=== PATIENT | male | born 1950 | race Caucasian/White ===

== ENCOUNTER 2018-10-17 06:39 | Day surgery (SDC) | payer MEDICARE, SELFPAY ==
[2018-09-19 08:11] VITALS: BMI 32.2
--- NOTE | 2018-10-16 17:04 | HP.PCM_ITS ---
History and Physical Date of Admission: 10/17/18 HISTORY OF PRESENT ILLNESS 68 year old man presents for evaluation for TBSE. He has a concern about an erythematous lesion on the superior aspect left posterior ear that has increased in size over the last several months and has developed irregular borders. It occasionally bleeds when he scratches it. He denies fever. He denies major trauma but does scratch it from time to time because it itches. He denies any recent infection. He also has concerns about scattered actinic damage on his bilateral forearms. He presents today for further evaluation and treatment. PAST MEDICAL HISTORY Colon polyps Disorder of prostate Heart murmur Mixed hyperlipidemia PAST SURGICAL HISTORY blepharoplasty colonoscopy tonsillectomy ALLERGIES codeine MEDICATIONS amlodipine aspirin atorvastatin ezetimibe lisinopril imiquimod FAMILY HISTORY Mother - Diabetes Brother - Diabetes, Heart disease, CAD (coronary artery disease), Kidney disease Father - Heart disease, CAD (coronary artery disease) Grandfather - Heart disease Uncle - Heart disease Grandmother - Heart disease Other - Hypertension SOCIAL HISTORY Smoking Status: Never smoker alcohol intake: current details: COUPLE OF BEERS A DAY substance use type: does not use REVIEW OF SYSTEMS General - Denies fever, fatigue, and weight loss. Eyes - Denies cataracts and glaucoma. ENT - Denies nasal congestion and sore throat. Endocrine - Denies excessive thirst and urination. Skin - Denies skin cancer. Has enlarging lesion left posterior ear. Has scattered actinic damage bilateral forearms. Musculoskeletal - Denies joint pain, joint stiffness, weakness of muscles and joints, back pain, and arthritis. Neuro - Denies headaches. Cardiovascular - Denies chest pain, fatigue, and shortness of breath with exertion. Psych - Denies anxiety and depression. Respiratory - Denies chronic cough and shortness of breath. Gastrointestinal - Denies nausea, vomiting, diarrhea, and constipation. Hematologic - Denies abnormal bruising and bleeding. Genitourinary - Denies hematuria and urinary frequency. PHYSICAL EXAMINATION General - Alert and Oriented. HEENT - PERRL. EOMI. Throat is clear. On the superior aspect left posterior ear is an erythematous lesion that is raised in configuration. Has irregular borders. No ulceration. Lesion is nontender. It measures 7 mm. It is not adherent to the underlying cartilage. No other suspicious lesions noted. Neck - Supple and nontender. No cervical adenopathy. No suspicious lesions noted. Lungs - Clear to auscultation. Heart - Regular rate and rhythm. Abdomen - Soft and nondistended. Extremities - FROM. No axillary adenopathy. Radial pulses are palpable. Has scattered actinic damage bilateral forearms with some crusting and some erythematous skin coloration changes. No ulcerations. No nodularity. Neuro - CN II-XII grossly intact. Psych - Normal mood and affect. ASSESSMENT 1. 7 mm erythematous lesion superior aspect left posterior ear. 2. Scattered actinic damage bilateral forearms. PLAN The lesion left posterior ear could be a basal cell carcinoma or because of the history of scratching, it may represent a pyogenic granuloma that can bleed easily because of its friability. Recommend excision of this lesion left posterior ear and send it to Pathology for analysis to rule out carcinoma. If carcinoma is present then further excision will be done with probable skin grafting. If it is a possible pyogenic granuloma, a shave excision would not solve the issue of persistent bleeding if the base is left behind. So the excision will be a full thickness excision. If no carcinoma is seen on the frozen section, then reconstruction may be with a local skin flap because the defect will be smaller. Surgery will be done on an outpatient basis under local anesthesia and IV sedation. Patient was informed of the risks and complications of the procedure including alternatives to surgery. These were discussed with the patient personally. Patient voices understanding and wishes to proceed. Some of the risks and complications were included in a form from the [place] [employer]. With regard to the scattered actinic damage on his bilateral forearms, recommended to him Aldara therapy which is placed daily at night for 5 days per week for 6 weeks. After the treatment is done, will re-evaluate in 2 months. Depending on the response, a second cycle of Aldara may be necessary. If the Aldara is not successful, then excision of the lesion(s) would be necessary and send them to Pathology for analysis to rule out carcinoma. If carcinoma is present then further excision would be done, and reconstruction would be with skin grafting or skin flap. Will send script to his Pharmacy.
[2018-10-17] VITALS (7 sets, daily range): BP systolic 97–144; BP diastolic 55–70; PULSE 51–58; RESP 16; TEMP 36.1–37.1; O2SAT 95–97; BMI 32.3
--- NOTE | 2018-10-17 | LES_PTH ---
PATIENT: SHAMIKA CUEVAS LOC: [facility] [place] U#:[id number] AGE/SX: 68/M ROOM: RE10/17/[address]: Dr. Alvin Stanford MD : 1950 BED: DIS: 10/17/2018 SPEC #: [id number] RECD: 10/17/18 08:24 STATUS: YANG TERESA #: [id number] MADINA: 10/17/18 00:[address]: Alvin Stanford DEPT: SURGICAL PATHOLOGY RECD BY: Barbara Maddox ENTERED: 10/17/18 10:15 SP TYPE: Lesion OTHR DR: Dr. Vic Pete MD Tissues: Skin of external ear, NOS Procedures: Frozen Section (charge) Surgery Specimen Level IV HEADER OPERATION: Excision lesion, frozen section, possible skin graft/flap, left ear PRE-OP DIAGNOSIS: 7 mm erythematous lesion superior aspect left posterior ear TISSUE SUBMITTED: 7 mm erythematous lesion superior aspect left posterior ear sent for FS at 0818 FROZEN SECTION DIAGNOSIS 7 mm erythematous lesion superior aspect left posterior ear, biopsy: Negative for malignancy. ROMY:nya 10/17/18 MICROSCOPIC DIAGNOSIS 7 mm erythematous lesion, superior aspect left posterior ear, shave biopsy: Benign vascular proliferation, consistent with pyogenic granuloma. Negative for malignancy. ROMY:nya 10/20/18 MICROSCOPIC DESCRIPTION Slides are reviewed. GROSS DESCRIPTION Received fresh for frozen section consultation/diagnosis labeled with the patient's name is a specimen designated 7 mm erythematous lesion superior aspect left posterior ear. The specimen consists of a shave biopsy of rodriguez-white skin measuring 0.8 x 0.5 x 0.1 cm. The specimen is oriented by a suture at 12 o'clock. The specimen is inked as follows: half of the specimen towards 12 o'clock - black and other half towards 6 o'clock - blue. The specimen is bisected and submitted entirely for frozen section diagnosis in one cassette. / ROMY:nya 10/17/18 TC:5 CPT: 51255, 01047
[2018-10-17] MEDS: Mupirocin Ointment 22gm Tube 1 APPLIC (09:00)
--- NOTE | 2018-10-17 09:12 | PCM.OPRPT ---
Report of Operation Date of Procedure: 10/17/18 Pre-Operative Diagnosis: 7 mm erythematous lesion superior aspect left posterior ear. Post-Operative Diagnosis: 7 mm pyogenic granuloma superior aspect left posterior ear. Surgery/Procedure Performed:: Excision 7 mm pyogenic granuloma superior aspect left posterior ear with bilobed transposition skin flap reconstruction (4 cm2). Description of Surgical Findings:: 68 year old man presents for evaluation for TBSE. He has a concern about an erythematous lesion on the superior aspect left posterior ear that has increased in size over the last several months and has developed irregular borders. It occasionally bleeds when he scratches it. He denies fever. He denies major trauma but does scratch it from time to time because it itches. He denies any recent infection. He also has concerns about scattered actinic damage on his bilateral forearms. Patient was informed of the risks and complications of the procedure including alternatives to surgery. These were discussed with the patient personally. Patient voices understanding and wishes to proceed. Some of the risks and complications were included in a form from the [employer] [employer]. Frozen section left posterior ear - pyogenic granuloma and no carcinoma seen. 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 Specimen's removed: Erythematous lesion superior aspect left posterior ear to Pathology as a frozen section. Drains: None. Estimated Blood Loss (mL): 5 ml. Description of Procedure: Patient was taken to OR in supine position and was given IV sedation. The left ear was prepped and draped in the usual fashion. SCD's were placed for DVT prophylaxis. Perioperative antibiotics were given intravenously. The left ear was infiltrated with xylocaine and epinephrine as a regional periauricular block. After waiting 5 minutes for the anesthetic to take effect, I excised the lesion superior aspect left posterior ear into the subcutaneous tissue. The lesion was excised with a one mm margin in all directions making it a 9 mm excision. I placed a suture at 12 oclock position for pathology orientation. The lesion was sent to Pathology as a frozen section for analysis to rule out carcinoma. Frozen section showed a pyogenic granuloma or hemangioma and no carcinoma seen. Therefore no additional margin will be taken. So wound closure can proceed with a local bilobed transposition skin flap. The bilobed flap was designed on the left posterior ear at a 90 degree angle. Incisions were made and the flap was elevated at the level of the underlying perichondrium. Hemostasis was obtained with electrocautery. The bilobed flap was easily transposed into the defect with minimal tension and minimal distortion. Good ear contour was noted. Once the flap was transposed into the defect, the incisions were closed with 5-0 Monocryl simple interrupted and vertical mattress interrupted sutures. Antibiotic ointment was applied to the suture line followed by a small gauze dressing. The size of the defect and the size of the flap needed to close the defect was 4 cm2. Patient tolerated the procedure well and was sent to PACU in satisfactory condition. Patient will be sent home on antibiotics and pain medication. He will keep his head elevated during the initial postop period. Patient will followup in a week for a wound check and for discussion of the pathology report. Grafts/Implants Used: None. - Complications None. - Admit VTE Documentation VTE Present on Admission: No VTE Mechan Device Prophylaxis: SCD's VTE Pharm Prophylaxis ordered?: No Code Visit Surgery Charges CPT - 02190 ICD-10 - L98.0, D49.2 79684 L98.0, D49.2
--- NOTE | 2018-10-17 09:21 | PCM.DC ---
You will use the following diet at home:: No restrictions Discharge Activity: May not drive while taking narcotic pain medications., May Shower - in two days., - - keep head elevated. no heavy lifting. May shower in (days): 2 May resume sexual activity in: No Restrictions Weight Bearing Status: Weight bearing as tolerated Lifting Restrictions: 20 lbs. Keep extremity elevated above heart level: - - elevate head. Call your doctor if your incision/area has: Continuous Slow Oozing, Sudden Increased Bleeding, Increased Pain/ Swelling, Increased Redness, Foul Smelling Discharge, Swelling at the incision site Call your doctor if you observe: Fever of 101 or Higher, Coldness, Increased Pain, Shortness of breath, Chest pain, Calf discomfort, Uncontrolled pain Suture Line Care: - - apply antibiotic ointment to suture line daily. Remove Dressing in (days):: 1 - antibiotic ointment daily. Cleanse incision/area with: - - may get incision wet in the shower in two days. Allergies/Adverse Reactions: Allergies codeine Allergy (Verified 10/13/18 13:46) INTOLERANCE GETS REALLY HIGH Medications to take at Discharge amlodipine 10 mg tablet 10 mg PO DAILY 08/18/18 atorvastatin 20 mg tablet 20 mg PO DAILY 08/18/18 ezetimibe 10 mg tablet 10 mg PO DAILY 08/18/18 lisinopril 20 mg tablet 20 mg PO DAILY 08/18/18 Clindamycin HCl [Cleocin] 300 mg PO TID #12 cap 10/17/18 Lactobacillus Acidophilus/Fos [Acidophilus Probiotic Tablet] 1 ea PO BID #10 tab 10/17/18 Oxycodone HCl/Acetaminophen [Percocet 5/325] 1 tab PO 4X/DAY PRN PRN 4 Days #15 tab 10/17/18 The following prescriptions were given: Oxycodone HCl/Acetaminophen [Percocet 5/325] 1 tab PO 4X/DAY PRN PRN 4 Days #15 tab PRN Reason: Pain Lactobacillus Acidophilus/Fos [Acidophilus Probiotic Tablet] 1 ea PO BID #10 tab Clindamycin HCl [Cleocin] 300 mg PO TID #12 cap Primary Care Physician: Vic Pete MD [Primary Care Provider] - Test Results: Test results from this visit will be discussed in further detail at your follow-up appointment, if applicable. Please Follow Up With: Avlin Stanford MD When: one week. call [phone] for appt. Proposed Discharge Date: 10/17/18
--- NOTE | 2018-10-17 09:24 | DCINST_ITS ---
You will use the following diet at home:: No restrictions Discharge Activity: May not drive while taking narcotic pain medications., May Shower - in two days., - - keep head elevated. no heavy lifting. May shower in (days): 2 May resume sexual activity in: No Restrictions Weight Bearing Status: Weight bearing as tolerated Lifting Restrictions: 20 lbs. Keep extremity elevated above heart level: - - elevate head. Call your doctor if your incision/area has: Continuous Slow Oozing, Sudden Increased Bleeding, Increased Pain/ Swelling, Increased Redness, Foul Smelling Discharge, Swelling at the incision site Call your doctor if you observe: Fever of 101 or Higher, Coldness, Increased Pain, Shortness of breath, Chest pain, Calf discomfort, Uncontrolled pain Suture Line Care: - - apply antibiotic ointment to suture line daily. Remove Dressing in (days):: 1 - antibiotic ointment daily. Cleanse incision/area with: - - may get incision wet in the shower in two days. Allergies/Adverse Reactions: Allergies codeine Allergy (Verified 10/13/18 13:46) INTOLERANCE GETS REALLY HIGH Medications to take at Discharge amlodipine 10 mg tablet 10 mg PO DAILY 08/18/18 atorvastatin 20 mg tablet 20 mg PO DAILY 08/18/18 ezetimibe 10 mg tablet 10 mg PO DAILY 08/18/18 lisinopril 20 mg tablet 20 mg PO DAILY 08/18/18 Clindamycin HCl [Cleocin] 300 mg PO TID #12 cap 10/17/18 Lactobacillus Acidophilus/Fos [Acidophilus Probiotic Tablet] 1 ea PO BID #10 tab 10/17/18 Oxycodone HCl/Acetaminophen [Percocet 5/325] 1 tab PO 4X/DAY PRN PRN 4 Days #15 tab 10/17/18 The following prescriptions were given: Oxycodone HCl/Acetaminophen [Percocet 5/325] 1 tab PO 4X/DAY PRN PRN 4 Days #15 tab PRN Reason: Pain Lactobacillus Acidophilus/Fos [Acidophilus Probiotic Tablet] 1 ea PO BID #10 tab Clindamycin HCl [Cleocin] 300 mg PO TID #12 cap Primary Care Physician: Vic Pete MD [Primary Care Provider] - Test Results: Test results from this visit will be discussed in further detail at your follow- up appointment, if applicable. Please Follow Up With: Alvin Stanford MD When: one week. call [phone] for appt. Proposed Discharge Date: 10/17/18
--- NOTE | 2018-10-17 09:33 | PCM.WORK.EX ---
Work/School Excuse Work/School Excuse for:: Patient Please excuse this person from:: Work From: 10/17/18 through: 10/19/18 Restrictions: Other - May return to work on Saturday10/20/18
== END 2018-10-17 10:20 | disposition home or self-care (01) ==
LOC: SDC 06:42 → AC 06:43
PROVIDERS: Family Provider Family Medicine; PCP Family Medicine; Referring Provider Surgery; Visit Provider Surgery
PROC: (CPT 14060; principal; 2018-10-17 07:45)
DX: L98.0 Pyogenic granuloma (principal); I10 Essential (primary) hypertension; E78.2 Mixed hyperlipidemia; Z79.82 Long term (current) use of aspirin; Z79.899 Other long term (current) drug therapy; Z88.5 Allergy status to narcotic agent; Z86.010 Personal history of colon polyps
CPT/HCPCS: 00300; 14060; 88305; 88331; J7120; A4216; J2405

== ENCOUNTER → 2024-12-31 | Outpatient (CLI) | payer MEDICARE, SELFPAY ==
--- NOTE | 2024-12-31 | LES_PTH ---
PATIENT: SHAMIKA CUEVAS LOC: [facility] U#:[id number] AGE/SX: 74/M ROOM: RE12/31/[address]: Dr. Elias Coker MD : 1950 BED: DIS: 12/31/2024 SPEC #: [id number] RECD: 01/01/25 06:08 STATUS: YANG WESTBROOKKathya #: [id number] MADINA: 12/31/24 00:[address]: Elias Coker DEPT: SURGICAL PATHOLOGY RECD BY: Tao Cowart ENTERED: 01/01/25 09:49 SP TYPE: Lesion OTHR DR: Dr. Vic Pete MD Tissues: A - Skin of face, NOS B - Skin of face, NOS C - Scalp, NOS Procedures: Surgery Specimen Level IV HEADER OPERATION: Biopsy right cheek, biopsy back of head PRE-OP DIAGNOSIS: Biopsies of right cheek and back of head TISSUE SUBMITTED: A- #1 right cheek lesion, B- #2 right cheek lesion, C- Scalp lesion MICROSCOPIC DIAGNOSIS A. Cheek, right, lesion, biopsy: - Basal cell carcinoma involving the surgical margins. B. Cheek, right, lesion, biopsy: - Basal cell carcinoma involving the surgical margins. C. Scalp, lesion, biopsy: - Superficial portion of a keratotic lesion - see note. Note: The lesion is incompletely excised which limits the assessment. Neoplasia cannot be ruled out. Repeat biopsy for additional diagnostic material is suggested, if clinically indicated. MICROSCOPIC DESCRIPTION Slides are reviewed. GROSS DESCRIPTION Received in 3 formalin containers labeled with the patient's name and date of . Designated as: A. #1 Right cheek lesion is a 0.6 x 0.3 x 0.1 cm rodriguez skin shave devoid of orientation. Resection margin is inked black. Eccentrically on the epidermal surface is a 0.3 x 0.2 x 0.1 cm rodriguez, slightly raised apparent lesion abutting the peripheral edge. The specimen is trisected and entirely submitted in 1 cassette. B. #2 Right cheek lesion is a 0.6 x 0.5 x 0.2 cm rodriguez irregular and somewhat friable portion of skin devoid of orientation. The presumed resection margin is inked green. The specimen is biseccted and entirely submitted in 1 cassette. C. Scalp lesion is a 0.4 x 0.2 x 0.1 cm rodriguez and granular portion of skin devoid of orientation. A resection margin is unable to be determined grossly. The specimen is entirely submitted in [address] 01/01/2025 CPT:45286d2
--- OUTSIDE RECORDS SUMMARY | 2025-01-01 06:20 | XMS RPT_ITS | CCD ---
Demographics Address [address] [address] Preferred Language en Marital Status Single Restoration Affiliation Unknown Race White Ethnic Group Not or Lati no Author Organization [facility] Care Team Providers Care Intelligence Research Specialist Name Role Phone Vic Parra MD Primary Care Provider [phone] Vic Parra MD Primary Care Provider [facility] [employer] MEMBER.Leah GONZALEZ Unavailable Jyotsna Siu PA-C Unavailable Mars [employer]EOROLOG[employer] FACULT[employer] MEMBER.Leah GONZALEZ Unavailable Jyotsna Siu PA-C Unavailable VIC PARRA Primary Care Unavailable JYOTSNA SIU Referring Unavailable VIC PARRA Referring Unavailable VIC PARRA Primary Care Unavailable VIC PARRA Attending Unavailable VIC PARRA Primary Care Unavailable VIC PARRA Referring Unavailable VIC PARRA Primary Care Unavailable VIC PARRA Primary Care Unavailable JYOTSNA SIU Attending Unavailable VIC PARRA Primary Care Unavailable SELF Referring Unavailable Dr. Vic Parra MD Primary Care Provider Dr. Vic Parra MD Referring Provider Dr. Elias Coker MD Attending Provider [phone] Vic Parra Referring Unavailable Vic Parra Primary Care Unavailable Elias Coker Attending Unavailable Allergies Allergy Classification Reported Allergen(s) Allergy Type Date of Onset Reaction(s) Facility (20 sources) Codeine; Translations: [CODEINE] Drug Allergy 12-13-2015 Intolerance [facility] Work Phone: Comment on above: GETS REALLY HIGH (1 source) Codeine Drug Allergy 12-31-2024 [facility] Repository Medications Current Medications Medication Drug Class(es) Dates Sig (Normalized) Sig (Original) amLODIPine 10 mg oral tablet (20 sources) Dihydropyridine Calcium Channel [facility] Start: 10-12-2024 take 1 tablet by mouth once daily amLODIPine (NORVASC) 10 mg tablet Take 1 tablet by mouth once daily. 90 tablet 1 10/12/2024 Active Start: 04-06-2024 End: 10-10-2024 take 1 tablet by mouth once daily amLODIPine (NORVASC) 10 mg tablet Take 1 tablet by mouth once daily. 90 tablet 1 04/06/2024 10/10/2024 Discontinued Start: 10-05-2022 End: 04-04-2024 take 1 tablet by mouth once daily amLODIPine (NORVASC) 10 mg tablet Take 1 tablet by mouth once daily. 90 tablet 1 10/16/2023 04/04/2024 Discontinued Start: 10-02-2021 End: 04-01-2022 take 1 tablet by mouth once daily amLODIPine (NORVASC) 10 mg tablet Take 1 tablet by mouth once daily. 90 tablet 1 04/02/2022 Active Start: 03-28-2021 End: 09-30-2021 take 1 tablet by mouth once daily amLODIPine (NORVASC) 10 mg tablet Take 1 tablet by mouth once daily. 90 tablet 1 03/28/2021 09/30/2021 Discontinued Start: 08-18-2018 End: 09-24-2020 take 1 tablet by mouth once daily amLODIPine (NORVASC) 10 mg tablet Take 1 tablet by mouth once daily. 90 tablet 1 02/17/2020 09/24/2020 Discontinued Comment on above: Take 1 tablet by mónica th once daily. amoxicillin 875 mg / clavulanate 125 mg oral tablet (1 source) Penicillin-class Antibacterial Start: 07-12-2022 End: 07-22-2022 take 1 tablet by mouth twice daily amoxicillin-clav ulanic acid (AUGMENTIN) 875-125 mg per tablet Take 1 tablet by mouth twice daily for 10 days. 20 tablet 0 07/12/2022 07/22/2022 Active Comment on above: Take 1 tablet by mónica th twice daily for 10 days. aspirin 81 mg delayed release oral tablet (20 sources) Platelet Aggregation Inhibitor, Nonsteroidal Anti-inflammatory Drug Start: 12-31-2024 Aspirin (Adult Low Dose Aspirin) 81 mg tablet,delayed release (DR/EC) Active 81 mg PO daily December 31, 2024 12:00am Start: 08-01-2018 End: 10-17-2018 take 1 tablet by mouth once daily Aspirin 81 mg tablet,delayed release (DR/EC) Discontinued 81 mg PO DAILY August 18, 2018 12:00am October 17, 2018 9:19am Comment on above: Take 1 tablet by mónica th once daily. atorvastatin 20 mg oral tablet (20 sources) HMG-CoA Reductase Inhibitor Start: End: take 1 tablet by mouth once daily atorvastatin (LIPITOR) 20 mg tablet Take 1 tablet by mouth once daily. 90 tablet 1 11/24/2024 Active Start: 10-31-2022 End: 05-15-2023 take 1 tablet by mouth once daily atorvastatin (LIPITOR) 20 mg tablet Take 1 tablet by mouth once daily. 90 tablet 1 05/15/2023 Active Start: 04-07-2021 End: 04-18-2022 take 1 tablet by mouth once daily atorvastatin (LIPITOR) 20 mg tablet Take 1 tablet by mouth once daily. 90 tablet 1 04/18/2022 Active Start: 08-18-2018 End: 09-24-2020 take 1 tablet by mouth once daily atorvastatin (LIPITOR) 20 mg tablet Take 1 tablet by mouth once daily. 90 tablet 1 02/17/2020 09/24/2020 Discontinued Comment on above: Take 1 tablet by mónica th once daily. benzonatate 100 mg oral capsule (1 source) Non-narcotic Antitussive Start: 06-10-19 End: 06-20-19 take 2 capsules by mouth three times daily as needed benzonatate (TESSALON PERLE) 100 mg capsule Indications: Viral bronchitis Take 2 capsules by mouth three times a day as needed for up to 10 days. 60 capsule 2024 06/20/2024 Active ciprofloxacin 3 mg/ml ophthalmic solution (1 source) Quinolone Antimicrobial Start: 07-12-19 End: 07-19-19 take 5 mL into the eye(s) four times daily ciprofloxacin HCl (CILOXAN) 0.3 % ophthalmic solution Indications: Eye irritation , Pain and swelling of eyelid 4 times per day for 7 days 5 mL 0 07/12/2022 07/19/2022 Active Comment on above: 4 times per day for 7 days Comp Stocking,Knee,Regular ,Med misc (20 sources) Start: 11-20-19 Comp Stocking,Knee,Regula r,Med misc Indications: Venous insufficiency (chronic) (peripheral) Knee High Compression Stockings 20-30 mm, DX: Venous insufficiency 187.2 8 Each 11/20/2023 Active Start: 11-20-2023 Comp Stocking, Knee,Regular,Med misc Indications: Venous insufficiency (chronic) (peripheral) Knee High Compression Stockings 20-30 mm, DX: Venous insufficiency 187.2 8 Each 0 11/20/2023 Active Start: 08-12-2019 End: 11-20-2023 Comp Stocking,Knee,Regular,M ed misc Indications: Venous insufficiency (chronic) (peripheral) Knee High Compression Stockings 20-30 mm, DX: Venous insufficiency 187.2 8 Each 08/12/2019 11/20/2023 Discontinued Start: 08-12-2019 End: 11-20-2023 Comp Stocking,Knee,Regular,M ed misc Indications: Venous insufficiency (chronic) (peripheral) Knee High Compression Stockings 20-30 mm, DX: Venous insufficiency 187.2 8 Each 0 08/12/2019 11/20/2023 Discontinued Start: 08-12-2019 Comp Stocking, Knee,Regular,Med misc Indications: Venous insufficiency (chronic) (peripheral) Knee High Compression Stockings 20-30 mm, DX: Venous insufficiency 187.2 8 Each 0 08/12/2019 Active Comment on above: Knee High Compressio n Stockings 20-30 mm, DX: Venous insufficiency 187.2 COMPOUNDED PRESCRIPTION (20 sources) Start: 01-27-2018 COMPOUNDED PRESCRIPTION Indications: Venous insufficiency (chronic) (peripheral) Knee High Compression Stockings 20-30 mm, DX: Venous insufficiency 8 Each 01/27/2018 Active Start: 01-27-2018 COMPOUNDED PRE SCRIPTION Indications: Venous insufficiency (chronic) (peripheral) Knee High Compression Stockings 20-30 mm, DX: Venous insufficiency 8 Each 0 01/27/2018 Active Comment on above: Knee High Compressio n Stockings 20-30 mm, DX: Venous insufficiency ezetimibe 10 mg oral tablet (20 sources) Dietary Cholesterol Absorption Inhibitor Start: 3 End: 5 take 1 tablet by mouth once daily ezetimibe (ZETIA) 10 mg tablet Indications: Mixed hyperlipidemia Take 1 tablet by mouth once daily. 90 tablet 1 11/11/2024 Active Start: 04-07-2021 End: 10-21-2022 take 1 tablet by mouth once daily ezetimibe (ZETIA) 10 mg tablet Indications: Mixed hyperlipidemia Take 1 tablet by mouth once daily. 90 tablet 1 10/22/2022 Active Start: 08-18-2018 End: 09-24-2020 take 1 tablet by mouth once daily ezetimibe (ZETIA) 10 mg tablet Indications: Mixed hyperlipidemia Take 1 tablet by mouth once daily. 90 tablet 1 02/17/2020 09/24/2020 Discontinued Comment on above: Take 1 tablet by mónica th once daily. lisinopril 20 mg oral tablet (20 sources) Angiotensin Converting Enzyme Inhibitor Start: 05-27-2023 End: 11-24-2024 take 1 tablet by mouth once daily lisinopril (ZESTRIL) 20 mg tablet Take 1 tablet by mouth once daily. 90 tablet 1 11/24/2024 Active Start: 10-31-2022 End: 05-15-2023 take 1 tablet by mouth once daily lisinopril (ZESTRIL) 20 mg tablet Take 1 tablet by mouth once daily. 90 tablet 1 05/15/2023 Active Start: 04-07-2021 End: 04-18-2022 take 1 tablet by mouth once daily lisinopril (ZESTRIL, PRINIVIL) 20 mg tablet Take 1 tablet by mouth once daily. 90 tablet 1 04/18/2022 Active Start: 08-18-2018 End: 09-24-2020 take 1 tablet by mouth once daily lisinopril (ZESTRIL, PRINIVIL) 20 mg tablet Take 1 tablet by mouth once daily. 90 tablet 1 02/17/2020 09/24/2020 Discontinued Comment on above: Take 1 tablet by mónica th once daily. mupirocin 0.02 mg/mg topical ointment (7 sources) RNA Synthetase Inhibitor Antibacterial Start: mupirocin (BACTROBAN) 2 % ointment Apply to affected area three times a day. 15 g 05/21/2024 Active polyethylene glycol 3350 927132 mg / potassium chloride 2970 mg / sodium bicarbonate 6740 mg / sodium chloride 5860 mg / sodium sulfate 88514 mg powder for oral solution (1 source) Osmotic Laxative Start: 2 End: 2 peg 3350-Electrolytes (GOLYTELY) 236-22.74-6.74 -5.86 gram suspension Take 4,000 mL by mouth one time only for 1 dose. 1 Each 0 11/08/2021 11/08/2021 Active Comment on above: Take 4,000 mL by mónica th one time only for 1 dose. predniSONE 20 mg oral tablet (2 sources) Start: 5 End: 5 take 2 tablets by mouth once daily predniSONE (DELTASONE) 20 mg tablet Indications: Viral bronchitis Take 2 tablets by mouth once daily for 4 days. 8 tablet 2024 06/14/2024 Active Start: 04-27-2020 End: 10-06-2020 take 3 tablets by mouth once daily predniSONE (DELTASONE) 20 mg tablet Indications: Right shoulder pain, unspecified chronicity 3 tabs a day by mouth for the next 5 days 15 tablet 04/27/2020 10/06/2020 Discontinued (Course of therapy completed) Completed/Discontinued Medications Medication Drug Class(es) Dates Sig (Normalized) Sig (Original) acetaminophen 325 mg / oxyCODONE hydrochloride 5 mg oral tablet (1 source) Opioid Agonist Start: 10-17-2018 End: 10-21-2018 Oxycodone-Acetamino phen 1 TABLET tablet Discontinued 1 {tbl} PO 4 TIMES DAILY NEEDED as needed for Pain 15 4 0 October 17, 2018 9:19am October 20, 2018 12:00am October 21, 2018 12:07am Other acute postprocedural pain 15 tabs (fifteen) clindamycin 300 mg oral capsule (1 source) Lincosamide Antibacterial Start: 10-17-2018 End: 12-31-2024 take 1 capsule by mouth three times daily Clindamycin Hcl 300 MG capsule Discontinued 300 mg PO THREE TIMES A DAY 12 October 17, 2018 12:00am December 31, 2024 8:22am ketorolac tromethamine 4 mg/ml ophthalmic solution (13 sources) Nonsteroidal Anti-inflammatory Drug, Cyclooxygenase Inhibitor End: 11-24-2024 keTORolac Tromethamine (ACLUAR LS) 0.4 % drop Use 1 Drop in the left eye four times daily. 11/24/2024 Discontinued (Course of therapy completed) Comment on above: Use 1 Drop in the le ft eye four times daily. Lactobac Acidoph-Fructooligo s 1 EACH tablet (1 source) Start: 10-17-2018 End: 12-31-2024 Lactobac Acidoph-Fructooligo s 1 EACH tablet Discontinued 1 NMA PO TWICE A DAY 10 October 17, 2018 12:00am December 31, 2024 8:22am prednisoLONE acetate, PF, 1 % drps (13 sources) End: 11-24-2024 prednisoLONE acetate, PF, 1 % drps Use in eyes. 11/24/2024 Discontinued (Course of therapy completed) prednisoLONE saranya bateman, PF, 1 % drps Use in eyes. Active prednisoLONE saranya bateman, PF, 1 % drps Use in eyes. 0 Active Comment on above: Use in eyes. Problems Active Problems Problem Classification Problem Date Documented Date Episodic/Chronic Acute bronchitis (1 source) Viral bronchitis; Translations: [Acute bronchitis due to other specified organisms] 2024 Episodic Administrative/social admission (20 sources) Advance directive discussed with patient; Translations: [Other specified counseling] Onset: 10-11-2021 Episodic Disorders of lipid metabolism (20 sources) Mixed hyperlipidemia; Translations: [Mixed hyperlipidemia] Onset: 09-26-2015 10-22-2015 Chronic Diverticulosis and diverticulitis (20 sources) Diverticular disease; Translations: [Diverticulosis of intestine, part unspecified, without perforation or abscess without bleeding] 02-04-2019 Chronic Essential hypertension (20 sources) Essential hypertension; Translations: [Essential (primary) hypertension] Onset: 09-26-2015 10-22-2015 Chronic Hemorrhoids (20 sources) Hemorrhoids; Translations: [Unspecified hemorrhoids] 02-04-2019 Episodic Immunizations and screening for infectious disease (2 sources) Vaccination needed; Translations: [Encounter for immunization] Onset: 11-24-2024 11-20-2023 Episodic Neoplasms of unspecified nature or uncertain behavior (4 sources) Neoplasm of uncertain behavior of skin of neck; Translations: [Neoplasm of uncertain behavior of skin] Onset: 11-24-2024 11-24-2024 Episodic Comment on above: 7 mm erythematous le erika superior aspect left posterior ear Other diseases of veins and lymphatics (1 source) Peripheral venous insufficiency; Translations: [Venous insufficiency (chronic) (peripheral)] 11-20-2023 Episodic Other eye disorders (1 source) Disorder of eye; Translations: [Other specified disorders of eye and adnexa] Episodic Other eye disorders (1 source) Swelling of eyelid; Translations: [Other specified disorders of eyelid] Episodic Other hereditary and degenerative nervous system conditions (20 sources) Essential tremor; Translations: [Essential tremor] Onset: 04-07-2021 04-07-2021 Chronic Other hereditary and degenerative nervous system conditions (1 source) Essential tremor; Translations: [Essential tremor] Onset: 04-07-2021 Chronic Other non-traumatic joint disorders (1 source) Pain in right shoulder; Translations: [Pain in joint, shoulder region] 04-27-2020 Episodic Other nutritional; endocrine; and metabolic disorders (1 source) Hypocalcemia; Translations: [Hypocalcemia] 11-24-2024 Chronic Other nutritional; endocrine; and metabolic disorders (1 source) Hypocalcemia; Translations: [Hypocalcemia] Onset: 11-24-2024 Chronic Other skin disorders (20 sources) Actinic keratosis; Translations: [Actinic keratosis] Onset: 02-04-2019 06-06-2021 Episodic Comment on above: scattered actinic da mage bilateral forearms Other skin disorders (1 source) Pyogenic granuloma of skin; Translations: [Pyogenic granuloma] 10-19-2018 Episodic Comment on above: 7 mm pyogenic granul russell superior aspect left posterior ear Other upper respiratory infections (1 source) Viral upper respiratory tract infection; Translations: [Acute upper respiratory infection, unspecified] 2024 Episodic Screening and history of mental health and substance abuse codes (2 sources) Encounter for screening examination for other mental health and behavioral disorders; Translations: [Encounter for screening for depression] Onset: 11-24-2024 Episodic Past or Other Problems Problem Classification Problem Date Documented Da te Episodic/Chronic Diabetes mellitus without complication (20 sources) Hyperglycemia; Translations: [Impaired fasting glucose] Onset: 11-09-2015 11-09-2015 Episodic Other and unspecified benign neoplasm (20 sources) History of polyp of colon; Translations: [Personal history of colonic polyps] Onset: 10-26-2015 10-26-2015 Episodic Other connective tissue disease (9 sources) Biceps tendinitis; Translations: [Bicipital tendinitis, right shoulder] Onset: 05-11-2020 05-11-2020 Episodic Other infections; including parasitic (15 sources) History of herpes zoster; Translations: [Personal history of other infectious and parasitic diseases] Onset: 10-31-2022 10-31-2022 Episodic Other male genital disorders (20 sources) Disorder of prostate; Translations: [Disorder of prostate, unspecified] Onset: 07-11-2016 07-11-2016 Episodic Other non-traumatic joint disorders (9 sources) Shoulder pain; Translations: [Pain in right shoulder] Onset: 05-11-2020 05-11-2020 Episodic Other screening for suspected conditions (not mental disorders or infectious disease) (20 sources) Patient encounter status; Translations: [Encounter for screening for malignant neoplasm of prostate] Onset: 10-22-2015 10-22-2015 Episodic Residual codes; unclassified (20 sources) Family history of coronary arteriosclerosis; Translations: [Family history of ischemic heart disease and other diseases of the circulatory system] Onset: 09-26-2015 10-22-2015 Episodic Residual codes; unclassified (20 sources) Active living will ; Translations: [Other specified health status] Onset: 10-11-2021 Episodic Results Test Name Value Interpretation Reference Range Facility [facility] 11-24-2024 CNOV Office Visit (FAMPWS ) SHAMIKA DONAHUE ([id number]) 1950 M Date Time Provider Department 11/24/24 8:00 AM [facility] During your visit today, we recorded the following information about you: Pulse Respiration Blood pressure Weight 66/minute 16/minute 126/72 89.8 kg Height 1.683 m Vic Parra MD 11/24/2024 7:21 PM Signed Shamika Donahue is a 74 year old male here for a Medicare wellness visit. Medicare Health Risk Assessment General Health Very good Exercise: Minutes/Day 0 min Exercise: Days/Week 0 days Alcohol: Daily Use 4 or more times a week Alcohol: Drinks/Day 1 or 2 Alcohol: 6 or more drinks Never Feel off balance No Concerns: Teeth/Dentures No Concerns: Sexual function No Troubled by feelings None of the above Frequency: Eating healthy diet Nearly every day ADLs requiring help None of the above Safety precautions in home/vehicle No Smoke, vape, chews tobacco No Difficulty hearing No Difficulty seeing No Current Providers Specialists: I have reviewed specialist-related care of the patient in the medical record. Current care team: Patient Care Team: Vic Parra MD as PCP - General (Family Medicine) Leah Crews APRN.CNP as Cooky Machine Operator (Family Medicine) Jyotsna Siu PA-C as Cooky Machine Operator (Family Medicine) Medical/Family history review Reviewed and updated problem list, medical/surgical/family/soci al history, medications, and allergies. Opioid use review Opioid Medications (last 90 days) No data to display Anxiety/Depression screening PHQ-2 Score: 0 (Lower risk for depression) Recommendation: no further intervention at this time Cognitive screening Score: 5 Cognitive screening reviewed and No further action needed (score 3-5). Functional Observation Was the patient's Timed Up AND Go test unsteady or >= 12 seconds? No Advance Care Planning Surrogate decision maker and/or advance care plan documented Measurements BP 140/76 Pulse 66 Resp 16 Ht 168.3 cm (5' 6.25) Wt 89.8 kg (198 lb) SpO2 94% BMI 31.72 kg/m? Vision Screening: Follows with optometry/ophthalmology Assessment/Plan Medicare annual wellness visit, subsequent (Z00.00) - Counseled on healthy diet and regular exercise - Fall avoidance information provided - Personalized prevention plan provided See below Chief Complaint Patient presents with: Medicare Wellness Exam HPI Shamika Donahue is a 74 year old male who presents here today for Chronic Medical Conditions. and Medicare Annual Visit. Patient with Hx of elevated fasting BS, HTN, Hyperlipidemia, essential tremor, elevated PSA as well as those reviewed and addressed below Shamika reports no recent hospitalizations or surgeries within the past year. He underwent bilateral cataract surgery in February 2023 and a bilateral blepharoplasty in 2023. He denies any new chronic conditions or major diagnoses in family members, but notes that his nephew was recently diagnosed with metastatic lung cancer. He reports no difficulties with activities of daily living, mobility, or balance, and denies any recent falls or fear of falling. He feels safe in his home and has not noticed any changes in memory, focus, or decision-making abilities. He denies feelings of depression, anxiety, or excessive worry, and reports that going to work helps him stay active and provides social interaction. He denies any recent fevers, frequent headaches, sudden changes in hearing or vision, issues with his nose or throat, lumps or swelling in his neck, wheezing, dyspnea, hemoptysis, chest pain, palpitations, or leg swelling. He also denies frequent nausea, emesis, diarrhea, heartburn, hematochezia, hematuria, dysuria, or changes in urinary frequency. He reports no new or unusual aches and pains, skin lesions, rashes, or sores, and denies any easy bruising or bleeding, changes in heat or cold tolerance, or increased thirst. He denies any episodes of syncope or seizures. He reports that his tremors are about the same, with some days being slightly worse than others, but they do not interfere with his daily activities. He has been working at a new job since mid-October and is enjoying it. He reports that the new company is much larger and has a presence in 22 counties in [place]. He notes that he has less responsibility and fewer headaches at the new job compared to his previous one. He reports that he was terminated from his previous job after giving a two-week notice, but is happy with his current position. Past medical history, appointments, medications, allergies reviewed. Previous Medical History PAST MEDICAL HISTORY Diagnosis Date Advance directive discussed with patient 10/11/2021 Discussed 10/2021 AK (actinic keratosis) 02/04/2019 right dorsal and lateral forearm, posterior upper right arm and right unl (more content not included)... Normal [place] Calcium.ionized [Moles/Vol]o n 11-24-2024 Calcium.ionized (Bld) [Mass/Vol] 1.26 mmol/L 1.08 - 1.30 mmol/L [facility] Calcium.ionized adjusted to pH 7.4 (Bld) [Moles/Vol] 1.25 mmol/L 1.08 - 1.30 mmol/L [facility] Interpretation and review of laboratory results Normal [facility] Calcium.ionized (Bld) [Mass/Vol] 1.26 mmol/L Normal 1.08-1.30 [place] Comment on above: Order Comment: Speci men Type: BLOOD SPECIMEN Ordering Facility: [facility] Address: [address] [place] [address] Performed By: #### 1 995-0 #### [facility] CLIA [id number] [address] [place] [address] [place] Calcium.ionized adjusted to pH 7.4 (Bld) [Moles/Vol] 1.25 mmol/L Normal 1.08-1.30 [place] Comment on above: Order Comment: Speci men Type: BLOOD SPECIMEN Ordering Facility: [facility] Address: [address] [place] [address] Performed By: #### 1 995-0 #### [facility] CLIA [id number] [address] [place] [address] [place] Urinalysis complete panel (U )on 11-21-2024 Bacteria LM.HPF (Urine sed) [#/Area] Negative Normal Negative [place] Comment on above: Order Comment: Speci men Type: URINE SPECIMEN Ordering Facility: [facility] Address: [address] [place] [address] Performed By: #### 2 4356-8 #### [facility] CLIA [id number] [address] [place] [address] [place] Bilirubin Ql (U) Negative Normal Negative [facility] Comment on above: Order Comment: Speci men Type: URINE SPECIMEN Ordering Facility: [facility] Address: [address] [place] [address] Performed By: #### 2 4356-8 #### [facility] CLIA [id number] [address] [place] [address] [place] Clarity (Unsp spec) Clear Normal Clear [place] Comment on above: Order Comment: Speci men Type: URINE SPECIMEN Ordering Facility: [facility] Address: [address] [place] [address] Performed By: #### 2 4356-8 #### [facility] CLIA [id number] [address] [place] [address] [place] Color (U) Yellow Normal Yellow [place] Comment on above: Order Comment: Speci men Type: URINE SPECIMEN Ordering Facility: [facility] Address: [address] [place] [address] Performed By: #### 2 4356-8 #### [facility] CLIA [id number] [address] [place] [address] [place] Epithelial cells LM.HPF (Urine sed) [#/Area] None Seen Normal [place] Comment on above: Order Comment: Speci men Type: URINE SPECIMEN Ordering Facility: [facility] Address: [address] [place] [address] Performed By: #### 2 4356-8 #### [facility] CLIA [id number] [address] [place] [address] [place] Glucose Test strip (U) [Mass/Vol] Negative Normal Negative [place] Comment on above: Order Comment: Speci men Type: URINE SPECIMEN Ordering Facility: [facility] Address: [address] [place] [address] Performed By: #### 2 4356-8 #### [facility] CLIA [id number] [address] [place] [address] [place] Hemoglobin Ql (U) Negative Normal Negative [facility] Comment on above: Order Comment: Speci men Type: URINE SPECIMEN Ordering Facility: [facility] Address: [address] [place] [address] Performed By: #### 2 4356-8 #### [facility] CLIA [id number] [address] [place], [place] [address] [place] Hyaline casts (Urine sed) [#/Area] 0 /[LPF] Normal 0 /LPF [place] Comment on above: Order Comment: Speci men Type: URINE SPECIMEN Ordering Facility: [facility] Address: [address] [place] [address] Performed By: #### 2 4356-8 #### [facility] CLIA [id number] [address] [place] [address] [place] Ketones Ql (U) Negative Normal Negative [place] Comment on above: Order Comment: Speci men Type: URINE SPECIMEN Ordering Facility: [facility] Address: [address] [place] [address] Performed By: #### 2 4356-8 #### [facility] CLIA [id number] [address] [place] [address] [place] Leukocyte esterase Test strip Ql (U) Negative Normal Negative [place] Comment on above: Order Comment: Speci men Type: URINE SPECIMEN Ordering Facility: [facility] Address: [address] [place] [address] Performed By: #### 2 4356-8 #### [facility] CLIA [id number] [address] [place] [address] [place] Nitrite Ql (U) Negative Normal Negative [place] Comment on above: Order Comment: Speci men Type: URINE SPECIMEN Ordering Facility: [facility] Address: [address] [place] [address] Performed By: #### 2 4356-8 #### [facility] CLIA [id number] [address] [place] [address] [place] pH (U) 6.0 [pH] Normal <8.5 [place] Comment on above: Order Comment: Speci men Type: URINE SPECIMEN Ordering Facility: [facility] Address: [address] [place] [address] Performed By: #### 2 4356-8 #### [facility] CLIA [id number] [address] [place] [address] [place] Protein (U) [Mass/Vol] Negative Normal Negative [place] Comment on above: Order Comment: Speci men Type: URINE SPECIMEN Ordering Facility: [facility] Address: [address] [place] [address] Performed By: #### 2 4356-8 #### [facility] CLIA [id number] [address] [place] [address] [place] RBC LM.HPF (Urine sed) [#/Area] 0-2 /HPF Normal 0-2 /HPF [place] Comment on above: Order Comment: Speci men Type: URINE SPECIMEN Ordering Facility: [facility] Address: [address] [place] [address] Performed By: #### 2 4356-8 #### [facility] CLIA [id number] [address] [place] [address] [place] Specific gravity (U) [Rel density] 1.013 Normal 1.005-1.030 [place] Comment on above: Order Comment: Speci men Type: URINE SPECIMEN Ordering Facility: [facility] Address: [address] [place] [address] Performed By: #### 2 4356-8 #### [facility] CLIA [id number] [address] [place] [address] [place] Urobilinogen Ql (U) 0.2 EU/dL Normal 0.2-1.0 EU/dL [place] Comment on above: Order Comment: Speci men Type: URINE SPECIMEN Ordering Facility: [facility] Address: [address] [place] [address] Performed By: #### 2 4356-8 #### [facility] CLIA [id number] [address] [place] [address] [place] WBC LM.HPF (Urine sed) [#/Area] 0-5 /HPF Normal 0-5 /HPF [place] Comment on above: Order Comment: Speci men Type: URINE SPECIMEN Ordering Facility: [facility] Address: [address] [place] [address] Performed By: #### 2 4356-8 #### [facility] CLIA [id number] [address] [place] [address] [place] Comprehensive metabolic 2000 panelon 11-17-2024 Albumin [Mass/Vol] 4.0 g/dL Normal 3.9-4.9 [facility] Comment on above: Order Comment: Speci men Type: URINE SPECIMEN Ordering Facility: [facility] Address: [address] [place] [address] Performed By: #### 2 4356-8 #### [facility] CLIA [id number] [address] [place] [address] [place] ALP [Catalytic activity/Vol] 106 U/L Normal 38-113 [place] Comment on above: Order Comment: Speci men Type: URINE SPECIMEN Ordering Facility: [facility] Address: [address] [place] [address] Performed By: #### 2 4356-8 #### [facility] CLIA [id number] [address] [place] [address] [place] ALT [Catalytic activity/Vol] 30 U/L Normal 10-54 [place] Comment on above: Order Comment: Speci men Type: URINE SPECIMEN Ordering Facility: [facility] Address: [address] [place] [address] Performed By: #### 2 4356-8 #### [facility] CLIA [id number] [address] [place], [place] [address] [place] Anion gap [Moles/Vol] 10 mmol/L Normal 8-15 [place] Comment on above: Order Comment: Speci men Type: URINE SPECIMEN Ordering Facility: [facility] Address: [address] [place] [address] Performed By: #### 2 4356-8 #### [facility] CLIA [id number] [address] [place], [place] [address] [place] AST [Catalytic activity/Vol] 25 U/L Normal 14-40 [place] Comment on above: Order Comment: Speci men Type: URINE SPECIMEN Ordering Facility: [facility] Address: [address] [place] [address] Performed By: #### 2 4356-8 #### [facility] CLIA [id number] [address] [place] [address] [place] Bilirubin [Mass/Vol] 0.6 mg/dL Normal 0.2-1.3 [place] Comment on above: Order Comment: Speci men Type: URINE SPECIMEN Ordering Facility: [facility] Address: [address] [place] [address] Performed By: #### 2 4356-8 #### [facility] CLIA [id number] [address] [place] [address] [place] Calcium [Mass/Vol] 8.4 mg/dL Low 8.5-10.2 [facility] Comment on above: Order Comment: Speci men Type: URINE SPECIMEN Ordering Facility: [facility] Address: [address] [place] [address] Performed By: #### 2 4356-8 #### [facility] CLIA [id number] [address] [place], [place] [address] [place] Chloride [Moles/Vol] 107 mmol/L Normal 98-107 [place] Comment on above: Order Comment: Speci men Type: URINE SPECIMEN Ordering Facility: [facility] Address: [address] [place], [place] [address] Performed By: #### 2 4356-8 #### [facility] CLIA [id number] [address] [place], [place] [address] [place] CO2 [Moles/Vol] 23 mmol/L Normal 22-30 [place] Comment on above: Order Comment: Speci men Type: URINE SPECIMEN Ordering Facility: [facility] Address: [address] [place] [address] Performed By: #### 2 4356-8 #### [facility] CLIA [id number] [address] [place] [address] [place] Creatinine [Mass/Vol] 0.90 mg/dL Normal 0.73-1.22 [place] Comment on above: Order Comment: Speci men Type: URINE SPECIMEN Ordering Facility: [facility] Address: [address] [place] [address] Performed By: #### 2 4356-8 #### [facility] CLIA [id number] [address] [place] [address] [place] Creatinine and Glomerular filtration rate.predicted panel (S/P/Bld) 89 mL/min/1.73m??? Normal >=60 [place] Comment on above: Order Comment: Speci men Type: URINE SPECIMEN Ordering Facility: [facility] Address: [address] [place] [address] Result Comment: Mallika mated Glomerular Filtration Rate (eGFR) is calculated using the 2020 CKD-EPI creatinine equation. This equation utilizes serum creatinine, sex, and age as parameters. The creatinine assay has traceable calibration to isotope dilution-mass spectrometry. Refer to KDIGO guidelines for clinical interpretation. In patients with unstable renal function, e.g. those with acute kidney injury, the eGFR may not accurately reflect actual GFR. Performed By: #### 2 4356-8 #### [facility] CLIA [id number] [address] [place] [address] [place] Glucose [Mass/Vol] 130 mg/dL High 74-99 [facility] Comment on above: Order Comment: Speci men Type: URINE SPECIMEN Ordering Facility: [facility] Address: [address] [place] [address] Result Comment: The [place] Diabetes Association (ADA) provides guidance for cutoff values for fasting glucose and random glucose. The ADA defines fasting as no caloric intake for at least 8 hours. Fasting plasma glucose results between 100 to 125 mg/dL indicate increased risk for diabetes (prediabetes). Fasting plasma glucose results greater than or equal to 126 mg/dL meet the criteria for diagnosis of diabetes. In the absence of unequivocal hyperglycemia, results should be confirmed by repeat testing. In a patient with classic symptoms of hyperglycemia or hyperglycemic crisis, random plasma glucose results greater than or equal to 200 mg/dL meet the criteria for diagnosis of diabetes. Reference: Standards of Medical Care in Diabetes 2016, [place] Diabetes Association. Diabetes Care. 2016.39(Suppl 1). Performed By: #### 2 4356-8 #### [facility] CLIA [id number] [address] [place] [address] [place] Potassium [Moles/Vol] 4.6 mmol/L Normal 3.7-5.1 [place] Comment on above: Order Comment: Speci men Type: URINE SPECIMEN Ordering Facility: [facility] Address: [address] [place] [address] Performed By: #### 2 4356-8 #### [facility] CLIA [id number] [address] [place] [address] [place] Protein [Mass/Vol] 6.7 g/dL Normal 6.3-8.0 [facility] Comment on above: Order Comment: Speci men Type: URINE SPECIMEN Ordering Facility: [facility] Address: [address] [place] [address] Performed By: #### 2 4356-8 #### [facility] CLIA [id number] [address] [place] [address] [place] Sodium [Moles/Vol] 140 mmol/L Normal 136-144 [facility] Comment on above: Order Comment: Speci men Type: URINE SPECIMEN Ordering Facility: [facility] Address: [address] [place] [address] Performed By: #### 2 4356-8 #### [facility] CLIA [id number] [address] [place], [place] [address] [place] Urea nitrogen [Mass/Vol] 11 mg/dL Normal 9-24 [place] Comment on above: Order Comment: Speci men Type: URINE SPECIMEN Ordering Facility: [facility] Address: [address] [place] [address] Performed By: #### 2 4356-8 #### [facility] CLIA [id number] [address] [place] [address] [place] Free PSA [Mass/Vol]on 2024 Free PSA/Total PSA [Mass fraction] 21 % Normal [place] Comment on above: Order Comment: Speci men Type: URINE SPECIMEN Ordering Facility: [facility] Address: [address] [place] [address] Result Comment: Tota l and free PSA test methodology used is the Electrochemiluminescence Immunoassay by [employer]. Total or free PSA values by differing methodologies cannot be interchanged. The below table lists the probability of finding prostate cancer upon needle biopsy, for men 50 years or older and total PSA concentrations from 4.0-10.0 ng/mL. Results should be interpreted within the broader clinical context. Free PSA(%) 50-59 years 60-69 years >69 years <11 49.2% 57.5% 64.5% 11-18 26.9% 33.9% 40.8% 19-25 18.3% 23.9% 29.7% >25 9.1% 12.2% 15.8% Performed By: #### 2 4356-8 #### [facility] CLIA [id number] [address] [place] [address] [place] Prostate specific Ag [Mass/Vol] 3.05 ng/mL High <2.60 [place] Comment on above: Order Comment: Speci men Type: URINE SPECIMEN Ordering Facility: [facility] Address: [address] [place] [address] Result Comment: Tota l PSA test methodology used is the Electrochemiluminescence Immunoassay by [employer]. Total PSA values by differing methodologies cannot be interchanged. For an individual patient, the significance of a PSA level should be interpreted in a broad clinical context, including age, race, family history, digital rectal exam, prostate size, results of prior testing (prostate biopsy, free PSA, PCA3), and use of 5-alpha reductase inhibitors. Considering the high incidence of asymptomatic cancer in the general population that may not pose an ultimate risk to a patient, the decision to recommend urological evaluation or prostate biopsy should be individualized after consideration of all these factors. REFERENCE: Adonis Everett M.D., M.P.H., Mihir Linares M.D., Ph.D., Dieter Thomas M.D., Shireen Cote, M.P.H., Aliza White Sc.D. Effect of Verification Bias on Screening for Prostate Cancer by Measurement of Prostatic Specific Antigen. N Engl J Med 2003,349:335-42. Performed By: #### 2 4356-8 #### [facility] CLIA [id number] [address] [place] [address] [place] HbA1c (Bld)on 11-17-2024 Average glucose Estimated from glycated hemoglobin (Bld) [Mass/Vol] 131 mg/dL Normal [place] Comment on above: Order Comment: Speci men Type: URINE SPECIMEN Ordering Facility: [facility] Address: [address] [place] [address] Result Comment: eAG: (Estimated average glucose) is a calculated value from HgbA1c and is medical field representative of the average blood glucose level in the last 2-3 month period. Performed By: #### 2 4356-8 #### [facility] CLIA [id number] [address] [place] [address] [place] HbA1c (Bld) [Mass fraction] 6.2 % High 4.3-5.6 [place] Comment on above: Order Comment: Speci men Type: URINE SPECIMEN Ordering Facility: [facility] Address: [address] [place] [address] Result Comment: [place] Diabetes Association guidelines indicate that patients with HgbA1c in the range 5.7-6.4% are at increased risk for development of diabetes, and intervention by lifestyle modification may be beneficial. HgbA1c greater or equal to 6.5% is considered diagnostic of diabetes. Performed By: #### 2 4356-8 #### [facility] CLIA [id number] [address] [place] [address] [place] LIPID PANEL, NONFASTINGon Cholesterol [Mass/Vol] 127 mg/dL Normal <200 [place] Comment on above: Order Comment: Speci men Type: URINE SPECIMEN Ordering Facility: [facility] Address: [address] [place] [address] Result Comment: <200 mg/dL, Desirable 200-239 mg/dL, Borderline high >239 mg/dL, High Performed By: #### 2 4356-8 #### [facility] CLIA [id number] [address] [place] [address] [place] HDL CHOLESTEROL, NF 48 mg/dL Normal >39 [place] Comment on above: Order Comment: Speci men Type: URINE SPECIMEN Ordering Facility: [facility] Address: [address] [place] [address] Result Comment: 40-5 9 mg/dL, Acceptable >59 mg/dL, High: Negative risk factor for coronary heart disease <40 mg/dL, Low: Positive risk factor for coronary heart disease Performed By: #### 2 4356-8 #### [facility] CLIA [id number] [address] [place] [address] OF [facility] LDL CHOLESTEROL CALCULATED, NF 68 mg/dL Normal <100 [place] Comment on above: Order Comment: Speci men Type: URINE SPECIMEN Ordering Facility: [facility] Address: [address] [place] [address] Result Comment: <100 mg/dL, Optimal 100-129 mg/dL, Near optimal/above optimal 130-159 mg/dL, Borderline high 160-189 mg/dL, High >189 mg/dL, Very high Secondary prevention optimal LDL Cholesterol levels are recommended to be <70 mg/dL LDL cholesterol is calculated using the [place]-NIH equation. Performed By: #### 2 4356-8 #### [facility] CLIA [id number] [address] [place] LDL/HDL RATIO, NF 1.42 mg/dL Normal <2.54 [facility] Comment on above: Order Comment: Speci men Type: URINE SPECIMEN Ordering Facility: [facility] Address: [address] [place] [address] Result Comment: Gunnere damience: 1. National Cholesterol Education Program ATP III Guideline At-A-Glance Quick Desk Reference: National Heart, Lung, and Blood [place]. National Institutes of Health. 2001: NIH Publication No. 01-3305. 2. An International Atherosclerosis Society position paper: global recommendations for the management of dyslipidemia: executive summary, Atherosclerosis. 2014: 232(2):410-413. Performed By: #### 2 4356-8 #### [facility] CLIA [id number] [address] [place] [address] [place] NON HDL CHOL, NF 79 mg/dL Normal <130 [facility] Comment on above: Order Comment: Speci men Type: URINE SPECIMEN Ordering Facility: [facility] Address: [address] [place] [address] Result Comment: <130 mg/dL, Optimal 130-159 mg/dL, Near optimal/above optimal 160-189 mg/dL, Borderline high 190-219 mg/dL, High >219 mg/dL, Very high Secondary prevention optimal non HDL Cholesterol levels are recommended to be <100 mg/dL Performed By: #### 2 4356-8 #### [facility] CLIA [id number] [address] [place] [address] [place] T CHOL/HDL RATIO NF 2.65 mg/dL Normal <5.10 [place] Comment on above: Order Comment: Speci men Type: URINE SPECIMEN Ordering Facility: [facility] Address: [address] [place] [address] Performed By: #### 2 4356-8 #### [facility] CLIA [id number] [address] [place] [address] [place] TRIGLYCERIDES, NF 50 mg/dL Normal <150 [facility] Comment on above: Order Comment: Speci men Type: URINE SPECIMEN Ordering Facility: [facility] Address: [address] [place] [address] Result Comment: <150 mg/dL, Normal 150-199 mg/dL, Borderline high 200-499 mg/dL, High >499 mg/dL, Very high Performed By: #### 2 4356-8 #### [facility] CLIA [id number] [address] [place] [address] [place] VLDL CHOLESTEROL, NF 7 mg/dL Normal <30 [place] Comment on above: Order Comment: Speci men Type: URINE SPECIMEN Ordering Facility: [facility] Address: [address] [place] [address] Performed By: #### 2 4356-8 #### [facility] CLIA [id number] [address] [place] [address] [facility] SHAMIKA DONAHUE ([id number]) 1950 M Date Time Provider Department 06/11/24 ALETHA BOYD [facility] During your visit today, we recorded the following information about you: Aletha Boyd APRN.CONTRACT ENGINEER 06/11/2024 7:22 AM Signed Please call patient let him know he is positive for COVID. Patient was negative for flu and RSV. Supportive therapies are suggested. Ling Delcid MA 06/11/2024 9:30 AM Signed Patient notified of results, verbalized understanding of instructions given. Ling Delcid MA Allergies As of Date: 06/11/2024 Noted Allergy Reaction CODEINE 12/13/2015 5 - Intolerance Date Reviewed: 2024 Reviewed by: Ling Delcid MA - Fully Assessed Reason for Visit: Results [95] Prescriptions as of 06/11/2024 - predniSONE (DELTASONE) 20 mg tablet Take 2 tablets by mouth once daily for 4 days. - benzonatate (TESSALON PERLE) 100 mg capsule Take 2 capsules by mouth three times a day as needed for up to 10 days. - atorvastatin (LIPITOR) 20 mg tablet Take 1 tablet by mouth once daily. - lisinopril (ZESTRIL) 20 mg tablet Take 1 tablet by mouth once daily. - mupirocin (BACTROBAN) 2 % ointment Apply to affected area three times a day. - ezetimibe (ZETIA) 10 mg tablet Take 1 tablet by mouth once daily. - amLODIPine (NORVASC) 10 mg tablet Take 1 tablet by mouth once daily. - Comp Stocking,Knee,Regular,Med misc Knee High Compression Stockings 20-30 mm, DX: Venous insufficiency 187.2 - keTORolac Tromethamine (ACLUAR LS) 0.4 % drop Use 1 Drop in the left eye four times daily. - prednisoLONE acetate, PF, 1 % drps Use in eyes. - aspirin, enteric coated (ASPIRIN, ENTERIC COATED) 81 mg EC tablet Take 1 tablet by mouth once daily. - COMPOUNDED PRESCRIPTION Knee High Compression Stockings 20-30 mm, DX: Venous insufficiency Problem List As Of Date 06/11/2024 Noted Resolved Mixed hyperlipidemia [E78.2] 09/26/2015 Essential hypertension with goal blood pressure*09/26/2015 Family history of coronary artery disease [Z82.*09/26/2015 Colon cancer screening [Z12.11] 10/22/2015 History of colon polyps [Z86.0100] 10/26/2015 Elevated fasting blood sugar [R73.01] 11/09/2015 Disorder of prostate [N42.9] 07/11/2016 Medicare annual wellness visit, subsequent [Z00*01/08/2017 Diverticulosis [K57.90] Hemorrhoids [K64.9] AK (actinic keratosis) [L57.0] 02/04/2019 Essential tremor [G25.0] 04/07/2021 Advance directive discussed with patient [Z71.8*10/11/[address] [Z78.9] 10/11/2021 Elevated PSA [R97.20] 04/18/2022 History of shingles [Z86.19] 10/31/2022 Encounter Status:Closed by LING DELCID on 06/11/24 [facility] CNOVon 2024 CNOV Office Visit ([facility] ) SHAMIKA DONAHUE ([id number]) 1950 M Date Time Provider Department 06/10/24 11:00 AM ELMA PAYNE WS During your visit today, we recorded the following information about you: Temperature Pulse Respiration Blood pressure 98 degrees 68/minute 18/minute 126/72 Weight 88.9 kg Elma Payne APRN.CONTRACT ENGINEER 2024 11:21 AM Signed Subjective Cough Associated symptoms include myalgias. Pertinent negatives include no chills, no ear pain, no headaches and no sore throat. Shamika Donahue is a 74 year old male who presents with 3 days of cough, body aches, and joint pain. He has not had a fever. He has not taken any medication for his symptoms. He missed 2 days of work and needs a note. He had the RSV vaccine on 06/07. Review of Systems Constitutional: Negative for chills, fever and malaise/fatigue. HENT: Positive for congestion. Negative for ear pain and sore throat. Respiratory: Positive for cough. Cardiovascular: Negative. Gastrointestinal: Negative for diarrhea, nausea and vomiting. Musculoskeletal: Positive for joint pain and myalgias. Neurological: Negative for headaches. BP 126/72 Pulse 68 Temp 36.7 ?C (98 ?F) Resp 18 Wt 88.9 kg (195 lb 15.8 oz) SpO2 96% BMI 31.16 kg/m? PAST MEDICAL HISTORY Diagnosis Date Advance directive discussed with patient 10/11/2021 Discussed 10/2021 AK (actinic keratosis) 02/04/2019 right dorsal and lateral forearm, posterior upper right arm and right unlar wrist treated with cryo 02/04/2019 Cataract Diverticulosis Elevated fasting blood sugar 11/09/2015 Elevated PSA 04/18/2022 Essential hypertension with goal blood pressure less than 140/90 09/26/2015 Essential tremor 04/07/2021 Family history of coronary artery disease 09/26/2015 Hemorrhoids History of colon polyps 10/26/2015 History of shingles 10/31/202206/2022 Living will in place 10/11/2021 DPA: Melani (daughter) Medicare annual wellness visit, subsequent 01/08/2017 Medicare Part B: 05/10/2013 last done: 02/04/2019 Mixed hyperlipidemia 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 PAST SURGICAL HISTORY Procedure Laterality Date BLEPHAROPLASTY UPPER EYELID Bilateral Blepharoplasty - upper COLONOSCOPY 12/04/2013 polyp, was to get repeated 04/2016 COLONOSCOPY 11/23/2021 repeat in 10 years COLONOSCOPY FLX DX W/COLLJ SPEC WHEN PFRMD 01/09/2016 REMV CATARACT EXTRACAP,INSERT LENS Bilateral 02/2023 TONSILLECTOMY HX ALLERGIES Codeine MEDICATIONS atorvastatin (LIPITOR) 20 mg tablet Take 1 tablet by mouth once daily. lisinopril (ZESTRIL) 20 mg tablet Take 1 tablet by mouth once daily. mupirocin (BACTROBAN) 2 % ointment Apply to affected area three times a day. ezetimibe (ZETIA) 10 mg tablet Take 1 tablet by mouth once daily. amLODIPine (NORVASC) 10 mg tablet Take 1 tablet by mouth once daily. Comp Stocking,Knee,Regular,Med misc Knee High Compression Stockings 20-30 mm, DX: Venous insufficiency 187.2 aspirin, enteric coated (ASPIRIN, ENTERIC COATED) 81 mg EC tablet Take 1 tablet by mouth once daily. COMPOUNDED PRESCRIPTION Knee High Compression Stockings 20-30 mm, DX: Venous insufficiency predniSONE (DELTASONE) 20 mg tablet Take 2 tablets by mouth once daily for 4 days. benzonatate (TESSALON PERLE) 100 mg capsule Take 2 capsules by mouth three times a day as needed for up to 10 days. keTORolac Tromethamine (ACLUAR LS) 0.4 % drop Use 1 Drop in the left eye four times daily. (Patient not taking: Reported on 05/21/2024) prednisoLONE acetate, PF, 1 % drps Use in eyes. (Patient not taking: Reported on 05/21/2024) FAMILY HISTORY Problem Relation Age of Onset Heart Father Coronary Artery Disease Father Diabetes Mother Diabetes Brother Heart Brother Coronary Artery Disease Brother bypass in 40's Kidney Disease Brother at 64 Heart Paternal Grandfather Lipids Paternal Grandfather Heart Paternal Uncle Heart Paternal Grandmother Social History Tobacco Use Smoking status: Never Smokeless tobacco: Never Vaping Use Vaping status: Never Used Substance Use Topics Alcohol use: Yes Alcohol/week: 2.0 standard drinks of alcohol Types: 2 Cans of Beer (12oz) per week Comment: couple beers daily Drug use: No Objective Physical Exam Vitals and nursing note reviewed. Constitutional: General: He is not in acute distress. Appearance: Normal appearance. He is not ill-appearing. HENT: Right Ear: Tympanic membrane, ear canal and external ear normal. Left Ear: Tympanic membrane, ear canal and external ear normal. Nose: Nose normal. Mouth/Throat: Mouth: Mucous membranes are moist. Pharynx: Oropharynx is clear. Uvula midline. No oropharyngeal exudate or posterior oropharyngeal erythema. Cardiovascular: Rate and Rhythm: Normal rate and re (more content not included)... Normal [place] COVID AND INFLUENZA A/B AND RSV PCR, ROUTINEon 2024 SARS-CoV-2 (COVID-19) RNA CAMILO+probe Ql (Unsp spec) SARS-COV-2 (AGENT OF COVID-19) RNA: Detected INFLUENZA A RNA: Not detected INFLUENZA B RNA: Not detected RESPIRATORY SYNCYTIAL VIRUS (RSV) RNA: Not detected Abnormal [place] Comment on above: Performed By: #### 2 4356-8 #### [facility] CLIA [id number] [address] [place] [address] [place] CNOVon 05-21-2024 CNOV Office Visit (FAMPWS ) SHAMIKA DONAHUE ([id number]) 1950 M Date Time Provider Department 05/21/24 7:20 AM JYOTSNA SIU During your visit today, we recorded the following information about you: Temperature Pulse Respiration Blood pressure 97.2 degrees 60/minute 16/minute 118/70 Weight 91.2 kg Jyotsna Siu PA-C 05/21/2024 8:48 AM Signed Chief Complaint Patient presents with: 6 Month Exam HPI Shamika Donahue is a 73 year old male who presents here today for Chronic Medical Conditions.. Patient with Hx of elevated fasting BS, HTN, Hyperlipidemia as well as those reviewed and addressed below Has a few bumps on back of his head that itches at times. Past medical history, appointments, medications, allergies reviewed. Previous Medical History PAST MEDICAL HISTORY Diagnosis Date Advance directive discussed with patient 10/11/2021 Discussed 10/2021 AK (actinic keratosis) 02/04/2019 right dorsal and lateral forearm, posterior upper right arm and right unlar wrist treated with cryo 02/04/2019 Cataract Diverticulosis Elevated fasting blood sugar 11/09/2015 Elevated PSA 04/18/2022 Essential hypertension with goal blood pressure less than 140/90 09/26/2015 Essential tremor 04/07/2021 Family history of coronary artery disease 09/26/2015 Hemorrhoids History of colon polyps 10/26/2015 History of shingles 10/31/202206/[address] 10/11/2021 DPA: Melani (daughter) Medicare annual wellness visit, subsequent 01/08/2017 Medicare Part B: 05/10/2013 last done: 02/04/2019 Mixed hyperlipidemia 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 Previous Surgical History PAST SURGICAL HISTORY Procedure Laterality Date BLEPHAROPLASTY UPPER EYELID Bilateral Blepharoplasty - upper COLONOSCOPY 12/04/2013 polyp, was to get repeated 04/2016 COLONOSCOPY 11/23/2021 repeat in 10 years COLONOSCOPY FLX DX W/COLLJ SPEC WHEN PFRMD 01/09/2016 REMV CATARACT EXTRACAP,INSERT LENS Bilateral 02/2023 TONSILLECTOMY HX Family History FAMILY HISTORY Problem Relation Age of Onset Heart Father Coronary Artery Disease Father Diabetes Mother Diabetes Brother Heart Brother Coronary Artery Disease Brother bypass in 40's Kidney Disease Brother at 64 Heart Paternal Grandfather Lipids Paternal Grandfather Heart Paternal Uncle Heart Paternal Grandmother Patient Allergies ALLERGIES Allergen Reactions Codeine Intolerance Gets really high Current Medications Current Outpatient Medications on File Prior to Visit Medication Sig ezetimibe (ZETIA) 10 mg tablet Take 1 tablet by mouth once daily. amLODIPine (NORVASC) 10 mg tablet Take 1 tablet by mouth once daily. atorvastatin (LIPITOR) 20 mg tablet Take 1 tablet by mouth once daily. Comp Stocking,Knee,Regular,Med misc Knee High Compression Stockings 20-30 mm, DX: Venous insufficiency 187.2 lisinopril (ZESTRIL) 20 mg tablet Take 1 tablet by mouth once daily. aspirin, enteric coated (ASPIRIN, ENTERIC COATED) 81 mg EC tablet Take 1 tablet by mouth once daily. COMPOUNDED PRESCRIPTION Knee High Compression Stockings 20-30 mm, DX: Venous insufficiency keTORolac Tromethamine (ACLUAR LS) 0.4 % drop Use 1 Drop in the left eye four times daily. (Patient not taking: Reported on 05/21/2024) prednisoLONE acetate, PF, 1 % drps Use in eyes. (Patient not taking: Reported on 05/21/2024) No current facility-administered medications on file prior to visit. Social History Social History Tobacco Use Smoking status: Never Smokeless tobacco: Never Vaping Use Vaping status: Never Used Substance Use Topics Alcohol use: Yes Alcohol/week: 2.0 standard drinks of alcohol Types: 2 Cans of Beer (12oz) per week Comment: couple beers daily Drug use: No Review of Symptoms REVIEW OF SYSTEMS GENERAL: No weight loss, malaise or fevers NECK: Negative for lumps, goiter, pain and significant neck swelling RESPIRATORY: Negative for cough, hemoptysis, wheezing, COPD, dyspnea or shortness of breath CARDIOVASCULAR: Negative for chest pain, leg swelling, CHF or palpitations NEURO: No history of headaches, syncope, paralysis, seizures or tremors EXAM: BP 118/70 (BP Site: Right Arm, BP Position: Sitting, BP Cuff Size: Large Adult) Pulse (!) 52 Temp 36.2 ?C (97.2 ?F) Resp 16 Wt 91.2 kg (201 lb) SpO2 96% BMI 31.96 kg/m? BP 118/70 (BP Site: Right Arm, BP Position: Sitting, BP Cuff Size: Large Adult) Pulse 60 Temp 36.2 ?C (97.2 ?F) Resp 16 Wt 91.2 kg (201 lb) SpO2 96% BMI 31.96 kg/m? General Appearance: Well appearing, alert, in no acute distress, well-hydrated, well nourished.. Skin: small cysts with scabs located posterior scalp. Nontender. Neck: Supple, no adenopathy; thyroid symmetric, normal size, no bruits. Lungs: Lungs clear (more content not included)... Normal [place] Free PSA [Mass/Vol]on 2023 Free PSA/Total PSA [Mass fraction] 17 % Normal [place] Comment on above: Order Comment: Speci men Type: URINE SPECIMEN Ordering Facility: [facility] Address: [address] [place] [address] Result Comment: Tota l and free PSA test methodology used is the Electrochemiluminescence Immunoassay by [employer]. Total or free PSA values by differing methodologies cannot be interchanged. The below table lists the probability of finding prostate cancer upon needle biopsy, for men 50 years or older and total PSA concentrations from 4.0-10.0 ng/mL. Results should be interpreted within the broader clinical context. Free PSA(%) 50-59 years 60-69 years >69 years <11 49.2% 57.5% 64.5% 11-18 26.9% 33.9% 40.8% 19-25 18.3% 23.9% 29.7% >25 9.1% 12.2% 15.8% Performed By: #### 2 4356-8 #### [facility] CLIA [id number] [address] [place], [place] [address] [address] [place] Prostate specific Ag [Mass/Vol] 3.79 ng/mL High <2.60 [place] Comment on above: Order Comment: Speci men Type: URINE SPECIMEN Ordering Facility: [facility] Address: [address] [place] [address] Result Comment: Tota l PSA test methodology used is the Electrochemiluminescence Immunoassay by [employer]. Total PSA values by differing methodologies cannot be interchanged. For an individual patient, the significance of a PSA level should be interpreted in a broad clinical context, including age, race, family history, digital rectal exam, prostate size, results of prior testing (prostate biopsy, free PSA, PCA3), and use of 5-alpha reductase inhibitors. Considering the high incidence of asymptomatic cancer in the general population that may not pose an ultimate risk to a patient, the decision to recommend urological evaluation or prostate biopsy should be individualized after consideration of all these factors. REFERENCE: Adonis Everett M.D., M.P.H., Mihir Linares M.D., Ph.D., Dieter Thomas M.D., Shireen Cote, M.P.H., Aliza White, Sc.D. Effect of Verification Bias on Screening for Prostate Cancer by Measurement of Prostatic Specific Antigen. N Engl J Med 2003,349:335-42. Performed By: #### 2 4356-8 #### [facility] CLIA [id number] [address] [place] [address] [place] HbA1c (Bld)on 05-11-2024 Average glucose Estimated from glycated hemoglobin (Bld) [Mass/Vol] 120 mg/dL Normal [place] Comment on above: Order Comment: Speci men Type: URINE SPECIMEN Ordering Facility: [facility] Address: [address] [place] [address] Result Comment: eAG: (Estimated average glucose) is a calculated value from HgbA1c and is medical field representative of the average blood glucose level in the last 2-3 month period. Performed By: #### 2 4356-8 #### [facility] CLIA [id number] [address] [place] [address] [place] HbA1c (Bld) [Mass fraction] 5.8 % High 4.3-5.6 [place] Comment on above: Order Comment: Speci men Type: URINE SPECIMEN Ordering Facility: [facility] Address: [address] [place] [address] Result Comment: Amer [place] Diabetes Association guidelines indicate that patients with HgbA1c in the range 5.7-6.4% are at increased risk for development of diabetes, and intervention by lifestyle modification may be beneficial. HgbA1c greater or equal to 6.5% is considered diagnostic of diabetes. Performed By: #### 2 4356-8 #### [facility] CLIA [id number] [address] [place] [address] [place] COLONOSCOPY SCREENINGon 06- [facility] XR Shoulder - right 3 Viewso n 04-27-2020 IMPRESSION: AC joint degenerative arthritis. Corporate Development Intern: TINY Transcribe Date/Time: Apr 27 2020 2:20P Dictated by : IVANA SOUZA MD This examination was interpreted and the report reviewed and electronically signed by: IVANA SOUZA MD on Apr 27 2020 2:23PM [facility] DIVISION OF RADIOLOGY * * *Final Report* * * DATE OF EXAM: Apr 27 2020 2:02PM WOX [id number] - XR SHLDR >/=3V AP/SAMANTHA AP/OTHR RT / PROCEDURE REASON: Right shoulder pain, unspecified chronicity * * * * Physician Interpretation * * * * HISTORY: pt states pain for a long time worse in the last 2 months, pain in the right shoulder joint no inj. Right shoulder pain, unspecified chronicity . TECHNIQUE: XR SHLDR >/=3V AP/SAMANTHA AP/OTHR RT Laterality: RIGHT Number of different views (projections): 3 COMPARISON: None RESULT: There is no evidence of fracture or dislocation. The subacromial space is preserved. The glenohumeral joint space is maintained. There is mild to moderate degenerative arthritis at the acromioclavicular joint. - DIVISION OF RADIOLOGY Provider, [facility] - 04/27/2020 * * *Final Report* * * DATE OF EXAM: Apr 27 2020 2:02PM WOX [id number] - XR SHLDR >/=3V AP/SAMANTHA AP/OTHR RT / PROCEDURE REASON: Right shoulder pain, unspecified chronicity * * * * Physician Interpretation * * * * HISTORY: pt states pain for a long time worse in the last 2 months, pain in the right shoulder joint no inj. Right shoulder pain, unspecified chronicity . TECHNIQUE: XR SHLDR >/=3V AP/SAMANTHA AP/OTHR RT Laterality: RIGHT Number of different views (projections): 3 COMPARISON: None RESULT: There is no evidence of fracture or dislocation. The subacromial space is preserved. The glenohumeral joint space is maintained. There is mild to moderate degenerative arthritis at the acromioclavicular joint. - IMPRESSION IMPRESSION: AC joint degenerative arthritis. Corporate Development Intern: TINY Transcribe Date/Time: Apr 27 2020 2:20P Dictated by : IVANA SOUZA MD This examination was interpreted and the report reviewed and electronically signed by: IVANA SOUZA MD on Apr 27 2020 2:23PM EST [facility] Radiology Study observation (narrative) [facility] XR Shoulder - right 3 ViewsO rdered By: [facility] Provider on 04-27-2020 [facility] Vital Signs Date Time Vital Sign Value Performing Clinician Facility 12-31-2024 08:28-0400 Body height 170.[address] Vic Parra MD Work Phone: [facility] 12-31-2024 08:28-0400 Body mass index (BMI) [Ratio] 31.8 kg/m2 Dr. Vic Parra MD Work Phone: [facility] 12-31-2024 08:28-0400 Body temperature 97.7 [degF] Dr. Vic Parra MD Work Phone: [facility] 12-31-2024 08:28-0400 Body weight 92.[address] Vic Parra MD Work Phone: [facility] 12-31-2024 08:28-0400 Diastolic blood pressure 68 mm[Hg] Dr. Vic Parra MD Work Phone: [facility] 12-31-2024 08:28-0400 Heart rate 73 /min Dr. Vic Parra MD Work Phone: [facility] 12-31-2024 08:28-0400 Respiratory rate 18 /min Dr. Vic Parra MD Work Phone: [facility] 12-31-2024 08:28-0400 SaO2% (BldA) [Mass fraction] 95 % Dr. Vic Parra MD Work Phone: [facility] 12-31-2024 08:28-0400 Systolic blood pressure 121 mm[Hg] Dr. Vic Parra MD Work Phone: [facility] 11-24-2024 10:30-0400 Diastolic blood pressure 72 mm[Hg] Vic Parra MD Work Phone: [facility] Comment on above: Samantha BP 11-24-2024 10:30-0400 Systolic blood pressure 126 mm[Hg] Vic Parra MD Work Phone: [facility] Comment on above: Samantha BP 11-24-2024 07:56-0400 Body height 168.3 cm Vic Parra MD Work Phone: [facility] 11-24-2024 07:56-0400 Body mass index (BMI) [Ratio] 31.72 kg/m2 Vic Parra MD Work Phone: [facility] 11-24-2024 07:56-0400 Body weight 89.81 kg Vic Parra MD Work Phone: [facility] 11-24-2024 07:56-0400 Heart rate 66 /min Vic Parra MD Work Phone: [facility] 11-24-2024 07:56-0400 Respiratory rate 16 /min Vic Parra MD Work Phone: [facility] 11-24-2024 07:56-0400 SaO2% (BldA) [Mass fraction] 94 % Vic Parra MD Work Phone: [facility] 2024 11:06-0500 Body mass index (BMI) [Ratio] 31.16 kg/m2 Elma Payne APRN.CNP Work Phone: [facility] 2024 11:06-0500 Body temperature 98.01 [degF] Elma Praisler-Wood METEOROLOGY FACULTY MEMBER.CONTRACT ENGINEER Work Phone: [facility] 2024 11:06-0500 Body weight 88.9 kg Elma Praisler-Wood METEOROLOGY FACULTY MEMBER.CONTRACT ENGINEER Work Phone: [facility] 2024 11:06-0500 Diastolic blood pressure 72 mm[Hg] Elma Praisler-Wood METEOROLOGY FACULTY MEMBER.CONTRACT ENGINEER Work Phone: [facility] 2024 11:06-0500 Heart rate 68 /min Elma Praisler-Wood METEOROLOGY FACULTY MEMBER.CONTRACT ENGINEER Work Phone: [facility] 2024 11:06-0500 Respiratory rate 18 /min Elma Praisler-Wood METEOROLOGY FACULTY MEMBER.CONTRACT ENGINEER Work Phone: [facility] 2024 11:06-0500 SaO2% (BldA) [Mass fraction] 96 % Elma Praisler-Wood METEOROLOGY FACULTY MEMBER.CONTRACT ENGINEER Work Phone: [facility] 2024 11:06-0500 Systolic blood pressure 126 mm[Hg] Elma Praisler-Wood METEOROLOGY FACULTY MEMBER.CONTRACT ENGINEER Work Phone: [facility] 05-21-2024 07:52-0500 Heart rate 60 /min Jyotsna BROWN-C Work Phone: [facility] 05-21-2024 07:10-0500 Body mass index (BMI) [Ratio] 31.96 kg/m2 Jyotsna BROWN-C Work Phone: [facility] 05-21-2024 07:10-0500 Body temperature 97.2 [degF] Jyotsna BROWN-C Work Phone: [facility] 05-21-2024 07:10-0500 Body weight 91.17 kg Jyotsna BROWN-C Work Phone: [facility] 05-21-2024 07:10-0500 Diastolic blood pressure 70 mm[Hg] Jyotsna BROWN-C Work Phone: [facility] 05-21-2024 07:10-0500 Respiratory rate 16 /min Jyotsna Siu PA-C Work Phone: [facility] 05-21-2024 07:10-0500 SaO2% (BldA) [Mass fraction] 96 % Jyotsna Siu PA-C Work Phone: [facility] 05-21-2024 07:10-0500 Systolic blood pressure 118 mm[Hg] Jyotsna Siu PA-C Work Phone: [facility] 11-20-2023 08:17-0400 Diastolic blood pressure 72 mm[Hg] Vic Parra MD Work Phone: [facility] 11-20-2023 08:17-0400 Systolic blood pressure 136 mm[Hg] Vic Parra MD Work Phone: [facility] 11-20-2023 07:54-0400 Body height 168.9 cm Vic Parra MD Work Phone: [facility] 11-20-2023 07:54-0400 Body mass index (BMI) [Ratio] 31.96 kg/m2 Vic Parra MD Work Phone: [facility] 11-20-2023 07:54-0400 Body weight 91.17 kg Vic Parra MD Work Phone: [facility] 11-20-2023 07:54-0400 Heart rate 70 /min Vic Parra MD Work Phone: [facility] 05-15-2023 08:45-0500 Diastolic blood pressure 78 mm[Hg] Vci Parra MD Work Phone: [facility] 05-15-2023 08:45-0500 Heart rate 57 /min Vic Parra MD Work Phone: [facility] 05-15-2023 08:45-0500 Systolic blood pressure 141 mm[Hg] Vic Parra MD Work Phone: [facility] 05-15-2023 07:58-0500 Body weight 92.53 kg Vic Parra MD Work Phone: [facility] 05-15-2023 07:58-0500 Respiratory rate 16 /min Vic Parra MD Work Phone: [facility] 07-12-2022 07:14-0500 Body temperature 97.81 [degF] Terrance Christopher METEOROLOGY FACULTY MEMBER.CONTRACT ENGINEER Work Phone: [facility] 07-12-2022 07:14-0500 Body weight 94.98 kg Terrance Christopher METEOROLOGY FACULTY MEMBER.CONTRACT ENGINEER Work Phone: [facility] 07-12-2022 07:14-0500 Diastolic blood pressure 72 mm[Hg] Terrance Christopher METEOROLOGY FACULTY MEMBER.CONTRACT ENGINEER Work Phone: [facility] 07-12-2022 07:14-0500 Heart rate 75 /min Terrance Christopher METEOROLOGY FACULTY MEMBER.CONTRACT ENGINEER Work Phone: [facility] 07-12-2022 07:14-0500 Respiratory rate 21 /min Terrance Christopher METEOROLOGY FACULTY MEMBER.CONTRACT ENGINEER Work Phone: [facility] 07-12-2022 07:14-0500 SaO2% (BldA) [Mass fraction] 97 % Terrance Christopher METEOROLOGY FACULTY MEMBER.CONTRACT ENGINEER Work Phone: [facility] 07-12-2022 07:14-0500 Systolic blood pressure 142 mm[Hg] Terrance Christopher METEOROLOGY FACULTY MEMBER.CONTRACT ENGINEER Work Phone: [facility] 04-18-2022 08:27-0500 Body weight 92.08 kg Vic Parra MD Work Phone: [facility] 04-18-2022 08:27-0500 Diastolic blood pressure 82 mm[Hg] Vic Parra MD Work Phone: [facility] 04-18-2022 08:27-0500 Heart rate 60 /min Vic Parra MD Work Phone: [facility] 04-18-2022 08:27-0500 Respiratory rate 16 /min Vic Parra MD Work Phone: [facility] 04-18-2022 08:27-0500 Systolic blood pressure 146 mm[Hg] Vic Parra MD Work Phone: [facility] 11-27-2021 07:04-0400 Body temperature 97.39 [degF] Jyotsna Siu PA-C Work Phone: [facility] 11-27-2021 07:04-0400 Body weight 88.91 kg Jyotsna Siu PA-C Work Phone: [facility] 11-27-2021 07:04-0400 Diastolic blood pressure 76 mm[Hg] Jyotsna Siu PA-C Work Phone: [facility] 11-27-2021 07:04-0400 Heart rate 60 /min Jyotsna Siu PA-C Work Phone: [facility] 11-27-2021 07:04-0400 Respiratory rate 18 /min Jyotsna Siu PA-C Work Phone: [facility] 11-27-2021 07:04-0400 Systolic blood pressure 136 mm[Hg] Jyotsna BROWN-C Work Phone: [facility] 11-23-2021 09:30-0400 Diastolic blood pressure 72 mm[Hg] Hiram Wilburn MD Work Phone: [facility] 11-23-2021 09:30-0400 Heart rate 70 /min Hiram Wilburn MD Work Phone: [facility] 11-23-2021 09:30-0400 Respiratory rate 16 /min Hiram Wilburn MD Work Phone: [facility] 11-23-2021 09:30-0400 SaO2% (BldA) [Mass fraction] 93 % Hiram Wilburn MD Work Phone: [facility] 11-23-2021 09:30-0400 Systolic blood pressure 138 mm[Hg] Hiram Wilburn MD Work Phone: [facility] 11-23-2021 08:10-0400 Body temperature 98.29 [degF] Hiram Wilburn MD Work Phone: [facility] 11-08-2021 07:59-0400 Body height 170.2 cm Bette [place] PA-C Work Phone: [facility] 11-08-2021 07:59-0400 Body temperature 98.49 [degF] Bette Fallon PA-C Work Phone: [facility] 11-08-2021 07:59-0400 Body weight 88.91 kg Bette [place] PA-C Work Phone: [facility] 11-08-2021 07:59-0400 Diastolic blood pressure 54 mm[Hg] Bette Fallon PA-C Work Phone: [facility] 11-08-2021 07:59-0400 Heart rate 65 /min Bette [place] PA-C Work Phone: [facility] 11-08-2021 07:59-0400 SaO2% (BldA) [Mass fraction] 95 % Bette Fallon PA-C Work Phone: [facility] 11-08-2021 07:59-0400 Systolic blood pressure 114 mm[Hg] Bette Fallon PA-C Work Phone: [facility] 11-01-2021 14:56-0400 Diastolic blood pressure 72 mm[Hg] Mi Nurse Work Phone: [facility] 11-01-2021 14:56-0400 Heart rate 76 /min Mi Nurse Work Phone: [facility] 11-01-2021 14:56-0400 Systolic blood pressure 125 mm[Hg] Mi Nurse Work Phone: [facility] 10-11-2021 14:48-0400 Body weight 89.81 kg iVc Parra MD Work Phone: [facility] 10-11-2021 14:48-0400 Diastolic blood pressure 74 mm[Hg] Vic Parra MD Work Phone: [facility] 10-11-2021 14:48-0400 Heart rate 76 /min Vic Parra MD Work Phone: [facility] 10-11-2021 14:48-0400 Respiratory rate 16 /min Vic Parra MD Work Phone: [facility] 10-11-2021 14:48-0400 Systolic blood pressure 140 mm[Hg] Vic Parra MD Work Phone: [facility] Encounters Encounter Date Encounter Type Care Provider Facility Start: 12-31-2024 End: 12-31-[address] Elias Coker MD -[facility] Work Phone: Start: 12-31-2024 End: 12-31-[address] Vic Parra MD Work Phone: -[facility] Start: 11-24-2024 End: 11-25-2024 Follow-up encounter Vic Parra MD Work Phone: [facility] [place] Start: 11-24-2024 End: 11-24-2024 ambulatory VIC PARRA Facility:[facility] Start: 11-24-2024 End: 11-24-2024 Patient encounter procedure Vic Parra MD Work Phone: [facility] [place] Comment on above: Medicare annual well ness visit, subsequent (Primary Dx); Essential hypertension with goal blood pressure less than 140/90; Mixed hyperlipidemia; Elevated fasting blood sugar; Essential tremor; Elevated PSA; Hypocalcemia; Advance directive discussed with patient; Encounter for immunization; Encounter for screening examination for other mental health and behavioral disorders; Screening for depression; Neoplasm of uncertain behavior of skin of neck Start: 11-24-2024 End: 11-24-2024 ambulatory VIC PARRA Facility:[facility] Start: 11-17-2024 End: 11-17-2024 ambulatory VIC PARRA Facility:[facility] Start: 11-10-2024 End: 11-11-2024 Refill Leah Crews APRN.CNP Work Phone: [facility] [place] Comment on above: Refill Request Start: 10-10-2024 End: 10-12-2024 Refill Leah Crews APRN.CONTRACT ENGINEER Work Phone: [facility] [place] Comment on above: Refill Request Start: 2024 End: 2024 ambulatory VIC PARRA Facility:[facility] Start: 2024 End: 2024 Patient encounter procedure Elma Payne APRN.CONTRACT ENGINEER Work Phone: [facility] Comment on above: Viral URI with cough (Primary Dx); Viral bronchitis Start: 05-31-2024 End: 06-01-2024 Refill Vic Parra MD Work Phone: [facility] [place] Comment on above: Refill Request Start: 05-21-2024 End: 05-21-2024 ambulatory VIC PARRA Facility:[facility] Start: 05-21-2024 End: 05-21-2024 Patient encounter procedure Jyotsna Siu PA-C Work Phone: [facility] [place] Comment on above: Essential hypertensi on with goal blood pressure less than 140/90 (Primary Dx); Mixed hyperlipidemia; Elevated PSA; Elevated fasting blood sugar; Encounter for immunization Start: 05-19-2024 End: 05-19-2024 ambulatory Renee Cui MA [facility] Start: 05-19-2024 End: 05-19-2024 Patient encounter procedure Renee Cui MA [facility] Comment on above: Population Health Na vigation Outreach ([employer]/[place] ) Start: 05-11-2024 End: 05-11-2024 ambulatory VIC PARRA Facility:[facility] Start: 04-09-2024 End: 04-09-2024 Refill Leah Crews APRN.CONTRACT ENGINEER Work Phone: [facility] [place] Comment on above: Refill Request Start: 04-04-2024 End: 04-06-2024 Refill Jyotsna Siu PA-C Work Phone: [facility] [place] Comment on above: Refill Request Start: 11-20-2023 End: 11-20-2023 Patient encounter procedure Vic Parra MD Work Phone: [facility] [place] Comment on above: Medicare annual well ness visit, subsequent (Primary Dx); Essential hypertension with goal blood pressure less than 140/90; Mixed hyperlipidemia; Elevated fasting blood sugar; Essential tremor; Elevated PSA; Venous insufficiency (chronic) (peripheral); Advance directive discussed with patient; Need for vaccination Start: 10-15-2023 Refill Vic vitale MD Work Phone: [facility] [place] Comment on above: Refill Request Start: 05-15-2023 End: 05-15-2023 Patient encounter procedure Vic Parra MD Work Phone: [facility] [place] Comment on above: Essential hypertensi on with goal blood pressure less than 140/90 (Primary Dx); Mixed hyperlipidemia; Elevated fasting blood sugar; Essential tremor; Elevated PSA; Encounter for immunization Start: 03-29-2023 Refill Vic vitale MD Work Phone: [facility] [place] Comment on above: Refill Request Start: 10-31-2022 Patient encounter procedure Vic Parra MD Work Phone: [facility] Work Phone: Start: 10-21-2022 Refill Vic vitale MD Work Phone: [facility] [place] Comment on above: Refill Request Start: 07-12-2022 End: 07-12-2022 Patient encounter procedure Terrance White APRN.[facility] Work Phone: [facility] Comment on above: Pain and swelling of eyelid (Primary Dx); Eye irritation Start: 04-18-2022 End: 04-18-2022 Patient encounter procedure Vic Parra MD Work Phone: [facility] [place] Comment on above: Mixed hyperlipidemia (Primary Dx); Essential hypertension with goal blood pressure less than 140/90; Elevated fasting blood sugar; Essential tremor; Encounter for immunization; Elevated PSA Start: 04-01-2022 Refill Jyotsna arroyo PA-C Work Phone: [facility] [place] Comment on above: Refill Request Start: 11-27-2021 End: 11-27-2021 Patient encounter procedure Jyotsna Siu PA-C Work Phone: [facility] [place] Comment on above: Essential hypertensi on with goal blood pressure less than 140/90 (Primary Dx); Mixed hyperlipidemia; History of colon polyps Start: 11-23-2021 End: 11-23-2021 Subsequent hospital visit by physician Hiram Wilburn MD Work Phone: Ambulatory Surgery Comment on above: History of colonic p olyps [Z86.010] Start: 11-08-2021 End: 11-08-2021 Patient encounter procedure Bette Lehman PA-C Work Phone: General Surgery Comment on above: Personal history of colonic polyps (Primary Dx); Colon cancer screening Start: 11-01-2021 End: 11-01-2021 Nursing evaluation of patient and report Mi Nurse Work Phone: [facility] [place] Comment on above: Essential hypertensi on with goal blood pressure less than 140/90 (Primary Dx) Start: 11-01-2021 Telephone encounter Vic Parra MD Work Phone: [facility] [place] Comment on above: Blood Pressure Check Start: 10-11-2021 End: 10-11-2021 Patient encounter procedure Vic Parra MD Work Phone: [facility] [place] Comment on above: Medicare annual well ness visit, subsequent (Primary Dx); Essential hypertension with goal blood pressure less than 140/90; Mixed hyperlipidemia; Elevated fasting blood sugar; Essential tremor; Advance directive discussed with patient; Living will in place; Colon cancer screening; Elevated PSA Start: 10-09-2021 ambulatory Jazlyn (Pss) Dc [facility] Comment on above: Population Health Na vigation Outreach ([employer] care gap) Start: 09-30-2021 Refill Jyotsna arroyo PA-C Work Phone: [facility] [place] Comment on above: Refill Request Start: 10-06-2020 Patient encounter procedure Jyotsna Siu PA-C Work Phone: [facility] Work Phone: Start: 04-27-2020 End: 04-27-2020 Subsequent hospital visit by physician Delores [facility] [place] Work Phone: Radiology Comment on above: Right shoulder pain, unspecified chronicity [M25.511] Procedures Date Procedure Procedure Detail Performing Clinician Start: 11-24-2024 PFIZER-BIONTECH COVI D-19 VACCINE AGE 12+ YR ([facility]) Vic Parra MD Work Phone: Start: 11-24-2024 Adult depression scr eening assessment Vic Parra MD Work Phone: Start: 05-21-2024 PFIZER-BIONTECH COVI D-19 VACCINE AGE 12+ YR ([facility]) Jyotsna Siu PA-C Work Phone: Start: 11-20-2023 PFIZER-BIONTECH COVI D-19 VACCINE () AGE 12+ YR Vic Parra MD Work Phone: Start: 11-20-2023 Adult depression scr eening assessment Xr [place] Work Phone: Start: 11-13-2023 Lipid 1996 panel - S thaddeus or Plasma Vic Parra MD Work Phone: Start: 05-15-2023 INFLUENZA VACCINE, P RSV FREE, AGE 65+ YR, HIGH DOSE, QUADRIVALENT (FLUZONE HIGH-DOSE) Vic Parra MD Work Phone: Start: 05-15-2023 PFIZER-BIONTECH COVI D-19 VACCINE () AGE 12+ YR Vic Parra MD Work Phone: Start: 10-23-2022 Lipid 1996 panel - S thaddeus or Plasma Vic Parra MD Work Phone: Start: 04-18-2022 INFLUENZA SEASONAL QUADRIVALENT HIGH DOSE AGE 65+ Vic Parra MD Work Phone: Start: 04-18-2022 PFIZER-BIONTECH COVI D-19 BIVALENT BOOSTER VACCINE, AGE 12+ YR Vic Parra MD Work Phone: Start: 11-23-2021 Colon ca scrn not hi rsk ind Bette Lehman PA-C Work Phone: Start: 11-23-2021 Colonoscopy Hiram vargas MD Work Phone: Start: 04-27-2020 Radex shoulder compl ete minimum 2 views Vic Parra MD Work Phone: Start: 01-09-2016 Colonoscopy Jyotsna vicente PA-C Work Phone: Plan of Treatment Date Care Activity Detail Author Start: 11-24-2031 Colonoscopy COLONOSCOPY [facility] Start: 11-24-2031 COLORECTAL CANCER SCREENING COLORECTAL CANCER SCREENING [facility] Start: 11-24-2031 Screening for malign ant neoplasm of colon [facility] Start: 11-12-2028 Lipid panel Lipid Screening [facility] Start: 11-18-2027 Diabetes Screening Diabetes Screenin g [facility] Start: 10-24-2027 Lipid 1996 panel - Serum or Plasma Lipid Screening [facility] Start: 10-24-2027 Lipid panel Lipid Screening [facility] Start: 05-11-2027 Diabetes Screening Diabetes Screenin g [facility] Start: 11-23-2026 Colonoscopy COLONOSCOPY [facility] Start: 11-23-2026 COLORECTAL CANCER SCREENING COLORECTAL CANCER SCREENING [facility] Start: 11-12-2026 Diabetes Screening Diabetes Screenin g [facility] Start: 10-03-2026 LIPID SCREEN LIPID SCREEN [facility] Start: 05-03-2026 Diabetes Screening Diabetes Screenin g [facility] Start: 11-24-2025 Annual PCP Team Marketing And Promotions Manager kenrick Disease Visit Annual PCP Team Chronic Disease Visit [facility] Start: 11-24-2025 Anxiety Screening Anxiety Screening [facility] Start: 11-24-2025 Depression Screening Depression Scre ening [facility] Start: 11-24-2025 Shingrix Vaccine (1 of 2) Shingrix Vaccine (1 of 2) [facility] Comment on above: Postponed from 06/10 (Insurance Coverage) Start: 11-24-2025 Urine microalbumin profile DTaP,Tdap,Td Vaccine (2 - Td or Tdap) [facility] Comment on above: Postponed from 08/08 (Insurance Coverage) Start: 10-23-2025 Diabetes Screening Diabetes Screenin g [facility] Start: 09-24-2025 LIPID SCREEN LIPID SCREEN [facility] Start: 01-01-2026 BP Controlled (<130/80) BP Controlle d (<130/80) [facility] Start: 05-26-2025 End: 05-26-2025 Patient encounter procedure 05/26/2025 7:20 AM EST Office Visit Family Nadja Mcgarry [address] [facility] [place] [address] Vic Parra MD [address] [place] [address] 6 month follow up Family Nadja Mcgarry Comment on above: 6 month follow up Start: 05-21-2025 Annual PCP Team Marketing And Promotions Manager kenrick Disease Visit Annual PCP Team Chronic Disease Visit [facility] Start: 05-21-2025 BP Controlled (<130/80) BP Controlle d (<130/80) [facility] Start: 05-07-2025 End: 08-06-2025 Hemoglobin A1c in Blood HEMOGLOBIN A1C Lab Routine Elevated fasting blood sugar Expected: 05/07/2025, Expires: 08/06/2025 [facility] Work Phone: Comment on above: Expected: 05/07/2025 , Expires: 08/06/2025 Start: 05-07-2025 End: 08-06-2025 Prostate Specific Ag Free [Mass/volume] in Serum or Plasma PROSTATE SPECIFIC ANTIGEN, FREE AND TOTAL Lab Routine Elevated PSA Expected: 05/07/2025, Expires: 08/06/2025 [facility] Comment on above: Expected: 05/07/2025 , Expires: 08/06/2025 Start: 04-03-2025 DIABETES SCREEN DIABETES SCREEN [facility] Start: 11-24-2024 End: 11-24-2024 Patient encounter procedure Family Nadja Mcgarry Comment on above: Medicare Wellness Start: 11-19-2024 Annual PCP Team Marketing And Promotions Manager kenrick Disease Visit Annual PCP Team Chronic Disease Visit [facility] Start: 11-19-2024 Anxiety Screening Anxiety Screening [facility] Start: 11-19-2024 BP Controlled (<130/80) BP Controlle d (<130/80) [facility] Start: 11-19-2024 End: 02-18-2025 Comprehensive metabolic 2000 panel - Serum or Plasma COMPREHENSIVE METABOLIC PANEL Lab Routine Essential hypertension with goal blood pressure less than 140/90 Expected: 11/19/2024, Expires: 02/18/2025 [facility] Comment on above: Expected: 11/19/2024 , Expires: 02/18/2025 Start: 11-19-2024 Covid-19 Vaccine ( season) Covid-19 Vaccine () [facility] Start: 11-19-2024 Depression Screening Depression Scre ening [facility] Start: 11-19-2024 End: 02-18-2025 Hemoglobin A1c in Blood HEMOGLOBIN A1C Lab Routine Elevated fasting blood sugar Expected: 11/19/2024, Expires: 02/18/2025 [facility] Comment on above: Expected: 11/19/2024 , Expires: 02/18/2025 Start: 11-19-2024 End: 02-18-2025 LIPID PANEL, NONFASTING LIPID PANEL, NONFASTING Lab Routine Mixed hyperlipidemia Expected: 11/19/2024, Expires: 02/18/2025 [facility] Comment on above: Expected: 11/19/2024 , Expires: 02/18/2025 Start: 11-19-2024 End: 02-18-2025 Prostate Specific Ag Free [Mass/volume] in Serum or Plasma PROSTATE SPECIFIC ANTIGEN, FREE Lab Routine Elevated PSA Expected: 11/19/2024, Expires: 02/18/2025 [facility] Work Phone: Comment on above: Expected: 11/19/2024 , Expires: 02/18/2025 Start: 11-19-2024 Shingrix Vaccine (1 of 2) Shingrix Vaccine (1 of 2) [facility] Comment on above: Postponed from 06/10 (Insurance Coverage) Start: 11-19-2024 End: 02-18-2025 Urinalysis complete panel - Urine URINALYSIS, WITH MICROSCOPIC Lab Routine Essential hypertension with goal blood pressure less than 140/90 Expected: 11/19/2024, Expires: 02/18/2025 [facility] Comment on above: Expected: 11/19/2024 , Expires: 02/18/2025 Start: 11-19-2024 Urine microalbumin profile DTaP,Tdap,Td Vaccine (2 - Td or Tdap) [facility] Comment on above: Postponed from 08/08 (Insurance Coverage) Start: 10-03-2024 DIABETES SCREEN DIABETES SCREEN [facility] Start: 2024 Advance Directive Discussion Advance Directive Discussion [facility] Start: 06-07-2024 Annual PCP Team Marketing And Promotions Manager kenrick Disease Visit Annual PCP Team Chronic Disease Visit [facility] Start: 05-21-2024 End: 05-21-2024 Patient encounter procedure 05/21/2024 7:20 AM EST Office Visit Family Nadja Mcgarry [address] [place], [place] [id number] Jyotsna Siu PA-C [address] [place] [id number] 6 month follow up Family Nadja Mcgarry Comment on above: 6 month follow up Start: 05-15-2024 Annual PCP Team Marketing And Promotions Manager kenrick Disease Visit Annual PCP Team Chronic Disease Visit [facility] Start: 05-15-2024 RSV Vaccine (1 - 1-d ose 60+ series) RSV Vaccine (1 - 1-dose 60+ series) [facility] Comment on above: Postponed from 06/10 (Insurance Coverage) Start: 05-15-2024 RSV Vaccine (1 - 1-d ose 75+ series) RSV Vaccine (1 - 1-dose 75+ series) [facility] Comment on above: Postponed from 06/10 (Insurance Coverage) Start: 05-08-2024 End: 08-07-2024 Hemoglobin A1c in Blood HEMOGLOBIN A1C Lab Routine Elevated fasting blood sugar Expected: 05/08/2024, Expires: 08/07/2024 [facility] Work Phone: Comment on above: Expected: 05/08/2024 , Expires: 08/07/2024 Start: 05-08-2024 End: 08-07-2024 Prostate Specific Ag Free [Mass/volume] in Serum or Plasma PROSTATE SPECIFIC ANTIGEN, FREE Lab Routine Elevated PSA Expected: 05/08/2024, Expires: 08/07/2024 [facility] Comment on above: Expected: 05/08/2024 , Expires: 08/07/2024 Start: 03-28-2024 DIABETES SCREEN DIABETES SCREEN [facility] Start: 02-09-2024 Covid-19 Vaccine ( season) Covid-19 Vaccine () [facility] Start: 02-09-2024 Influenza vaccination Influenza Vacc ine (#1) [facility] Start: 11-20-2023 End: 11-20-2023 Patient encounter procedure 11/20/2023 8:00 AM EDT Office Visit [facility] [place] [address] [place], [place] [id number] Vic Parra MD [address] [place], [place] [address] medicare wellness [facility] [place] Comment on above: medicare wellness Start: 11-01-2023 Annual PCP Team Marketing And Promotions Manager kenrick Disease Visit Annual PCP Team Chronic Disease Visit [facility] Start: 11-01-2023 End: 01-31-2024 Comprehensive metabolic 2000 panel - Serum or Plasma COMP METABOLIC PANEL Lab Routine Essential hypertension with goal blood pressure less than 140/90 Mixed hyperlipidemia Elevated fasting blood sugar Expected: 11/01/2023, Expires: 01/31/2024 [facility] Work Phone: Comment on above: Expected: 11/01/2023 , Expires: 01/31/2024 Start: 11-01-2023 End: 01-31-2024 Hemoglobin A1c in Blood HGB A1C Lab Routine Elevated fasting blood sugar Expected: 11/01/2023, Expires: 01/31/2024 [facility] Work Phone: Comment on above: Expected: 11/01/2023 , Expires: 01/31/2024 Start: 11-01-2023 End: 01-31-2024 LIPID PANEL, NONFASTING LIPID PANEL, NONFASTING Lab Routine Essential hypertension with goal blood pressure less than 140/90 Mixed hyperlipidemia Expected: 11/01/2023, Expires: 01/31/2024 [facility] Work Phone: Comment on above: Expected: 11/01/2023 , Expires: 01/31/2024 Start: 11-01-2023 End: 01-31-2024 Prostate Specific Ag Free [Mass/volume] in Serum or Plasma PSA FREE Lab Routine Elevated PSA Expected: 11/01/2023, Expires: 01/31/2024 [facility] Work Phone: Comment on above: Expected: 11/01/2023 , Expires: 01/31/2024 Start: 11-01-2023 Shingrix Vaccine (1 of 2) Shingrix Vaccine (1 of 2) [facility] Comment on above: Postponed from 06/10 (Insurance Coverage) Start: 11-01-2023 End: 01-31-2024 Urinalysis complete panel - Urine URINALYSIS, WITH MICROSCOPIC Lab Routine Essential hypertension with goal blood pressure less than 140/90 Mixed hyperlipidemia Expected: 11/01/2023, Expires: 01/31/2024 [facility] Work Phone: Comment on above: Expected: 11/01/2023 , Expires: 01/31/2024 Start: 09-14-2023 Covid-19 Vaccine () Covid-19 Vaccine () [facility] Start: 08-09-2023 Urine microalbumin profile [facility] Start: 2023 Advance Directive Discussion Advance Directive Discussion [facility] Start: 2023 Behavioral Health Screening Behavioral Health Screening [facility] Start: 2023 RSV Vaccine (1 - 1-d ose 75+ series) RSV Vaccine (1 - 1-dose 75+ series) [facility] Start: 04-18-2023 ANNUAL PCP TEAM WINERY CELLAR HAND KENRICK DISEASE VISIT ANNUAL PCP TEAM CHRONIC DISEASE VISIT [facility] Start: 02-08-2023 Covid-19 Vaccine () Covid-19 Vaccine () [facility] Start: 02-08-2023 Influenza vaccination Influenza Vacc ine (#1) [facility] Start: 11-27-2022 ANNUAL PCP TEAM WINERY CELLAR HAND KENRICK DISEASE VISIT ANNUAL PCP TEAM CHRONIC DISEASE VISIT [facility] Start: 11-08-2022 BP CONTROLLED (<130/80) BP CONTROLLE D (<130/80) [facility] Start: 11-01-2022 BP CONTROLLED (<130/80) BP CONTROLLE D (<130/80) [facility] Start: 10-11-2022 ANNUAL PCP TEAM WINERY CELLAR HAND KENRICK DISEASE VISIT ANNUAL PCP TEAM CHRONIC DISEASE VISIT [facility] Start: 10-11-2022 SHINGRIX VACCINE (1 of 2) SHINGRIX VACCINE (1 of 2) [facility] Comment on above: Postponed from 06/10 (Insurance Coverage) Start: 10-05-2022 End: 12-05-2022 Comprehensive metabolic 2000 panel - Serum or Plasma COMP METABOLIC PANEL Lab Routine Mixed hyperlipidemia Essential hypertension with goal blood pressure less than 140/90 Elevated fasting blood sugar Expected: 10/05/2022, Expires: 12/05/2022 [facility] Work Phone: Comment on above: Expected: 10/05/2022 , Expires: 12/05/2022 Start: 10-05-2022 End: 12-05-2022 Hemoglobin A1c in Blood HGB A1C Lab Routine Elevated fasting blood sugar Expected: 10/05/2022, Expires: 12/05/2022 [facility] Work Phone: Comment on above: Expected: 10/05/2022 , Expires: 12/05/2022 Start: 10-05-2022 End: 12-05-2022 LIPID PANEL, NONFASTING LIPID PANEL, NONFASTING Lab Routine Mixed hyperlipidemia Essential hypertension with goal blood pressure less than 140/90 Expected: 10/05/2022, Expires: 12/05/2022 [facility] Work Phone: Comment on above: Expected: 10/05/2022 , Expires: 12/05/2022 Start: 10-05-2022 End: 12-05-2022 Prostate Specific Ag Free [Mass/volume] in Serum or Plasma PSA FREE Lab Routine Elevated PSA Expected: 10/05/2022, Expires: 12/05/2022 [facility] Work Phone: Comment on above: Expected: 10/05/2022 , Expires: 12/05/2022 Start: 10-05-2022 End: 12-05-2022 Urinalysis complete panel - Urine URINALYSIS, WITH MICROSCOPIC Lab Routine Mixed hyperlipidemia Essential hypertension with goal blood pressure less than 140/90 Expected: 10/05/2022, Expires: 12/05/2022 [facility] Work Phone: Comment on above: Expected: 10/05/2022 , Expires: 12/05/2022 Start: 06-19-2022 BP CONTROLLED (<130/80) BP CONTROLLE D (<130/80) [facility] Start: 2022 ADVANCE DIRECTIVE DISCUSSION ADVANCE DIRECTIVE DISCUSSION [facility] Start: 2022 DEPRESSION ASSESSMENT DEPRESSION ASS ESSMENT [facility] Start: 04-07-2022 ANNUAL PCP TEAM WINERY CELLAR HAND KENRICK DISEASE VISIT ANNUAL PCP TEAM CHRONIC DISEASE VISIT [facility] Start: 03-30-2022 End: 05-30-2022 Hemoglobin A1c/Hemoglobin.total in Blood HGB A1C Lab Routine Elevated fasting blood sugar Expected: 03/30/2022, Expires: 05/30/2022 [facility] Work Phone: Comment on above: Expected: 03/30/2022 , Expires: 05/30/2022 Start: 03-30-2022 End: 05-30-2022 Prostate Specific Ag Free [Mass/volume] in Serum or Plasma PSA FREE Lab Routine Elevated PSA Expected: 03/30/2022, Expires: 05/30/2022 [facility] Work Phone: Comment on above: Expected: 03/30/2022 , Expires: 05/30/2022 Start: 02-08-2022 Influenza vaccination INFLUENZA (#1) [facility] Start: 10-06-2021 SHINGRIX VACCINE (1 of 2) SHINGRIX VACCINE (1 of 2) [facility] Comment on above: Postponed from 06/10 (Insurance Coverage) Start: 2021 ADVANCE DIRECTIVE DISCUSSION ADVANCE DIRECTIVE DISCUSSION [facility] Start: 2021 DEPRESSION ASSESSMENT DEPRESSION ASS ESSMENT [facility] Start: 01-08-2021 Colonoscopy COLONOSCOPY [facility] Start: 01-08-2021 COLORECTAL CANCER SCREENING COLORECTAL CANCER SCREENING [facility] Start: 12-17-2020 COVID-19 VACCINE (3 - Booster for Moderna series) COVID-19 VACCINE (3 - Booster for Moderna series) [facility] Start: 09-14-2020 COVID-19 VACCINE (3 - Booster for Moderna series) COVID-19 VACCINE (3 - Booster for Moderna series) [facility] Start: 11-07-2016 FECAL OCCULT BLOOD FECAL OCCULT BLOO D [facility] Start: 11-07-2016 Screening for malign ant neoplasm of colon Fecal Occult Blood [facility] Start: 2008 RSV Vaccine (1 - 1-d ose 60+ series) RSV Vaccine (1 - 1-dose 60+ series) [facility] Start: 1998 SHINGRIX VACCINE (1 of 2) SHINGRIX VACCINE (1 of 2) [facility] Start: 1993 COLOGUARD (FIT-DNA) COLOGUARD (FIT-D NA) [facility] Start: [address] COLONOGRAPHY [facility] Start: 1993 Screening for malign ant neoplasm of colon [facility] Start: 1993 SIGMOIDOSCOPY SIGMOIDOSCOPY [facility] Start: 1966 BP CONTROLLED (<130/80) BP CONTROLLE D (<130/80) [facility] COVID & INFLUENZA A/ B & RSV PCR, ROUTINE COVID & INFLUENZA A/B & RSV PCR, ROUTINE Microbiology Routine Viral URI with cough Ordered: 2024 [facility] Work Phone: Comment on above: Ordered: 2024 [facility] Immunizations Immunization Date Immunization Notes Care Provider [facility] 11-24-2024 COVID-19 vaccine, ag e 12+ yr (PFIZER-BIONTECH COMIRNATY) Vic Parra MD Work Phone: [facility] 06-07-2024 respiratory syncytia l virus (RSV) vaccine, bivalent (ABRYSVO) Elma Payne APRN.CNP Work Phone: [facility] 05-21-2024 COVID-19 vaccine, ag e 12+ yr (PFIZER-BIONTECH COMIRNATY) Jyotsna Siu PA-C Work Phone: [facility] 05-21-2024 influenza, high dose seasonal, preservative-free Jyotsna Siu PA-C Work Phone: [facility] 11-20-2023 COVID-19 vaccine, ag e 12+ yr, season (Greatist-BIONTECH) Vic Parra MD Work Phone: [facility] 11-20-2023 pneumococcal conjuga te (PCV20) vaccine, 20 valent (PREVNAR 20) Vic Parra MD Work Phone: [facility] 11-20-2023 pneumococcal Conjuga te, unspecified formulation Vic Parra MD Work Phone: [facility] 05-15-2023 COVID-19 vaccine, ag e 12+ yr, season (Greatist-BIONTECH) Vic Parra MD Work Phone: [facility] 05-15-2023 influenza (HD-IIV4) vaccine, age 65+ yr, high dose, quadrivalent, PF (FLUZONE HIGH-DOSE) Vic Parra MD Work Phone: [facility] 05-15-2023 influenza virus vacc ine, unspecified formulation Xr [place] Work Phone: [facility] 04-18-2022 COVID-19 booster vaccine, age 12+ yr, bivalent (AppscendBIONTECH) Vic Parra MD Work Phone: [facility] 04-18-2022 influenza, high-dose , quadrivalent vaccine (FLUZONE HIGH DOSE QUADRIVALENT) Vic Parra MD Work Phone: [facility] 04-18-2022 influenza virus vacc ine, unspecified formulation Vic Parra MD Work Phone: [facility] 04-07-2021 influenza, high-dose , quadrivalent vaccine (FLUZONE HIGH DOSE QUADRIVALENT) Jyotsna Siu PA-C Work Phone: [facility] 04-27-2020 influenza, high-dose , quadrivalent vaccine (FLUZONE HIGH DOSE QUADRIVALENT) Jyotsna Siu PA-C Work Phone: [facility] 08-12-2019 influenza, high dose seasonal, preservative-free Jyotsna Siu PA-C Work Phone: [facility] 08-01-2018 influenza, high dose seasonal, preservative-free Jyotsna Siu PA-C Work Phone: [facility] 07-11-2017 influenza, injectabl e, quadrivalent, contains preservative Jyotsna Siu PA-C Work Phone: [facility] 01-08-2017 pneumococcal polysaccharide vaccine, 23 valent Jyotsna Siu PA-C Work Phone: [facility] 07-11-2016 influenza, injectabl e, quadrivalent, preservative free Jyotsna Siu PA-C Work Phone: [facility] 10-22-2015 pneumococcal conjuga te vaccine, 13 valent Jyotsna Siu PA-C Work Phone: [facility] Work Phone: 08-08-2013 tetanus toxoid, redu freddy diphtheria toxoid, and acellular pertussis vaccine, adsorbed Jyotsna Siu PA-C Work Phone: [facility] Work Phone: Payers Date Payer Category Payer Self-pay 2022 Medicare (Managed Care) [employer] [id number] 2022 Private Health Insurance [id number] 2021 Medicare HUMANA MEDICARE [employer] GOLD PLUS [id number] 2021-Present [phone] [address] [place] [id number] [facility] [id number] 2019 Medicare [id number] Unknown [id number] Social History Date Type Detail Facility Start: 11-10-2018 End: 04-18-2022 Tobacco smoking status NHIS Never smoked tobacco [facility] Start: 06-19-2021 End: 11-24-2024 Alcohol intake Current drinker of alcohol (finding) [facility] Start: 09-26-2015 History SDOH Alcohol Comment couple beers daily [facility] Start: 1950 Sex Assigned At Not on file [facility] Start: 03-28-2020 End: 04-18-2022 Exposure to SARS-CoV-2 (event) Not sure [facility] Start: 11-23-2021 End: 06-07-2023 Alcohol intake [facility] Work Phone: Start: 04-18-2022 Tobacco use and exposure Smokeless tobacco non-user [facility] Start: 10-31-2022 End: 06-07-2023 Tobacco use panel [facility] Work Phone: Adult Depression Screening Assessment 0 [facility] Work Phone: How often to you hav e a drink containing alcohol? 2-3 time sa week [facility] How many standard drinks containing alcohol do you have on a typical day? 1 or 2 [facility] How often do you hav e 6 or more drinks on 1 occasion? Less than monthly [facility] How often to you hav e a drink containing alcohol? 4 or more times a week [facility] How often do you hav e 6 or more drinks on 1 occasion? Never [facility] Start: 10-13-2018 Tobacco Use Tobacco Use [facility] Start: 1950 Sex Assigned At Male W [facility] Functional Status Date Assessment Result Facility 11-24-2024 Total score [AUDIT-C] 4 11/25/19 25 7:51 AM Yessenia Galvin MA [facility] c Clinical Notes 11-18-2020 to 11-25-2024 Telephone Encounter - Rosa Elena Miles LPN - 11/25/2024 8:26 AM EDTTelephone Encounter - Rosa Elena Miles LPN - 11/25/2024 8:26 AM EDTPatient InstructionsPatient InstructionsPatient Instructions Note Date & Type Note Facility 11-25-2024 Telephone encounter Note Pt notified of same. Rosa Elena Miles LPN [facility] 11-25-2024 Miscellaneous Notes Pt notified of same. Rosa Elena Miles LPN Let patient know his calcium level was ok. documented in this encounter [facility] 11-24-2024 Telephone encounter Note Let patient know his calcium level was ok. [facility] 11-24-2024 Instructions Vic Parra MD - 11/24/2024 8:09 AM EDT Consider getting a Tdap for a tetanus booster at a local pharmacy along with the shingrix vaccine for shingle. We discussed your health and care plan during today s visit: 1. COVID-19 Booster: - You received your 6-month COVID-19 booster today. 2. Calcium Levels: - Your calcium level was slightly low (8.4; normal range starts at 8.5). This could be a lab error, but to confirm, I ordered an ionized calcium blood test to better assess your calcium levels. - You can complete this blood test today or sometime this week. 3. Cholesterol and A1c Levels: - Your cholesterol levels are within a healthy range: - Triglycerides: 50 (goal: below 150). - HDL (good cholesterol): 48 (goal: above 40). - LDL (bad cholesterol): 68 (goal: below 130). - Your A1c has increased slightly to 6.2% (previously 5.8%). Diabetes is diagnosed at 6.5% or higher. Please monitor and reduce your intake of sugars and starches to help manage this. 4. Prostate Health: - Your PSA level has improved, decreasing from 3.79 to 3.05. This is likely related to an enlarged prostate. We will continue monitoring this. 5. Skin Concerns: - I am concerned about a mole on your cheek, which may be an early form of skin cancer (not melanoma). I am referring you to a plastic surgeon at [facility] for further evaluation and possible removal. - The referral has been sent, and their office will contact you to schedule an appointment. Please confirm with them if they accept your insurance. If they do not, let me know. 6. Blood Pressure: - Your blood pressure today was 148/80. We will recheck it before you leave. If it remains elevated, we may need to bring you back in a couple of weeks for another check. 7. Follow-Up: - I will see you again in 6 months for your routine follow-up. - If your blood pressure remains elevated or if you have any concerns before then, please contact our office. Please let me know if you have any questions or concerns. Screening schedule The following prevention plan is recommended: Shingrix Vaccine(1 of 2) Never done DTaP,Tdap,Td Vaccine(2 - Td or Tdap) due on 08/09/2023 Advance Directive Discussion due on 2024 Medicare Advantage Annual Wellness Visit due on 2024 Covid-19 Vaccine() due on 11/19/2024 Depression Screening due on 11/19/2024 Anxiety Screening due on 11/19/2024 WHAT YOU CAN DO TO PREVENT FALLS Many falls can be prevented. By making some changes, you can lower your chances of falling. Four things YOU can do to prevent falls for you* and your caregiver 1. Begin a regular exercise program Exercise is one of the most important ways to lower your chances of falling. It makes you stronger and helps you feel better. Exercises that improve balance and coordination (like Tyler Chi) are the most helpful. Lack of exercise leads to weakness and increases your chances of falling. Ask your doctor or health care provider about the best type of exercise program for you. 2. Have your health care provider review your medicines Have your doctor or pharmacist review all the medicines you take, even [id number] medicines. As you get older, the way medicines work in your body can change. Some medicines, or combinations of medicines, can make you sleepy or dizzy and can cause you to fall. 3. Have your vision checked Have your eyes checked by an eye doctor at least once a year. You may be wearing the wrong glasses or have a condition like glaucoma or cataracts that limits your vision. Poor vision can increase your chances of falling. 4. Make your home safer About half of all falls happen at home. To make your home safer: Remove things you can trip over (like papers, books, clothes, and shoes) from stairs and places where you walk. Remove small throw rugs or use double-sided tape to keep the rugs from slipping. Keep items you use often in cabinets you can reach easily without using a step stool. Have grab bars put in next to your toilet and in the tub or shower. Use non-slip mats in the bathtub and on shower floors. Improve the lighting in your home. As you get older, you need brighter lights to see well. Hang light-weight curtains or shades to reduce glare. Have handrails and lights put in on all staircases. Wear shoes both inside and outside the house. Avoid going barefoot or wearing slippers. For more information, contact: Centers for Disease Control and Prevention www.cdc.gov/injury * This information may not apply if you have certain medical conditions. documented in this encounter [facility] 11-24-2024 History of Presen t illness Narrative Images from the original note were not included. Shamika Donahue is a 74 year old male here for a Medicare wellness visit. Medicare Health Risk Assessment General Health Very good Exercise: Minutes/Day 0 min Exercise: Days/Week 0 days Alcohol: Daily Use 4 or more times a week Alcohol: Drinks/Day 1 or 2 Alcohol: 6 or more drinks Never Feel off balance No Concerns: Teeth/Dentures No Concerns: Sexual function No Troubled by feelings None of the above Frequency: Eating healthy diet Nearly every day ADLs requiring help None of the above Safety precautions in home/vehicle No Smoke, vape, chews tobacco No Difficulty hearing No Difficulty seeing No Current Providers Specialists: I have reviewed specialist-related care of the patient in the medical record. Current care team: Patient Care Team: Vic Parra MD as PCP - General (Family Medicine) Leah Crews APRN.LISA as Cooky Machine Operator (Family Medicine) Jyotsna Siu PA-C as Cooky Machine Operator (Family Medicine) Medical/Family history review Reviewed and updated problem list, medical/surgical/family/social history, medications, and allergies. Opioid use review Opioid Medications (last 90 days) No data to display Anxiety/Depression screening PHQ-2 Score: 0 (Lower risk for depression) Recommendation: no further intervention at this time Cognitive screening Score: 5 Cognitive screening reviewed and No further action needed (score 3-5). Functional Observation Was the patient's Timed Up & Go test unsteady or >= 12 seconds? No Advance Care Planning Surrogate decision maker and/or advance care plan documented Measurements BP 140/76 Pulse 66 Resp 16 Ht 168.3 cm (5' 6.25) Wt 89.8 kg (198 lb) SpO2 94% BMI 31.72 kg/m Vision Screening: Follows with optometry/ophthalmology Assessment/Plan Medicare annual wellness visit, subsequent (Z00.00) - Counseled on healthy diet and regular exercise - Fall avoidance information provided - Personalized prevention plan provided See below Chief Complaint Patient presents with: Medicare Wellness Exam HPI Shamika Donahue is a 74 year old male who presents here today for Chronic Medical Conditions. and Medicare Annual Visit. Patient with Hx of elevated fasting BS, HTN, Hyperlipidemia, essential tremor, elevated PSA as well as those reviewed and addressed below Shamika reports no recent hospitalizations or surgeries within the past year. He underwent bilateral cataract surgery in February 2023 and a bilateral blepharoplasty in 2023. He denies any new chronic conditions or major diagnoses in family members, but notes that his nephew was recently diagnosed with metastatic lung cancer. He reports no difficulties with activities of daily living, mobility, or balance, and denies any recent falls or fear of falling. He feels safe in his home and has not noticed any changes in memory, focus, or decision-making abilities. He denies feelings of depression, anxiety, or excessive worry, and reports that going to work helps him stay active and provides social interaction. He denies any recent fevers, frequent headaches, sudden changes in hearing or vision, issues with his nose or throat, lumps or swelling in his neck, wheezing, dyspnea, hemoptysis, chest pain, palpitations, or leg swelling. He also denies frequent nausea, emesis, diarrhea, heartburn, hematochezia, hematuria, dysuria, or changes in urinary frequency. He reports no new or unusual aches and pains, skin lesions, rashes, or sores, and denies any easy bruising or bleeding, changes in heat or cold tolerance, or increased thirst. He denies any episodes of syncope or seizures. He reports that his tremors are about the same, with some days being slightly worse than others, but they do not interfere with his daily activities. He has been working at a new job since mid-October and is enjoying it. He reports that the new company is much larger and has a presence in 22 counties in [place]. He notes that he has less responsibility and fewer headaches at the new job compared to his previous one. He reports that he was terminated from his previous job after giving a two-week notice, but is happy with his current position. Past medical history, appointments, medications, allergies reviewed. Previous Medical History PAST MEDICAL HISTORY Diagnosis Date Advance directive discussed with patient 10/11/2021 Discussed 10/2021 AK (actinic keratosis) 02/04/2019 right dorsal and lateral forearm, posterior upper right arm and right unlar wrist treated with cryo 02/04/2019 Cataract Diverticulosis Elevated fasting blood sugar 11/09/2015 Elevated PSA 04/18/2022 Essential hypertension with goal blood pressure less than 140/90 09/26/2015 Essential tremor 04/07/2021 Family history of coronary artery disease 09/26/2015 Hemorrhoids History of colon polyps 10/26/2015 History of shingles 10/31/202206/[address] 10/11/2021 DPA: Melani (daughter) Medicare annual wellness visit, subsequent 01/08/2017 Medicare Part B: 05/10/2013 last done: 02/04/2019 Mixed hyperlipidemia 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 Previous Surgical History PAST SURGICAL HISTORY Procedure Laterality Date BLEPHAROPLASTY UPPER EYELID Bilateral 2023 Blepharoplasty - upper COLONOSCOPY 12/04/2013 polyp, was to get repeated 04/2016 COLONOSCOPY 11/23/2021 repeat in 10 years COLONOSCOPY FLX DX W/COLLJ SPEC WHEN PFRMD 01/09/2016 REMV CATARACT EXTRACAP,INSERT LENS Bilateral 02/2023 TONSILLECTOMY HX Family History FAMILY HISTORY Problem Relation Age of Onset Diabetes Mother Heart Father Coronary Artery Disease Father Diabetes Brother Heart disease Brother Coronary Artery Disease Brother bypass in his 40's and a total of 3 Kidney Disease Brother Heart Paternal Grandmother Heart Paternal Grandfather Lipids Paternal Grandfather Heart Paternal Uncle Lung Cancer Nephew mets to bones Patient Allergies ALLERGIES Allergen Reactions Codeine Intolerance Current Medications Current Outpatient Medications on File Prior to Visit Medication Sig ezetimibe (ZETIA) 10 mg tablet Take 1 tablet by mouth once daily. amLODIPine (NORVASC) 10 mg tablet Take 1 tablet by mouth once daily. atorvastatin (LIPITOR) 20 mg tablet Take 1 tablet by mouth once daily. lisinopril (ZESTRIL) 20 mg tablet Take 1 tablet by mouth once daily. mupirocin (BACTROBAN) 2 % ointment Apply to affected area three times a day. Comp Stocking,Knee,Regular,Med misc Knee High Compression Stockings 20-30 mm, DX: Venous insufficiency 187.2 keTORolac Tromethamine (ACLUAR LS) 0.4 % drop Use 1 Drop in the left eye four times daily. (Patient not taking: Reported on 05/21/2024) prednisoLONE acetate, PF, 1 % drps Use in eyes. (Patient not taking: Reported on 05/21/2024) aspirin, enteric coated (ASPIRIN, ENTERIC COATED) 81 mg EC tablet Take 1 tablet by mouth once daily. COMPOUNDED PRESCRIPTION Knee High Compression Stockings 20-30 mm, DX: Venous insufficiency No current facility-administered medications on file prior to visit. Social History Social History Tobacco Use Smoking status: Never Smokeless tobacco: Never Vaping Use Vaping status: Never Used Substance Use Topics Alcohol use: Yes Alcohol/week: 2.0 standard drinks of alcohol Types: 2 Cans of Beer (12oz) per week Comment: couple beers daily Drug use: No Review of Symptoms REVIEW OF SYSTEMS GENERAL: No weight loss, malaise or fevers HEENT: Negative for frequent or significant headaches, No changes in hearing or vision, no nose bleeds or other nasal problems NECK: Negative for lumps, goiter, pain and significant neck swelling RESPIRATORY: Negative for cough, hemoptysis, wheezing, COPD, dyspnea or shortness of breath CARDIOVASCULAR: Negative for chest pain, leg swelling, hypertension, CHF or palpitations GI: No nausea, vomiting, or diarrhea, No heartburn or reflux symptoms, and no blood : No history of dysuria, frequency or blood MUSCULOSKELETAL: Negative for joint pain or swelling, back pain or muscle pain SKIN: Negative for lesions, rash, and itching PSYCH: Negative for sleep disturbance, mood disorder and recent psychosocial stressors HEMATOLOGY/LYMPHOLOGY: Negative for prolonged bleeding, bruising easily or swollen nodes ENDOCRINE: Negative for cold or heat intolerance, polyuria, polydipsia and goiter NEURO: No history of headaches, syncope, paralysis, seizures or increase tremors SEE HPI EXAM: BP 126/72 Pulse 66 Resp 16 Ht 168.3 cm (5' 6.25) Wt 89.8 kg (198 lb) SpO2 94% BMI 31.72 kg/m Last 5 Encounter Wt Readings: Date: Wt: 11/24/2024 89.8 kg (198 lb) 2024 88.9 kg (195 lb 15.8 oz) 05/21/2024 91.2 kg (201 lb) 11/20/2023 91.2 kg (201 lb) 06/07/2023 94.3 kg (208 lb) General Appearance: Well appearing, alert, in no acute distress, well-hydrated, well nourished.. Skin: Skin color, texture, turgor normal, no suspicious rashes. Has a abnormal lesion on the right side of neck just below the ear concerning for skin cancer. Head: Normocephalic, no masses, lesions, tenderness or abnormalities. Eyes: Anicteric sclera. Pupils are equally round and reactive to light. Extraocular movements are intact. . Ears: External ears and TM's normal, canals clear. Nose/Sinuses: Nares normal, septum midline, mucosa normal, no drainage or sinus tenderness. Oropharynx: Lips, mucosa, and tongue normal, teeth and gums normal, oropharynx normal. Neck: Supple, no adenopathy; thyroid symmetric, normal size, no bruits. Lungs: Lungs clear to auscultation. No wheezing, rhonchi, rales.. Heart: RRR without murmur, gallop, or rubs. No ectopy. Abdomen: Normal abdominal exam, Abdomen soft, non-tender. Bowel sounds normal. No masses, organomegaly. Extremities: No deformities, edema, skin discoloration, clubbing or cyanosis. Good capillary refill. . Musculoskeletal: Muscular strength intact, No joint swelling, deformity, or tenderness. Peripheral Pulses: Normal. Neurologic: Gait normal. Reflexes normal and symmetric. Sensation to light touch and crainal nerves 2-12 intact.. Genitalia: Normal, Penis normal. No urethral discharge. Scrotum normal to palpation. No hernia.. Rectal: Normal exam. Prostate enlarged with smooth and firm surface. Health Maintenance List Medicare Advantage Annual Wellness Visit due on 2024 DTaP,Tdap,Td Vaccine(2 - Td or Tdap) due on 11/24/2025 Shingrix Vaccine(1 of 2) due on 11/24/2025 Annual PCP Team Chronic Disease Visit due on 11/24/2025 Depression Screening due on 11/24/2025 Anxiety Screening due on 11/24/2025 Diabetes Screening due on 11/18/2027 Influenza Vaccine Completed Advance Directive Discussion Completed RSV Vaccine Completed Covid-19 Vaccine Completed Pneumococcal Vaccine: 50+ Completed Colorectal Cancer Screening Discontinued Hepatitis C Screening Discontinued Data reviewed Latest Ref Rng 11/13/2023 05/11/2024 11/17/2024 11/21/2024 Color Yellow Yellow Yellow Clarity Clear Clear Clear Glucose, Urine Negative Negative Negative Bilirubin, Urine Negative Negative Negative Ketones, Urine Negative Negative Negative Specific [place], Ur 1.005 - 1.030 1.011 1.013 Hemoglobin/Blood,Ur Negative Negative Negative pH, Urine <8.5 5.5 6.0 Protein, Urine Negative Negative Negative Urobilinogen 0.2-1.0 EU/dL 0.2 EU/dL 0.2 EU/dL Nitrites Negative Negative Negative Leukest Negative Negative Negative WBC, Urine 0-5 /HPF 0-5 /HPF 0-5 /HPF RBC, Urine 0-2 /HPF 0-2 /HPF 0-2 /HPF Bacteria Negative /HPF Negative Negative Epithelial Cells /HPF None Seen None Seen Hyaline Cast 0 /LPF 0 /LPF 0 /LPF Protein, Total 6.3 - 8.0 g/dL 6.4 6.7 Albumin 3.9 - 4.9 g/dL 4.2 4.0 Calcium 8.5 - 10.2 mg/dL 8.8 8.4 (L) Bilirubin, Total 0.2 - 1.3 mg/dL 0.9 0.6 Alkaline Phosphatase 38 - 113 U/L 98 106 AST 14 - 40 U/L 21 25 ALT 10 - 54 U/L 28 30 Glucose 74 - 99 mg/dL 126 (H) 130 (H) BUN 9 - 24 mg/dL 13 11 Creatinine 0.73 - 1.22 mg/dL 0.94 0.90 Sodium 136 - 144 mmol/L 140 140 Potassium 3.7 - 5.1 mmol/L 4.4 4.6 Chloride 98 - 107 mmol/L 108 (H) 107 CO2 22 - 30 mmol/L 22 23 Anion Gap 8 - 15 mmol/L 10 10 eGFR >=60 mL/min/1.73m 85 89 Total Cholesterol, Nonfasting <200 mg/dL 115 127 Triglycerides, Nonfasting <150 mg/dL 49 50 HDL Cholesterol, Nonfasting >39 mg/dL 50 48 LDL Cholesterol Calculated, Nonfasting <100 mg/dL 55 68 Non HDL Cholesterol, Nonfasting <130 mg/dL 65 79 VLDL Cholesterol, Nonfasting <30 mg/dL 10 7 Total Chol/HDL Ratio, Nonfasting <5.10 mg/dL 2.30 2.65 LDL/HDL Ratio, Nonfasting <2.54 mg/dL 1.10 1.42 Hemoglobin A1C 4.3 - 5.6 % 6.0 (H) 5.8 (H) 6.2 (H) Estimated Average Glucose mg/dL 126 120 131 PSA <2.60 ng/mL 3.20 (H) 3.79 (H) 3.05 (H) PSA, Percent Free % 20 17 21 Assessment and Plan 1. Medicare annual wellness visit, subsequent (Z00.00) Comprehensive review of systems and physical examination performed. No new significant findings reported by the patient. - Continue routine follow-up and monitoring. - work on weight loss. - advised on shingrix vaccine. 2. Essential hypertension with goal blood pressure less than 140/90 (I10) Blood pressure readings: initial 140/76 mmHg, recheck 148/80 mmHg. - Recheck blood pressure at the end of the visit and was 126/72 - cont current management. 3. Mixed hyperlipidemia (E78.2) Recent lipid panel shows triglycerides at 50 mg/dL, HDL at 48 mg/dL, and LDL at 68 mg/dL, all within target ranges. - Continue current management. - work on weight loss. 4. Elevated fasting blood sugar (R73.01) Hemoglobin A1c increased to 6.2% from previous 5.8%. - Advised dietary modifications to reduce sugar and starch intake. 5. Essential tremor (G25.0) Tremor remains stable, with occasional exacerbations but not affecting daily activities. - Continue current management. 6. Elevated PSA (R97.20) PSA level decreased to 3.05 ng/mL from 3.79 ng/mL six months ago; free PSA portion increased. - Continue monitoring PSA levels. 7. Hypocalcemia (E83.51) Serum calcium slightly low at 8.4 mg/dL (normal range: 8.5-10.2 mg/dL). - Ordered ionized calcium test for more accurate assessment. 8. Advance directive discussed with patient (Z71.89) Advance directive status reviewed. - Needs to bring in copies. 9. Encounter for immunization (Z23) Due for COVID-19 booster vaccination. - Administer COVID-19 booster vaccine today. 10. Encounter for screening examination for other mental health and behavioral disorders (Z13.39) Screening for depression (Z13.31) No signs of anxiety or depression reported; patient denies decreased interest in activities or excessive worrying. - Continue routine mental health screenings. 11. Neoplasm of uncertain behavior of skin of neck (D48.5) Suspicious mole on the neck observed; differential includes potential early skin cancer. - Referred to plastic surgery at [place] for further evaluation and possible excision. F/u 6 months routine check A1c and Free PSA prior. Vic Parra MD I spent a total of 40 minutes on the date of the service which included preparing to see the patient, [id number] patient care, completing clinical documentation, performing a medically appropriate examination, counseling and educating the patient/family/caregiver and ordering medications, tests, or procedures. Recording using [employer] software for draft documentation of the visit was discussed with the patient/authorized medical field representative; all questions welcomed and answered. Patient/authorized medical field representative agreed to proceed SENSITIVE EXAMINATION CONSENT: The sensitive examination was discussed with the Patient or Patient's Authorized Chaser Apprentice. As applicable, any other physician, advance practice provider, medical student, or other health professional student that will be observing or involved in the sensitive examination for educational or training purposes was discussed with the Patient or Authorized Chaser Apprentice. The Patient or Authorized Chaser Apprentice has agreed to proceed with the sensitive examination. documented in this encounter [facility] 11-24-2024 Note HNO ID: [id number] Author: VIC PARRA MD Service: ? Author Type: Physician Type: Progress Notes Filed: 11/24/2024 19:21 Note Text: Shamika Donahue is a 74 year old male here for a Medicare wellness visit. Medicare Health Risk Assessment General Health Very good Exercise: Minutes/Day 0 min Exercise: Days/Week 0 days Alcohol: Daily Use 4 or more times a week Alcohol: Drinks/Day 1 or 2 Alcohol: 6 or more drinks Never Feel off balance No Concerns: Teeth/Dentures No Concerns: Sexual function No Troubled by feelings None of the above Frequency: Eating healthy diet Nearly every day ADLs requiring help None of the above Safety precautions in home/vehicle No Smoke, vape, chews tobacco No Difficulty hearing No Difficulty seeing No Current Providers Specialists: I have reviewed specialist-related care of the patient in the medical record. Current care team: Patient Care Team: Vic Parra MD as PCP - General (Family Medicine) Leah Crews APRN.CONTRACT ENGINEER as Cooky Machine Operator (Family Medicine) Jyotsna Siu PA-C as Cooky Machine Operator (Family Medicine) Medical/Family history review Reviewed and updated problem list, medical/surgical/family/social history, medications, and allergies. Opioid use review Opioid Medications (last 90 days) No data to display Anxiety/Depression screening PHQ-2 Score: 0 (Lower risk for depression) Recommendation: no further intervention at this time Cognitive screening Score: 5 Cognitive screening reviewed and No further action needed (score 3-5). Functional Observation Was the patient's Timed Up AND Go test unsteady or >= 12 seconds? No Advance Care Planning Surrogate decision maker and/or advance care plan documented Measurements BP 140/76 Pulse 66 Resp 16 Ht 168.3 cm (5' 6.25) Wt 89.8 kg (198 lb) SpO2 94% BMI 31.72 kg/m? Vision Screening: Follows with optometry/ophthalmology Assessment/Plan Medicare annual wellness visit, subsequent (Z00.00) - Counseled on healthy diet and regular exercise - Fall avoidance information provided - Personalized prevention plan provided See below Chief Complaint Patient presents with: Medicare Wellness Exam HPI Shamika Donahue is a 74 year old male who presents here today for Chronic Medical Conditions. and Medicare Annual Visit. Patient with Hx of elevated fasting BS, HTN, Hyperlipidemia, essential tremor, elevated PSA as well as those reviewed and addressed below Shamika reports no recent hospitalizations or surgeries within the past year. He underwent bilateral cataract surgery in February 2023 and a bilateral blepharoplasty in 2023. He denies any new chronic conditions or major diagnoses in family members, but notes that his nephew was recently diagnosed with metastatic lung cancer. He reports no difficulties with activities of daily living, mobility, or balance, and denies any recent falls or fear of falling. He feels safe in his home and has not noticed any changes in memory, focus, or decision-making abilities. He denies feelings of depression, anxiety, or excessive worry, and reports that going to work helps him stay active and provides social interaction. He denies any recent fevers, frequent headaches, sudden changes in hearing or vision, issues with his nose or throat, lumps or swelling in his neck, wheezing, dyspnea, hemoptysis, chest pain, palpitations, or leg swelling. He also denies frequent nausea, emesis, diarrhea, heartburn, hematochezia, hematuria, dysuria, or changes in urinary frequency. He reports no new or unusual aches and pains, skin lesions, rashes, or sores, and denies any easy bruising or bleeding, changes in heat or cold tolerance, or increased thirst. He denies any episodes of syncope or seizures. He reports that his tremors are about the same, with some days being slightly worse than others, but they do notinterfere with his daily activities. He has been working at a new job since mid-October and is enjoying it. He reports that the new company is much larger and has a presence in 22 counties in [place]. He notes that he has less responsibility and fewer headaches at the new job compared to his previous one. He reports that he was terminated from his previous job after giving a two-week notice, but is happy with his current position. Past medical history, appointments, medications, allergies reviewed. Previous Medical History PAST MEDICAL HISTORY Diagnosis Date Advance directive discussed with patient 10/11/2021 Discussed 10/2021 AK (actinic keratosis) 02/04/2019 right dorsal and lateral forearm, posterior upper right arm and right unlar wrist treated with cryo 02/04/2019 Cataract Diverticulosis Elevated fasting blood sugar 11/09/2015 Elevated PSA 04/18/2022 Essential hypertension with goal blood pressure less than 140/90 09/26/2015 Essential tremor 04/07/2021 Family history of coronary artery disease (more content not included)... [place] 11-11-2024 Telephone encounter Note Prescription Refill Information The patient has been identified by name and date of : Yes Caregiver verified no other encounters exist for this prescription request: Yes Caregiver confirmed with patient/requestor that no other refills are due, in the near future, with this provider at this time: Yes The last office visit in the department: 05/21/24 Does the patient have a future office visit with this provider/department: Yes Requested Prescriptions Pending Prescriptions Disp Refills ezetimibe (ZETIA) 10 mg tablet 90 tablet 1 Sig: Take 1 tablet by mouth once daily. Rosa Elena Miles LPN November 11, 2024 7:37 AM [facility] 11-11-2024 Miscellaneous Notes Prescription Refill Information The patient has been identified by name and date of : Yes Caregiver verified no other encounters exist for this prescription request: Yes Caregiver confirmed with patient/requestor that no other refills are due, in the near future, with this provider at this time: Yes The last office visit in the department: 05/21/24 Does the patient have a future office visit with this provider/department: Yes Requested Prescriptions Pending Prescriptions Disp Refills ezetimibe (ZETIA) 10 mg tablet 90 tablet 1 Sig: Take 1 tablet by mouth once daily. Rosa Elena Miles LPN November 11, 2024 7:37 AM documented in this encounter [facility] 10-12-2024 Telephone encounter Note Prescription Refill Information The patient has been identified by name and date of : Yes Caregiver verified no other encounters exist for this prescription request: Yes Caregiver confirmed with patient/requestor that no other refills are due, in the near future, with this provider at this time: Yes The last office visit in the department: 05/2024 Does the patient have a future office visit with this provider/department: Yes Requested Prescriptions Pending Prescriptions Disp Refills amLODIPine (NORVASC) 10 mg tablet 90 tablet 1 Sig: Take 1 tablet by mouth once daily. Yessenia Boyd MA October 12, 2024 7:34 AM [facility] 10-12-2024 Miscellaneous Notes Prescription Refill Information The patient has been identified by name and date of : Yes Caregiver verified no other encounters exist for this prescription request: Yes Caregiver confirmed with patient/requestor that no other refills are due, in the near future, with this provider at this time: Yes The last office visit in the department: 05/2024 Does the patient have a future office visit with this provider/department: Yes Requested Prescriptions Pending Prescriptions Disp Refills amLODIPine (NORVASC) 10 mg tablet 90 tablet 1 Sig: Take 1 tablet by mouth once daily. Yessenia Boyd MA October 12, 2024 7:34 AM documented in this encounter [facility] 2024 Elma Harris APRN.[facility] - 2024 11:20 AM EST ASSESSMENT/PLAN: 1. Viral URI with cough - ICD9: 465.9, ICD10: J06.9 (primary diagnosis) - Discussed viral etiology and rationale for treatment. - Symptomatic treatment with prn analgesia - Supportive care with fluids and rest - COVID & INFLUENZA A/B & RSV PCR, ROUTINE 2. Viral bronchitis - ICD9: 466.0, ICD10: J20.8 - PREDNISONE 20 MG TABLET - BENZONATATE 100 MG CAPSULE - Follow-up with your PCP in 3-5 days if symptoms have not improved or sooner if symptoms worsen - Discussed red flags and need for immediate medical evaluation if any occur. - Discussed supportive care treatment with fluids, rest and analgesia. - Discussed expected course of illness Elma Payne APRN.CONTRACT ENGINEER Treatment for Viral Upper Respiratory Tract Infections Your body will kill off the virus by itself. Additionally, you can prime your body's immune system. This may help you get better more quickly. Drink lots of fluids Make sure you are eating well Get plenty of rest We do not have any medications that kill off these viruses. Antibiotics are used to treat bacterial infections; however, they are not active against viral infections. There are some things that might help you feel better, though. Vaporizers, humidifiers, hot showers, and hot fluids help open respiratory and sinus passages Powell Nasal Allen may offer relief of nasal and head congestion Reynaldo's Vapor Rub may relieve congestion Tylenol and Advil help control fevers and headaches Salt water gargles help relieve sore throats Chloraceptic spray or throat lozenges may also help relieve sore throat symptoms Occasionally, viral infections turn into something more serious. You should see your doctor or return to the Urgent Care if: You have fevers for longer than five days You have fevers above 102 degrees You are still sick after 10 days You have shortness of breath or wheezing After several days you are getting worse rather than better documented in this encounter [facility] 2024 Note HNO ID: [id number] Author: ELMA PAYNE APRN.LISA Service: ? Author Type: Nurse Practitioner Type: Progress Notes Filed: 2024 11:21 Note Text: Subjective Cough Associated symptoms include myalgias. Pertinent negatives include no chills, no ear pain, no headaches and no sore throat. Shamika Donahue is a 74 year old male who presents with 3 days of cough, body aches, and joint pain. He has not had a fever. He has not taken any medication for his symptoms. He missed 2 days of work and needs a note. He had the RSV vaccine on 06/07. Review of Systems Constitutional: Negative for chills, fever and malaise/fatigue. HENT: Positive for congestion. Negative for ear pain and sore throat. Respiratory: Positive for cough. Cardiovascular: Negative. Gastrointestinal: Negative for diarrhea, nausea and vomiting. Musculoskeletal: Positive for joint pain and myalgias. Neurological: Negative for headaches. BP 126/72 Pulse 68 Temp 36.7 ?C (98 ?F) Resp 18 Wt 88.9 kg (195 lb 15.8 oz) SpO2 96% BMI 31.16 kg/m? PAST MEDICAL HISTORY Diagnosis Date Advance directive discussed with patient 10/11/2021 Discussed 10/2021 AK (actinic keratosis) 02/04/2019 right dorsal and lateral forearm, posterior upper right arm and right unlar wrist treated with cryo 02/04/2019 Cataract Diverticulosis Elevated fasting blood sugar 11/09/2015 Elevated PSA 04/18/2022 Essential hypertension with goal blood pressure less than 140/90 09/26/2015 Essential tremor 04/07/2021 Family history of coronary artery disease 09/26/2015 Hemorrhoids History of colon polyps 10/26/2015 History of shingles 10/31/202206/[address] 10/11/2021 DPA: Melani (daughter) Medicare annual wellness visit, subsequent 01/08/2017 Medicare Part B: 05/10/2013 last done: 02/04/2019 Mixed hyperlipidemia 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 PAST SURGICAL HISTORY Procedure Laterality Date BLEPHAROPLASTY UPPER EYELID Bilateral Blepharoplasty - upper COLONOSCOPY 12/04/2013 polyp, was to get repeated 04/2016 COLONOSCOPY 11/23/2021 repeat in 10 years COLONOSCOPY FLX DX W/COLLJ SPEC WHEN PFRMD 01/09/2016 REMV CATARACT EXTRACAP,INSERT LENS Bilateral 02/2023 TONSILLECTOMY HX ALLERGIES Codeine MEDICATIONS atorvastatin (LIPITOR) 20 mg tablet Take 1 tablet by mouth once daily. lisinopril (ZESTRIL) 20 mg tablet Take 1 tablet by mouth once daily. mupirocin (BACTROBAN) 2 % ointment Apply to affected area three times a day. ezetimibe (ZETIA) 10 mg tablet Take 1 tablet by mouth once daily. amLODIPine (NORVASC) 10 mg tablet Take 1 tablet by mouth once daily. Comp Stocking,Knee,Regular,Med misc Knee High Compression Stockings 20-30 mm, DX: Venous insufficiency 187.2 aspirin, enteric coated (ASPIRIN, ENTERIC COATED) 81 mg EC tablet Take 1 tablet by mouth once daily. COMPOUNDED PRESCRIPTION Knee High Compression Stockings 20-30 mm, DX: Venous insufficiency predniSONE (DELTASONE) 20 mg tablet Take 2 tablets by mouth once daily for 4 days. benzonatate (TESSALON PERLE) 100 mg capsule Take 2 capsules by mouth three times a day as needed for up to 10 days. keTORolac Tromethamine (ACLUAR LS) 0.4 % drop Use 1 Drop in the left eye four times daily. (Patient not taking: Reported on 05/21/2024) prednisoLONE acetate, PF, 1 % drps Use in eyes. (Patient not taking: Reported on 05/21/2024) FAMILY HISTORY Problem Relation Age of Onset Heart Father Coronary Artery Disease Father Diabetes Mother Diabetes Brother Heart Brother Coronary Artery Disease Brother bypass in 40's Kidney Disease Brother at 64 Heart Paternal Grandfather Lipids Paternal Grandfather Heart Paternal Uncle Heart Paternal Grandmother Social History Tobacco Use Smoking status: Never Smokeless tobacco: Never Vaping Use Vaping status: Never Used Substance Use Topics Alcohol use: Yes Alcohol/week: 2.0 standard drinks of alcohol Types: 2 Cans of Beer (12oz) per week Comment: couple beers daily Drug use: No Objective Physical Exam Vitals and nursing note reviewed. Constitutional: General: He is not in acute distress. Appearance: Normal appearance. He is not ill-appearing. HENT: Right Ear: Tympanic membrane, ear canal and external ear normal. Left Ear: Tympanic membrane, ear canal and external ear normal. Nose: Nose normal. Mouth/Throat: Mouth: Mucous membranes are moist. Pharynx: Oropharynx is clear. Uvula midline. No oropharyngeal exudate or posterior oropharyngeal erythema. Cardiovascular: Rate and Rhythm: Normal rate and regular rhythm. Heart sounds: Normal heart sounds. Pulmonary: Effort: Pulmonary effort is normal. No respiratory distress. Breath sounds: Normal breath sounds. No wheezing or rales. Musculoskeletal: Cervical back: Neck supple. Lymphadenopathy: Cervical: No cervical adenopathy. S (more content not included)... [place] 2024 History of Presen t illness Narrative Subjective Cough Associated symptoms include myalgias. Pertinent negatives include no chills, no ear pain, no headaches and no sore throat. Shamika Donahue is a 74 year old male who presents with 3 days of cough, body aches, and joint pain. He has not had a fever. He has not taken any medication for his symptoms. He missed 2 days of work and needs a note. He had the RSV vaccine on 06/07. Review of Systems Constitutional: Negative for chills, fever and malaise/fatigue. HENT: Positive for congestion. Negative for ear pain and sore throat. Respiratory: Positive for cough. Cardiovascular: Negative. Gastrointestinal: Negative for diarrhea, nausea and vomiting. Musculoskeletal: Positive for joint pain and myalgias. Neurological: Negative for headaches. BP 126/72 Pulse 68 Temp 36.7 C (98 F) Resp 18 Wt 88.9 kg (195 lb 15.8 oz) SpO2 96% BMI 31.16 kg/m PAST MEDICAL HISTORY Diagnosis Date Advance directive discussed with patient 10/11/2021 Discussed 10/2021 AK (actinic keratosis) 02/04/2019 right dorsal and lateral forearm, posterior upper right arm and right unlar wrist treated with cryo 02/04/2019 Cataract Diverticulosis Elevated fasting blood sugar 11/09/2015 Elevated PSA 04/18/2022 Essential hypertension with goal blood pressure less than 140/90 09/26/2015 Essential tremor 04/07/2021 Family history of coronary artery disease 09/26/2015 Hemorrhoids History of colon polyps 10/26/2015 History of shingles 10/31/202206/[address] 10/11/2021 DPA: Melani (daughter) Medicare annual wellness visit, subsequent 01/08/2017 Medicare Part B: 05/10/2013 last done: 02/04/2019 Mixed hyperlipidemia 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 PAST SURGICAL HISTORY Procedure Laterality Date BLEPHAROPLASTY UPPER EYELID Bilateral Blepharoplasty - upper COLONOSCOPY 12/04/2013 polyp, was to get repeated 04/2016 COLONOSCOPY 11/23/2021 repeat in 10 years COLONOSCOPY FLX DX W/COLLJ SPEC WHEN PFRMD 01/09/2016 REMV CATARACT EXTRACAP,INSERT LENS Bilateral 02/2023 TONSILLECTOMY HX ALLERGIES Codeine MEDICATIONS atorvastatin (LIPITOR) 20 mg tablet Take 1 tablet by mouth once daily. lisinopril (ZESTRIL) 20 mg tablet Take 1 tablet by mouth once daily. mupirocin (BACTROBAN) 2 % ointment Apply to affected area three times a day. ezetimibe (ZETIA) 10 mg tablet Take 1 tablet by mouth once daily. amLODIPine (NORVASC) 10 mg tablet Take 1 tablet by mouth once daily. Comp Stocking,Knee,Regular,Med misc Knee High Compression Stockings 20-30 mm, DX: Venous insufficiency 187.2 aspirin, enteric coated (ASPIRIN, ENTERIC COATED) 81 mg EC tablet Take 1 tablet by mouth once daily. COMPOUNDED PRESCRIPTION Knee High Compression Stockings 20-30 mm, DX: Venous insufficiency predniSONE (DELTASONE) 20 mg tablet Take 2 tablets by mouth once daily for 4 days. benzonatate (TESSALON PERLE) 100 mg capsule Take 2 capsules by mouth three times a day as needed for up to 10 days. keTORolac Tromethamine (ACLUAR LS) 0.4 % drop Use 1 Drop in the left eye four times daily. (Patient not taking: Reported on 05/21/2024) prednisoLONE acetate, PF, 1 % drps Use in eyes. (Patient not taking: Reported on 05/21/2024) FAMILY HISTORY Problem Relation Age of Onset Heart Father Coronary Artery Disease Father Diabetes Mother Diabetes Brother Heart Brother Coronary Artery Disease Brother bypass in 40's Kidney Disease Brother at 64 Heart Paternal Grandfather Lipids Paternal Grandfather Heart Paternal Uncle Heart Paternal Grandmother Social History Tobacco Use Smoking status: Never Smokeless tobacco: Never Vaping Use Vaping status: Never Used Substance Use Topics Alcohol use: Yes Alcohol/week: 2.0 standard drinks of alcohol Types: 2 Cans of Beer (12oz) per week Comment: couple beers daily Drug use: No Objective Physical Exam Vitals and nursing note reviewed. Constitutional: General: He is not in acute distress. Appearance: Normal appearance. He is not ill-appearing. HENT: Right Ear: Tympanic membrane, ear canal and external ear normal. Left Ear: Tympanic membrane, ear canal and external ear normal. Nose: Nose normal. Mouth/Throat: Mouth: Mucous membranes are moist. Pharynx: Oropharynx is clear. Uvula midline. No oropharyngeal exudate or posterior oropharyngeal erythema. Cardiovascular: Rate and Rhythm: Normal rate and regular rhythm. Heart sounds: Normal heart sounds. Pulmonary: Effort: Pulmonary effort is normal. No respiratory distress. Breath sounds: Normal breath sounds. No wheezing or rales. Musculoskeletal: Cervical back: Neck supple. Lymphadenopathy: Cervical: No cervical adenopathy. Skin: General: Skin is warm and dry. Findings: No erythema or rash. Neurological: Mental Status: He is alert. ASSESSMENT/PLAN: 1. Viral URI with cough - ICD9: 465.9, ICD10: J06.9 (primary diagnosis) - Discussed viral etiology and rationale for treatment. - Symptomatic treatment with prn analgesia - Supportive care with fluids and rest - COVID & INFLUENZA A/B & RSV PCR, ROUTINE 2. Viral bronchitis - ICD9: 466.0, ICD10: J20.8 - PREDNISONE 20 MG TABLET - BENZONATATE 100 MG CAPSULE - Follow-up with your PCP in 3-5 days if symptoms have not improved or sooner if symptoms worsen - Discussed red flags and need for immediate medical evaluation if any occur. - Discussed supportive care treatment with fluids, rest and analgesia. - Discussed expected course of illness Elma Payne APRN.CONTRACT ENGINEER documented in this encounter [facility] 06-01-2024 Telephone encounter Note Prescription Refill Information The patient has been identified by name and date of : Yes Caregiver verified no other encounters exist for this prescription request: Yes Caregiver confirmed with patient/requestor that no other refills are due, in the near future, with this provider at this time: Yes The last office visit in the department: 05/2024 Does the patient have a future office visit with this provider/department: Yes 11/2024 Requested Prescriptions Pending Prescriptions Disp Refills atorvastatin (LIPITOR) 20 mg tablet 90 tablet 1 Sig: Take 1 tablet by mouth once daily. lisinopril (ZESTRIL) 20 mg tablet 90 tablet 1 Sig: Take 1 tablet by mouth once daily. Yessenia Boyd MA June 01, 2024 11:09 AM [facility] 06-01-2024 Miscellaneous Notes Prescription Refill Information The patient has been identified by name and date of : Yes Caregiver verified no other encounters exist for this prescription request: Yes Caregiver confirmed with patient/requestor that no other refills are due, in the near future, with this provider at this time: Yes The last office visit in the department: 05/2024 Does the patient have a future office visit with this provider/department: Yes 11/2024 Requested Prescriptions Pending Prescriptions Disp Refills atorvastatin (LIPITOR) 20 mg tablet 90 tablet 1 Sig: Take 1 tablet by mouth once daily. lisinopril (ZESTRIL) 20 mg tablet 90 tablet 1 Sig: Take 1 tablet by mouth once daily. Yessenia Boyd MA June 01, 2024 11:09 AM documented in this encounter [facility] 05-21-2024 Note HNO ID: [id number] Author: JYOTSNA SIU PA-C Service: ? Author Type: Physician [employer]ter [employer] Type: Progress Notes Filed: 05/21/2024 08:48 Note Text: Chief Complaint Patient presents with: 6 Month Exam HPI Shamika Donahue is a 73 year old male who presents here today for Chronic Medical Conditions.. Patient with Hx of elevated fasting BS, HTN, Hyperlipidemia as well as those reviewed and addressed below Has a few bumps on back of his head that itches at times. Past medical history, appointments, medications, allergies reviewed. Previous Medical History PAST MEDICAL HISTORY Diagnosis Date Advance directive discussed with patient 10/11/2021 Discussed 10/2021 AK (actinic keratosis) 02/04/2019 right dorsal and lateral forearm, posterior upper right arm and right unlar wrist treated with cryo 02/04/2019 Cataract Diverticulosis Elevated fasting blood sugar 11/09/2015 Elevated PSA 04/18/2022 Essential hypertension with goal blood pressure less than 140/90 09/26/2015 Essential tremor 04/07/2021 Family history of coronary artery disease 09/26/2015 Hemorrhoids History of colon polyps 10/26/2015 History of shingles 10/31/202206/[address] 10/11/2021 DPA: Melani (daughter) Medicare annual wellness visit, subsequent 01/08/2017 Medicare Part B: 05/10/2013 last done: 02/04/2019 Mixed hyperlipidemia 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 Previous Surgical History PAST SURGICAL HISTORY Procedure Laterality Date BLEPHAROPLASTY UPPER EYELID Bilateral Blepharoplasty - upper COLONOSCOPY 12/04/2013 polyp, was to get repeated 04/2016 COLONOSCOPY 11/23/2021 repeat in 10 years COLONOSCOPY FLX DX W/COLLJ SPEC WHEN PFRMD 01/09/2016 REMV CATARACT EXTRACAP,INSERT LENS Bilateral 02/2023 TONSILLECTOMY HX Family History FAMILY HISTORY Problem Relation Age of Onset Heart Father Coronary Artery Disease Father Diabetes Mother Diabetes Brother Heart Brother Coronary Artery Disease Brother bypass in 40's Kidney Disease Brother at 64 Heart Paternal Grandfather Lipids Paternal Grandfather Heart Paternal Uncle Heart Paternal Grandmother Patient Allergies ALLERGIES Allergen Reactions Codeine Intolerance Gets really high Current Medications Current Outpatient Medications on File Prior to Visit Medication Sig ezetimibe (ZETIA) 10 mg tablet Take 1 tablet by mouth once daily. amLODIPine (NORVASC) 10 mg tablet Take 1 tablet by mouth once daily. atorvastatin (LIPITOR) 20 mg tablet Take 1 tablet by mouth once daily. Comp Stocking,Knee,Regular,Med misc Knee High Compression Stockings 20-30 mm, DX: Venous insufficiency 187.2 lisinopril (ZESTRIL) 20 mg tablet Take 1 tablet by mouth once daily. aspirin, enteric coated (ASPIRIN, ENTERIC COATED) 81 mg EC tablet Take 1 tablet by mouth once daily. COMPOUNDED PRESCRIPTION Knee High Compression Stockings 20-30 mm, DX: Venous insufficiency keTORolac Tromethamine (ACLUAR LS) 0.4 % drop Use 1 Drop in the left eye four times daily. (Patient not taking: Reported on 05/21/2024) prednisoLONE acetate, PF, 1 % drps Use in eyes. (Patient not taking: Reported on 05/21/2024) No current facility-administered medications on file prior to visit. Social History Social History Tobacco Use Smoking status: Never Smokeless tobacco: Never Vaping Use Vaping status: Never Used Substance Use Topics Alcohol use: Yes Alcohol/week: 2.0 standard drinks of alcohol Types: 2 Cans of Beer (12oz) per week Comment: couple beers daily Drug use: No Review of Symptoms REVIEW OF SYSTEMS GENERAL: No weight loss, malaise or fevers NECK: Negative for lumps, goiter, pain and significant neck swelling RESPIRATORY: Negative for cough, hemoptysis, wheezing, COPD, dyspnea or shortness of breath CARDIOVASCULAR: Negative for chest pain, leg swelling, CHF or palpitations NEURO: No history of headaches, syncope, paralysis, seizures or tremors EXAM: BP 118/70 (BP Site: Right Arm, BP Position: Sitting, BP Cuff Size: Large Adult) Pulse (!) 52 Temp 36.2 ?C (97.2 ?F) Resp 16 Wt 91.2 kg (201 lb) SpO2 96% BMI 31.96 kg/m? BP 118/70 (BP Site: Right Arm, BP Position: Sitting, BP Cuff Size: Large Adult) Pulse 60 Temp 36.2 ?C (97.2 ?F) Resp 16 Wt 91.2 kg (201 lb) SpO2 96% BMI 31.96 kg/m? General Appearance: Well appearing, alert, in no acute distress, well-hydrated, well nourished.. Skin: small cysts with scabs located posterior scalp. Nontender. Neck: Supple, no adenopathy; thyroid symmetric, normal size, no bruits. Lungs: Lungs clear to auscultation. No wheezing, rhonchi, rales.. Heart: RRR without murmur, gallop, or rubs. No ectopy. Extremities: No deformities, edema, skin discoloration, clubbing or cyanosis. Good capillary refill. . Peripheral Pulses: Normal. Health Maintenance List RSV Vaccine(1 - 1-dose 75+ (more content not included)... [place] 05-21-2024 History of Presen t illness Narrative Chief Complaint Patient presents with: 6 Month Exam HPI Shamika Donahue is a 73 year old male who presents here today for Chronic Medical Conditions.. Patient with Hx of elevated fasting BS, HTN, Hyperlipidemia as well as those reviewed and addressed below Has a few bumps on back of his head that itches at times. Past medical history, appointments, medications, allergies reviewed. Previous Medical History PAST MEDICAL HISTORY Diagnosis Date Advance directive discussed with patient 10/11/2021 Discussed 10/2021 AK (actinic keratosis) 02/04/2019 right dorsal and lateral forearm, posterior upper right arm and right unlar wrist treated with cryo 02/04/2019 Cataract Diverticulosis Elevated fasting blood sugar 11/09/2015 Elevated PSA 04/18/2022 Essential hypertension with goal blood pressure less than 140/90 09/26/2015 Essential tremor 04/07/2021 Family history of coronary artery disease 09/26/2015 Hemorrhoids History of colon polyps 10/26/2015 History of shingles 10/31/202206/[address] 10/11/2021 DPA: Melani (daughter) Medicare annual wellness visit, subsequent 01/08/2017 Medicare Part B: 05/10/2013 last done: 02/04/2019 Mixed hyperlipidemia 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 Previous Surgical History PAST SURGICAL HISTORY Procedure Laterality Date BLEPHAROPLASTY UPPER EYELID Bilateral Blepharoplasty - upper COLONOSCOPY 12/04/2013 polyp, was to get repeated 04/2016 COLONOSCOPY 11/23/2021 repeat in 10 years COLONOSCOPY FLX DX W/COLLJ SPEC WHEN PFRMD 01/09/2016 REMV CATARACT EXTRACAP,INSERT LENS Bilateral 02/2023 TONSILLECTOMY HX Family History FAMILY HISTORY Problem Relation Age of Onset Heart Father Coronary Artery Disease Father Diabetes Mother Diabetes Brother Heart Brother Coronary Artery Disease Brother bypass in 40's Kidney Disease Brother at 64 Heart Paternal Grandfather Lipids Paternal Grandfather Heart Paternal Uncle Heart Paternal Grandmother Patient Allergies ALLERGIES Allergen Reactions Codeine Intolerance Gets really high Current Medications Current Outpatient Medications on File Prior to Visit Medication Sig ezetimibe (ZETIA) 10 mg tablet Take 1 tablet by mouth once daily. amLODIPine (NORVASC) 10 mg tablet Take 1 tablet by mouth once daily. atorvastatin (LIPITOR) 20 mg tablet Take 1 tablet by mouth once daily. Comp Stocking,Knee,Regular,Med misc Knee High Compression Stockings 20-30 mm, DX: Venous insufficiency 187.2 lisinopril (ZESTRIL) 20 mg tablet Take 1 tablet by mouth once daily. aspirin, enteric coated (ASPIRIN, ENTERIC COATED) 81 mg EC tablet Take 1 tablet by mouth once daily. COMPOUNDED PRESCRIPTION Knee High Compression Stockings 20-30 mm, DX: Venous insufficiency keTORolac Tromethamine (ACLUAR LS) 0.4 % drop Use 1 Drop in the left eye four times daily. (Patient not taking: Reported on 05/21/2024) prednisoLONE acetate, PF, 1 % drps Use in eyes. (Patient not taking: Reported on 05/21/2024) No current facility-administered medications on file prior to visit. Social History Social History Tobacco Use Smoking status: Never Smokeless tobacco: Never Vaping Use Vaping status: Never Used Substance Use Topics Alcohol use: Yes Alcohol/week: 2.0 standard drinks of alcohol Types: 2 Cans of Beer (12oz) per week Comment: couple beers daily Drug use: No Review of Symptoms REVIEW OF SYSTEMS GENERAL: No weight loss, malaise or fevers NECK: Negative for lumps, goiter, pain and significant neck swelling RESPIRATORY: Negative for cough, hemoptysis, wheezing, COPD, dyspnea or shortness of breath CARDIOVASCULAR: Negative for chest pain, leg swelling, CHF or palpitations NEURO: No history of headaches, syncope, paralysis, seizures or tremors EXAM: BP 118/70 (BP Site: Right Arm, BP Position: Sitting, BP Cuff Size: Large Adult) Pulse (!) 52 Temp 36.2 C (97.2 F) Resp 16 Wt 91.2 kg (201 lb) SpO2 96% BMI 31.96 kg/m BP 118/70 (BP Site: Right Arm, BP Position: Sitting, BP Cuff Size: Large Adult) Pulse 60 Temp 36.2 C (97.2 F) Resp 16 Wt 91.2 kg (201 lb) SpO2 96% BMI 31.96 kg/m General Appearance: Well appearing, alert, in no acute distress, well-hydrated, well nourished.. Skin: small cysts with scabs located posterior scalp. Nontender. Neck: Supple, no adenopathy; thyroid symmetric, normal size, no bruits. Lungs: Lungs clear to auscultation. No wheezing, rhonchi, rales.. Heart: RRR without murmur, gallop, or rubs. No ectopy. Extremities: No deformities, edema, skin discoloration, clubbing or cyanosis. Good capillary refill. . Peripheral Pulses: Normal. Health Maintenance List RSV Vaccine(1 - 1-dose 75+ series) Never done Influenza Vaccine(1) due on 02/09/2024 Covid-19 Vaccine( - 2023- season) due on 02/09/2024 DTaP,Tdap,Td Vaccine(2 - Td or Tdap) due on 11/19/2024 Shingrix Vaccine(1 of 2) due on 11/19/2024 Depression Screening due on 11/19/2024 Anxiety Screening due on 11/19/2024 Annual PCP Team Chronic Disease Visit due on 05/21/2025 BP Controlled (<130/80) due on 05/21/2025 Diabetes Screening due on 05/11/2027 Lipid Screening due on 11/12/2028 Colorectal Cancer Screening due on 11/24/2031 Advance Directive Discussion Completed Pneumococcal Vaccine: 65+ Completed Hepatitis C Screening Discontinued Data reviewed Latest Ref Rng 05/11/2024 Hemoglobin A1C 4.3 - 5.6 % 5.8 (H) Estimated Average Glucose mg/dL 120 PSA <2.60 ng/mL 3.79 (H) PSA, Percent Free % 17 Legend: (H) High ASSESSMENT/PLAN: 1. Essential hypertension with goal blood pressure less than 140/90 - ICD9: 401.9, ICD10: I10 (primary diagnosis) - Controlled - Continue current medications - Recommend home blood pressure monitoring, to bring results to next visit - Encouraged sodium restriction, DASH or Mediterranean diet - Recommend regular aerobic exercise - URINALYSIS, WITH MICROSCOPIC - COMPREHENSIVE METABOLIC PANEL 2. Mixed hyperlipidemia - ICD9: 272.2, ICD10: E78.2 - Controlled - Continue current medications - Counseled on healthy diet and regular exercise - LIPID PANEL, NONFASTING 3. Elevated PSA - ICD9: 790.93, ICD10: R97.20 stable - PROSTATE SPECIFIC ANTIGEN, FREE 4. Elevated fasting blood sugar - ICD9: 790.21, ICD10: R73.01 stable - HEMOGLOBIN A1C 5. Encounter for immunization - ICD9: V03.89, ICD10: Z23 - INFLUENZA VACCINE, PRSV FREE, AGE 65+ YR, HIGH DOSE, TRIVALENT (FLUZONE HIGH-DOSE) - Gigalo COVID-19 VACCINE AGE 12+ YR ([place]) Jyotsna Siu PA-C documented in this encounter [facility] 05-19-2024 Note HNO ID: [id number] Author: RENEE CUI MA Service: ? Author Type: Academic Coach Type: Progress Notes Filed: 05/19/2024 14:19 Note Text: POPULATION HEALTH NAVIGATION OUTREACH Action/FYI Patient returned call and declined schedule and will schedule when he has his follow up next week Reason for Outreach Returned Call/MyChart Patient Contacted: Spoke to patient/parent/or legal guardian Patient identified by name and date of : Yes Returned call/MyChart actions taken: Patient declined: Patient will contact office directly to schedule Navigation Signature: Renee Cui MA May 19, 2024 2:18 PM [place] 05-19-2024 History of Presen t illness Narrative POPULATION HEALTH NAVIGATION OUTREACH Action/FYI Patient returned call and declined schedule and will schedule when he has his follow up next week Reason for Outreach Returned Call/MyChart Patient Contacted: Spoke to patient/parent/or legal guardian Patient identified by name and date of : Yes Returned call/MyChart actions taken: Patient declined: Patient will contact office directly to schedule Navigation Signature: Renee Cui MA May 19, 2024 2:18 PM POPULATION HEALTH NAVIGATION OUTREACH Action/FYI Contacted patient to schedule [employer] Annual Wellness Visit and care gaps 1st attempt: Left message with my direct number 2nd attempt: My Chart message sent Topic Due (Y or N) Comments Medicare Wellness Y 11/2024 PCP Follow up N Mammogram N Colorectal Cancer Screening N A1C N Controlling BP Y Dilated Retinal Exam (NOEMI) N KED (UACR and eGFR) N HCC N Flu Vaccine Y Reason for Outreach Care Gap/HCC or Scheduling Wellness Visits Care Gaps due: Medicare Annual Wellness Visit Controlling Blood Pressure Flu Vaccine Patient Contacted: Unable or unnecessary to reach patient: Left message SHIMAUMA Print System message sent Navigation Signature: Renee Cui MA May 19, 2024 2:17 PM documented in this encounter [facility] 05-19-2024 Note HNO ID: [id number] Author: RENEE CUI MA Service: ? Author Type: Academic Coach Type: Progress Notes Filed: 05/19/2024 14:19 Note Text: POPULATION HEALTH NAVIGATION OUTREACH Action/FYI Contacted patient to schedule [employer] Annual Wellness Visit and care gaps 1st attempt: Left message with my direct number 2nd attempt: My Chart message sent Topic Due (Y or N) Comments Medicare Wellness Y 11/2024 PCP Follow up N Mammogram N Colorectal Cancer Screening N A1C N Controlling BP Y Dilated Retinal Exam (NOEMI) N KED (UACR and eGFR) N HCC N Flu Vaccine Y Reason for Outreach Care Gap/HCC or Scheduling Wellness Visits Care Gaps due: Medicare Annual Wellness Visit Controlling Blood Pressure Flu Vaccine Patient Contacted: Unable or unnecessary to reach patient: Left message SHIMAUMA Print System message sent Navigation Signature: Renee Cui MA May 19, 2024 2:17 PM [place] 05-19-2024 Note Patient Outreach (BRENNA TNAV) SHAMIKA DONAHUE ([id number]) 1950 M Date Time Provider Department 05/19/24 RENEE CUI During your visit today, we recorded the following information about you: Renee Cui MA 05/19/2024 2:19 PM Signed POPULATION HEALTH NAVIGATION OUTREACH Action/FYI Contacted patient to schedule [employer] Annual Wellness Visit and care gaps 1st attempt: Left message with my direct number 2nd attempt: My Chart message sent Topic Due (Y or N) Comments Medicare Wellness Y 11/2024 PCP Follow up N Mammogram N Colorectal Cancer Screening N A1C N Controlling BP Y Dilated Retinal Exam (NOEMI) N KED (UACR and eGFR) N HCC N Flu Vaccine Y Reason for Outreach Care Gap/HCC or Scheduling Wellness Visits Care Gaps due: Medicare Annual Wellness Visit Controlling Blood Pressure Flu Vaccine Patient Contacted: Unable or unnecessary to reach patient: Left message MyChart message sent Navigation Signature: Renee Cui MA May 19, 2024 2:17 PM Renee Cui MA 05/19/2024 2:19 PM Signed POPULATION HEALTH NAVIGATION OUTREACH Action/FYI Patient returned call and declined schedule and will schedule when he has his follow up next week Reason for Outreach Returned Call/MyChart Patient Contacted: Spoke to patient/parent/or legal guardian Patient identified by name and date of : Yes Returned call/MyChart actions taken: Patient declined: Patient will contact office directly to schedule Navigation Signature: Renee Cui MA May 19, 2024 2:18 PM Allergies As of Date: 05/19/2024 Noted Allergy Reaction CODEINE 12/13/2015 5 - Intolerance Comments: Gets really high Date Reviewed: 11/20/2023 Reviewed by: Vic Parra MD - Fully Assessed Reason for Visit: Population Health Navigation Outreach [3910] Cmt: [employer] Prescriptions as of 05/19/2024 - ezetimibe (ZETIA) 10 mg tablet Take 1 tablet by mouth once daily. - amLODIPine (NORVASC) 10 mg tablet Take 1 tablet by mouth once daily. - atorvastatin (LIPITOR) 20 mg tablet Take 1 tablet by mouth once daily. - Comp Stocking,Knee,Regular,Med misc Knee High Compression Stockings 20-30 mm, DX: Venous insufficiency 187.2 - lisinopril (ZESTRIL) 20 mg tablet Take 1 tablet by mouth once daily. - keTORolac Tromethamine (ACLUAR LS) 0.4 % drop Use 1 Drop in the left eye four times daily. - prednisoLONE acetate, PF, 1 % drps Use in eyes. - aspirin, enteric coated (ASPIRIN, ENTERIC COATED) 81 mg EC tablet Take 1 tablet by mouth once daily. - COMPOUNDED PRESCRIPTION Knee High Compression Stockings 20-30 mm, DX: Venous insufficiency Problem List As Of Date 05/19/2024 Noted Resolved Mixed hyperlipidemia [E78.2] 09/26/2015 Essential hypertension with goal blood pressure*09/26/2015 Family history of coronary artery disease [Z82.*09/26/2015 Colon cancer screening [Z12.11] 10/22/2015 History of colon polyps [Z86.0100] 10/26/2015 Elevated fasting blood sugar [R73.01] 11/09/2015 Disorder of prostate [N42.9] 07/11/2016 Medicare annual wellness visit, subsequent [Z00*01/08/2017 Diverticulosis [K57.90] Hemorrhoids [K64.9] AK (actinic keratosis) [L57.0] 02/04/2019 Essential tremor [G25.0] 04/07/2021 Advance directive discussed with patient [Z71.8*10/11/[address] [Z78.9] 10/11/2021 Elevated PSA [R97.20] 04/18/2022 History of shingles [Z86.19] 10/31/2022 Encounter Status:Closed by RENEE CUI on 05/19/24 [place] 04-09-2024 Telephone encounter Note Prescription Refill Information The patient has been identified by name and date of : Yes Caregiver verified no other encounters exist for this prescription request: Yes Caregiver confirmed with patient/requestor that no other refills are due, in the near future, with this provider at this time: Yes The last office visit in the department: 11/20/23 Does the patient have a future office visit with this provider/department: Yes 05/21/24 Requested Prescriptions Pending Prescriptions Disp Refills ezetimibe (ZETIA) 10 mg tablet 90 tablet 1 Sig: Take 1 tablet by mouth once daily. Carla White LPN April 09, 2024 1:59 PM [facility] 04-09-2024 Miscellaneous Notes Prescription Refill Information The patient has been identified by name and date of : Yes Caregiver verified no other encounters exist for this prescription request: Yes Caregiver confirmed with patient/requestor that no other refills are due, in the near future, with this provider at this time: Yes The last office visit in the department: 11/20/23 Does the patient have a future office visit with this provider/department: Yes 05/21/24 Requested Prescriptions Pending Prescriptions Disp Refills ezetimibe (ZETIA) 10 mg tablet 90 tablet 1 Sig: Take 1 tablet by mouth once daily. Carla White LPN April 09, 2024 1:59 PM documented in this encounter [facility] 04-06-2024 Telephone encounter Note Prescription Refill Information The patient has been identified by name and date of : Yes Caregiver verified no other encounters exist for this prescription request: Yes Caregiver confirmed with patient/requestor that no other refills are due, in the near future, with this provider at this time: Yes The last office visit in the department: 10/2023 Does the patient have a future office visit with this provider/department: Yes 05/2024 Requested Prescriptions Pending Prescriptions Disp Refills amLODIPine (NORVASC) 10 mg tablet 90 tablet 1 Sig: Take 1 tablet by mouth once daily. Yessenia Boyd MA April 06, 2024 11:22 AM [facility] 04-06-2024 Miscellaneous Notes Prescription Refill Information The patient has been identified by name and date of : Yes Caregiver verified no other encounters exist for this prescription request: Yes Caregiver confirmed with patient/requestor that no other refills are due, in the near future, with this provider at this time: Yes The last office visit in the department: 10/2023 Does the patient have a future office visit with this provider/department: Yes 05/2024 Requested Prescriptions Pending Prescriptions Disp Refills amLODIPine (NORVASC) 10 mg tablet 90 tablet 1 Sig: Take 1 tablet by mouth once daily. Yessenia Boyd MA April 06, 2024 11:22 AM documented in this encounter [facility] 11-20-2023 History of Presen t illness Narrative Images from the original note were not included. Shamika Donahue is a 73 year old male here for a Medicare wellness visit. Medicare Health Risk Assessment General Health Very good Exercise: Minutes/Day 60 min Exercise: Days/Week 7 days Alcohol: Daily Use 2-3 times a week Alcohol: Drinks/Day 1 or 2 Alcohol: 6 or more drinks Less than monthly Feel off balance No Concerns: Teeth/Dentures No Concerns: Sexual function No Troubled by feelings None of the above Frequency: Eating healthy diet Nearly every day ADLs requiring help None of the above Safety precautions in home/vehicle No Smoke, vape, chews tobacco No Difficulty hearing No Difficulty seeing No Current Providers Specialists: I have reviewed specialist-related care of the patient in the medical record. Current care team: Patient Care Team: Vic Parra MD as PCP - General (Family Medicine) Medical/Family history review Reviewed and updated problem list, medical/surgical/family/social history, medications, and allergies. Opioid use review Opioid Medications (last 90 days) No data to display Anxiety/Depression screening Depression Screening PHQ-2 Score EMERY-2 Total Score 11/20/2023 0 0 Depression screening tool completed and reviewed. Based on score and interview, patient is not at risk for depression. Screening tool discussed with patient, and I recommended no further intervention at this time. Cognitive screening Cognitive screening reviewed and No further action needed (score 3-5). Functional Observation Was the patient's Timed Up & Go test unsteady or ? 12 seconds? No Advance Care Planning Surrogate decision maker and/or advance care plan documented Measurements BP 148/78 Pulse 70 Ht 5' 6.5 (1.69m) Wt 201 lb (91.2kg) BMI 31.96 kg/(m^2). Vision Screening: Follows with optometry/ophthalmology Assessment/Plan Medicare annual wellness visit, subsequent (Z00.00) - Counseled on healthy diet and regular exercise - Fall avoidance information provided - Personalized prevention plan provided See Below Chief Complaint Patient presents with: Medicare Wellness Exam HPI Shamika Donahue is a 73 year old male who presents here today for Chronic Medical Conditions. and Medicare Annual Visit. Patient with Hx of elevated fasting BS, HTN, Hyperlipidemia as well as those reviewed and addressed below and in ROS Last colonoscopy Dr Wilburn 11/2021 Patient saw [facility] 07/2022 Past medical history, appointments, medications, allergies reviewed. Previous Medical History PAST MEDICAL HISTORY Diagnosis Date Advance directive discussed with patient 10/11/2021 Discussed 10/2021 AK (actinic keratosis) 02/04/2019 right dorsal and lateral forearm, posterior upper right arm and right unlar wrist treated with cryo 02/04/2019 Diverticulosis Elevated fasting blood sugar 11/09/2015 Elevated PSA 04/18/2022 Essential hypertension with goal blood pressure less than 140/90 09/26/2015 Essential tremor 04/07/2021 Family history of coronary artery disease 09/26/2015 Hemorrhoids History of colon polyps 10/26/2015 History of shingles 10/31/202206/[address] 10/11/2021 DPA: Melani (daughter) Medicare annual wellness visit, subsequent 01/08/2017 Medicare Part B: 05/10/2013 last done: 02/04/2019 Mixed hyperlipidemia 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 Previous Surgical History PAST SURGICAL HISTORY Procedure Laterality Date BLEPHAROPLASTY UPPER EYELID Bilateral Blepharoplasty - upper COLONOSCOPY 12/04/2013 polyp, was to get repeated 04/2016 COLONOSCOPY 11/23/2021 repeat in 10 years COLONOSCOPY FLX DX W/COLLJ SPEC WHEN PFRMD 01/09/2016 REMV CATARACT EXTRACAP,INSERT LENS Bilateral 02/2023 TONSILLECTOMY HX Family History FAMILY HISTORY Problem Relation Age of Onset Heart Father Coronary Artery Disease Father Diabetes Mother Diabetes Brother Heart Brother Coronary Artery Disease Brother bypass in 40's Kidney Disease Brother at 64 Heart Paternal Grandfather Lipids Paternal Grandfather Heart Paternal Uncle Heart Paternal Grandmother Patient Allergies ALLERGIES Allergen Reactions Codeine Intolerance Gets really high Current Medications Current Outpatient Medications on File Prior to Visit Medication Sig amLODIPine (NORVASC) 10 mg tablet Take 1 tablet by mouth once daily. ezetimibe (ZETIA) 10 mg tablet Take 1 tablet by mouth once daily. lisinopril (ZESTRIL) 20 mg tablet Take 1 tablet by mouth once daily. atorvastatin (LIPITOR) 20 mg tablet Take 1 tablet by mouth once daily. keTORolac Tromethamine (ACLUAR LS) 0.4 % drop Use 1 Drop in the left eye four times daily. prednisoLONE acetate, PF, 1 % drps Use in eyes. Comp Stocking,Knee,Regular,Med misc Knee High Compression Stockings 20-30 mm, DX: Venous insufficiency 187.2 aspirin, enteric coated (ASPIRIN, ENTERIC COATED) 81 mg EC tablet Take 1 tablet by mouth once daily. COMPOUNDED PRESCRIPTION Knee High Compression Stockings 20-30 mm, DX: Venous insufficiency No current facility-administered medications on file prior to visit. Social History Social History Tobacco Use Smoking status: Never Smokeless tobacco: Never Substance Use Topics Alcohol use: Yes Alcohol/week: 2.0 standard drinks of alcohol Types: 2 Cans of Beer (12oz) per week Comment: couple beers daily Drug use: No Review of Symptoms REVIEW OF SYSTEMS GENERAL: No weight loss, malaise or fevers HEENT: Negative for frequent or significant headaches, No changes in hearing or vision, no nose bleeds or other nasal problems NECK: Negative for lumps, goiter, pain and significant neck swelling RESPIRATORY: Negative for cough, hemoptysis, wheezing, COPD, dyspnea or shortness of breath CARDIOVASCULAR: Negative for chest pain, leg swelling, hypertension, CHF or palpitations GI: No nausea, vomiting, or diarrhea, No heartburn or reflux symptoms, and blood : No history of dysuria, frequency or blood MUSCULOSKELETAL: slight increase in pain in his knees and hips. SKIN: Negative for lesions, rash, and itching PSYCH: Negative for sleep disturbance, mood disorder and recent psychosocial stressors HEMATOLOGY/LYMPHOLOGY: Negative for prolonged bleeding, bruising easily or swollen nodes ENDOCRINE: Negative for cold or heat intolerance, polyuria, polydipsia and goiter NEURO: No history of headaches, syncope, paralysis, seizures. Slight increase in his hand tremors. EXAM: BP 148/78 (BP Site: Left Arm, BP Position: Sitting, BP Cuff Size: Regular Adult) Pulse 70 Ht 168.9 cm (5' 6.5) Wt 91.2 kg (201 lb) BMI 31.96 kg/m BP 136/72 Pulse 70 Ht 168.9 cm (5' 6.5) Wt 91.2 kg (201 lb) BMI 31.96 kg/m Last 4 Encounter Wt Readings: Date: Wt: 11/20/2023 91.2 kg (201 lb) 06/07/2023 94.3 kg (208 lb) 05/15/2023 92.5 kg (204 lb) 10/31/2022 91.2 kg (201 lb) General Appearance: Well appearing, alert, in no acute distress, well-hydrated, well nourished.. Skin: Skin color, texture, turgor normal, no suspicious rashes or lesions. Head: Normocephalic, no masses, lesions, tenderness or abnormalities. Eyes: Anicteric sclera. Pupils are equally round and reactive to light. Extraocular movements are intact. . Ears: External ears normal, canals clear. Nose/Sinuses: Nares normal, septum midline, mucosa normal, no drainage or sinus tenderness. Oropharynx: Lips, mucosa, and tongue normal, teeth and gums normal, oropharynx normal. Neck: Supple, no adenopathy; thyroid symmetric, normal size, no bruits. Lungs: Lungs clear to auscultation. No wheezing, rhonchi, rales.. Heart: RRR without murmur, gallop, or rubs. No ectopy. Abdomen: Normal abdominal exam, Abdomen soft, non-tender. Bowel sounds normal. No masses, organomegaly. Extremities: No deformities, edema, skin discoloration, clubbing or cyanosis. Good capillary refill. . Musculoskeletal: Muscular strength intact, No joint swelling, deformity, or tenderness. Peripheral Pulses: Normal. Neurologic: Gait normal. Reflexes normal and symmetric. Sensation grossly intact.. Genitalia: Normal. Rectal: Normal exam. Prostate enlarged with smooth firm capsule. Health Maintenance List BP Controlled (<130/80) Never done Shingrix Vaccine(1 of 2) Never done Advance Directive Discussion due on 2023 Behavioral Health Screening Never done DTaP,Tdap,Td Vaccine(2 - Td or Tdap) due on 08/09/2023 Covid-19 Vaccine( - 2022- season) due on 09/14/2023 RSV Vaccine(1 - 1-dose 60+ series) due on 05/15/2024 Annual PCP Team Chronic Disease Visit due on 06/07/2024 Diabetes Screening due on 11/12/2026 Lipid Screening due on 11/12/2028 Colorectal Cancer Screening due on 11/24/2031 Influenza Vaccine Completed Pneumococcal Vaccine: 65+ Completed Hepatitis C Screening Discontinued Data reviewed Latest Ref Rng 10/23/2022 10/24/2022 05/03/2023 11/13/2023 Color Yellow Colorless Yellow Clarity Clear Clear Clear Glucose, Urine Negative Negative Negative Bilirubin, Urine Negative Negative Negative Ketones, Urine Negative Negative Negative Specific [place], Ur 1.005 - 1.030 1.011 1.011 Hemoglobin/Blood,Ur Negative Negative Negative pH, Urine <8.5 5.5 5.5 Protein, Urine Negative Negative Negative Urobilinogen 0.2-1.0 EU/dL Negative 0.2 EU/dL Nitrites Negative Negative Negative Leukest Negative Negative Negative WBC, Urine 0-5 /HPF 0-5 /HPF 0-5 /HPF RBC, Urine 0-2 /HPF 0-3 /HPF 0-2 /HPF Bacteria Negative /HPF Negative Epithelial Cells /HPF None Seen Hyaline Cast 0 /LPF 1-3 /LPF ! 0 /LPF Protein, Total 6.3 - 8.0 g/dL 6.5 6.4 Albumin 3.9 - 4.9 g/dL 4.3 4.2 Calcium 8.5 - 10.2 mg/dL 9.1 8.8 Bilirubin, Total 0.2 - 1.3 mg/dL 0.8 0.9 Alkaline Phosphatase 38 - 113 U/L 104 98 AST 14 - 40 U/L 21 21 ALT 10 - 54 U/L 24 28 Glucose 74 - 99 mg/dL 127 (H) 126 (H) BUN 9 - 24 mg/dL 14 13 Creatinine 0.73 - 1.22 mg/dL 0.97 0.94 Sodium 136 - 144 mmol/L 138 140 Potassium 3.7 - 5.1 mmol/L 4.2 4.4 Chloride 98 - 107 mmol/L 105 108 (H) CO2 22 - 30 mmol/L 23 22 Anion Gap 8 - 15 mmol/L 10 10 eGFR >=60 mL/min/1.73m 82 85 Total Cholesterol, Nonfasting <200 mg/dL 115 115 Triglycerides, Nonfasting <150 mg/dL 56 49 HDL Cholesterol, Nonfasting >39 mg/dL 45 50 LDL Cholesterol, Nonfasting <100 mg/dL 59 55 Non HDL Cholesterol, Nonfasting <130 mg/dL 70 65 VLDL Cholesterol, Nonfasting <30 mg/dL 11 10 Total Chol/HDL Ratio, Nonfasting <5.10 mg/dL 2.56 2.30 LDL/HDL Ratio, Nonfasting <2.54 mg/dL 1.31 1.10 Hemoglobin A1C 4.3 - 5.6 % 5.9 (H) 5.9 (H) 6.0 (H) Estimated Average Glucose mg/dL 123 123 126 PSA <2.60 ng/mL 3.21 (H) 3.44 (H) 3.20 (H) PSA, Percent Free % 22 19 20 A/P ASSESSMENT/PLAN: 1. Medicare annual wellness visit, subsequent - ICD9: V70.0, ICD10: Z00.00 (primary diagnosis) - Counseled on healthy diet and regular exercise - Discussed need for and benefit of weight loss. BMI 31.96 kg/(m^2) - Patient was counseled [id number] by myself (the billing provider) for the following immunizations and vaccine components, including side effects: COVID-19 and Pneumococcal . Patient consents for immunization and understands risks and benefits. A VIS sheet on each immunization was given to the patient. - Follow up for annual exam in one year - advised on shingrix, RSV, Tdap updates. 2. Essential hypertension with goal blood pressure less than 140/90 - ICD9: 401.9, ICD10: I10 - Controlled - Continue current medications - Recommend home blood pressure monitoring, to bring results to next visit - Encouraged sodium restriction, DASH or Mediterranean diet - Recommend regular aerobic exercise 3. Mixed hyperlipidemia - ICD9: 272.2, ICD10: E78.2 - Controlled - Continue current medications - Counseled on healthy diet and regular exercise 4. Elevated fasting blood sugar - ICD9: 790.21, ICD10: R73.01 - patient to work on life style changes for improved control. 5. Essential tremor - ICD9: 333.1, ICD10: G25.0 - patient still wanting to avoid meds for now. Not too bad and can compensate for it. 6. Elevated PSA - ICD9: 790.93, ICD10: R97.20 - improved will cont to monitor 7. Venous insufficiency (chronic) (peripheral) - ICD9: 459.81, ICD10: I87.2 Cont - COMPRESSION STOCKING, KNEE HIGH,REGULAR LENGTH,MEDIUM 8. Advance directive discussed with patient - ICD9: V65.49, ICD10: Z71.89 - patient needs to bring in forms 9. Need for vaccination - ICD9: V05.9, ICD10: Z23 - PNEUMOCOCCAL VACCINE, 20 VALENT (PREVNAR 20): given - Covid updated. Requested Prescriptions Signed Prescriptions Disp Refills atorvastatin (LIPITOR) 20 mg tablet 90 tablet 1 Sig: Take 1 tablet by mouth once daily. Comp Stocking,Knee,Regular,Med misc 8 Each 0 Sig: Knee High Compression Stockings 20-30 mm, DX: Venous insufficiency 187.2 lisinopril (ZESTRIL) 20 mg tablet 90 tablet 1 Sig: Take 1 tablet by mouth once daily. F/u 6 months routine check A1c and Free PSA prior. Vic Parra MD I spent a total of 40 minutes on the date of the service which included preparing to see the patient, [id number] patient care, completing clinical documentation, performing a medically appropriate examination, counseling and educating the patient/family/caregiver and ordering medications, tests, or procedures. Patient was asked at end of visit if they had any questions or input regarding the plan of care we had discussed. Behavioral Health Screening PHQ-2 Score: 0 (Lower risk for depression) EMERY-2 Score: 0 (Lower risk for anxiety) Recommendation: no further intervention at this time documented in this encounter [facility] 11-20-2023 Instructions Vic Parra MD - 11/20/2023 8:00 AM EDT Please bring in copies of your power of four slide machine setter for health care and living will. Consider getting the shingrix vaccine for the prevention of shingles from a local pharmacy along with the RSV vaccine. Also consider getting a Tdap for tetanus update at the health dept. Please get labs done on or after 05/08/2024 prior to your next visit. Screening schedule The following prevention plan is recommended: BP Controlled (<130/80) Never done Shingrix Vaccine(1 of 2) Never done Advance Directive Discussion due on 2023 Behavioral Health Screening Never done DTaP,Tdap,Td Vaccine(2 - Td or Tdap) due on 08/09/2023 Covid-19 Vaccine( - season) due on 09/14/2023 WHAT YOU CAN DO TO PREVENT FALLS Many falls can be prevented. By making some changes, you can lower your chances of falling. Four things YOU can do to prevent falls for you* and your caregiver 1. Begin a regular exercise program Exercise is one of the most important ways to lower your chances of falling. It makes you stronger and helps you feel better. Exercises that improve balance and coordination (like Tyler Chi) are the most helpful. Lack of exercise leads to weakness and increases your chances of falling. Ask your doctor or health care provider about the best type of exercise program for you. 2. Have your health care provider review your medicines Have your doctor or pharmacist review all the medicines you take, even [id number] medicines. As you get older, the way medicines work in your body can change. Some medicines, or combinations of medicines, can make you sleepy or dizzy and can cause you to fall. 3. Have your vision checked Have your eyes checked by an eye doctor at least once a year. You may be wearing the wrong glasses or have a condition like glaucoma or cataracts that limits your vision. Poor vision can increase your chances of falling. 4. Make your home safer About half of all falls happen at home. To make your home safer: Remove things you can trip over (like papers, books, clothes, and shoes) from stairs and places where you walk. Remove small throw rugs or use double-sided tape to keep the rugs from slipping. Keep items you use often in cabinets you can reach easily without using a step stool. Have grab bars put in next to your toilet and in the tub or shower. Use non-slip mats in the bathtub and on shower floors. Improve the lighting in your home. As you get older, you need brighter lights to see well. Hang light-weight curtains or shades to reduce glare. Have handrails and lights put in on all staircases. Wear shoes both inside and outside the house. Avoid going barefoot or wearing slippers. For more information, contact: Centers for Disease Control and Prevention www.cdc.gov/injury * This information may not apply if you have certain medical conditions. documented in this encounter [facility] 10-16-2023 Telephone encounter Note Patient has been identified by name and date of : Yes Patient phones for refill(s): Requested Prescriptions Pending Prescriptions Disp Refills amLODIPine (NORVASC) 10 mg tablet 90 tablet 1 Sig: Take 1 tablet by mouth once daily. Date of last office visit in primary care: 06/07/2023 Date of next office visit in primary care: 11/20/2023 Please advise. Thank you. RUTHY Sheehan. [facility] 10-16-2023 Miscellaneous Notes Patient has been identified by name and date of : Yes Patient phones for refill(s): Requested Prescriptions Pending Prescriptions Disp Refills amLODIPine (NORVASC) 10 mg tablet 90 tablet 1 Sig: Take 1 tablet by mouth once daily. Date of last office visit in primary care: 06/07/2023 Date of next office visit in primary care: 11/20/2023 Please advise. Thank you. RUTHY Sheehan. documented in this encounter [facility] 10-15-2023 Telephone encounter Note Patient has been identified by name and date of : Yes, Provider Dr Parra Date 10/15/2023 Time 2:50 pm Requested Prescriptions Pending Prescriptions Disp Refills ezetimibe (ZETIA) 10 mg tablet 90 tablet 1 Sig: Take 1 tablet by mouth once daily. RX INSTRUCTIONS: Patient aware RX will be sent to pharmacy. No need to notify patient. Yessenia Boyd MA Zachary 10/15/2023 Nov 11/20/2023 Last refill: 04/2023 [facility] 10-15-2023 Miscellaneous Notes Patient has been identified by name and date of : Yes, Provider Dr Parra Date 10/15/2023 Time 2:50 pm Requested Prescriptions Pending Prescriptions Disp Refills ezetimibe (ZETIA) 10 mg tablet 90 tablet 1 Sig: Take 1 tablet by mouth once daily. RX INSTRUCTIONS: Patient aware RX will be sent to pharmacy. No need to notify patient. Yessenia Boyd MA Zach[place] 10/15/2023 Nov 11/20/2023 Last refill: 04/2023 documented in this encounter [facility] 05-15-2023 Nurse Note Samantha BP average 141/78 144/74 142/76 139/79 138/77 137/77 151/79 Yessenia Boyd MA documented in this encounter [facility] 05-15-2023 Instructions Vic Parra MD - 05/15/2023 8:17 AM EST Consider getting the RSV vaccine from a local pharmacy. Please get labs and urine test done on or after 11/01/2023 prior to your next visit. documented in this encounter [facility] 05-15-2023 History of Presen t illness Narrative Chief Complaint Patient presents with: F/U 6 months HPI Shamika Donahue is a 72 year old male who presents here today for 6 month follow up. Patient with Hx of elevated fasting BS, HTN, Hyperlipidemia as well as those reviewed and addressed below and in ROS Any new concerns today? None Any recent ER/hospital visits? None Patient had cataract surgery on both eyes in February with [facility]. Patient was also exposed to COVID on but having no symptoms. Past medical history, appointments, medications, allergies reviewed. Previous Medical History PAST MEDICAL HISTORY Diagnosis Date Advance directive discussed with patient 10/11/2021 Discussed 10/2021 AK (actinic keratosis) 02/04/2019 right dorsal and lateral forearm, posterior upper right arm and right unlar wrist treated with cryo 02/04/2019 Diverticulosis Elevated fasting blood sugar 11/09/2015 Elevated PSA 04/18/2022 Essential hypertension with goal blood pressure less than 140/90 09/26/2015 Essential tremor 04/07/2021 Family history of coronary artery disease 09/26/2015 Hemorrhoids History of colon polyps 10/26/2015 History of shingles 10/31/202206/[address] 10/11/2021 DPA: Melani (daughter) Medicare annual wellness visit, subsequent 01/08/2017 Medicare Part B: 05/10/2013 last done: 02/04/2019 Mixed hyperlipidemia 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 Previous Surgical History PAST SURGICAL HISTORY Procedure Laterality Date BLEPHAROPLASTY UPPER EYELID Bilateral Blepharoplasty - upper COLONOSCOPY 12/04/2013 polyp, was to get repeated 04/2016 COLONOSCOPY 11/23/2021 repeat in 10 years COLONOSCOPY FLX DX W/COLLJ SPEC WHEN PFRMD 01/09/2016 TONSILLECTOMY HX Family History FAMILY HISTORY Problem Relation Age of Onset Heart Father Coronary Artery Disease Father Diabetes Mother Diabetes Brother Heart Brother Coronary Artery Disease Brother bypass in 40's Kidney Disease Brother at 64 Heart Paternal Grandfather Lipids Paternal Grandfather Heart Paternal Uncle Heart Paternal Grandmother Patient Allergies ALLERGIES Allergen Reactions Codeine Intolerance Gets really high Current Medications Current Outpatient Medications on File Prior to Visit Medication Sig ezetimibe (ZETIA) 10 mg tablet Take 1 tablet by mouth once daily. amLODIPine (NORVASC) 10 mg tablet Take 1 tablet by mouth once daily. lisinopril (ZESTRIL) 20 mg tablet Take 1 tablet by mouth once daily. atorvastatin (LIPITOR) 20 mg tablet Take 1 tablet by mouth once daily. Comp Stocking,Knee,Regular,Med misc Knee High Compression Stockings 20-30 mm, DX: Venous insufficiency 187.2 aspirin, enteric coated (ASPIRIN, ENTERIC COATED) 81 mg EC tablet Take 1 tablet by mouth once daily. COMPOUNDED PRESCRIPTION Knee High Compression Stockings 20-30 mm, DX: Venous insufficiency No current facility-administered medications on file prior to visit. Social History Social History Tobacco Use Smoking status: Never Smokeless tobacco: Never Substance Use Topics Alcohol use: Yes Alcohol/week: 2.0 standard drinks of alcohol Types: 2 Cans of Beer (12oz) per week Comment: couple beers daily Drug use: No Review of Symptoms REVIEW OF SYSTEMS GENERAL: No weight loss, malaise or fevers NECK: Negative for lumps, goiter, pain and significant neck swelling RESPIRATORY: Negative for cough, hemoptysis, wheezing, COPD, dyspnea or shortness of breath CARDIOVASCULAR: Negative for chest pain, leg swelling, hypertension, CHF or palpitations ENDOCRINE: Negative for cold or heat intolerance, polyuria, polydipsia and goiter NEURO: No history of headaches, syncope, paralysis, seizures or increased tremors EXAM: BP 150/88 (BP Site: Left Arm, BP Position: Sitting, BP Cuff Size: Regular Adult) Pulse 64 Resp 16 Wt 92.5 kg (204 lb) BMI 32.43 kg/m BP 144/86 Pulse 64 Resp 16 Wt 92.5 kg (204 lb) BMI 32.43 kg/m BP 141/78 Pulse (!) 57 Resp 16 Wt 92.5 kg (204 lb) BMI 32.43 kg/m Last 5 Encounter Wt Readings: Date: Wt: 05/15/2023 92.5 kg (204 lb) 10/31/2022 91.2 kg (201 lb) 07/12/2022 95 kg (209 lb 6.4 oz) 04/18/2022 92.1 kg (203 lb) 11/27/2021 88.9 kg (196 lb) General Appearance: Well appearing, alert, in no acute distress, well-hydrated, well nourished.. Neck: Supple, no adenopathy; thyroid symmetric, normal size, no bruits. Lungs: Lungs clear to auscultation. No wheezing, rhonchi, rales.. Heart: RRR without murmur, gallop, or rubs. No ectopy. Abdomen: Normal abdominal exam, Abdomen soft, non-tender. Bowel sounds normal. No masses, organomegaly. Extremities: No deformities, edema, skin discoloration, clubbing or cyanosis. Good capillary refill. . Peripheral Pulses: Normal. Neurologic: Gait normal. Reflexes normal and symmetric. Sensation grossly intact.. Health Maintenance List BP Controlled (<130/80) Never done RSV Vaccine(1 - 1-dose 60+ series) Never done Influenza Vaccine(1) due on 02/08/2023 Covid-19 Vaccine(4 - 2022- season) due on 02/08/2023 Shingrix Vaccine(1 of 2) due on 11/01/2023 DTaP,Tdap,Td Vaccine(2 - Td or Tdap) due on 08/09/2023 Annual PCP Team Chronic Disease Visit due on 11/01/2023 Diabetes Screening due on 05/03/2026 Lipid Screening due on 10/24/2027 Colorectal Cancer Screening due on 11/24/2031 Advance Directive Discussion Completed Depression Assessment Completed Pneumococcal Vaccine: 65+ Completed Hepatitis C Screening Discontinued Data reviewed Component Latest Ref Rng & Units 10/23/2022 05/03/2023 Total Cholesterol, Nonfasting <200 mg/dL 115 Triglycerides, Nonfasting <150 mg/dL 56 HDL Cholesterol, Nonfasting >39 mg/dL 45 LDL Cholesterol, Nonfasting <100 mg/dL 59 Non HDL Cholesterol, Nonfasting <130 mg/dL 70 VLDL Cholesterol, Nonfasting <30 mg/dL 11 Total Chol/HDL Ratio, Nonfasting <5.10 mg/dL 2.56 LDL/HDL Ratio, Nonfasting <2.54 mg/dL 1.31 Hemoglobin A1C 4.3 - 5.6 % 5.9 (H) 5.9 (H) Estimated Average Glucose mg/dL 123 123 PSA <2.60 ng/mL 3.21 (H) 3.44 (H) PSA, Percent Free % 22 19 A/P ASSESSMENT/PLAN: 1. Essential hypertension with goal blood pressure less than 140/90 - ICD9: 401.9, ICD10: I10 (primary diagnosis) - Uncontrolled - Continue current medications - Recommend home blood pressure monitoring, to bring results to next visit - Encouraged sodium restriction, DASH or Mediterranean diet - Recommend regular aerobic exercise - Follow up in 3 weeks for hypertension visit 2. Mixed hyperlipidemia - ICD9: 272.2, ICD10: E78.2 - Controlled - Continue current medications - Counseled on healthy diet and regular exercise 3. Elevated fasting blood sugar - ICD9: 790.21, ICD10: R73.01 - stab;e with life style. 4. Essential tremor - ICD9: 333.1, ICD10: G25.0 - stable 5. Elevated PSA - ICD9: 790.93, ICD10: R97.20 - stable no changes. 6. Encounter for immunization - ICD9: V03.89, ICD10: Z23 - INFLUENZA VACCINE, PRSV FREE, AGE 65+ YR, HIGH DOSE, QUADRIVALENT (FLUZONE HIGH-DOSE): given - [employer] COVID-19 VACCINE ( SEASON) AGE 12+ YR: given Requested Prescriptions Signed Prescriptions Disp Refills lisinopril (ZESTRIL) 20 mg tablet 90 tablet 1 Sig: Take 1 tablet by mouth once daily. atorvastatin (LIPITOR) 20 mg tablet 90 tablet 1 Sig: Take 1 tablet by mouth once daily. F/u in 6 months extensive check CMP, Lipid, UA, A1c, Free PSA prior. Vic Parra MD documented in this encounter [facility] 03-29-2023 Miscellaneous Notes Patient has been identified by name and date of : Yes Requested Prescriptions Pending Prescriptions Disp Refills amLODIPine (NORVASC) 10 mg tablet 90 tablet 1 Sig: Take 1 tablet by mouth once daily. ZACHARY:10/31/22 NOV:05/15/23 RX INSTRUCTIONS: Patient aware RX will be sent to pharmacy. No need to notify patient. Salima Vargas documented in this encounter [facility] 10-22-2022 Miscellaneous Notes Patient has been identified by name and date of : Yes Requested Prescriptions Pending Prescriptions Disp Refills ezetimibe (ZETIA) 10 mg tablet 90 tablet 1 Sig: Take 1 tablet by mouth once daily. RX INSTRUCTIONS: Patient aware RX will be sent to pharmacy. No need to notify patient. Patient last office visit: 04/18/22 Patient next office visit: 10/31/22 [place] MA documented in this encounter [facility] 07-12-2022 History of Presen t illness Narrative Images from the original note were not included. Subjective HPI HPI Shamika Donahue is a 72 year old male who presents today for CC of right eyelid pain/swelling. This started 4 days ago. 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 Symptoms are worsened by nothing known. Risk factors wears contacts. Denies vision change when eye swelling is lifted. [employer] performed pressure testing and eye stain. .Patient presents with: Eye Problem: Right eye swollen x 4 days PAST MEDICAL HISTORY Diagnosis Date Advance directive discussed with patient 10/11/2021 Discussed 10/2021 AK (actinic keratosis) 02/04/2019 right dorsal and lateral forearm, posterior upper right arm and right unlar wrist treated with cryo 02/04/2019 Diverticulosis Elevated fasting blood sugar 11/09/2015 Elevated PSA 04/18/2022 Essential hypertension with goal blood pressure less than 140/90 09/26/2015 Essential tremor 04/07/2021 Family history of coronary artery disease 09/26/2015 Hemorrhoids History of colon polyps 10/26/[address] 10/11/2021 DPA: Melani (daughter) Medicare annual wellness visit, subsequent 01/08/2017 Medicare Part B: 05/10/2013 last done: 02/04/2019 Mixed hyperlipidemia 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 PAST SURGICAL HISTORY Procedure Laterality Date BLEPHAROPLASTY UPPER EYELID Bilateral Blepharoplasty - upper COLONOSCOPY 12/04/2013 polyp, was to get repeated 04/2016 COLONOSCOPY 11/23/2021 repeat in 10 years COLONOSCOPY FLX DX W/COLLJ SPEC WHEN PFRMD 01/09/2016 TONSILLECTOMY HX ALLERGIES Codeine MEDICATIONS ezetimibe (ZETIA) 10 mg tablet Take 1 tablet by mouth once daily. lisinopril (ZESTRIL, PRINIVIL) 20 mg tablet Take 1 tablet by mouth once daily. atorvastatin (LIPITOR) 20 mg tablet Take 1 tablet by mouth once daily. amLODIPine (NORVASC) 10 mg tablet Take 1 tablet by mouth once daily. Comp Stocking,Knee,Regular,Med misc Knee High Compression Stockings 20-30 mm, DX: Venous insufficiency 187.2 aspirin, enteric coated (ASPIRIN, ENTERIC COATED) 81 mg EC tablet Take 1 tablet by mouth once daily. COMPOUNDED PRESCRIPTION Knee High Compression Stockings 20-30 mm, DX: Venous insufficiency FAMILY HISTORY Problem Relation Age of Onset Heart Father Coronary Artery Disease Father Diabetes Mother Diabetes Brother Heart Brother Coronary Artery Disease Brother bypass in 40's Kidney Disease Brother at 64 Heart Paternal Grandfather Lipids Paternal Grandfather Heart Paternal Uncle Heart Paternal Grandmother Social History Tobacco Use Smoking status: Never Smokeless tobacco: Never Substance Use Topics Alcohol use: Yes Alcohol/week: 2.0 standard drinks Types: 2 Cans of Beer (12oz) per week Comment: couple beers daily Drug use: No ROS Objective Blood pressure 142/72, pulse 75, temperature 36.6 C (97.8 F), resp. rate 21, weight 95 kg (209 lb 6.4 oz), SpO2 97 %. Component Latest Ref Rng & Units 10/03/2021 Protein, Total 6.3 - 8.0 g/dL 6.8 Albumin 3.9 - 4.9 g/dL 4.5 Calcium 8.5 - 10.2 mg/dL 8.7 Bilirubin, Total 0.2 - 1.3 mg/dL 0.8 Alkaline Phosphatase 38 - 113 U/L 104 AST 14 - 40 U/L 23 ALT 10 - 54 U/L 27 Glucose 74 - 99 mg/dL 82 BUN 9 - 24 mg/dL 18 Creatinine 0.73 - 1.22 mg/dL 1.10 Sodium 136 - 144 mmol/L 139 Potassium 3.7 - 5.1 mmol/L 4.4 Chloride 97 - 105 mmol/L 106 (H) CO2 22 - 30 mmol/L 22 Anion Gap 9 - 18 mmol/L 11 eGFR >=60 mL/min/1.73m 71 Physical Exam Constitutional: General: He is not in acute distress. Appearance: He is not toxic-appearing or diaphoretic. HENT: Head: Normocephalic and atraumatic. Eyes: Pulmonary: Effort: Pulmonary effort is normal. No accessory muscle usage or respiratory distress. Lymphadenopathy: Cervical: Right cervical: No superficial cervical adenopathy. Left cervical: No superficial cervical adenopathy. Neurological: Mental Status: He is alert and oriented to person, place, and time. ASSESSMENT/PLAN: 1. Pain and swelling of eyelid - ICD9: 379.91, 379.92, ICD10: H02.89, H02.849 (primary diagnosis) Concerns for periorbital cellulitis Tx with augmentin See eye dr tomorrow Worsening s/s go to ER - CIPROFLOXACIN 0.3 % EYE DROPS 2. Eye irritation - ICD9: 379.99, ICD10: H57.89 -use medication as prescribed -follow up if symptoms persist, worsen, change - CIPROFLOXACIN 0.3 % EYE DROPS Terrance White APRN.CONTRACT ENGINEER documented in this encounter [facility] 04-18-2022 Instructions Vic Parra MD - 04/18/2022 9:[address] Parra a My Chart message in a week with home blood pressure readings. Please get labs and urine test done on or after 10/05/2022 prior to your next visit. documented in this encounter [facility] 04-18-2022 History of Presen t illness Narrative Chief Complaint Patient presents with: F/U 6 months HPI Shamika Donahue is a 71 year old male who presents here today for 6 month follow up. Patient with Hx of elevated fasting BS, HTN, Hyperlipidemia as well as those reviewed and addressed below and in ROS. Patient has been doing well. No new issues or concerns. Past medical history, appointments, medications, allergies reviewed. Previous Medical History PAST MEDICAL HISTORY Diagnosis Date Advance directive discussed with patient 10/11/2021 Discussed 10/2021 AK (actinic keratosis) 02/04/2019 right dorsal and lateral forearm, posterior upper right arm and right unlar wrist treated with cryo 02/04/2019 Diverticulosis Elevated fasting blood sugar 11/09/2015 Essential hypertension with goal blood pressure less than 140/90 09/26/2015 Essential tremor 04/07/2021 Family history of coronary artery disease 09/26/2015 Hemorrhoids History of colon polyps 10/26/[address] 10/11/2021 DPA: Melani (daughter) Medicare annual wellness visit, subsequent 01/08/2017 Medicare Part B: 05/10/2013 last done: 02/04/2019 Mixed hyperlipidemia 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 Previous Surgical History PAST SURGICAL HISTORY Procedure Laterality Date BLEPHAROPLASTY UPPER EYELID Bilateral Blepharoplasty - upper COLONOSCOPY 12/04/2013 polyp, was to get repeated 04/2016 COLONOSCOPY 11/23/2021 repeat in 10 years COLONOSCOPY FLX DX W/COLLJ SPEC WHEN PFRMD 01/09/2016 TONSILLECTOMY HX Family History FAMILY HISTORY Problem Relation Age of Onset Heart Father Coronary Artery Disease Father Diabetes Mother Diabetes Brother Heart Brother Coronary Artery Disease Brother bypass in 40's Kidney Disease Brother at 64 Heart Paternal Grandfather Lipids Paternal Grandfather Heart Paternal Uncle Heart Paternal Grandmother Patient Allergies ALLERGIES Allergen Reactions Codeine Intolerance Gets really high Current Medications Current Outpatient Medications on File Prior to Visit Medication Sig amLODIPine (NORVASC) 10 mg tablet Take 1 tablet by mouth once daily. ezetimibe (ZETIA) 10 mg tablet Take 1 tablet by mouth once daily. lisinopril (ZESTRIL, PRINIVIL) 20 mg tablet Take 1 tablet by mouth once daily. atorvastatin (LIPITOR) 20 mg tablet Take 1 tablet by mouth once daily. Comp Stocking,Knee,Regular,Med misc Knee High Compression Stockings 20-30 mm, DX: Venous insufficiency 187.2 aspirin, enteric coated (ASPIRIN, ENTERIC COATED) 81 mg EC tablet Take 1 tablet by mouth once daily. COMPOUNDED PRESCRIPTION Knee High Compression Stockings 20-30 mm, DX: Venous insufficiency No current facility-administered medications on file prior to visit. Social History Social History Tobacco Use Smoking status: Never Smokeless tobacco: Never Substance Use Topics Alcohol use: Yes Alcohol/week: 2.0 standard drinks Types: 2 Cans of Beer (12oz) per week Comment: couple beers daily Drug use: No Review of Symptoms REVIEW OF SYSTEMS GENERAL: No weight loss, malaise or fevers NECK: Negative for lumps, goiter, pain and significant neck swelling RESPIRATORY: Negative for cough, hemoptysis, wheezing, COPD, dyspnea or shortness of breath CARDIOVASCULAR: Negative for chest pain, leg swelling, hypertension, CHF or palpitations ENDOCRINE: Negative for cold or heat intolerance, polyuria, polydipsia and goiter NEURO: No history of headaches, syncope, paralysis, seizures or worsening of tremors significantly. EXAM: BP 146/82 (BP Site: Right Arm, BP Position: Sitting, BP Cuff Size: Regular Adult) Pulse 60 Resp 16 Wt 92.1 kg (203 lb) BMI 31.79 kg/m Last 4 Encounter Wt Readings: Date: Wt: 04/18/2022 92.1 kg (203 lb) 11/27/2021 88.9 kg (196 lb) 11/11/2021 89.4 kg (197 lb 3.2 oz) 11/08/2021 88.9 kg (196 lb) General Appearance: Well appearing, alert, in no acute distress, well-hydrated, well nourished.. Neck: Supple, no adenopathy; thyroid symmetric, normal size, no bruits. Lungs: Lungs clear to auscultation. No wheezing, rhonchi, rales.. Heart: RRR without murmur, gallop, or rubs. No ectopy. Abdomen: Normal abdominal exam, Abdomen soft, non-tender. Bowel sounds normal. No masses, organomegaly. Extremities: No deformities, edema. Peripheral Pulses: Normal. Health Maintenance List BP CONTROLLED (<130/80) Never done COVID-19 VACCINE(3 - Booster for Moderna series) due on 09/14/2020 DEPRESSION ASSESSMENT Never done INFLUENZA(1) due on 02/08/2022 SHINGRIX VACCINE(1 of 2) due on 10/11/2022 ANNUAL PCP TEAM CHRONIC DISEASE VISIT due on 11/27/2022 DTAP,TDAP,TD(2 - Td or Tdap) due on 08/09/2023 DIABETES SCREEN due on 04/03/2025 LIPID SCREEN due on 10/03/2026 COLORECTAL CANCER SCREENING due on 11/24/2031 ADVANCE DIRECTIVE DISCUSSION Completed PNEUMOCOCCAL: 65+ Completed HEPATITIS C SCREENING Discontinued Data reviewed Component Latest Ref Rng & Units 10/03/2021 04/03/2022 Protein, Total 6.3 - 8.0 g/dL 6.8 Albumin 3.9 - 4.9 g/dL 4.5 Calcium 8.5 - 10.2 mg/dL 8.7 Bilirubin, Total 0.2 - 1.3 mg/dL 0.8 Alkaline Phosphatase 38 - 113 U/L 104 AST 14 - 40 U/L 23 ALT 10 - 54 U/L 27 Glucose 74 - 99 mg/dL 82 BUN 9 - 24 mg/dL 18 Creatinine 0.73 - 1.22 mg/dL 1.10 Sodium 136 - 144 mmol/L 139 Potassium 3.7 - 5.1 mmol/L 4.4 Chloride 97 - 105 mmol/L 106 (H) CO2 22 - 30 mmol/L 22 Anion Gap 9 - 18 mmol/L 11 eGFR >=60 mL/min/1.73m 71 Total Cholesterol, Nonfasting <200 mg/dL 134 Triglycerides, Nonfasting <150 mg/dL 88 HDL Cholesterol, Nonfasting >39 mg/dL 52 LDL Cholesterol, Nonfasting <100 mg/dL 64 Non HDL Cholesterol, Nonfasting <130 mg/dL 82 VLDL Cholesterol, Nonfasting <30 mg/dL 18 Total Chol/HDL Ratio, Nonfasting <5.10 mg/dL 2.58 LDL/HDL Ratio, Nonfasting <2.54 mg/dL 1.23 Hemoglobin A1C 4.3 - 5.6 % 5.9 (H) 5.8 (H) Estimated Average Glucose mg/dL 123 120 PSA <2.60 ng/mL 2.90 (H) 2.91 (H) PSA, Percent Free % 18 A/P ASSESSMENT/PLAN: 1. Mixed hyperlipidemia - ICD9: 272.2, ICD10: E78.2 (primary diagnosis) - good control - Encouraged following a low fat, low cholesterol diet. - Discussed the benefits of regular aerobic exercise and weight loss. - Encouraged following a low carbohydrate, healthy oil intake diet. - Continue current therapy. - EZETIMIBE 10 MG TABLET 2. Essential hypertension with goal blood pressure less than 140/90 - ICD9: 401.9, ICD10: I10 - suboptimal control - Continue current medication(s) - Recommended regular aerobic exercise. - Recommend home blood pressure monitoring, to bring results in on next visit - patient to check BP at home and send in some readings in a week. - Goal of BP <130/80 3. Elevated fasting blood sugar - ICD9: 790.21, ICD10: R73.01 - improved with life style changes. 4. Essential tremor - ICD9: 333.1, ICD10: G25.0 - stable 5. Encounter for immunization - ICD9: V03.89, ICD10: Z23 - [employer] COVID-19 BIVALENT BOOSTER VACCINE, AGE 12+ YR: given - INFLUENZA SEASONAL QUADRIVALENT HIGH DOSE AGE 65+: given 6. Elevated PSA - ICD9: 790.93, ICD10: R97.20 Stable will continue to monitor. Requested Prescriptions Signed Prescriptions Disp Refills ezetimibe (ZETIA) 10 mg tablet 90 tablet 1 Sig: Take 1 tablet by mouth once daily. lisinopril (ZESTRIL, PRINIVIL) 20 mg tablet 90 tablet 1 Sig: Take 1 tablet by mouth once daily. atorvastatin (LIPITOR) 20 mg tablet 90 tablet 1 Sig: Take 1 tablet by mouth once daily. F/u 6 months extensive check CMP, Lipid, UA, A1c, Free PSA prior Vic Parra MD documented in this encounter [facility] 04-02-2022 Miscellaneous Notes The following approved medication requests have been transmitted electronically. Requested Prescriptions Signed Prescriptions Disp Refills amLODIPine (NORVASC) 10 mg tablet 90 tablet 1 Sig: Take 1 tablet by mouth once daily. Authorizing Provider: VIC PARRA MD Patient has been identified by name and date of : Yes Requested Prescriptions Pending Prescriptions Disp Refills amLODIPine (NORVASC) 10 mg tablet 90 tablet 1 Sig: Take 1 tablet by mouth once daily. RX INSTRUCTIONS: Patient aware RX will be sent to pharmacy. No need to notify patient. Yessenia Boyd MA Zachary: 11/2021 Nov: 04/2022 Last refill: 09/2021 documented in this encounter [facility] 11-27-2021 History of Presen t illness Narrative Chief Complaint Patient presents with: Recheck HPI Shamika Donahue is a 71 year old male who presents here today for Above Complaints.. Patient had his colonoscopy on 11/23/2021. Was told it was normal and repeat in 10 years. Was advised to follow up with PCP. Otherwise no concerns. Was seen by express care 2 weeks ago for sinus congestion/ear aches. Has improved. Past medical history, appointments, medications, allergies reviewed. Previous Medical History PAST MEDICAL HISTORY Diagnosis Date Advance directive discussed with patient 10/11/2021 Discussed 10/2021 AK (actinic keratosis) 02/04/2019 right dorsal and lateral forearm, posterior upper right arm and right unlar wrist treated with cryo 02/04/2019 Diverticulosis Elevated fasting blood sugar 11/09/2015 Essential hypertension with goal blood pressure less than 140/90 09/26/2015 Essential tremor 04/07/2021 Family history of coronary artery disease 09/26/2015 Hemorrhoids History of colon polyps 10/26/[address] 10/11/2021 DPA: Melani (daughter) Medicare annual wellness visit, subsequent 01/08/2017 Medicare Part B: 05/10/2013 last done: 02/04/2019 Mixed hyperlipidemia 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 Previous Surgical History PAST SURGICAL HISTORY Procedure Laterality Date BLEPHAROPLASTY UPPER EYELID Bilateral Blepharoplasty - upper COLONOSCOPY 12/04/2013 polyp, was to get repeated 04/2016 COLONOSCOPY FLX DX W/COLLJ SPEC WHEN PFRMD 01/09/2016 TONSILLECTOMY HX Family History FAMILY HISTORY Problem Relation Age of Onset Heart Father Coronary Artery Disease Father Diabetes Mother Diabetes Brother Heart Brother Coronary Artery Disease Brother bypass in 40's Kidney Disease Brother at 64 Heart Paternal Grandfather Lipids Paternal Grandfather Heart Paternal Uncle Heart Paternal Grandmother Patient Allergies ALLERGIES Allergen Reactions Codeine Intolerance Gets really high Current Medications Current Outpatient Medications on File Prior to Visit Medication Sig ezetimibe (ZETIA) 10 mg tablet Take 1 tablet by mouth once daily. lisinopril (ZESTRIL, PRINIVIL) 20 mg tablet Take 1 tablet by mouth once daily. amLODIPine (NORVASC) 10 mg tablet Take 1 tablet by mouth once daily. atorvastatin (LIPITOR) 20 mg tablet Take 1 tablet by mouth once daily. Comp Stocking,Knee,Regular,Med misc Knee High Compression Stockings 20-30 mm, DX: Venous insufficiency 187.2 aspirin, enteric coated (ASPIRIN, ENTERIC COATED) 81 mg EC tablet Take 1 tablet by mouth once daily. COMPOUNDED PRESCRIPTION Knee High Compression Stockings 20-30 mm, DX: Venous insufficiency No current facility-administered medications on file prior to visit. Social History Social History Tobacco Use Smoking status: Never Smoker Smokeless tobacco: Never Used Substance Use Topics Alcohol use: Yes Alcohol/week: 2.0 standard drinks Types: 2 Cans of Beer (12oz) per week Comment: couple beers daily Drug use: No Review of Symptoms REVIEW OF SYSTEMS see hpi EXAM: BP 136/76 (BP Site: Left Arm, BP Position: Sitting, BP Cuff Size: Large Adult) Pulse 60 Temp 36.3 C (97.4 F) Resp 18 Wt 88.9 kg (196 lb) BMI 30.70 kg/m General Appearance: Well appearing, alert, in no acute distress, well-hydrated, well nourished.. Health Maintenance List BP CONTROLLED (<130/80) Never done COVID-19 VACCINE(3 - Booster for Moderna series) due on 12/17/2020 SHINGRIX VACCINE(1 of 2) due on 10/11/2022 ANNUAL PCP TEAM CHRONIC DISEASE VISIT due on 10/11/2022 DTAP,TDAP,TD(2 - Td or Tdap) due on 08/09/2023 DIABETES SCREEN due on 10/03/2024 LIPID SCREEN due on 10/03/2026 COLORECTAL CANCER SCREENING due on 11/24/2031 INFLUENZA Completed ADVANCE DIRECTIVE DISCUSSION Completed PNEUMOCOCCAL: 65+ Completed HEPATITIS C SCREENING Discontinued DEPRESSION SCREENING Discontinued Data reviewed Impression: - Diverticulosis in the sigmoid colon and in the descending colon. - Non-bleeding internal hemorrhoids. - The examined portion of the ileum was normal. - The examination was otherwise normal. - No specimens collected. Recommendation: - Patient has a contact number available for emergencies. The signs and symptoms of potential delayed complications were discussed with the patient. Return to normal activities tomorrow. Written discharge instructions were provided to the patient. - Resume previous diet. - Continue present medications. - Repeat colonoscopy in 10 years for screening purposes. - Return to referring physician in 1 week. - Resume previous antiplatelet medication tomorrow ASSESSMENT/PLAN: 1. Essential hypertension with goal blood pressure less than 140/90 - ICD9: 401.9, ICD10: I10 (primary diagnosis) - good control - Continue current medication(s) - Recommended regular aerobic exercise. - Recommend home blood pressure monitoring, to bring results in on next visit - Goal of BP <130/80 2. Mixed hyperlipidemia - ICD9: 272.2, ICD10: E78.2 stable 3. History of colon polyps - ICD9: V12.72, ICD10: Z86.010 Colonoscopy completed on 11/23/2021. Recommendation from surgeon is to repeat in 10 years. Jyotsna Siu PA-C documented in this encounter [facility] 11-23-2021 Nurse Note Patient states nausea has subsided. Denies abdominal discomfort. Requests discharge to home. Feels privacy of own home will assist in passing flatus. Request granted, and patient ambulated to vehicle with assistance. Diana Greer RN Patient states nausea has diminished. Started to pass small amounts of flatus. Abdomen slightly softer. Patient assisted to sitting position. Complains of nausea (no emesis at this time). Returned to left lateral position with application of warm blanket. Diana Greer RN Abdomen tight. Patient denies passing flatus. Patient denies pain or nausea. Assisted to BRP, warm blanket applied to abdomen with zero results. Ambulated in hallways with assistance. Diaan Greer RN Arrived in phase II via cart. Left lateral position. Sedated, but responds to verbal stimuli. Color normal; skin warm and dry. Respirations wnl and unlabored. Abdomen soft and with + bowel sounds in quads X 4. Patient resting comfortably. Dr. Wilburn at bedside to review procedure and recommendations. Diana Greer RN documented in this encounter [facility] 11-23-2021 History and physical note Images from the original note were not included. HISTORY AND PHYSICAL Shamika Donahue 1950 REFERRING PHYSICIAN: Vic Parra MD CHIEF COMPLAINT: Consult (Colonoscopy) HPI: The patient is a 71 year old male referred for endoscopy. Shamika notes no concerns currently. Patient denies any change in bowel habits, weight changes, blood in stools, black tarry stools or abdominal pain. Denies family history of colon issues. The patient notes no upper GI complaints. Shamika has undergone prior endoscopy. Most recent colonoscopy 01/09/[address] Wilburn under conscious sedation. No concerning findings at that time. Repeat colonoscopy was recommended in 5 years based on personal history of adenomatous polyp with villous component. Patient denies chest pain, shortness of breath or recent hospitalizations. Denies problems with sedation in the past. PAST MEDICAL HISTORY PAST MEDICAL HISTORY Diagnosis Date Advance directive discussed with patient 10/11/2021 Discussed 10/2021 AK (actinic keratosis) 02/04/2019 right dorsal and lateral forearm, posterior upper right arm and right unlar wrist treated with cryo 02/04/2019 Diverticulosis Elevated fasting blood sugar 11/09/2015 Essential hypertension with goal blood pressure less than 140/90 09/26/2015 Essential tremor 04/07/2021 Family history of coronary artery disease 09/26/2015 Hemorrhoids History of colon polyps 10/26/[address] 10/11/2021 DPA: Melani (daughter) Medicare annual wellness visit, subsequent 01/08/2017 Medicare Part B: 05/10/2013 last done: 02/04/2019 Mixed hyperlipidemia 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 PAST SURGICAL HISTORY PAST SURGICAL HISTORY Procedure Laterality Date BLEPHAROPLASTY UPPER EYELID Bilateral Blepharoplasty - upper COLONOSCOPY 12/04/2013 polyp, was to get repeated 04/2016 COLONOSCOPY FLX DX W/COLLJ SPEC WHEN PFRMD 01/09/2016 TONSILLECTOMY HX CURRENT MEDICATIONS Current Outpatient Medications Medication Sig ezetimibe (ZETIA) 10 mg tablet Take 1 tablet by mouth once daily. lisinopril (ZESTRIL, PRINIVIL) 20 mg tablet Take 1 tablet by mouth once daily. amLODIPine (NORVASC) 10 mg tablet Take 1 tablet by mouth once daily. atorvastatin (LIPITOR) 20 mg tablet Take 1 tablet by mouth once daily. Comp Stocking,Knee,Regular,Med misc Knee High Compression Stockings 20-30 mm, DX: Venous insufficiency 187.2 aspirin, enteric coated (ASPIRIN, ENTERIC COATED) 81 mg EC tablet Take 1 tablet by mouth once daily. COMPOUNDED PRESCRIPTION Knee High Compression Stockings 20-30 mm, DX: Venous insufficiency No current facility-administered medications for this visit. ALLERGIES: Codeine PERSONAL HISTORY: SOCIAL HISTORY Social History Tobacco Use Smoking status: Never Smoker Smokeless tobacco: Never Used Substance Use Topics Alcohol use: Yes Comment: couple beers daily Drug use: No FAMILY HISTORY: FAMILY HISTORY FAMILY HISTORY Problem Relation Age of Onset Heart Father Coronary Artery Disease Father Diabetes Mother Diabetes Brother Heart Brother Coronary Artery Disease Brother bypass in 40's Kidney Disease Brother at 64 Heart Paternal Grandfather Lipids Paternal Grandfather Heart Paternal Uncle Heart Paternal Grandmother REVIEW OF SYMPTOMS: The review of systems data was entered by the nurse and reviewed by nv Nursing Notes: Gris Carreraz 11/08/2021 8:02 AM Signed REVIEW OF SYSTEMS: General: The patient denies fatigue, denies weight loss, denies weight gain, denies feeling hot, and denies feelings of cold. Eyes: The patient denies glaucoma, denies eye injury/surgery, wears glasses or contacts. Ear/Nose/Throat: The patient denies allergies, denies hayfever, denies ear infections, and denies bloody noses. Cardiovascular: The patient denies chest pain, denies heart disease, NOTES high blood pressure,denies cardiac stent, denies prior heart attack, denies irregular heart beat, NOTES high cholesterol, denies poor circulation, denies heart failure, other cardiac issues, denies claudication, denies cold feet, denies peripheral arterial stent. Respiratory: The patient denies tuberculosis, denies pneumonia, denies frequent cough, denies pulmonary embolism, denies shortness of breath, and denies coughing up blood. Gastrointestinal: The patient denies difficulty swallowing, denies acid reflux, denies ulcers, denies vomiting, denies jaundice/hepatitis, denies gallbladder problems, denies black or tarry stools, NOTES hemorrhoids, denies bleeding from rectum, denies diverticulitis, denies constipation, denies diarrhea, denies loss of stool control, and denies hernias. Kidney/Bladder: The patient denies kidney stones, denies urine infections, and denies bloody urine. Skin: The patient denies a history of skin cancer, denies bleeding/changing moles, and denies a history of skin rash. Neurologic: The patient denies a history of epilepsy/convulsions, denies headaches, denies head/spinal injuries, and denies stroke/TIA. Psychiatric: The patient denies psychiatric medications, denies depression, and denies voices, denies substance abuse. Endocrine: The patient denies thyroid disorders, denies diabetes, and denies hormonal problems. Hematologic: The patient NOTES a history of bruising, NOTES bleeding, and denies anemia, denies blood clots. Infections: The patient NOTES a history of measles and mumps, denies rheumatic fever, and denies sexually transmitted diseases. Musculoskeletal: The patient denies back pain/injury, denies back problems, denies sciatica, denies knee/foot trouble, NOTES arthritis, or denies gout. When was patient's last Mammogram screening? N/A Last Colonoscopy: 01/09/2016 Gris Serrato I have confirmed and edited as necessary, the PFSH and ROS obtained by others. Bette Lehman PA-C PHYSICAL EXAMINATION: General: The patient is 71 year old male, well nourished, well hydrated in no acute distress. The patient is oriented to time, place, and person. VITALS: Blood pressure 114/54, pulse 65, temperature 36.9 C (98.5 F), height 170.2 cm (5' 7), weight 88.9 kg (196 lb), SpO2 95 %. Body mass index is 30.7 kg/m . HEENT: Normal cephalic, ataumatic, pupils are equally round, sclera are anicteric, mucous membranes are moist, oropharynx is clear. Neck has no masses, asymmetry or lymphadenopathy. Respiratory: Clear to auscultation and percussion. Normal respiratory excursion and pattern. Cardiac: Examination is regular rate and rhythm. Normal S1/S2 Abdominal exam: Soft, nontender, with no palpable masses. No hepatosplenomegaly. No palpable hernias. Extremities: no clubbing, cyanosis or edema. No adenopathy. LABORATORY VALUES: As Noted RADIOLOGIC STUDIES: As Noted Assessment IMPRESSION: encounter for surveillance colonoscopy, personal history of polyps PLAN: I have reviewed my findings with the surgeon. Will plan for lower endoscopy. We discussed the risks and benefits of the planned endoscopy. I have informed the patient that complications can occur including failure to complete the endoscopy and perforation. The patient had the opportunity to ask questions concerning the planned endoscopy. My staff has also explained the procedure to the patient in understandable terms and has given the patient printed material concerning the procedure. The patient freely consents to surgery. The patient was offered a surgery/procedure at a [facility] facility. I have counseled the patient regarding the risk of exposure to and/or potential harm posed by the COVID-19 virus with having a surgery/procedure at this time versus the risk of delaying the surgery/procedure. It is not possible to know either the risk of delaying the surgery or procedure or chance of getting an infection with perfect accuracy, but a joint decision was made between the patient and myself to proceed at this time with endoscopy. I plan to use Golytely bowel preparation Diagnoses: (Z86.010) Personal history of colonic polyps (primary encounter diagnosis) (Z12.11) Colon cancer screening Consultation requested by Dr. Parra for an opinion regarding screening colonoscopy. My final recommendations will be communicated back to the requesting physician by way of shared Medical record or letter to requesting physician via US mail. Bette Lehman PA-C UPDATED HISTORY AND PHYSICAL EXAMINATION SERVICE DATE: 11/23/2021 SERVICE TIME: 8:02 AM PHYSICAL EXAM MUST BE COMPLETED ON ADMISSION The History and Physical (completed in the past 30 days) has been reviewed and the patient has been examined. The contents accurately reflect the patient's condition with the following additions or revisions since the H&P was completed. Examination indicates no changes. This H&P can be found in the attached. SIGNATURE: Hiram Wilburn III, MD PATIENT NAME: Shamika Donahue DATE: November 23, 2021 TIME: 8:02 AM documented in this encounter [facility] 11-08-2021 History of Presen t illness Narrative HISTORY AND PHYSICAL Shamika Donahue 1950 REFERRING PHYSICIAN: Vic Parra MD CHIEF COMPLAINT: Consult (Colonoscopy) HPI: The patient is a 71 year old male referred for endoscopy. Shamika notes no concerns currently. Patient denies any change in bowel habits, weight changes, blood in stools, black tarry stools or abdominal pain. Denies family history of colon issues. The patient notes no upper GI complaints. Shamika has undergone prior endoscopy. Most recent colonoscopy 01/09/[address] Wilburn under conscious sedation. No concerning findings at that time. Repeat colonoscopy was recommended in 5 years based on personal history of adenomatous polyp with villous component. Patient denies chest pain, shortness of breath or recent hospitalizations. Denies problems with sedation in the past. PAST MEDICAL HISTORY Diagnosis Date Advance directive discussed with patient 10/11/2021 Discussed 10/2021 AK (actinic keratosis) 02/04/2019 right dorsal and lateral forearm, posterior upper right arm and right unlar wrist treated with cryo 02/04/2019 Diverticulosis Elevated fasting blood sugar 11/09/2015 Essential hypertension with goal blood pressure less than 140/90 09/26/2015 Essential tremor 04/07/2021 Family history of coronary artery disease 09/26/2015 Hemorrhoids History of colon polyps 10/26/[address] 10/11/2021 DPA: Melani (daughter) Medicare annual wellness visit, subsequent 01/08/2017 Medicare Part B: 05/10/2013 last done: 02/04/2019 Mixed hyperlipidemia 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 PAST SURGICAL HISTORY Procedure Laterality Date BLEPHAROPLASTY UPPER EYELID Bilateral Blepharoplasty - upper COLONOSCOPY 12/04/2013 polyp, was to get repeated 04/2016 COLONOSCOPY FLX DX W/COLLJ SPEC WHEN PFRMD 01/09/2016 TONSILLECTOMY HX Current Outpatient Medications Medication Sig ezetimibe (ZETIA) 10 mg tablet Take 1 tablet by mouth once daily. lisinopril (ZESTRIL, PRINIVIL) 20 mg tablet Take 1 tablet by mouth once daily. amLODIPine (NORVASC) 10 mg tablet Take 1 tablet by mouth once daily. atorvastatin (LIPITOR) 20 mg tablet Take 1 tablet by mouth once daily. Comp Stocking,Knee,Regular,Med misc Knee High Compression Stockings 20-30 mm, DX: Venous insufficiency 187.2 aspirin, enteric coated (ASPIRIN, ENTERIC COATED) 81 mg EC tablet Take 1 tablet by mouth once daily. COMPOUNDED PRESCRIPTION Knee High Compression Stockings 20-30 mm, DX: Venous insufficiency No current facility-administered medications for this visit. ALLERGIES: Codeine PERSONAL HISTORY: Social History Tobacco Use Smoking status: Never Smoker Smokeless tobacco: Never Used Substance Use Topics Alcohol use: Yes Comment: couple beers daily Drug use: No FAMILY HISTORY: FAMILY HISTORY Problem Relation Age of Onset Heart Father Coronary Artery Disease Father Diabetes Mother Diabetes Brother Heart Brother Coronary Artery Disease Brother bypass in 40's Kidney Disease Brother at 64 Heart Paternal Grandfather Lipids Paternal Grandfather Heart Paternal Uncle Heart Paternal Grandmother REVIEW OF SYMPTOMS: The review of systems data was entered by the nurse and reviewed by me Nursing Notes: Gris Serrato 11/08/2021 8:02 AM Signed REVIEW OF SYSTEMS: General: The patient denies fatigue, denies weight loss, denies weight gain, denies feeling hot, and denies feelings of cold. Eyes: The patient denies glaucoma, denies eye injury/surgery, wears glasses or contacts. Ear/Nose/Throat: The patient denies allergies, denies hayfever, denies ear infections, and denies bloody noses. Cardiovascular: The patient denies chest pain, denies heart disease, NOTES high blood pressure,denies cardiac stent, denies prior heart attack, denies irregular heart beat, NOTES high cholesterol, denies poor circulation, denies heart failure, other cardiac issues, denies claudication, denies cold feet, denies peripheral arterial stent. Respiratory: The patient denies tuberculosis, denies pneumonia, denies frequent cough, denies pulmonary embolism, denies shortness of breath, and denies coughing up blood. Gastrointestinal: The patient denies difficulty swallowing, denies acid reflux, denies ulcers, denies vomiting, denies jaundice/hepatitis, denies gallbladder problems, denies black or tarry stools, NOTES hemorrhoids, denies bleeding from rectum, denies diverticulitis, denies constipation, denies diarrhea, denies loss of stool control, and denies hernias. Kidney/Bladder: The patient denies kidney stones, denies urine infections, and denies bloody urine. Skin: The patient denies a history of skin cancer, denies bleeding/changing moles, and denies a history of skin rash. Neurologic: The patient denies a history of epilepsy/convulsions, denies headaches, denies head/spinal injuries, and denies stroke/TIA. Psychiatric: The patient denies psychiatric medications, denies depression, and denies voices, denies substance abuse. Endocrine: The patient denies thyroid disorders, denies diabetes, and denies hormonal problems. Hematologic: The patient NOTES a history of bruising, NOTES bleeding, and denies anemia, denies blood clots. Infections: The patient NOTES a history of measles and mumps, denies rheumatic fever, and denies sexually transmitted diseases. Musculoskeletal: The patient denies back pain/injury, denies back problems, denies sciatica, denies knee/foot trouble, NOTES arthritis, or denies gout. When was patient's last Mammogram screening? N/A Last Colonoscopy: 01/09/2016 Gris Serrato I have confirmed and edited as necessary, the PFSH and ROS obtained by others. Bette Lehman PA-C PHYSICAL EXAMINATION: General: The patient is 71 year old male, well nourished, well hydrated in no acute distress. The patient is oriented to time, place, and person. VITALS: Blood pressure 114/54, pulse 65, temperature 36.9 C (98.5 F), height 170.2 cm (5' 7), weight 88.9 kg (196 lb), SpO2 95 %. Body mass index is 30.7 kg/m . HEENT: Normal cephalic, ataumatic, pupils are equally round, sclera are anicteric, mucous membranes are moist, oropharynx is clear. Neck has no masses, asymmetry or lymphadenopathy. Respiratory: Clear to auscultation and percussion. Normal respiratory excursion and pattern. Cardiac: Examination is regular rate and rhythm. Normal S1/S2 Abdominal exam: Soft, nontender, with no palpable masses. No hepatosplenomegaly. No palpable hernias. Extremities: no clubbing, cyanosis or edema. No adenopathy. LABORATORY VALUES: As Noted RADIOLOGIC STUDIES: As Noted Assessment IMPRESSION: encounter for surveillance colonoscopy, personal history of polyps PLAN: I have reviewed my findings with the surgeon. Will plan for lower endoscopy. We discussed the risks and benefits of the planned endoscopy. I have informed the patient that complications can occur including failure to complete the endoscopy and perforation. The patient had the opportunity to ask questions concerning the planned endoscopy. My staff has also explained the procedure to the patient in understandable terms and has given the patient printed material concerning the procedure. The patient freely consents to surgery. The patient was offered a surgery/procedure at a [facility]. I have counseled the patient regarding the risk of exposure to and/or potential harm posed by the COVID-19 virus with having a surgery/procedure at this time versus the risk of delaying the surgery/procedure. It is not possible to know either the risk of delaying the surgery or procedure or chance of getting an infection with perfect accuracy, but a joint decision was made between the patient and myself to proceed at this time with endoscopy. I plan to use Golytely bowel preparation Diagnoses: (Z86.010) Personal history of colonic polyps (primary encounter diagnosis) (Z12.11) Colon cancer screening Consultation requested by Dr. Parra for an opinion regarding screening colonoscopy. My final recommendations will be communicated back to the requesting physician by way of shared Medical record or letter to requesting physician via US mail. Bette Lehman PA-C documented in this encounter [facility] 11-08-2021 Nurse Note REVIEW OF SYSTEMS: General: The patient denies fatigue, denies weight loss, denies weight gain, denies feeling hot, and denies feelings of cold. Eyes: The patient denies glaucoma, denies eye injury/surgery, wears glasses or contacts. Ear/Nose/Throat: The patient denies allergies, denies hayfever, denies ear infections, and denies bloody noses. Cardiovascular: The patient denies chest pain, denies heart disease, NOTES high blood pressure,denies cardiac stent, denies prior heart attack, denies irregular heart beat, NOTES high cholesterol, denies poor circulation, denies heart failure, other cardiac issues, denies claudication, denies cold feet, denies peripheral arterial stent. Respiratory: The patient denies tuberculosis, denies pneumonia, denies frequent cough, denies pulmonary embolism, denies shortness of breath, and denies coughing up blood. Gastrointestinal: The patient denies difficulty swallowing, denies acid reflux, denies ulcers, denies vomiting, denies jaundice/hepatitis, denies gallbladder problems, denies black or tarry stools, NOTES hemorrhoids, denies bleeding from rectum, denies diverticulitis, denies constipation, denies diarrhea, denies loss of stool control, and denies hernias. Kidney/Bladder: The patient denies kidney stones, denies urine infections, and denies bloody urine. Skin: The patient denies a history of skin cancer, denies bleeding/changing moles, and denies a history of skin rash. Neurologic: The patient denies a history of epilepsy/convulsions, denies headaches, denies head/spinal injuries, and denies stroke/TIA. Psychiatric: The patient denies psychiatric medications, denies depression, and denies voices, denies substance abuse. Endocrine: The patient denies thyroid disorders, denies diabetes, and denies hormonal problems. Hematologic: The patient NOTES a history of bruising, NOTES bleeding, and denies anemia, denies blood clots. Infections: The patient NOTES a history of measles and mumps, denies rheumatic fever, and denies sexually transmitted diseases. Musculoskeletal: The patient denies back pain/injury, denies back problems, denies sciatica, denies knee/foot trouble, NOTES arthritis, or denies gout. When was patient's last Mammogram screening? N/A Last Colonoscopy: 01/09/2016 Gris Serrato documented in this encounter [facility] 11-01-2021 Miscellaneous Notes BP good. No changes needed. Manual Readin/72 Pulse: 76 Reason for blood pressure check - Last BP elevated Patient is: Taking medication as prescribed Yes Took medication today Yes If no, date medication last taken N/A Experiencing side effects No BP was elevated at last appt 10/11/21. No BP medication changes were made at that time. Taking all medications as prescribed. Denies any chest pain, shortness of breath, dizziness, or headaches. Daily caffeine use. No personal history of tobacco use; no current exposure. Alert and oriented. Pt has been identified by name and birthdate: Yes Allergies reviewed: Yes Latex allergy: no. Medication - prescribed and OTC reviewed and updated: Yes Do you need any prescription refills prior to your next visit: No Health Maintenance: Reviewed and not up to date and provider notified Patient advised to continue with current medications and would be contacted if any further instructions after review by PCP. Joaquina Dee LPN documented in this encounter [facility] 11-01-2021 History of Presen t illness Narrative Manual Readin/72 Pulse: 76 Reason for blood pressure check - Last BP elevated Patient is: Taking medication as prescribed Yes Took medication today Yes If no, date medication last taken N/A Experiencing side effects No BP was elevated at last appt 10/11/21. No BP medication changes were made at that time. Taking all medications as prescribed. Denies any chest pain, shortness of breath, dizziness, or headaches. Daily caffeine use. No personal history of tobacco use; no current exposure. Alert and oriented. Pt has been identified by name and birthdate: Yes Allergies reviewed: Yes Latex allergy: no. Medication - prescribed and OTC reviewed and updated: Yes Do you need any prescription refills prior to your next visit: No Health Maintenance: Reviewed and not up to date and provider notified Patient advised to continue with current medications and would be contacted if any further instructions after review by PCP. Joaquina Dee LPN documented in this encounter [facility] 10-11-2021 Instructions Vic Parra MD - 10/11/2021 3:03 PM EDT If you want to get a shingrix vaccine for the prevention of shingles check with a local pharmacy to see if covered. 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 Please get labs and urine test done on or after 03/30/2022 prior to your next visit. documented in this encounter [facility] 10-11-2021 History of Presen t illness Narrative Medicare Yearly Visit Medical B eligibilty date 05/10/2013 Date of last exam 10/06/2020 PAST MEDICAL HISTORY PAST MEDICAL HISTORY Diagnosis Date Coronary artery disease Diverticulosis Essential hypertension with goal blood pressure less than 140/90 09/26/2015 Hemorrhoids HTN (hypertension) Mixed hyperlipidemia PAST SURGICAL HISTORY PAST SURGICAL HISTORY Procedure Laterality Date COLONOSCOP W/ OR W/O BRSH SPEC 01/09/2016 COLONOSCOPY 12/04/2013 polyp, was to get repeated 04/2016 REVISION OF UPPER EYELID Bilateral Blepharoplasty - upper TONSILLECTOMY HX Codeine Medications reviewed: Yes FAMILY HISTORY FAMILY HISTORY Problem Relation Age of Onset Diabetes Mother Diabetes Brother Heart Father Heart Brother Coronary Artery Disease Father Coronary Artery Disease Brother bypass in 40's Kidney Disease Brother at 64 Heart Paternal Grandfather Heart Paternal Uncle Heart Paternal Grandmother Lipids Paternal Grandfather SOCIAL HISTORY: SOCIAL HISTORY Social History Marital status: Spouse name: Bethanie Years of education: Number of children: 2 Social History Main Topics Smoking status: Never Smoker Smokeless tobacco: Never Used Alcohol use: Yes Comment: couple beers daily Drug use: No Sexual activity: Yes Partners with: Female Shamika denies regular aerobic exercise. He watches his diet for sodium, low fat and low cholesterol all of the time. List of current specialists seen: none End of Live Planning discussed including patients advanced directive wishes: Yes I am willing to follow Shamika's advanced directives. Depression screen Depression Screening 01/08/2017 07/11/2017 02/04/2019 10/11/2021 PHQ-2 Score - 0 0 0 EMERY-2 Total Score 0 - - - Depression screening tool completed and reviewed. Based on score and interview, patient is not at risk for depression. Screening tool discussed with patient, and I recommended no further intervention at this time. Functional Ability/Safety Screen 1. Was the patient's timed Up and Go test unsteady or longer than 30 seconds? No 2. Does the patient need help with the phone, transportation, shopping,preparing meals, housework, laundry, medications or managing money? No 3. Does your home have rugs in the hallway, lack of grab bars in the bathroom, lack of handrails on the stairs or have poor lighting? No Hearing Evaluation: normal PHYSICAL EXAM BP 140/74 (BP Site: Right Arm, BP Position: Sitting, BP Cuff Size: Regular Adult) Pulse 76 Resp 16 Wt 89.8 kg (198 lb) BMI 31.01 kg/m Alert and oriented X 3: YES Body mass index is 31.01 kg/m . See below ASSESSMENT/PLAN: 71 year old male The following prevention plan was discussed during the office visit and provided to the patient: See below Vic Parra MD Chief Complaint Patient presents with: Medicare Wellness Exam HPI Shamika Donahue is a 71 year old male who presents here today for extensive exam. Patient with Hx of elevated fasting BS, HTN, Hyperlipidemia as well as those reviewed and addressed below and in ROS. Continues to do well. No new issues or concerns. Past medical history, appointments, medications, allergies reviewed. 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 Previous Surgical History PAST SURGICAL HISTORY Procedure Laterality Date BLEPHAROPLASTY UPPER EYELID Bilateral Blepharoplasty - upper COLONOSCOPY 12/04/2013 polyp, was to get repeated 04/2016 COLONOSCOPY FLX DX W/COLLJ SPEC WHEN PFRMD 01/09/2016 TONSILLECTOMY HX Family History FAMILY HISTORY Problem Relation Age of Onset Heart Father Coronary Artery Disease Father Diabetes Mother Diabetes Brother Heart Brother Coronary Artery Disease Brother bypass in 40's Kidney Disease Brother at 64 Heart Paternal Grandfather Lipids Paternal Grandfather Heart Paternal Uncle Heart Paternal Grandmother Patient Allergies ALLERGIES Allergen Reactions Codeine Intolerance Gets really high Current Medications Current Outpatient Medications on File Prior to Visit Medication Sig amLODIPine (NORVASC) 10 mg tablet Take 1 tablet by mouth once daily. atorvastatin (LIPITOR) 20 mg tablet Take 1 tablet by mouth once daily. ezetimibe (ZETIA) 10 mg tablet Take 1 tablet by mouth once daily. lisinopril (ZESTRIL, PRINIVIL) 20 mg tablet Take 1 tablet by mouth once daily. Comp Stocking,Knee,Regular,Med misc Knee High Compression Stockings 20-30 mm, DX: Venous insufficiency 187.2 aspirin, enteric coated (ASPIRIN, ENTERIC COATED) 81 mg EC tablet Take 1 tablet by mouth once daily. COMPOUNDED PRESCRIPTION Knee High Compression Stockings 20-30 mm, DX: Venous insufficiency No current facility-administered medications on file prior to visit. Social History Social History Tobacco Use Smoking status: Never Smoker Smokeless tobacco: Never Used Substance Use Topics Alcohol use: Yes Comment: couple beers daily Drug use: No Review of Symptoms REVIEW OF SYSTEMS GENERAL: No weight loss, malaise or fevers HEENT: Negative for frequent or significant headaches, No changes in hearing or vision, no nose bleeds or other nasal problems NECK: Negative for lumps, goiter, pain and significant neck swelling RESPIRATORY: Negative for change in his usual cough, hemoptysis, wheezing, COPD, dyspnea or shortness of breath CARDIOVASCULAR: Negative for chest pain, leg swelling, hypertension, CHF or palpitations GI: No nausea, vomiting, or diarrhea, No heartburn or reflux symptoms and no blood : No history of dysuria, blood MUSCULOSKELETAL: Negative for joint pain or swelling, back pain or muscle pain SKIN: Negative for lesions, rash, and itching PSYCH: Negative for sleep disturbance, mood disorder and recent psychosocial stressors HEMATOLOGY/LYMPHOLOGY: Negative for prolonged bleeding, bruising easily or swollen nodes ENDOCRINE: Negative for cold or heat intolerance, polyuria, polydipsia and goiter NEURO: No history of headaches, syncope, paralysis, seizures or tremors EXAM: BP 140/74 (BP Site: Right Arm, BP Position: Sitting, BP Cuff Size: Regular Adult) Pulse 76 Resp 16 Wt 89.8 kg (198 lb) BMI 31.01 kg/m Last 5 Encounter Wt Readings: Date: Wt: 10/11/2021 89.8 kg (198 lb) 06/19/2021 90.4 kg (199 lb 6.4 oz) 04/07/2021 93 kg (205 lb) 03/15/2021 91.5 kg (201 lb 12.8 oz) 10/06/2020 90.3 kg (199 lb) General Appearance: Well appearing, alert, in no acute distress, well-hydrated, well nourished.. Skin: Skin color, texture, turgor normal, no suspicious rashes or lesions. Head: Normocephalic, no masses, lesions, tenderness or abnormalities. Eyes: Anicteric sclera. Pupils are equally round and reactive to light. Extraocular movements are intact. . Ears: External ears, TM's normal, canals clear. Neck: Supple, no adenopathy; thyroid symmetric, normal size, no bruits. Lungs: Lungs clear to auscultation. No wheezing, rhonchi, rales.. Heart: RRR without murmur, gallop, or rubs. No ectopy. Abdomen: Normal abdominal exam, Abdomen soft, non-tender. Bowel sounds normal. No masses, organomegaly. Extremities: No deformities, edema, skin discoloration. Musculoskeletal: Muscular strength intact, No joint swelling, deformity, or tenderness. Peripheral Pulses: Normal. Neurologic: Gait normal. Reflexes normal and symmetric. Sensation to light touch and crainal nerves 2-12 intact.. Genitalia: Normal, Penis normal. No urethral discharge. Scrotum normal to palpation. No hernia.. Rectal: Normal exam. Prostate slightly enlarged but firm smooth capsule. Health Maintenance List SHINGRIX VACCINE(1 of 2) Never done COVID-19 VACCINE(3 - Booster for Moderna series) due on 12/17/2020 COLORECTAL CANCER SCREENING due on 01/08/2021 ADVANCE DIRECTIVE DISCUSSION Never done ANNUAL PCP TEAM CHRONIC DISEASE VISIT due on 04/07/2022 BP CONTROLLED (<130/80) due on 06/19/2022 DTAP,TDAP,TD(2 - Td or Tdap) due on 08/09/2023 DIABETES SCREEN due on 10/03/2024 LIPID SCREEN due on 10/03/2026 INFLUENZA Completed PNEUMOVAX AGE 65 AND OVER WITH 5YR LOOKBACK Completed MENINGOCOCCAL CONJUGATE Aged Out HEPATITIS C SCREENING Discontinued DEPRESSION SCREENING Discontinued Data reviewed Component Latest Ref Rng & Units 09/24/2020 03/28/2021 10/03/2021 WBC 3.70 - 11.00 k/uL 6.25 RBC 4.20 - 6.00 m/uL 4.94 Hemoglobin 13.0 - 17.0 g/dL 16.0 Hematocrit 39.0 - 51.0 % 48.7 MCV 80.0 - 100.0 fL 98.6 MCH 26.0 - 34.0 pG 32.4 MCHC 30.5 - 36.0 g/dL 32.9 RDW-CV 11.5 - 15.0 % 12.3 Platelet Count 150 - 400 k/uL 231 MPV 9.0 - 12.7 fL 11.4 Neut% % 59.9 Abs Neut (ANC) 1.45 - 7.50 k/uL 3.74 Lymph% % 28.8 Abs Lymph 1.00 - 4.00 k/uL 1.80 [place]% % 7.7 Abs [place] <0.87 k/uL 0.48 Eosin% % 2.6 Abs Eosin <0.46 k/uL 0.16 Baso% % 1.0 Abs Baso <0.11 k/uL 0.06 Nucleated Reds 0 /100 WBC 0.0 Absolute nRBC <0.01 k/uL <0.01 Diff Type Auto Diff Protein, Total 6.3 - 8.0 g/dL 6.7 6.8 Albumin 3.9 - 4.9 g/dL 4.4 4.5 Calcium 8.5 - 10.2 mg/dL 8.9 8.7 Bilirubin, Total 0.2 - 1.3 mg/dL 0.7 0.8 Alkaline Phosphatase 38 - 113 U/L 101 104 AST 14 - 40 U/L 19 23 Glucose 74 - 99 mg/dL 138 (H) 82 BUN 9 - 24 mg/dL 13 18 Creatinine 0.73 - 1.22 mg/dL 0.96 1.10 Sodium 136 - 144 mmol/L 141 139 Potassium 3.7 - 5.1 mmol/L 4.5 4.4 Chloride 97 - 105 mmol/L 109 (H) 106 (H) CO2 22 - 30 mmol/L 20 (L) 22 Anion Gap 9 - 18 mmol/L 12 11 ALT 10 - 54 U/L 24 27 eGFR- >60 eGFR-All Other Races . >60 eGFR >=60 mL/min/1.73m 71 Color Yellow Light Yellow Clarity Clear Clear Glucose, Urine Negative Negative Bilirubin, Urine Negative Negative Ketones, Urine Negative Negative Specific [place], Ur 1.005 - 1.030 1.013 Hemoglobin/Blood,Ur Negative Negative pH, Urine 5.0 - 8.0 8.0 Protein, Urine Negative Negative Urobilinogen Negative Negative Nitrites Negative Negative Leukest Negative Negative WBC, Urine 0-5 /HPF 0-5 /HPF RBC, Urine 0-3 /HPF 0-3 /HPF Epithelial Cells /HPF Few Sperm None Seen /HPF Present (A) Total Cholesterol, Nonfasting <200 mg/dL 128 134 Triglycerides, Nonfasting <150 mg/dL 55 88 HDL Cholesterol, Nonfasting >39 mg/dL 55 52 LDL Cholesterol, Nonfasting <100 mg/dL 62 64 Non HDL Cholesterol, Nonfasting <130 mg/dL 73 82 VLDL Cholesterol, Nonfasting <30 mg/dL 11 18 Total Chol/HDL Ratio, Nonfasting <5.10 mg/dL 2.33 2.58 LDL/HDL Ratio, Nonfasting <2.54 mg/dL 1.13 1.23 Hemoglobin A1C 4.3 - 5.6 % 6.0 (H) 6.1 (H) 5.9 (H) Estimated Average Glucose mg/dL 126 128 123 PSA <2.60 ng/mL 2.42 2.90 (H) A/P ASSESSMENT/PLAN: 1. Medicare annual wellness visit, subsequent - ICD9: V70.0, ICD10: Z00.00 (primary diagnosis) - Counseled on healthy diet and regular exercise - Discussed need for and benefit of weight loss. BMI 31.01 kg/(m^2) - Follow up for annual exam in one year 2. Essential hypertension with goal blood pressure less than 140/90 - ICD9: 401.9, ICD10: I10 - suboptimal control - Continue current medication(s) - Recommended regular aerobic exercise. - Recommend home blood pressure monitoring, to bring results in on next visit - Recheck in 3 weeks, sooner should new symptoms or problems arise. - Goal of BP <130/80 3. Mixed hyperlipidemia - ICD9: 272.2, ICD10: E78.2 - good control - Encouraged following a low fat, low cholesterol diet. - Discussed the benefits of regular aerobic exercise and weight loss. - Encouraged following a low carbohydrate, healthy oil intake diet. - Continue current therapy. - EZETIMIBE 10 MG TABLET 4. Elevated fasting blood sugar - ICD9: 790.21, ICD10: R73.01 - Improved control with life style changes. 5. Essential tremor - ICD9: 333.1, ICD10: G25.0 - Stable 6. Advance directive discussed with patient - ICD9: V65.49, ICD10: Z71.89 - Advised to bring in copies. 7. Living will in place - ICD9: V49.89, ICD10: Z78.9 - As per #6 8. Colon cancer screening - ICD9: V76.51, ICD10: Z12.11 - Consult general surgery: Dr. Wilburn 9. Elevated PSA - ICD9: 790.93, ICD10: R97.20 - Will check Free PSA in 6 months Pending Prescriptions Disp Refills EZETIMIBE 10 MG TABLET 90 tablet 1 Sig: Take 1 tablet by mouth once daily. LEAH: No LISINOPRIL 20 MG TABLET 90 tablet 1 Sig: Take 1 tablet by mouth once daily. LEAH: No F/u 3 weeks NV BP check F/u 6 months routine check A1c, free PSA, I spent a total of 40 minutes on the date of the service which included preparing to see the patient, [id number] patient care, completing clinical documentation, performing a medically appropriate examination, counseling and educating the patient/family/caregiver and ordering medications, tests, or procedures. Vic Parra MD documented in this encounter [facility] 10-09-2021 History of Presen t illness Narrative POPULATION HEALTH NAVIGATION OUTREACH Action/FYI Patient called back and will discuss at PCP appt. Pt identified by name and : YES, via phone Outreach Outcome/Action Spoke to patient or caregiver: Patient declined Navigation Signature: Jazlyn Irwin PSS October 09, 2021 4:08 PM POPULATION HEALTH NAVIGATION OUTREACH Action/FYI Left msg & sent X BODYhart. Pt identified by name and : NO Outreach Outcome/Action Unable to reach patient: Left message MyChart message sent Reason for Outreach Care Gap or Scheduling/Wellness visits Payer: Payor: [employer] MEDICARE / Plan: [employer] / Product Type: HMO / Care Gap Reviewed:: Colorectal Cancer Screening Reminder: Reminder note to check Health Maintenance for items below Health Maintenance items due: SHINGRIX VACCINE(1 of 2) Never done COVID-19 VACCINE(3 - Booster for Moderna series) due on 12/17/2020 COLORECTAL CANCER SCREENING due on 01/08/2021 ADVANCE DIRECTIVE DISCUSSION Never done Message Sent to Practice: No Navigation Signature: Jazlyn Irwin PSS October 09, 2021 3:46 PM documented in this encounter [facility] 10-02-2021 Miscellaneous Notes Patient has been identified by name and date of : Yes Pending Prescriptions Disp Refills AMLODIPINE 10 MG TABLET 90 tablet 1 Sig: Take 1 tablet by mouth once daily. LEAH: No RX INSTRUCTIONS: Patient aware RX will be sent to pharmacy. No need to notify patient. Yessenia Boyd MA Zachary: 03/2021 Nov: 10/2021 Last refill: 03/2021 90 tablets 1 refill documented in this encounter [facility] 04-27-2020 History of Presen t illness Narrative Radiology Service Progress Note PATIENT NAME: Shamika Donahue DATE OF SERVICE: April 27, 2020 TIME: 2:02 PM PATIENT IDENTITY VERIFICATION COMPLETED USING TWO (2) IDENTIFIERS: Name and Date of confirmed by patient verbally. FALL SCREENING: Has the patient had 2 falls in the last year or 1 fall with injury or currently using an Ambulatory Assistive Device (Walker, Cane, Wheelchair, Crutches, etc.)? No PATIENT GENDER DATA: Male PATIENT RELEVANT IMPLANT DATA REVIEWED: Not Applicable RADIOLOGY DEPARTMENT: General X-ray: Exam(s) Completed: Upper Extremity X-Ray(s): Shoulder, AP / TRUE AP / AXILLARY right : PERIPHERAL IV DATA: Not applicable SIGNED BY: RT Trisha April 27, 2020 2:02 PM documented in this encounter [facility] Evaluation note Diagnosis Medicare annual wellness visit, subsequent- Primary Routine general medical examination at a health care facility Essential hypertension with goal blood pressure less than 140/90 Mixed hyperlipidemia Elevated fasting blood sugar Impaired fasting glucose Essential tremor Essential and other specified forms of tremor Advance directive discussed with patient Other specified counseling Living will in place Colon cancer screening Special screening for malignant neoplasms, colon Elevated PSA Elevated prostate specific antigen (PSA) [facility] Essential hypertension with goal blood pressure less than 140/90- Primary [facility] Diagnosis Personal history of colonic polyps- Primary Colon cancer screening Special screening for malignant neoplasms, colon [facility] Diagnosis History of colonic polyps Personal history of colonic polyps [facility] Diagnosis Essential hypertension with goal blood pressure less than 140/90- Primary Mixed hyperlipidemia History of colon polyps Personal history of colonic polyps [facility] Diagnosis Mixed hyperlipidemia- Primary Essential hypertension with goal blood pressure less than 140/90 Elevated fasting blood sugar Impaired fasting glucose Essential tremor Essential and other specified forms of tremor Encounter for immunization Need for other specified prophylactic vaccination against single bacterial disease Elevated PSA Elevated prostate specific antigen (PSA) [facility] Diagnosis Pain and swelling of eyelid- Primary Eye irritation Other ill-defined disorder of eye [facility] Diagnosis Mixed hyperlipidemia [facility] Diagnosis Essential hypertension with goal blood pressure less than 140/90- Primary Mixed hyperlipidemia Elevated fasting blood sugar Impaired fasting glucose Essential tremor Essential and other specified forms of tremor Elevated PSA Elevated prostate specific antigen (PSA) Encounter for immunization Need for other specified prophylactic vaccination against single bacterial disease [facility] Diagnosis Mixed hyperlipidemia [facility] Diagnosis Medicare annual wellness visit, subsequent- Primary Routine general medical examination at a health care facility Essential hypertension with goal blood pressure less than 140/90 Mixed hyperlipidemia Elevated fasting blood sugar Impaired fasting glucose Essential tremor Essential and other specified forms of tremor Elevated PSA Elevated prostate specific antigen (PSA) Venous insufficiency (chronic) (peripheral) Unspecified venous (peripheral) insufficiency Advance directive discussed with patient Other specified counseling Need for vaccination Need for prophylactic vaccination and inoculation against unspecified single disease [facility] Diagnosis Right shoulder pain, unspecified chronicity [facility] Diagnosis Mixed hyperlipidemia [facility] Diagnosis Essential hypertension with goal blood pressure less than 140/90- Primary Mixed hyperlipidemia Elevated PSA Elevated prostate specific antigen (PSA) Elevated fasting blood sugar Impaired fasting glucose Encounter for immunization Need for other specified prophylactic vaccination against single bacterial disease [facility] Diagnosis Viral URI with cough- Primary Acute upper respiratory infections of unspecified site Viral bronchitis Acute bronchitis [facility] Diagnosis Mixed hyperlipidemia documented in this encounter [facility] note* Diagnosis Medicare annual wellness visit, subsequent- Primary Routine general medical examination at a health care facility Essential hypertension with goal blood pressure less than 140/90 Mixed hyperlipidemia Elevated fasting blood sugar Impaired fasting glucose Essential tremor Essential and other specified forms of tremor Elevated PSA Elevated prostate specific antigen (PSA) Hypocalcemia Advance directive discussed with patient Other specified counseling Encounter for immunization Need for other specified prophylactic vaccination against single bacterial disease Encounter for screening examination for other mental health and behavioral disorders Screening for depression Neoplasm of uncertain behavior of skin of neck Neoplasm of uncertain behavior of skin documented in this encounter [facility] noteNo assessment information availableUcsf [facility] [place] Work Phone: Reason for referral (narrative)* Outpatient Procedure (Routine) - Closed Specialty Diagnoses / Procedures Referred By Torey galarza Referred To Contact [facility] Diagnoses History of colonic polyps Procedures COLONOSCOPY SCREENING COLONOSCOPY FLX DX W/COLLJ SPEC WHEN Bette Hernandez PA-C [address] [place] [address] [facility] [place] [address] [place] [address] Referral ID Status Reason Start Date Expiration Date V isits Requested Visits Authorized [id number] Closed Auto-Generate d Referral 11/23/2021 12/23/2021 1 1 [facility] for referral (narrative)No reason for referral information availableUcsf [facility] [place] Work Phone: Reason for visit Narrative* Outpatient Procedure (Routine) - Closed Specialty Diagnoses / Procedures Referred By Torey galarza Referred To Contact [facility] Diagnoses History of colonic polyps Procedures COLONOSCOPY SCREENING COLONOSCOPY FLX DX W/COLLJ SPEC WHEN Bette Hernandez PA-C [address] [place] [address] [facility] [place] [address] [place] [address] Referral ID Status Reason Start Date Expiration Date V isits Requested Visits Authorized [id number] Closed Auto-Generate d Referral 11/23/2021 12/23/2021 1 1 [facility] Advance Directives No Advanced Directives Records FoundDocuments on File Type Date Recorded 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 Advance Directive(s) 01/09/2016 9:49 AM Advance Directive(s) 12/30/2015 9:35 AM Documents on File Type Date Recorded 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 Advance Directive(s) 01/09/2016 9:49 AM Advance Directive(s) 12/30/2015 9:35 AM Documents on File Type Date Recorded 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 Advance Directive(s) 11/23/2021 7:54 AM Advance Directive(s) 01/09/2016 9:49 AM Advance Directive(s) 12/30/2015 9:35 AM Documents on File Type Date Recorded 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 Advance Directive(s) 11/23/2021 7:54 AM Advance Directive(s) 01/09/2016 9:49 AM Advance Directive(s) 12/30/2015 9:35 AM Reason for Referral Specialty Diagnoses / Procedures Referred By Torey galarza Referred To Contact General Surgery Diagnoses Colon cancer screening Procedures CONSULT TO GENERAL SURGERY OFFICE/OUTPATIENT [facility] 60-74 MINUTES Vic Parra MD [address] [place] [address] Referral ID Status Reason Start Date Expiration Date Visits Requested Visits Authorized [id number] Pending Review PCP Requested Referral 10/11/2021 10/11/2022 1 1 Medications Administered Section Inactive Administered Medications - up to 3 most recent administrations Medication Order MAR Action Action Date Dose Rate Site diphenhydrAMINE 12.5-50 mg injection (BENADRYL) 12.5-50 mg, INTRAVENOUS, DIRECTED, Starting on Chelsey 11/23/21 at 0900, Until Chelsey 11/23/21 at 1229, DOSING DIRECTED BY PHYSICIAN FOR PROCEDURAL SEDATION ONLY, Intraprocedure Given 11/23/2021 8:31 AM EDT 50 mg fentaNYL 50 mcg/mL 25-100 mcg injection (SUBLIMAZE) 25-100 mcg, INTRAVENOUS, DIRECTED, Starting on Chelsey 11/23/21 at 0900, Until Chelsey 11/23/21 at 1229, DOSING DIRECTED BY PHYSICIAN FOR PROCEDURAL SEDATION ONLY, Intraprocedure Given 11/23/2021 8:42 AM EDT 50 mcg Given 11/23/2021 8:29 AM EDT 50 mcg lactated ringers iv infusion 30 mL/hr, INTRAVENOUS, CONTINUOUS, Starting on Chelsey 11/23/21 at 0830, Until Chelsey 11/23/21 at 0903, Preprocedure New Bag/Syringe/Bottle 11/23/2021 8:15 AM EDT 30 mL/hr 30 mL/hr Hand, Right midazolam (PF) 1-5 mg injection (VERSED) 1-5 mg, INTRAVENOUS, DIRECTED, Starting on Chelsey 11/23/21 at 0900, Until Chelsey 11/23/21 at 1229, DOSING DIRECTED BY PHYSICIAN FOR PROCEDURAL SEDATION ONLY, Intraprocedure Given 11/23/2021 8:45 AM EDT 2 mg Given 11/23/2021 8:33 AM EDT 2 mg Given 11/23/2021 8:29 AM EDT 3 mg Summary Purpose Family History No Family History Records Found Relationship Condition Age at Onset Recorded Date/T ramona Not Specified Hypertension Unknown mother Diabetes mellitus Unknown brother Diabetes mellitus Unknown Cardiac disease Unknown Coronary artery disease Unknown Kidney disorder Unknown father Cardiac disease Unknown grandfather Cardiac disease Unknown uncle Cardiac disease Unknown grandmother Cardiac disease Unknown Chief Complaint and Reason for Visit Chief Complaint Admit Date NEOPLASM ON EAR December 31, 2024 8:03 am Additional Source Comments Source Comments (unrecognize d section and content) In the event this informatio n is protected by the Federal Confidentiality of Alcohol and Drug Abuse Patient Records regulations: The Federal rules restrict any use of the information to criminally investigate or prosecute any alcohol or drug abuse patient.[facility] the event this information is protected by the Federal Confidentiality of Alcohol and Drug Abuse Patient Records regulations: The Federal rules restrict any use of the information to criminally investigate or prosecute any alcohol or drug abuse patient.[facility] the event this information is protected by the Federal Confidentiality of Alcohol and Drug Abuse Patient Records regulations: The Federal rules restrict any use of the information to criminally investigate or prosecute any alcohol or drug abuse patient.[facility] the event this information is protected by the Federal Confidentiality of Alcohol and Drug Abuse Patient Records regulations: The Federal rules restrict any use of the information to criminally investigate or prosecute any alcohol or drug abuse patient.[facility] the event this information is protected by the Federal Confidentiality of Alcohol and Drug Abuse Patient Records regulations: The Federal rules restrict any use of the information to criminally investigate or prosecute any alcohol or drug abuse patient.[facility] [facility] [place] the event this information is protected by the Federal Confidentiality of Alcohol and Drug Abuse Patient Records regulations: The Federal rules restrict any use of the information to criminally investigate or prosecute any alcohol or drug abuse patient.[facility] the event this information is protected by the Federal Confidentiality of Alcohol and Drug Abuse Patient Records regulations: The Federal rules restrict any use of the information to criminally investigate or prosecute any alcohol or drug abuse patient.[facility] the event this information is protected by the Federal Confidentiality of Alcohol and Drug Abuse Patient Records regulations: The Federal rules restrict any use of the information to criminally investigate or prosecute any alcohol or drug abuse patient.[facility] the event this information is protected by the Federal Confidentiality of Alcohol and Drug Abuse Patient Records regulations: The Federal rules restrict any use of the information to criminally investigate or prosecute any alcohol or drug abuse patient.[facility]In the event this information is protected by the Federal Confidentiality of Alcohol and Drug Abuse Patient Records regulations: The Federal rules restrict any use of the information to criminally investigate or prosecute any alcohol or drug abuse patient.[facility] the event this information is protected by the Federal Confidentiality of Alcohol and Drug Abuse Patient Records regulations: The Federal rules restrict any use of the information to criminally investigate or prosecute any alcohol or drug abuse patient.[facility] [place] the event this information is protected by the Federal Confidentiality of Alcohol and Drug Abuse Patient Records regulations: The Federal rules restrict any use of the information to criminally investigate or prosecute any alcohol or drug abuse patient.[facility] the event this information is protected by the Federal Confidentiality of Alcohol and Drug Abuse Patient Records regulations: The Federal rules restrict any use of the information to criminally investigate or prosecute any alcohol or drug abuse patient.[facility] [place] the event this information is protected by the Federal Confidentiality of Alcohol and Drug Abuse Patient Records regulations: The Federal rules restrict any use of the information to criminally investigate or prosecute any alcohol or drug abuse patient.[facility] the event this information is protected by the Federal Confidentiality of Alcohol and Drug Abuse Patient Records regulations: The Federal rules restrict any use of the information to criminally investigate or prosecute any alcohol or drug abuse patient.[facility] the event this information is protected by the Federal Confidentiality of Alcohol and Drug Abuse Patient Records regulations: The Federal rules restrict any use of the information to criminally investigate or prosecute any alcohol or drug abuse patient.[facility] the event this information is protected by the Federal Confidentiality of Alcohol and Drug Abuse Patient Records regulations: The Federal rules restrict any use of the information to criminally investigate or prosecute any alcohol or drug abuse patient.[facility] the event this information is protected by the Federal Confidentiality of Alcohol and Drug Abuse Patient Records regulations: The Federal rules restrict any use of the information to criminally investigate or prosecute any alcohol or drug abuse patient.[facility] the event this information is protected by the Federal Confidentiality of Alcohol and Drug Abuse Patient Records regulations: The Federal rules restrict any use of the information to criminally investigate or prosecute any alcohol or drug abuse patient.[facility] the event this information is protected by the Federal Confidentiality of Alcohol and Drug Abuse Patient Records regulations: The Federal rules restrict any use of the information to criminally investigate or prosecute any alcohol or drug abuse patient.[facility] the event this information is protected by the Federal Confidentiality of Alcohol and Drug Abuse Patient Records regulations: The Federal rules restrict any use of the information to criminally investigate or prosecute any alcohol or drug abuse patient.[facility] the event this information is protected by the Federal Confidentiality of Alcohol and Drug Abuse Patient Records regulations: The Federal rules restrict any use of the information to criminally investigate or prosecute any alcohol or drug abuse patient.[facility] the event this information is protected by the Federal Confidentiality of Alcohol and Drug Abuse Patient Records regulations: The Federal rules restrict any use of the information to criminally investigate or prosecute any alcohol or drug abuse patient.[facility] [place] the event this information is protected by the Federal Confidentiality of Alcohol and Drug Abuse Patient Records regulations: The Federal rules restrict any use of the information to criminally investigate or prosecute any alcohol or drug abuse patient.[facility] the event this information is protected by the Federal Confidentiality of Alcohol and Drug Abuse Patient Records regulations: The Federal rules restrict any use of the information to criminally investigate or prosecute any alcohol or drug abuse patient.[facility] [place] the event this information is protected by the Federal Confidentiality of Alcohol and Drug Abuse Patient Records regulations: The Federal rules restrict any use of the information to criminally investigate or prosecute any alcohol or drug abuse patient.[facility] [place] the event this information is protected by the Federal Confidentiality of Alcohol and Drug Abuse Patient Records regulations: The Federal rules restrict any use of the information to criminally investigate or prosecute any alcohol or drug abuse patient.[facility] [place] the event this information is protected by the Federal Confidentiality of Alcohol and Drug Abuse Patient Records regulations: The Federal rules restrict any use of the information to criminally investigate or prosecute any alcohol or drug abuse patient.[facility] [place] Reason for Visit (unrecogniz ed section and content) Reason Onset Date Comments Refill Request 09/30/2021 Reason Onset Date Comments Population Health Navigation Outreach 10/09/2021 [employer] care gap Reason Comments Medicare Wellness Exam Reason Comments Blood Pressure Check Reason Comments Consult Colonoscopy Specialty Diagnoses / Procedures Referred By Torey galarza Referred To Contact General Surgery Diagnoses Colon cancer screening Procedures CONSULT TO GENERAL SURGERY OFFICE/OUTPATIENT NEW HIGH MDM 60-74 MINUTES Vic Parra MD [address] [place] [address] Referral ID Status Reason Start Date Expiration Date Visits Requested Visits Authorized [id number] Pending Review PCP Requested Referral 10/11/2021 10/11/2022 1 1 Reason Comments Recheck Reason Onset Date Comments Refill Request 04/01/2022 Reason Comments F/U 6 months Reason Comments Eye Problem Right eye swollen x 4 days Reason Onset Date Comments Refill Request 10/21/2022 Reason Onset Date Comments Refill Request 03/29/2023 Reason Onset Date Comments Refill Request 10/15/2023 Reason Comments Medicare Wellness Exam Reason Onset Date Comments Refill Request 04/04/2024 Reason Onset Date Comments Refill Request 04/09/2024 Reason Onset Date Comments Population Health Navigation Outreach 05/19/2024 [employer]/[place] Reason Comments 6 Month Exam Reason Onset Date Comments Refill Request 05/31/2024 Reason Comments Cough Bodyaches x4 days Reason Onset Date Comments Refill Request 10/10/2024 Reason Onset Date Comments Refill Request 11/10/2024 Care Teams (unrecognized sec tion and content) Intelligence Research Specialist Relationship Specialty Start Date End Date Vic Parra MD [address] [place], [place] [id number] PCP - General Family Practice 06/06/15 Intelligence Research Specialist Relationship Specialty Start Date End Date Vic Parra MD [address] [place], [place] [id number] PCP - General Family Practice 06/06/15 Intelligence Research Specialist Relationship Specialty Start Date End Date Vic Parra MD [address] [place], [place] [id number] PCP - General Family Practice 06/06/15 Intelligence Research Specialist Relationship Specialty Start Date End Date Vic Parra MD [address] [place] [address] PCP - General Family Practice 06/06/15 Intelligence Research Specialist Relationship Specialty Start Date End Date Vic Parra MD [facility] [place] [address] PCP - General Family Practice 06/06/15 Intelligence Research Specialist Relationship Specialty Start Date End Date Vic Parra MD [facility] [place] [address] PCP - General Family Practice 06/06/15 Intelligence Research Specialist Relationship Specialty Start Date End Date Vic Parra MD [address] [place] [address], [place] [address] PCP - General Family Practice 06/06/15 Intelligence Research Specialist Relationship Specialty Start Date End Date Vic Parra MD [address] [place] [address], [place] [address] PCP - General Family Practice 06/06/15 Intelligence Research Specialist Relationship Specialty Start Date End Date Vic Parra MD [address] [place] [address], [place] [address] PCP - General Family Medicine 06/06/15 Intelligence Research Specialist Relationship Specialty Start Date End Date Vic Parra MD [address] [place] [address], [place] [address] PCP - General Family Medicine 06/06/15 Intelligence Research Specialist Relationship Specialty Start Date End Date Vic Parra MD [address] [place] [address], [place] [address] PCP - General Family Medicine 06/06/15 Intelligence Research Specialist Relationship Specialty Start Date End Date Vic Parra MD [address] [place] [address], [place] [address] PCP - General Family Medicine 06/06/15 Intelligence Research Specialist Relationship Specialty Start Date End Date Vic Parra MD [address] [place] [address] PCP - General Family Medicine 06/06/15 Intelligence Research Specialist Relationship Specialty Start Date End Date Vic Parra MD [address] [place] [address] PCP - General Family Medicine 06/06/15 Intelligence Research Specialist Relationship Specialty Start Date End Date Vic Parra MD [address] [place] [address] PCP - General Family Medicine 06/06/15 Intelligence Research Specialist Relationship Specialty Start Date End Date Vic Parra MD [address] [place] [address] PCP - General Family Medicine 06/06/15 Intelligence Research Specialist Relationship Specialty Start Date End Date Vic Parra MD [address] [place] [address] PCP - General Family Medicine 06/06/15 Intelligence Research Specialist Relationship Specialty Start Date End Date Vic Parra MD [address] [place] [address] PCP - General Family Medicine 06/06/15 Intelligence Research Specialist Relationship Specialty Start Date End Date Vic Parra MD [address] [place] [address] PCP - General Family Medicine 06/06/15 Intelligence Research Specialist Relationship Specialty Start Date End Date Vic Parra MD [address] [place] [address] PCP - General Family Medicine 06/06/15 Intelligence Research Specialist Relationship Specialty Start Date End Date Vic Parra MD [address] [place] [address] PCP - General Family Medicine 06/06/15 Leah Crews APRN.CONTRACT ENGINEER [address] [place] [address] Cooky Machine Operator Family Medicine 05/16/24 Jyotsna Siu PA-C [address] [place] [address] Cooky Machine Operator Family Medicine 05/16/24 Intelligence Research Specialist Relationship Specialty Start Date End Date Vic Parra MD [address] [place] [address] PCP - General Family Medicine 06/06/15 Leah Crews APRN.CONTRACT ENGINEER [address] [place] [address] Cooky Machine Operator Family Medicine 05/16/24 Jyotsna Siu PA-C [address] [place] [address] Cooky Machine Operator Family Medicine 05/16/24 Intelligence Research Specialist Relationship Specialty Start Date End Date Vic Parra MD [address] [place] [address] PCP - General Family Medicine 06/06/15 Leah Crews, ALTON.CONTRACT ENGINEER [address] [place] [address] Cooky Machine Operator Family Medicine 05/16/24 Jyotsna Siu PA-C [address] [place] [address] Cooky Machine Operator Family Medicine 05/16/24 Intelligence Research Specialist Relationship Specialty Start Date End Date Vic Parra MD [address] [place] [address] PCP - General Family Medicine 06/06/15 Leah Crews, ALTON.CONTRACT ENGINEER [address] [place] [address] Cooky Machine Operator Family Medicine 05/16/24 Jyotsna Siu PA-C [address] [place] [address] Cooky Machine Operator Family Medicine 05/16/24 Intelligence Research Specialist Relationship Specialty Start Date End Date Vic Parra MD [address] [place] [address] PCP - General Family Medicine 06/06/15 Leah Crews, ALTON.CONTRACT ENGINEER [address] [place] [address] Cooky Machine Operator Family Medicine 05/16/24 Jyotsna Siu PA-C [address] [place] [address] Cooky Machine Operator Family Medicine 05/16/24 Intelligence Research Specialist Relationship Specialty Start Date End Date Vic Parra MD [address] [place] [address] PCP - General Family Medicine 06/06/15 Leah Crews, METEOROLOGY FACULTY MEMBER.CONTRACT ENGINEER [address] [place] [address] Cooky Machine Operator Family Medicine 11/09/24 Jyotsna Siu PA-C [address] [place] [address] Cooky Machine Operator Family Medicine 11/09/24 Intelligence Research Specialist Relationship Specialty Start Date End Date Vic Parra MD [address] [place] [address] PCP - General Family Medicine 06/06/15 Leah Crews APRN.CONTRACT ENGINEER [address] [place] [address] Cooky Machine Operator Family Medicine 11/09/24 Jyotsna Siu PA-C [address] [place] [address] Cooky Machine Operator Family Medicine 11/09/24 Intelligence Research Specialist Relationship Specialty Start Date End Date Vic Parra MD [address] [place] [address] PCP - General Family Medicine 06/06/15 Leah Crews APRN.CONTRACT ENGINEER [address] [place] [address] Cooky Machine Operator Family Medicine 11/09/24 Jyotsna Siu PA-C [address] [place] [address] Cooky Machine Operator Family Medicine 11/09/24 Team Status: Active Member Role/Relationship Status Dates Dr. Vic Parra MD Family Provider Active Dr. Vic Parra MD Primary Care Provider Active Team Status: Inactive Member Role/Relationship Status Dates Dr. Vic Parra MD Primary Care Provider Active Start: December 31, 2024 End: December 31, 2024 Dr. Vic Parra MD Referring Provider Active Start: December 31, 2024 End: December 31, 2024 Dr. Elias Coker MD Attending Provider Active Start: December 31, 2024 End: December 31, 2024 (unrecognized sect ion and content) No Status Records FoundNo Status Records Found INFORMATION SOURCE (unrecogn ized section and content) DATE CREATED AUTHOR 11/26/2024 [place] DATE CREATED AUTHOR AUTHOR'S ORGANIZ ATION 01/01/2025 [facility] Goals (unrecognized section and content) Goals may be documented in a n alternate section FOR RECORDS PERTAINING TO PATIENTS WHO ARE OR HAVE BEEN ENROLLED IN A CHEMICAL DEPENDENCY/SUBSTANCEABUSE PROGRAM, SOME INFORMATION MAY BE OMITTED. This clinical summary was aggregated from multiple sources. Caution should be exercised in using it in the provision of clinical care. This summary normalizes information from multiple sources, and as a consequence, information in this document may materially change the coding, format and clinical context of patient data. In addition, data may be omitted in some cases. CLINICAL DECISIONS SHOULD BE BASED ON THE PRIMARY CLINICAL RECORDS. [employer] provides no warranty or guarantee of the accuracy or completeness of information in this document.
== END | disposition home or self-care (01) ==
LOC: LABSPEC 01-01 13:18
PROVIDERS: PCP Family Medicine; Referring Provider Surgery Plastic and Reconstructive Surgery; Visit Provider Surgery Plastic and Reconstructive Surgery
DX: L98.8 Other specified disorders of the skin and subcutaneous tissue (principal)
CPT/HCPCS: 88305

== ENCOUNTER → 2025-01-07 | Outpatient (CLI) | payer MEDICARE, SELFPAY ==
--- NOTE | 2025-01-07 | LES_PTH ---
PATIENT: SHAMIKA CUEVAS LOC: [facility] U#:[id number] AGE/SX: 74/M ROOM: RE01/07/[address]: Dr. Elias Coker MD : 1950 BED: DIS: 01/07/2025 SPEC #: [id number] RECD: 01/07/25 16:33 STATUS: YANG TERESA #: [id number] MADINA: 01/07/25 00:[address]: Elias Coker DEPT: SURGICAL PATHOLOGY RECD BY: Tao Cowart ENTERED: 01/08/25 09:22 SP TYPE: Lesion OTHR DR: Dr. Vic Pete MD Tissues: A - Skin of scalp, NOS B - Skin of scalp, NOS C - Skin of face, NOS Procedures: Surgery Specimen Level IV HEADER OPERATION: Scalp lesion biopsy x2 right cheek PRE-OP DIAGNOSIS: Right cheek lesion TISSUE SUBMITTED: A- Right posterior scalp lesion, B- Left posterior scalp lesion, C- Right cheek - basal cell carcinoma *1 stitch- 12o'clock, 2 stitches - 3o'clock, 3 stitches - 6o'clock* MICROSCOPIC DIAGNOSIS A. Skin, scalp, right, posterior, biopsy: - Lichen simplex chronicus (prurigo nodularis). B. Skin, scalp, left, posterior, biopsy: - Reactive epidermal changes with serum crust - see note. Note: The histologic findings resemble part A, with the addition of serum/neutrophil crust and less hypergranulosis, suggestive of traumatized lesion. Recommend clinical correlation. C. Skin, right, cheek, excision: - Nodular basal cell carcinoma, surgical margins free. MICROSCOPIC DESCRIPTION Slides are reviewed. GROSS DESCRIPTION Received in 3 formalin containers labeled with the patient's name and date of . Designated as: A. Right posterior scalp lesion is a 0.9 x 0.4 cm rodriguez hairbearing skin ellipse devoid of orientation and excised to a maximum depth of 0.3 cm. The resection margin is inked green. There is a 0.5 x 0.3 cm patchy, ulcerative lesion on the epidermal surface, abutting the peripheral edge. The specimen is trisected and entirely submitted in 1 cassette. B. Left posterior scalp lesion is a 0.6 x 0.4 x 0.1 cm rodriguez skin shave devoid of orientation. The resection margin is inked orange. There is a 0.3 x 0.3 cm granular and possibly ulcerated lesion comprising approximately 90% of the epidermal surface and abutting the peripheral edge. The specimen is bisected and entirely submitted in 1 cassette. C. Received in formalin labeled with the patient's name and date of . Designated as right cheek basal cell carcinoma is a 2.3 x 1.3 cm rodriguez, teardrop shaped skin ellipse excised to a depth ranging from 0.2 cm to 0.4 cm and with orientation as follows:Single suture: designated as 12:00.Double suture: designated as 3:00.Triple suture: designated as 6:00. There is a 1.2 x 1.0 cm slightly raised and focally ulcerated, rodriguez-white lesion with irregular borders located the following distances from the margins:12:00: 0.8 cm 3:00: 0.3 cm 6:00: 0.8 cm9:00: 0.3 cmDeep: 0.1 cm Ink sterling: 12:00 to 3:00: Green3:00 to 6:00: Yellow6:00 to 9:00: Orange9:00 to 12:00: BlueDeep: Black The specimen is serially sectioned from 12:00 to 6:00 revealing that the epidermal lesion extends into the underlying soft tissue. The specimen is entirely submitted, sequentially, in 3 cassettes. [place] 01/08/2025 CPT:[id number]
--- OUTSIDE RECORDS SUMMARY | 2025-01-08 07:10 | XMS RPT_ITS | CCD ---
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 Elias Coker MD Attending Provider [phone] Vic Parra Primary Care Unavailable Vic Parra Referring Unavailable Elias Coker Attending Unavailable Vic Parra Primary Care Unavailable Elias Coker Attending Unavailable Elias Coker Referring Unavailable Dr. Elias Coker MD Referring Provider [phone] Allergies Allergy Classification Reported Allergen(s) Allergy Type Date of Onset Reaction(s) Facility (20 sources) Codeine; Translations: [CODEINE] Drug Allergy 12-13-2015 Intolerance [facility] Work Phone: Comment on above: GETS REALLY HIGH (1 source) Codeine Drug Allergy 12-31-2024 [facility] Rep[facility] Medications Current Medications Medication Drug Class(es) [...] 90 tablet 1 10/16/2023 04/04/2024 Discontinued Start: 08-18-2018 End: 04-01-2022 take 1 tablet by mouth once daily amLODIPine (NORVASC) 10 mg tablet Take 1 tablet by mouth once daily. 90 tablet 1 04/02/2022 Active Comment on above: Take 1 tablet [...] tablet (20 sources) HMG-CoA Reductase Inhibitor Start: 3 End: take 1 tablet by mouth once daily atorvastatin (LIPITOR) 20 mg tablet Take 1 tablet by mouth once daily. 90 tablet 1 11/24/2024 Active Start: 08-18-2018 End: 05-15-2023 take 1 tablet by mouth once daily atorvastatin (LIPITOR) 20 mg tablet Take 1 tablet by mouth once daily. 90 tablet 1 05/15/2023 Active Comment on above: Take 1 tablet by mónica once daily. benzonatate 100 mg oral capsule [...] Stocking,Knee,Regular ,Med misc (20 sources) Start: 11-20-19 24 Comp Stocking,Knee,Regula r,Med misc Indications: Venous insufficiency [...] (20 sources) Dietary Cholesterol Absorption Inhibitor Start: 08-19-19 End: 11-11-19 take 1 tablet by mouth once daily ezetimibe (ZETIA) 10 mg tablet Indications: Mixed hyperlipidemia Take 1 tablet by mouth once daily. 90 tablet 1 11/11/2024 Active Comment on above: Take 1 tablet by mónica th once daily. lisinopril 20 mg oral tablet (20 sources) Angiotensin Converting Enzyme Inhibitor Start: 05-27-20 End: 11-25-19 take 1 tablet by mouth once daily lisinopril (ZESTRIL) 20 mg tablet Take 1 tablet by mouth once daily. 90 tablet 1 11/24/2024 Active Start: 08-18-2018 End: 05-15-2023 take 1 tablet by mouth once daily lisinopril (ZESTRIL) 20 mg tablet Take 1 tablet by mouth once daily. 90 tablet 1 05/15/2023 Active Comment on above: Take 1 tablet by mónica th once daily. mupirocin 0.02 mg/mg topical ointment (7 sources) RNA Synthetase Inhibitor Antibacterial Start: 4 mupirocin (BACTROBAN) 2 % ointment Apply to affected area three times a day. 15 g 05/21/2024 Active polyethylene glycol 3350 866897 mg / potassium chloride 2970 mg / sodium bicarbonate 6740 mg / sodium chloride 5860 mg / sodium sulfate 89157 mg powder for oral solution (1 source) [...] / oxyCODONE hydrochloride 5 mg oral tablet (3 sources) Opioid Agonist Start: 10-17-2018 End: 10-21-2018 Oxycodone-Acetamino phen 1 TABLET tablet Discontinued 1 {tbl} PO 4 TIMES DAILY NEEDED as needed for Pain 15 4 0 October 17, 2018 9:19am October 20, 2018 12:00am October 21, 2018 12:07am Other acute postprocedural pain 15 tabs (fifteen) clindamycin 300 mg oral capsule (3 sources) Lincosamide Antibacterial Start: 10-17-2018 End: 12-31-2024 take 1 capsule by mouth three times daily Clindamycin Hcl 300 MG capsule Discontinued 300 mg PO THREE TIMES A DAY 12 0 May 10th, 2019 12:00am December 31, 2024 8:22am ketorolac tromethamine 4 mg/ml ophthalmic solution (13 sources) Nonsteroidal Anti-inflammatory Drug, Cyclooxygenase Inhibitor End: 11-24-2024 keTORolac Tromethamine (ACLUAR LS) 0.4 % drop Use 1 Drop in the left eye four times daily. 11/24/2024 Discontinued (Course of therapy completed) Comment on above: Use 1 Drop in the le ft eye four times daily. Lactobac Acidoph-Fructooligo s 1 EACH tablet (3 sources) Start: 10-17-2018 End: 12-31-2024 Lactobac Acidoph-Fructooligo s [...] Neoplasms of unspecified nature or uncertain behavior (14 sources) Neoplasm of uncertain behavior of skin [...] da mage bilateral forearms Other skin disorders (3 sources) Pyogenic granuloma of skin; Translations: [Pyogenic granuloma] [...] Test Name Value Interpretation Reference Range Facility Surgical pathology reportOrd ered By: Rima Morton on 01-05-2025 Surgical pathology study [facility] Plastic Surgery Visit Report on 12-31-2024 Plastic Surgery Visit Report [facility] Plastic Reconstructive Surgery [address], [address] [place] [address] OFFICE VISIT Date of Service: 12/31/24 MR#: [id number] Acct: [id number] Name: SHAMIKA DONAHUE Rep #: [id number] : 1950 Provider: Dr. Elias Coker MD Age/Sex: 74/M Location: [facility] Status: Signed Intake Vital Signs 3 12/31/24 08:28 Height 5 ft 7 in Weight: 203 lb BMI 31.8 BP 121/68 H Blood Pressure Location Lt brachial Position Sitting Respiration 18 Pulse 73 Temp 97.7 F L Temp Source Oral Pulse Oximetry (%) 95 Oxygen Delivery Method room air Intake Visit Reasons: NEOPLASM ON EAR Chief Complaint: lesion below right earlobe and few spots on back of head Is patient in pain?: No Allergies codeine Allergy (Verified 12/31/24 08:21) INTOLERANCE Medications 3 ???Medication ???Instructions ???Recorded ???Confirmed ???Type amlodipine 10 mg tablet 10 mg PO DAILY 08/18/18 12/31/24 H istory atorvastatin 20 mg tablet 20 mg PO DAILY 08/18/18 12/31/24 H istory ezetimibe 10 mg tablet 10 mg PO DAILY 08/18/18 12/31/24 H istory lisinopril 20 mg tablet 20 mg PO DAILY 08/18/18 12/31/24 H istory aspirin 81 mg tablet,delayed 81 mg PO QDAY 12/31/24 12/31/24 Hi story release (Adult Low Dose Aspirin) Have you fallen in the past year?: No Nurse's Note: pt here for eval of spot below right earlobe and spots on back of head ON LICENSE OF [facility] Medical History High triglycerides High cholesterol Hypertension Cataracts, bilateral Disorder of prostate Colon polyps Mixed hyperlipidemia Heart murmur Surgical History History of tonsillectomy History of blepharoplasty History of colonoscopy Family History Mother Diabetes Brother , AT AGE 64 Diabetes Heart disease CAD (coronary artery disease) Kidney disease Father Heart disease CAD (coronary artery disease) Grandfather Heart disease Uncle Heart disease Grandmother Heart disease Other Hypertension Social History household members: spouse number of children: 2 Smoking Status: Never smoker alcohol intake: current details: COUPLE OF BEERS A DAY substance use type: does not use additional social history: DOES USE ASPIRIN DOES NOT USE IBUPROFEN HPI NEOPLASM ON EAR Details: lidocaine 1% w/ epi [facility] [id number] lot [id number] exp The patient is a 74-year-old male presenting with skin lesions. He has a 1.5 x 1.5 cm pearly pink papule under the right earlobe, present for years, which bleeds occasionally when picked. Initially thought to be an infected hair follicle, it is now suspected to be basal cell carcinoma. Additionally, there is a 0.5 x 0.5 cm crusty lesion on the posterior scalp, suspected to be actinic keratosis, a potentially precancerous condition. The patient denies any lumps or bumps on the neck and reports no lymphadenopathy. The patient has no significant past medical history of major health problems, and his blood pressure and cholesterol are well-controlled. He does not smoke and is not on any blood thinners except for aspirin. ROS: - Dermatological: Reports itching and occasional bleeding of skin lesions. Denies other skin changes. - Cardiovascular: Denies chest pain or palpitations. - Respiratory: Denies dyspnea or cough. - Neurological: Denies numbness or tingling in the face. Attestation: Documentation on this patient encounter was supported using ambient scribe technology/ voice AI technology. The patient consented to recording for the purpose of documenting the encounter. Provider reviewed content of the generated note prior to signature. ROS General General: Yes good health; No fatigue, fever(s) or weight loss HENMT HENMT: No rhinitis, sore throat/mouth sore, nasal congestion, contacts or glaucoma Endo Endocrine: No thyroid disease, polydipsia, heat intolerance, cold intolerance, hepatitis or excessive urine Skin Skin: No Bleeding, bruising, changing moles or suspicious lesion Musc Musculoskeletal: No joint pain, joint stiffness, muscle weakness, back pain, osteoarthritis or Muscle aches/ myalgia Neuro Neurological: No headache(s), No lightheadedness and No numbness Cardio Cardiovascular: No chest pain, pacemaker, fatigue or shortness of breat with exertion Psych Psychiatric: No depression, claustrophobia or anxiety Resp Respiratory: No spitting up, shortness of breath, sleep apnea, asthma, emphysema, TB, Cough or Smoker Gastro Gastrointestinal: No diarrhea, constipation, blood in stool, nausea, vomiting or abdominal bloating Randal (more content not included)... Normal [facility] Surgery Specimen Level Taniya 12-31-2024 Surgery Specimen Level IV -------- Patient Age/Sex Location Account Attending Physician -------- [facility]UE 74[id number]. Elias Coker MD -------- Specimen: [id number] Received: 01/01/25 Status: YANG Yang Num: [id number] Spec Type: Lesion Subm Dr: Dr. Elias Coker MD HEADER OPERATION: Biopsy right cheek, biopsy back of head PRE-OP DIAGNOSIS: Biopsies of right cheek and back of head TISSUE SUBMITTED: A- #1 right cheek lesion, B- #2 right cheek lesion, C- Scalp lesion -------- MICROSCOPIC DIAGNOSIS A. Cheek, right, lesion, biopsy: - Basal cell carcinoma involving the surgical margins. B. Cheek, right, lesion, biopsy: - Basal cell carcinoma involving the surgical margins. C. Scalp, lesion, biopsy: - Superficial portion of a keratotic lesion - see note. Note: The lesion is incompletely excised which limits the assessment. Neoplasia cannot be ruled out. Repeat biopsy for additional diagnostic material is suggested, if clinically indicated. MICROSCOPIC DESCRIPTION Slides are reviewed. GROSS DESCRIPTION Received in 3 formalin containers labeled with the patient's name and date of . Designated as: A. #1 Right cheek lesion is a 0.6 x 0.3 x 0.1 cm rodriguez skin shave devoid of orientation. Resection margin is inked black. Eccentrically on the epidermal surface is a 0.3 x 0.2 x 0.1 cm rodriguez, slightly raised apparent lesion abutting the peripheral edge. The specimen is trisected and entirely submitted in 1 cassette. B. #2 Right cheek lesion is a 0.6 x 0.5 x 0.2 cm rodriguez irregular and somewhat friable portion of skin devoid of orientation. The presumed resection margin is inked green. The specimen is biseccted and entirely submitted in 1 cassette. C. Scalp lesion is a 0.4 x 0.2 x 0.1 cm rodriguez and granular portion of skin devoid of orientation. A resection margin is unable to be determined grossly. The specimen is entirely submitted in 1 cassette. OK 01/01/2025 CPT:[id number] -------- Patient Age/Sex Location Account Attending Physician -------- SHAMIKA DONAHUE 74/M [facility] [id number] Dr. Elias Coker MD -------- Signed (signature on file) Dr. Rima Morton MD 01/05/25 0916 -------- Normal [facility] Comment on above: Performed By: #### P ZAHRA #### [facility] [address] [place], [address] CNOV 11-24-2024 [facility] Office Visit (FAMPWS ) SHAMIKA DONAHUE ([id number]) 1950 M Date Time Provider Department 11/24/24 8:00 AM VIC PARRA During your visit today, we recorded the [...] General (Family Medicine) Leah Crews APRN.CNP as Actuarial Analyst (Family Medicine) Jyotsna Siu PA-C as Actuarial Analyst (Family Medicine) Medical/Family history review Reviewed and [...] has a presence in 22 counties in [place]. He notes that he has less responsibility [...] right unl (more content not included)... Normal [facility] Calcium.ionized [Moles/Vol]o n 11-24-2024 Calcium.ionized (Bld) [Mass/Vol] 1.26 mmol/L 1.08 - 1.30 mmol/L [facility] Calcium.ionized adjusted to pH 7.4 (Bld) [Moles/Vol] 1.25 mmol/L 1.08 - 1.30 mmol/L [facility] Interpretation and review of laboratory results Normal [facility] Calcium.ionized (Bld) [Mass/Vol] 1.26 mmol/L Normal 1.08-1.30 [facility] Comment on above: Order Comment: Speci men Type: BLOOD SPECIMEN Ordering Facility: [facility] Address: [address] [place] [address] Performed By: #### 1 995-0 #### [facility] CLIA [id number] [address] [place] [address] [place] Calcium.ionized adjusted to pH 7.4 (Bld) [Moles/Vol] 1.25 mmol/L Normal 1.08-1.30 [facility] Comment on above: Order Comment: Speci men Type: BLOOD SPECIMEN Ordering Facility: [facility] Address: [address] [place] [address] Performed By: #### 1 995-0 #### [facility] CLIA [id number] [address] [place] [address] [place] Urinalysis complete panel (U )on 11-21-2024 Bacteria LM.HPF (Urine sed) [#/Area] Negative Normal Negative [facility] Comment on above: Order Comment: Speci men Type: URINE SPECIMEN Ordering Facility: [facility] Address: [address] [place] [address] Performed By: #### 2 4356-8 #### [facility] CLIA [id number] [address] [place] [address] [place] Bilirubin Ql (U) Negative Normal Negative [facility] Comment on above: Order Comment: Speci men Type: URINE SPECIMEN Ordering Facility: [facility] Address: [address] [place] [address] Performed By: #### 2 4356-8 #### [facility] CLIA [id number] [address] [place], [place] [id number] [place] Clarity (Unsp spec) Clear Normal Clear [facility] Comment on above: Order Comment: Speci men Type: URINE SPECIMEN Ordering Facility: [facility] Address: [address] [place] [address] Performed By: #### 2 4356-8 #### [facility] CLIA [id number] [address] [place] [address] [place] Color (U) Yellow Normal Yellow [facility] Comment on above: Order Comment: Speci men Type: URINE SPECIMEN Ordering Facility: [facility] Address: [address] [place] [address] Performed By: #### 2 4356-8 #### [facility] CLIA [id number] [address] [place] [address] [place] Epithelial cells LM.HPF (Urine sed) [#/Area] None Seen Normal [facility] Comment on above: Order Comment: Speci men Type: URINE SPECIMEN Ordering Facility: [facility] Address: [address] [place] [address] Performed By: #### 2 4356-8 #### [facility] CLIA [id number] [address] [place] [address] [place] Glucose Test strip (U) [Mass/Vol] Negative Normal Negative [facility] Comment on above: Order Comment: Speci men Type: URINE SPECIMEN Ordering Facility: [facility] Address: [address] [place] [address] Performed By: #### 2 4356-8 #### [facility] CLIA [id number] [address] [place] [address] [place] Hemoglobin Ql (U) Negative Normal Negative [facility] Comment on above: Order Comment: Speci men Type: URINE SPECIMEN Ordering Facility: [facility] Address: [address] [place] [address] Performed By: #### 2 4356-8 #### [facility] CLIA [id number] [address] [place], [place] [id number] [place] Hyaline casts (Urine sed) [#/Area] 0 /[LPF] Normal 0 /LPF [facility] Comment on above: Order Comment: Speci men Type: URINE SPECIMEN Ordering Facility: [facility] Address: [address] [place] [address] Performed By: #### 2 4356-8 #### [facility] CLIA [id number] [address] [place], [place] [id number] [place] Ketones Ql (U) Negative Normal Negative [facility] Comment on above: Order Comment: Speci men Type: URINE SPECIMEN Ordering Facility: [facility] Address: [address] [place] [address] Performed By: #### 2 4356-8 #### [facility] CLIA [id number] [address] [place] [address] [place] Leukocyte esterase Test strip Ql (U) Negative Normal Negative [facility] Comment on above: Order Comment: Speci men Type: URINE SPECIMEN Ordering Facility: [facility] Address: [address] [place] [address] Performed By: #### 2 4356-8 #### [facility] CLIA [id number] [address] [place] [address] [place] Nitrite Ql (U) Negative Normal Negative [facility] Comment on above: Order Comment: Speci men Type: URINE SPECIMEN Ordering Facility: [facility] Address: [address] [place] [address] Performed By: #### 2 4356-8 #### [facility] CLIA [id number] [address] [place] [address] [place] pH (U) 6.0 [pH] Normal <8.5 [facility] Comment on above: Order Comment: Speci men Type: URINE SPECIMEN Ordering Facility: [facility] Address: [address] [place] [address] Performed By: #### 2 4356-8 #### [facility] CLIA [id number] [address] [place] [address] [place] Protein (U) [Mass/Vol] Negative Normal Negative [facility] Comment on above: Order Comment: Speci men Type: URINE SPECIMEN Ordering Facility: [facility] Address: [address] [place] [address] Performed By: #### 2 4356-8 #### [facility] CLIA [id number] [address] [place] [address] [place] RBC LM.HPF (Urine sed) [#/Area] 0-2 /HPF Normal 0-2 /HPF [facility] Comment on above: Order Comment: Speci men Type: URINE SPECIMEN Ordering Facility: [facility] Address: [address] [place] [address] Performed By: #### 2 4356-8 #### [facility] CLIA [id number] [address] [place] [address] [place] Specific gravity (U) [Rel density] 1.013 Normal 1.005-1.030 [facility] Comment on above: Order Comment: Speci men Type: URINE SPECIMEN Ordering Facility: [facility] Address: [address] [place] [address] Performed By: #### 2 4356-8 #### [facility] CLIA [id number] [address] [place] [address] [place] Urobilinogen Ql (U) 0.2 EU/dL Normal 0.2-1.0 EU/dL [facility] Comment on above: Order Comment: Speci men Type: URINE SPECIMEN Ordering Facility: [facility] Address: [address] [place] [address] Performed By: #### 2 4356-8 #### [facility] CLIA [id number] [address] [place] [address] [place] WBC LM.HPF (Urine sed) [#/Area] 0-5 /HPF Normal 0-5 /HPF [facility] Comment on above: Order Comment: Speci men Type: URINE SPECIMEN Ordering Facility: [facility] Address: [address] [place] [address] Performed By: #### 2 4356-8 #### [facility] CLIA [id number] [address] [place] [address] [place] Comprehensive metabolic 2000 panelon 11-17-2024 Albumin [Mass/Vol] 4.0 g/dL Normal 3.9-4.9 [facility] Comment on above: Order Comment: Speci men Type: URINE SPECIMEN Ordering Facility: [facility] Address: [address] [place] [address] Performed By: #### 2 4356-8 #### [facility] CLIA [id number] [address] [place] [address] [place] ALP [Catalytic activity/Vol] 106 U/L Normal 38-113 [facility] Comment on above: Order Comment: Speci men Type: URINE SPECIMEN Ordering Facility: [facility] Address: [address] [place] [address] Performed By: #### 2 4356-8 #### [facility] CLIA [id number] [address] [place] [address] [place] ALT [Catalytic activity/Vol] 30 U/L Normal 10-54 [facility] Comment on above: Order Comment: Speci men Type: URINE SPECIMEN Ordering Facility: [facility] Address: [address] [place] [address] Performed By: #### 2 4356-8 #### [facility] CLIA [id number] [address] [place] [address] [place] Anion gap [Moles/Vol] 10 mmol/L Normal 8-15 [facility] Comment on above: Order Comment: Speci men Type: URINE SPECIMEN Ordering Facility: [facility] Address: [address] [place] [address] Performed By: #### 2 4356-8 #### [facility] CLIA [id number] [address] [place] [address] [place] AST [Catalytic activity/Vol] 25 U/L Normal 14-40 [facility] Comment on above: Order Comment: Speci men Type: URINE SPECIMEN Ordering Facility: [facility] Address: [address] [place] [address] Performed By: #### 2 4356-8 #### [facility] CLIA [id number] [address] [place] [address] [place] Bilirubin [Mass/Vol] 0.6 mg/dL Normal 0.2-1.3 [facility] Comment on above: Order Comment: Speci men Type: URINE SPECIMEN Ordering Facility: [facility] Address: [address] [place] [address] Performed By: #### 2 4356-8 #### [facility] CLIA [id number] [address] [place] [address] [place] Calcium [Mass/Vol] 8.4 mg/dL Low 8.5-10.2 [facility] Comment on above: Order Comment: Speci men Type: URINE SPECIMEN Ordering Facility: [facility] Address: [address] [place] [address] Performed By: #### 2 4356-8 #### [facility] CLIA [id number] [address] [place], [place] [id number] [place] Chloride [Moles/Vol] 107 mmol/L Normal 98-107 [facility] Comment on above: Order Comment: Speci men Type: URINE SPECIMEN Ordering Facility: [facility] Address: [address] [place] [address] Performed By: #### 2 4356-8 #### [facility] CLIA [id number] [address] [place] [address] [place] CO2 [Moles/Vol] 23 mmol/L Normal 22-30 [facility] Comment on above: Order Comment: Speci men Type: URINE SPECIMEN Ordering Facility: [facility] Address: [address] [place] [address] Performed By: #### 2 4356-8 #### [facility] CLIA [id number] [address] [place] [address] [place] Creatinine [Mass/Vol] 0.90 mg/dL Normal 0.73-1.22 [facility] Comment on above: Order Comment: Speci men Type: URINE SPECIMEN Ordering Facility: [facility] Address: [address] [place] [address] Performed By: #### 2 4356-8 #### [facility] CLIA [id number] [address] [place] [address] [place] Creatinine and Glomerular filtration rate.predicted panel (S/P/Bld) 89 mL/min/1.73m??? Normal >=60 [facility] Comment on above: Order Comment: Speci men Type: URINE SPECIMEN Ordering Facility: [facility] Address: [address] [place] [address] Result Comment: Mallika mated Glomerular Filtration Rate [...] GFR. Performed By: #### 2 4356-8 #### [facility] CLIA [id number] [address] [place] [address] [place] Glucose [Mass/Vol] 130 mg/dL High 74-99 [facility] Comment on above: Order Comment: Speci men Type: URINE SPECIMEN Ordering Facility: [facility] Address: [address] [place] [address] Result Comment: The [place] Diabetes Association (ADA) provides guidance for cutoff [...] Standards of Medical Care in Diabetes 2016, [place] Diabetes Association. Diabetes Care. 2016.39(Suppl 1). Performed By: #### 2 4356-8 #### [facility] CLIA [id number] [address] [place] [address] [place] Potassium [Moles/Vol] 4.6 mmol/L Normal 3.7-5.1 [facility] Comment on above: Order Comment: Speci men Type: URINE SPECIMEN Ordering Facility: [facility] Address: [address] [place] [address] Performed By: #### 2 4356-8 #### [facility] CLIA [id number] [address] [place] [address] [place] Protein [Mass/Vol] 6.7 g/dL Normal 6.3-8.0 [facility] Comment on above: Order Comment: Speci men Type: URINE SPECIMEN Ordering Facility: [facility] Address: [address] [place] [address] Performed By: #### 2 4356-8 #### [facility] CLIA [id number] [address] [place] [address] [place] Sodium [Moles/Vol] 140 mmol/L Normal 136-144 [facility] Comment on above: Order Comment: Speci men Type: URINE SPECIMEN Ordering Facility: [facility] Address: [address] [place] [address] Performed By: #### 2 4356-8 #### [facility] CLIA [id number] [address] [place] [address] [place] Urea nitrogen [Mass/Vol] 11 mg/dL Normal 9-24 [facility] Comment on above: Order Comment: Speci men Type: URINE SPECIMEN Ordering Facility: [facility] Address: [address] [place] [address] Performed By: #### 2 4356-8 #### [facility] CLIA [id number] [address] [place] [address] [place] Free PSA [Mass/Vol]on 2024 Free PSA/Total PSA [Mass fraction] 21 % Normal [facility] Comment on above: Order Comment: Speci men Type: URINE SPECIMEN Ordering Facility: [facility] Address: [address] [place] [address] Result Comment: Tota l and free PSA [...] 15.8% Performed By: #### 2 4356-8 #### [facility] CLIA [id number] [address] [place] [address] [place] Prostate specific Ag [Mass/Vol] 3.05 ng/mL High <2.60 [facility] Comment on above: Order Comment: Speci men Type: URINE SPECIMEN Ordering Facility: [facility] Address: [address] [place] [address] Result Comment: Tota l PSA test methodology [...] 2003,349:335-42. Performed By: #### 2 4356-8 #### [facility] CLIA [id number] [address] [place] [address] [place] HbA1c (Bld)on 11-17-2024 Average glucose Estimated from glycated hemoglobin (Bld) [Mass/Vol] 131 mg/dL Normal [facility] Comment on above: Order Comment: Speci men Type: URINE SPECIMEN Ordering Facility: [facility] Address: [address] [place] [address] Result Comment: eAG: (Estimated average glucose) is a calculated value from HgbA1c and is medical claims representative of the average blood glucose level in the last 2-3 month period. Performed By: #### 2 4356-8 #### [facility] CLIA [id number] [address] [place] [address] [place] HbA1c (Bld) [Mass fraction] 6.2 % High 4.3-5.6 [facility] Comment on above: Order Comment: Speci men Type: URINE SPECIMEN Ordering Facility: [facility] Address: [address] [place] [address] Result Comment: Amer ican Diabetes Association guidelines indicate that patients with HgbA1c in the range 5.7-6.4% are at increased risk for development of diabetes, and intervention by lifestyle modification may be beneficial. HgbA1c greater or equal to 6.5% is considered diagnostic of diabetes. Performed By: #### 2 4356-8 #### [facility] CLIA [id number] [address] [place] [address] [place] [facility] [place] LIPID PANEL, NONFASTINGon Cholesterol [Mass/Vol] 127 mg/dL Normal <200 [facility] Comment on above: Order Comment: Speci men Type: URINE SPECIMEN Ordering Facility: [facility] Address: [address] [place] [address] Result Comment: <200 mg/dL, Desirable 200-239 mg/dL, Borderline high >239 mg/dL, High Performed By: #### 2 4356-8 #### [facility] CLIA [id number] [address] [place] [address] [place] HDL CHOLESTEROL, NF 48 mg/dL Normal >39 [facility] Comment on above: Order Comment: Speci men Type: URINE SPECIMEN Ordering Facility: [facility] Address: [address] [place] [address] Result Comment: 40-5 9 mg/dL, Acceptable >59 mg/dL, High: Negative risk factor for coronary heart disease <40 mg/dL, Low: Positive risk factor for coronary heart disease Performed By: #### 2 4356-8 #### [facility] CLIA [id number] [address] [place] [address] [place] LDL CHOLESTEROL CALCULATED, NF 68 mg/dL Normal <100 [facility] Comment on above: Order Comment: Speci men Type: URINE SPECIMEN Ordering Facility: [facility] Address: [address] [place] [address] Result Comment: <100 mg/dL, Optimal 100-129 mg/dL, Near optimal/above optimal 130-159 mg/dL, Borderline high 160-189 mg/dL, High >189 mg/dL, Very high Secondary prevention optimal LDL Cholesterol levels are recommended to be <70 mg/dL LDL cholesterol is calculated using the Sanabria-NIH equation. Performed By: #### 2 4356-8 #### [facility] CLIA [id number] [address] [place] [address] OF [facility] LDL/HDL RATIO, NF 1.42 mg/dL Normal <2.54 [facility] Comment on above: Order Comment: Speci men Type: URINE SPECIMEN Ordering Facility: [facility] Address: [address] [place] [address] Result Comment: Refe rence: 1. National Cholesterol Education Program ATP III Guideline At-A-Glance Quick Desk Reference: National Heart, Lung, and Blood [place]. National Institutes of Health. 2001: NIH Publication No. 01-3305. 2. An International Atherosclerosis Society position paper: global recommendations for the management of dyslipidemia: executive summary, Atherosclerosis. 2014: 232(2):410-413. Performed By: #### 2 4356-8 #### [facility] CLIA [id number] [address] [place] [address] [place] NON HDL CHOL, NF 79 mg/dL Normal <130 [facility] Comment on above: Order Comment: Speci men Type: URINE SPECIMEN Ordering Facility: [facility] Address: [address] [place] [address] Result Comment: <130 mg/dL, Optimal 130-159 mg/dL, Near optimal/above optimal 160-189 mg/dL, Borderline high 190-219 mg/dL, High >219 mg/dL, Very high Secondary prevention optimal non HDL Cholesterol levels are recommended to be <100 mg/dL Performed By: #### 2 4356-8 #### [facility] CLIA [id number] [address] [place] [address] [place] T CHOL/HDL RATIO NF 2.65 mg/dL Normal <5.10 [facility] Comment on above: Order Comment: Speci men Type: URINE SPECIMEN Ordering Facility: [facility] Address: [address] [place] [address] Performed By: #### 2 4356-8 #### [facility] CLIA [id number] [address] [place] [address] [place] TRIGLYCERIDES, NF 50 mg/dL Normal <150 [facility] Comment on above: Order Comment: Speci men Type: URINE SPECIMEN Ordering Facility: [facility] Address: [address] [place] [address] Result Comment: <150 mg/dL, Normal 150-199 mg/dL, Borderline high 200-499 mg/dL, High >499 mg/dL, Very high Performed By: #### 2 4356-8 #### [facility] CLIA [id number] [address] [place] [address] [place] VLDL CHOLESTEROL, NF 7 mg/dL Normal <30 [facility] Comment on above: Order Comment: Speci men Type: URINE SPECIMEN Ordering Facility: [facility] Address: [address] [place] [address] Performed By: #### 2 4356-8 #### [facility] CLIA [id number] [address] [place] [address] [place] CNPNon [facility]20[facility] SHAMIKA DONAHUE ([id number]) 1950 M Date Time Provider Department 06/11/24 ALETHA BOYD [facility] During your visit today, we recorded the following information about you: Aletha Boyd APRN.SALES SERVICE ASSISTANT 06/11/2024 7:22 AM Signed Please call patient [...] Encounter Status:Closed by LING DELCID on 06/11/24 [facility] CNOVon 2024 CNOV Office Visit (UCWSTR ) SHAMIKA DONAHUE ([id number]) 1950 M Date Time Provider Department 06/10/24 11:00 AM ELMA PAYNE [facility] During your visit today, we recorded the following information about you: Temperature Pulse Respiration Blood pressure 98 degrees 68/minute 18/minute 126/72 Weight 88.9 kg Elma Payne APRN.SALES SERVICE ASSISTANT 2024 11:21 AM Signed Subjective Cough Associated [...] and re (more content not included)... Normal [facility] COVID AND INFLUENZA A/B AND RSV PCR, ROUTINEon 2024 SARS-CoV-2 (COVID-19) RNA CAMILO+probe Ql (Unsp spec) SARS-COV-2 (AGENT OF COVID-19) RNA: Detected INFLUENZA A RNA: Not detected INFLUENZA B RNA: Not detected RESPIRATORY SYNCYTIAL VIRUS (RSV) RNA: Not detected Abnormal [facility] Comment on above: Performed By: #### 2 4356-8 #### [facility] CLIA [id number] [address] [place] [address] [place] CNOVon 05-21-2024 CNOV Office Visit (FAMPWS ) SHAMIKA DONAHUE ([id number]) 1950 M Date Time Provider Department 05/21/24 [...] Lungs clear (more content not included)... Normal [facility] Free PSA [Mass/Vol]on 2023 Free PSA/Total PSA [Mass fraction] 17 % Normal [facility] Comment on above: Order Comment: Speci men Type: URINE SPECIMEN Ordering Facility: [facility] Address: [address] [place] [address] Result Comment: Tota l and free PSA [...] 15.8% Performed By: #### 2 4356-8 #### [facility] CLIA [id number] [address] [place] [address] [place] [address] [place] Prostate specific Ag [Mass/Vol] 3.79 ng/mL High <2.60 [facility] Comment on above: Order Comment: Speci men Type: URINE SPECIMEN Ordering Facility: [facility] Address: [address] [place] [address] Result Comment: Tota l PSA test methodology [...] Thomas M.D., Shireen Cote, M.P.H., Aliza White ScSaturnino. Effect of Verification Bias on Screening for Prostate Cancer by Measurement of Prostatic Specific Antigen. N Engl J Med 2003,349:335-42. Performed By: #### 2 4356-8 #### [facility] CLIA [id number] [address] [place] [address] [place] HbA1c (Bld)on 05-11-2024 Average glucose Estimated from glycated hemoglobin (Bld) [Mass/Vol] 120 mg/dL Normal [facility] Comment on above: Order Comment: Speci men Type: URINE SPECIMEN Ordering Facility: [facility] Address: [address] [place] [address] Result Comment: eAG: (Estimated average glucose) is a calculated value from HgbA1c and is medical claims representative of the average blood glucose level in the last 2-3 month period. Performed By: #### 2 4356-8 #### [facility] CLIA [id number] [address] [place] [address] [place] HbA1c (Bld) [Mass fraction] 5.8 % High 4.3-5.6 [facility] Comment on above: Order Comment: Speci men Type: URINE SPECIMEN Ordering Facility: [facility] Address: [address] [place] [address] Result Comment: [place] Diabetes Association guidelines indicate that patients with HgbA1c in the range 5.7-6.4% are at increased risk for development of diabetes, and intervention by lifestyle modification may be beneficial. HgbA1c greater or equal to 6.5% is considered diagnostic of diabetes. Performed By: #### 2 4356-8 #### [facility] CLIA [id number] [address] [place] [address] [place] [address] [place] COLONOSCOPY SCREENINGon - [facility] XR Shoulder - right 3 Viewso n 04-27-2020 IMPRESSION: AC joint degenerative arthritis. Biology Faculty Member: TINY Transcribe Date/Time: Apr 27 2020 2:20P Dictated by : IVANA SOUZA MD This examination was interpreted and the report reviewed and electronically signed by: IVANA SOUZA MD on Apr 27 2020 2:23PM [facility] DIVISION OF RADIOLOGY * * *Final Report* [...] acromioclavicular joint. - DIVISION OF RADIOLOGY Provider, [facility] - 04/27/2020 * * *Final Report* [...] - IMPRESSION IMPRESSION: AC joint degenerative arthritis. Biology Faculty Member: TINY Transcribe Date/Time: Apr 27 2020 2:20P Dictated by : IVANA SOUZA MD This examination was interpreted and the report reviewed and electronically signed by: IVANA SOUZA MD on Apr 27 2020 2:23PM EST [facility] Radiology Study observation (narrative) [facility] XR Shoulder - right 3 ViewsO rdered By: [facility] Provider on 04-27-2020 [facility] Vital Signs Date Time Vital Sign Value Performing Clinician Facility 01-07-2025 08:13-0400 Body height 170.[address] Vic Parra MD Work Phone: [facility] 01-07-2025 08:13-0400 Body temperature 98 [degF] Dr. Vic Parra MD Work Phone: [facility] 01-07-2025 08:13-0400 Diastolic blood pressure 64 mm[Hg] Dr. Vic Parra MD Work Phone: [facility] 01-07-2025 08:13-0400 Heart rate 52 /min Dr. Vic Parra MD Work Phone: [facility] 01-07-2025 08:13-0400 Respiratory rate 18 /min Dr. Vic Parra MD Work Phone: [facility] 01-07-2025 08:13-0400 SaO2% (BldA) [Mass fraction] 95 % Dr. Vic Parra MD Work Phone: 0(754)646-297933 [place] [address] 01-07-2025 08:13-0400 Systolic blood pressure 136 mm[Hg] Dr. Vic Parra MD Work Phone: 1(093)510-655221 [place] [address] 12-31-2024 08:28-0400 Body height 170.[address] Vic Parra MD Work Phone: 2(496)861-955421 [place] [address] 12-31-2024 08:28-0400 Body mass index (BMI) [Ratio] 31.8 kg/m2 Dr. Vic Parra MD Work Phone: 0(842)850-217321 [place] [address] 12-31-2024 08:28-0400 Body temperature 97.7 [degF] Dr. Vic Parra MD Work Phone: 1(774)327-617921 [place] [address] 12-31-2024 08:28-0400 Body weight 92.[address] Vic Parra MD Work Phone: 5(785)597-544021 [place] [address] 12-31-2024 08:28-0400 Diastolic blood pressure 68 mm[Hg] Dr. Vic Parra MD Work Phone: 8(082)281-475586 [address] 12-31-2024 08:28-0400 Heart rate 73 /min Dr. Vic Parra MD Work Phone: 2(045)543-474521 [place] [address] 12-31-2024 08:28-0400 Respiratory rate 18 /min Dr. Vic Parra MD Work Phone: 5(567)823-637233 [place] [address] 12-31-2024 08:28-0400 SaO2% (BldA) [Mass fraction] 95 % Dr. Vic Parra MD Work Phone: 3(689)738-851233 [place] [address] 12-31-2024 08:28-0400 Systolic blood pressure 121 mm[Hg] Dr. Vic Parra MD Work Phone: 5(966)046-019121 [place] [address] 11-24-2024 10:30-0400 Diastolic blood pressure 72 mm[Hg] Vic Parra MD Work Phone: [facility] Comment on above: Samantha BP 11-24-2024 10:30-0400 Systolic blood pressure 126 mm[Hg] Vic Parra MD Work Phone: [facility] Comment on above: Samantha BP 11-24-2024 07:56-0400 Body height 168.3 cm Vic Parra MD Work Phone: [facility] 11-24-2024 07:56-0400 Body mass index (BMI) [Ratio] 31.72 kg/m2 Vic Parra MD Work Phone: [facility] 11-24-2024 07:56-0400 Body weight 89.81 kg Vic Parra MD Work Phone: [facility] 11-24-2024 07:56-0400 Heart rate 66 /min Vic Parra MD Work Phone: [facility] 11-24-2024 07:56-0400 Respiratory rate 16 /min Vic Parra MD Work Phone: [facility] 11-24-2024 07:56-0400 SaO2% (BldA) [Mass fraction] 94 % Vic Parra MD Work Phone: [facility] 2024 11:06-0500 Body mass index (BMI) [Ratio] 31.16 kg/m2 Elma Payne APRN.SALES SERVICE ASSISTANT Work Phone: [facility] 2024 11:06-0500 Body temperature 98.01 [degF] Elma Fry-Quinton METAL BONDING PRESS OPERATOR.SALES SERVICE ASSISTANT Work Phone: [facility] 2024 11:06-0500 Body weight 88.9 kg Elma Fry-Quinton METAL BONDING PRESS OPERATOR.SALES SERVICE ASSISTANT Work Phone: [facility] 2024 11:06-0500 Diastolic blood pressure 72 mm[Hg] Elma Garcialer-Quinton METAL BONDING PRESS OPERATOR.SALES SERVICE ASSISTANT Work Phone: [facility] 2024 11:06-0500 Heart rate 68 /min Elma Fry-Quinton METAL BONDING PRESS OPERATOR.SALES SERVICE ASSISTANT Work Phone: [facility] 2024 11:06-0500 Respiratory rate 18 /min Elma Praisler-Wood METAL BONDING PRESS OPERATOR.SALES SERVICE ASSISTANT Work Phone: [facility] 2024 11:06-0500 SaO2% (BldA) [Mass fraction] 96 % Elma Praisler-Wood METAL BONDING PRESS OPERATOR.SALES SERVICE ASSISTANT Work Phone: [facility] 2024 11:06-0500 Systolic blood pressure 126 mm[Hg] Elma Praisler-Wood METAL BONDING PRESS OPERATOR.SALES SERVICE ASSISTANT Work Phone: [facility] 05-21-2024 07:52-0500 Heart rate 60 /min Jyotsna Siu PA-C Work Phone: [facility] 05-21-2024 07:10-0500 Body mass index (BMI) [Ratio] 31.96 kg/m2 Jyotsna Siu PA-C Work Phone: [facility] 05-21-2024 07:10-0500 Body temperature 97.2 [degF] Jyotsna Siu PA-C Work Phone: [facility] 05-21-2024 07:10-0500 Body weight 91.17 kg Jyotsna Siu PA-C Work Phone: [facility] 05-21-2024 07:10-0500 Diastolic blood pressure 70 mm[Hg] Jyotsna Siu PA-C Work Phone: [facility] 05-21-2024 07:10-0500 Respiratory rate 16 /min Jyotsna Siu PA-C Work Phone: [facility] 05-21-2024 07:10-0500 SaO2% (BldA) [Mass fraction] 96 % Jyotsna Siu PA-C Work Phone: [facility] 05-21-2024 07:10-0500 Systolic blood pressure 118 mm[Hg] Jyotsna Siu PA-C Work Phone: [facility] 11-20-2023 08:17-0400 Diastolic blood pressure 72 mm[Hg] Vic Parra MD Work Phone: [facility] 11-20-2023 08:17-0400 Systolic blood pressure 136 mm[Hg] Vic Parra MD Work Phone: [facility] 11-20-2023 07:54-0400 Body height 168.9 cm Vic Parra MD Work Phone: [facility] 11-20-2023 07:54-0400 Body mass index (BMI) [Ratio] 31.96 kg/m2 Vic Parra MD Work Phone: [facility] 11-20-2023 07:54-0400 Body weight 91.17 kg Vic Parra MD Work Phone: [facility] 11-20-2023 07:54-0400 Heart rate 70 /min Vic Parra MD Work Phone: [facility] 05-15-2023 08:45-0500 Diastolic blood pressure 78 mm[Hg] Vic Parra MD Work Phone: [facility] 05-15-2023 08:45-0500 Heart rate 57 /min Vic Parra MD Work Phone: [facility] 05-15-2023 08:45-0500 Systolic blood pressure 141 mm[Hg] Vic Parra MD Work Phone: [facility] 05-15-2023 07:58-0500 Body weight 92.53 kg Vic Parra MD Work Phone: [facility] 05-15-2023 07:58-0500 Respiratory rate 16 /min Vic Parra MD Work Phone: [facility] 07-12-2022 07:14-0500 Body temperature 97.81 [degF] Terrance White APRN.SALES SERVICE ASSISTANT Work Phone: [facility] 07-12-2022 07:14-0500 Body weight 94.98 kg Terrance White APRN.SALES SERVICE ASSISTANT Work Phone: [facility] 07-12-2022 07:14-0500 Diastolic blood pressure 72 mm[Hg] eTrrance White APRN.SALES SERVICE ASSISTANT Work Phone: [facility] 07-12-2022 07:14-0500 Heart rate 75 /min Terranec White METAL BONDING PRESS OPERATOR.SALES SERVICE ASSISTANT Work Phone: [facility] 07-12-2022 07:14-0500 Respiratory rate 21 /min Terrance White METAL BONDING PRESS OPERATOR.SALES SERVICE ASSISTANT Work Phone: [facility] 07-12-2022 07:14-0500 SaO2% (BldA) [Mass fraction] 97 % Terrance White METAL BONDING PRESS OPERATOR.SALES SERVICE ASSISTANT Work Phone: [facility] 07-12-2022 07:14-0500 Systolic blood pressure 142 mm[Hg] Terrance King METAL BONDING PRESS OPERATOR.SALES SERVICE ASSISTANT Work Phone: [facility] 04-18-2022 08:27-0500 Body weight 92.08 kg Vic Parra MD Work Phone: [facility] 04-18-2022 08:27-0500 Diastolic blood pressure 82 mm[Hg] Vic Parra MD Work Phone: [facility] 04-18-2022 08:27-0500 Heart rate 60 /min Vic Parra MD Work Phone: [facility] 04-18-2022 08:27-0500 Respiratory rate 16 /min Vic Parra MD Work Phone: [facility] 04-18-2022 08:27-0500 Systolic blood pressure 146 mm[Hg] Vic Parra MD Work Phone: [facility] 11-27-2021 07:04-0400 Body temperature 97.39 [degF] Jyotsna KINGSTONC Work Phone: [facility] 11-27-2021 07:04-0400 Body weight 88.91 kg Jyotsna KINGSTONC Work Phone: [facility] 11-27-2021 07:04-0400 Diastolic blood pressure 76 mm[Hg] Jyotsna BROWN-C Work Phone: [facility] 11-27-2021 07:04-0400 Heart rate 60 /min Jyotsna Siu PA-C Work Phone: [facility] 11-27-2021 07:04-0400 Respiratory rate 18 /min Jyotsna Sui PA-C Work Phone: [facility] 11-27-2021 07:04-0400 Systolic blood pressure 136 mm[Hg] Jyotsna Siu PA-C Work Phone: [facility] 11-23-2021 09:30-0400 Diastolic blood pressure 72 mm[Hg] Hiram Wilburn MD Work Phone: [facility] 11-23-2021 09:30-0400 Heart rate 70 /min Hiram Wilburn MD Work Phone: [facility] 11-23-2021 09:30-0400 Respiratory rate 16 /min Hiram Wilburn MD Work Phone: [facility] 11-23-2021 09:30-0400 SaO2% (BldA) [Mass fraction] 93 % Hiram Wilburn MD Work Phone: [facility] 11-23-2021 09:30-0400 Systolic blood pressure 138 mm[Hg] Hiram Wilburn MD Work Phone: [facility] 11-23-2021 08:10-0400 Body temperature 98.29 [degF] Hiram Wilburn MD Work Phone: [facility] 11-08-2021 07:59-0400 Body height 170.2 cm Bette Fallon PA-C Work Phone: [facility] 11-08-2021 07:59-0400 Body temperature 98.49 [degF] Bette Animas PA-C Work Phone: [facility] 11-08-2021 07:59-0400 Body weight 88.91 kg Bette Fallon PA-C Work Phone: [facility] 11-08-2021 07:59-0400 Diastolic blood pressure 54 mm[Hg] Bette Animas PA-C Work Phone: [facility] 11-08-2021 07:59-0400 Heart rate 65 /min Bette Lehman PA-C Work Phone: [facility] 11-08-2021 07:59-0400 SaO2% (BldA) [Mass fraction] 95 % Bette Lehman PA-C Work Phone: [facility] 11-08-2021 07:59-0400 Systolic blood pressure 114 mm[Hg] Betteerin Lehman PA-C Work Phone: [facility] 11-01-2021 14:56-0400 Diastolic blood pressure 72 mm[Hg] Mi Nurse Work Phone: [facility] 11-01-2021 14:56-0400 Heart rate 76 /min Mi Nurse Work Phone: [facility] 11-01-2021 14:56-0400 Systolic blood pressure 125 mm[Hg] Mi Nurse Work Phone: [facility] 10-11-2021 14:48-0400 Body weight 89.81 kg Vic Parra MD Work Phone: [facility] 10-11-2021 14:48-0400 Diastolic blood pressure 74 mm[Hg] Vic Parra MD Work Phone: [facility] 10-11-2021 14:48-0400 Heart rate 76 /min Vic Parra MD Work Phone: [facility] 10-11-2021 14:48-0400 Respiratory rate 16 /min Vic Parra MD Work Phone: [facility] 10-11-2021 14:48-0400 Systolic blood pressure 140 mm[Hg] Vic Parra MD Work Phone: [facility] Encounters Encounter Date Encounter Type Care Provider Facility Start: 01-07-2025 End: 01-07-[address] Vic Parra MD Work Phone: -[facility] Start: 01-07-2025 End: 01-07-[address] Elias Coker MD -[facility] Work Phone: Start: 12-31-2024 End: 12-31-2024 ambulatory Vic Parra Facility:[facility] Start: 12-31-2024 End: 12-31-[address] Elias Coker MD -Laboratory Specimen Work Phone: Start: 12-31-2024 End: 12-31-[address] Elias Coker MD -[facility] Work Phone: Start: 12-31-2024 End: 12-31-[address] Vic Prara MD Work Phone: -[facility] Start: 11-24-2024 End: 11-25-2024 Follow-up encounter Vic Parra MD Work Phone: [facility] Start: 11-24-2024 End: 11-24-2024 ambulatory VIC PARRA Facility:[facility] Start: 11-24-2024 End: 11-24-2024 Patient encounter procedure Vic Parra MD Work Phone: [facility] Comment on above: Medicare annual well ness [...] neck Start: 11-24-2024 End: 11-24-2024 ambulatory VIC Odom FIDEL Facility:[facility] Start: 11-17-2024 End: 11-17-2024 ambulatory VIC Odom FIDEL Facility:[facility] Start: 11-10-2024 End: 11-11-2024 Refill Leah Crews APRN.SALES SERVICE ASSISTANT Work Phone: [facility] Comment on above: Refill Request Start: 10-10-2024 End: 10-12-2024 Refill Leah Crews APRN.SALES SERVICE ASSISTANT Work Phone: [facility] Comment on above: Refill Request Start: 2024 End: 2024 ambulatory VIC PARRA Facility:[facility] Start: 2024 End: 2024 Patient encounter procedure Elma Payne APRN.CNP Work Phone: [facility] Comment on above: Viral URI with cough (Primary Dx); Viral bronchitis Start: 05-31-2024 End: 06-01-2024 Refill Vic Parra MD Work Phone: [facility] [place] Comment on above: Refill Request Start: 05-21-2024 End: 05-21-2024 ambulatory VIC PARRA Facility:[facility] Start: 05-21-2024 End: 05-21-2024 Patient encounter procedure Jyotsna Siu PA-C Work Phone: [facility] [place] Comment on above: Essential hypertensi on with goal blood pressure less than 140/90 (Primary Dx); Mixed hyperlipidemia; Elevated PSA; Elevated fasting blood sugar; Encounter for immunization Start: 05-19-2024 End: 05-19-2024 ambulatory Renee Cui MA [facility] Start: 05-19-2024 End: 05-19-2024 Patient encounter procedure Renee Cui MA [facility] Comment on above: Population Health Na vigation Outreach ([employer] ) Start: 05-11-2024 End: 05-11-2024 ambulatory VIC PARRA Facility:[facility] Start: 04-09-2024 End: 04-09-2024 Refill Leah Crews APRN.CNP Work Phone: [facility] [place] Comment on above: Refill Request Start: 04-04-2024 End: 04-06-2024 Refill Jyotsna Siu PA-C Work Phone: [facility] [place] Comment on above: Refill Request Start: 11-20-2023 End: 11-20-2023 Patient encounter procedure Vic Parra MD Work Phone: [facility] [place] Comment on above: Medicare annual well ness visit, subsequent (Primary Dx); Essential hypertension with goal blood pressure less than 140/90; Mixed hyperlipidemia; Elevated fasting blood sugar; Essential tremor; Elevated PSA; Venous insufficiency (chronic) (peripheral); Advance directive discussed with patient; Need for vaccination Start: 10-15-2023 Refill Vic vitale MD Work Phone: [facility] Comment on above: Refill Request Start: 05-15-2023 End: 05-15-2023 Patient encounter procedure Vic Parra MD Work Phone: [facility] Comment on above: Essential hypertensi on with goal blood pressure less than 140/90 (Primary Dx); Mixed hyperlipidemia; Elevated fasting blood sugar; Essential tremor; Elevated PSA; Encounter for immunization Start: 03-29-2023 Refill Vic vitale MD Work Phone: [facility] Comment on above: Refill Request Start: 10-31-2022 Patient encounter procedure Vic Parra MD Work Phone: [facility] Work Phone: Start: 10-21-2022 Refill Vic vitale MD Work Phone: [facility] Comment on above: Refill Request Start: 07-12-2022 End: 07-12-2022 Patient encounter procedure Terrance White APRN.[facility] Work Phone: [facility] Comment on above: Pain and swelling of eyelid (Primary Dx); Eye irritation Start: 04-18-2022 End: 04-18-2022 Patient encounter procedure Vic Parra MD Work Phone: [facility] Comment on above: Mixed hyperlipidemia (Primary Dx); Essential hypertension with goal blood pressure less than 140/90; Elevated fasting blood sugar; Essential tremor; Encounter for immunization; Elevated PSA Start: 04-01-2022 Refill Jyotsna arroyo PA-C Work Phone: [facility] Comment on above: Refill Request Start: 11-27-2021 End: 11-27-2021 Patient encounter procedure Jyotsna Siu PA-C Work Phone: [facility] Comment on above: Essential hypertensi on with [...] patient and report Mi Nurse Work Phone: [facility] [place] Comment on above: Essential hypertensi on with goal blood pressure less than 140/90 (Primary Dx) Start: 11-01-2021 Telephone encounter Vic Parra MD Work Phone: [facility] [place] Comment on above: Blood Pressure Check Start: 10-11-2021 End: 10-11-2021 Patient encounter procedure Vic Parra MD Work Phone: [facility] [place] Comment on above: Medicare annual well ness visit, subsequent (Primary Dx); Essential hypertension with goal blood pressure less than 140/90; Mixed hyperlipidemia; Elevated fasting blood sugar; Essential tremor; Advance directive discussed with patient; Living will in place; Colon cancer screening; Elevated PSA Start: 10-09-2021 ambulatory Jazlyn ([facility] Comment on above: Population Health Na vigation Outreach ([employer] care gap) Start: 09-30-2021 Refill Jyotsna arroyo PA-C Work Phone: [facility] [place] Comment on above: Refill Request Start: 10-06-2020 Patient encounter procedure Jyotsna Siu PA-C Work Phone: [facility] Work Phone: Start: 04-27-2020 End: 04-27-2020 Subsequent hospital visit by physician Delores [facility] [place] Work Phone: Radiology Comment on above: Right shoulder pain, unspecified chronicity [M25.511] Procedures Date Procedure Procedure Detail Performing Clinician Start: 11-24-2024 PFIZER-BIONTECH COVI D-19 VACCINE AGE 12+ YR (COMIRNATY) Vic Parra MD Work Phone: Start: 11-24-2024 Adult depression scr eening assessment Vic Parra MD Work Phone: Start: 05-21-2024 PFIZER-BIONTECH COVI D-19 VACCINE AGE 12+ YR (COMIRNATY) Jyotsna Siu PA-C Work Phone: Start: 11-20-2023 PFIZER-BIONTECH COVI D-19 VACCINE ( SEASON) AGE 12+ YR Vic Parra MD Work Phone: Start: 11-20-2023 Adult depression scr eening assessment [facility] Work Phone: Start: 11-13-2023 Lipid 1996 panel - S thaddeus or Plasma Vic Parra MD Work Phone: Start: 05-15-2023 INFLUENZA VACCINE, P RSV FREE, AGE 65+ YR, HIGH DOSE, QUADRIVALENT (FLUZONE HIGH-DOSE) Vic Parra MD Work Phone: Start: 05-15-2023 PFIZER-BIONTECH COVI D-19 VACCINE ( SEASON) AGE 12+ YR Vic Parra MD Work [...] Bette Lehman PA-C Work Phone: Start: 11-23-2021 Jakob vargas MD Work Phone: Start: 04-27-2020 Radex shoulder compl ete minimum 2 views Vic Parra MD Work Phone: Start: 01-09-2016 Colonoscopy Jyotsna vicente PA-C Work Phone: Plan of Treatment Date Care Activity Detail Author Start: 11-24-2031 Colonoscopy COLONOSCOPY [facility] Start: 11-24-2031 COLORECTAL CANCER SCREENING COLORECTAL CANCER SCREENING [facility] Start: 11-24-2031 Screening for malign ant neoplasm of colon [facility] Start: 11-12-2028 Lipid panel Lipid Screening [facility] Start: 11-18-2027 Diabetes Screening Diabetes Screenin g [facility] Start: 10-24-2027 Lipid 1996 panel - Serum or Plasma Lipid Screening [facility] Start: 10-24-2027 Lipid panel Lipid Screening [facility] Start: 05-11-2027 Diabetes Screening Diabetes Screenin g [facility] Start: 11-23-2026 Colonoscopy COLONOSCOPY [facility] Start: 11-23-2026 COLORECTAL CANCER SCREENING COLORECTAL CANCER SCREENING [facility] Start: 11-12-2026 Diabetes Screening Diabetes Screenin [facility] Start: 10-03-2026 LIPID SCREEN LIPID SCREEN [facility] Start: 05-03-2026 Diabetes Screening Diabetes Screenin g [facility] Start: 11-24-2025 Annual PCP Team Real Estate Sales Manager kenrick Disease Visit Annual PCP Team Chronic Disease Visit [facility] Start: 11-24-2025 Anxiety Screening Anxiety Screening [facility] Start: 11-24-2025 Depression Screening Depression Scre ening [facility] Start: 11-24-2025 Shingrix Vaccine (1 of 2) Shingrix Vaccine (1 of 2) [facility] Comment on above: Postponed from 06/10 (Insurance Coverage) Start: 11-24-2025 Urine microalbumin profile DTaP,Tdap,Td Vaccine (2 - Td or Tdap) [facility] Comment on above: Postponed from 08/08 (Insurance Coverage) Start: 10-23-2025 Diabetes Screening Diabetes Screenin g [facility] Start: 09-24-2025 LIPID SCREEN LIPID SCREEN [facility] Start: 2025 BP Controlled (<130/80) BP Controlle d (<130/80) [facility] Start: 05-26-2025 End: 05-26-2025 Patient encounter procedure 05/26/2025 7:20 AM EST Office Visit Family Nadja Mcgarry [address] [place] [address] Vic Parra MD [address] [facility] [place] [id number] 6 month follow up Family Nadja Mcgarry Comment on above: 6 month follow up Start: 05-21-2025 Annual PCP Team Real Estate Sales Manager kenrick Disease Visit Annual PCP Team Chronic Disease Visit [facility] Start: 05-21-2025 BP Controlled (<130/80) BP Controlle d (<130/80) [facility] Start: 05-07-2025 End: 08-06-2025 Hemoglobin A1c in Blood HEMOGLOBIN A1C Lab Routine Elevated fasting blood sugar Expected: 05/07/2025, Expires: 08/06/2025 [facility] Work Phone: Comment on above: Expected: 05/07/2025 , Expires: 08/06/2025 Start: 05-07-2025 End: 08-06-2025 Prostate Specific Ag Free [Mass/volume] in Serum or Plasma PROSTATE SPECIFIC ANTIGEN, FREE AND TOTAL Lab Routine Elevated PSA Expected: 05/07/2025, Expires: 08/06/2025 [facility] Comment on above: Expected: 05/07/2025 , Expires: 08/06/2025 Start: 04-03-2025 DIABETES SCREEN DIABETES SCREEN [facility] Start: 11-24-2024 End: 11-24-2024 Patient encounter procedure Family Nadja Mcgarry Comment on above: Medicare Wellness Start: 11-19-2024 Annual PCP Team Real Estate Sales Manager kenrick Disease Visit Annual PCP Team Chronic Disease Visit [facility] Start: 11-19-2024 Anxiety Screening Anxiety Screening [facility] Start: 11-19-2024 BP Controlled (<130/80) BP Controlle d (<130/80) [facility] Start: 11-19-2024 End: 02-18-2025 Comprehensive metabolic 2000 panel - Serum or Plasma COMPREHENSIVE METABOLIC PANEL Lab Routine Essential hypertension with goal blood pressure less than 140/90 Expected: 11/19/2024, Expires: 02/18/2025 [facility] Comment on above: Expected: 11/19/2024 , Expires: 02/18/2025 Start: 11-19-2024 Covid-19 Vaccine () Covid-19 Vaccine () [facility] Start: 11-19-2024 Depression Screening Depression Scre ening [facility] Start: 11-19-2024 End: 02-18-2025 Hemoglobin A1c in Blood HEMOGLOBIN A1C Lab Routine Elevated fasting blood sugar Expected: 11/19/2024, Expires: 02/18/2025 [facility] Comment on above: Expected: 11/19/2024 , Expires: 02/18/2025 Start: 11-19-2024 End: 02-18-2025 LIPID PANEL, NONFASTING LIPID PANEL, NONFASTING Lab Routine Mixed hyperlipidemia Expected: 11/19/2024, Expires: 02/18/2025 [facility] Comment on above: Expected: 11/19/2024 , Expires: 02/18/2025 Start: 11-19-2024 End: 02-18-2025 Prostate Specific Ag Free [Mass/volume] in Serum or Plasma PROSTATE SPECIFIC ANTIGEN, FREE Lab Routine Elevated PSA Expected: 11/19/2024, Expires: 02/18/2025 [facility] Work Phone: Comment on above: Expected: 11/19/2024 , Expires: 02/18/2025 Start: 11-19-2024 Shingrix Vaccine (1 of 2) Shingrix Vaccine (1 of 2) [facility] Comment on above: Postponed from 06/10 (Insurance Coverage) Start: 11-19-2024 End: 02-18-2025 Urinalysis complete panel - Urine URINALYSIS, WITH MICROSCOPIC Lab Routine Essential hypertension with goal blood pressure less than 140/90 Expected: 11/19/2024, Expires: 02/18/2025 [facility] Comment on above: Expected: 11/19/2024 , Expires: 02/18/2025 Start: 11-19-2024 Urine microalbumin profile DTaP,Tdap,Td Vaccine (2 - Td or Tdap) [facility] Comment on above: Postponed from 08/08 (Insurance Coverage) Start: 10-03-2024 DIABETES SCREEN DIABETES SCREEN [facility] Start: 2024 Advance Directive Discussion Advance Directive Discussion [facility] Start: 06-07-2024 Annual PCP Team Real Estate Sales Manager kenrick Disease Visit Annual PCP Team Chronic Disease Visit [facility] Start: 05-21-2024 End: 05-21-2024 Patient encounter procedure 05/21/2024 7:20 AM EST Office Visit Family Nadja Mcgarry [address] [place], [place] [id number] Jyotsna Siu PA-C [address] [place], [place] [id number] 6 month follow up Family Nadja Mcgarry Comment on above: 6 month follow up Start: 05-15-2024 Annual PCP Team Real Estate Sales Manager kenrick Disease Visit Annual PCP Team Chronic Disease Visit [facility] Start: 05-15-2024 RSV Vaccine (1 - 1-d ose 60+ series) RSV Vaccine (1 - 1-dose 60+ series) [facility] Comment on above: Postponed from 06/10 (Insurance Coverage) Start: 05-15-2024 RSV Vaccine (1 - 1-d ose 75+ series) RSV Vaccine (1 - 1-dose 75+ series) [facility] Comment on above: Postponed from 06/10 (Insurance Coverage) Start: 05-08-2024 End: 08-07-2024 Hemoglobin A1c in Blood HEMOGLOBIN A1C Lab Routine Elevated fasting blood sugar Expected: 05/08/2024, Expires: 08/07/2024 [facility] Work Phone: Comment on above: Expected: 05/08/2024 , Expires: 08/07/2024 Start: 05-08-2024 End: 08-07-2024 Prostate Specific Ag Free [Mass/volume] in Serum or Plasma PROSTATE SPECIFIC ANTIGEN, FREE Lab Routine Elevated PSA Expected: 05/08/2024, Expires: 08/07/2024 [facility] Comment on above: Expected: 05/08/2024 , Expires: 08/07/2024 Start: 03-28-2024 DIABETES SCREEN DIABETES SCREEN [facility] Start: 02-09-2024 Covid-19 Vaccine (6 - 2024-25 season) Covid-19 Vaccine ( season) [facility] Start: 02-09-2024 Influenza vaccination Influenza Vacc ine (#1) [facility] Start: 11-20-2023 End: 11-20-2023 Patient encounter procedure 11/20/2023 8:00 AM EDT Office Visit [facility] [place] [address] [place], [place] [id number] Vic Parra MD [address] [place], [place] [phone] medicare wellness [facility] [place] Comment on above: medicare wellness Start: 11-01-2023 Annual PCP Team Real Estate Sales Manager kenrick Disease Visit Annual PCP Team Chronic Disease Visit [facility] Start: 11-01-2023 End: 01-31-2024 Comprehensive metabolic 2000 panel - Serum or Plasma COMP METABOLIC PANEL Lab Routine Essential hypertension with goal blood pressure less than 140/90 Mixed hyperlipidemia Elevated fasting blood sugar Expected: 11/01/2023, Expires: 01/31/2024 [facility] Work Phone: Comment on above: Expected: 11/01/2023 , Expires: 01/31/2024 Start: 11-01-2023 End: 01-31-2024 Hemoglobin A1c in Blood HGB A1C Lab Routine Elevated fasting blood sugar Expected: 11/01/2023, Expires: 01/31/2024 [facility] Work Phone: Comment on above: Expected: 11/01/2023 , Expires: 01/31/2024 Start: 11-01-2023 End: 01-31-2024 LIPID PANEL, NONFASTING LIPID PANEL, NONFASTING Lab Routine Essential hypertension with goal blood pressure less than 140/90 Mixed hyperlipidemia Expected: 11/01/2023, Expires: 01/31/2024 [facility] Work Phone: Comment on above: Expected: 11/01/2023 , Expires: 01/31/2024 Start: 11-01-2023 End: 01-31-2024 Prostate Specific Ag Free [Mass/volume] in Serum or Plasma PSA FREE Lab Routine Elevated PSA Expected: 11/01/2023, Expires: 01/31/2024 [facility] Work Phone: Comment on above: Expected: 11/01/2023 , Expires: 01/31/2024 Start: 11-01-2023 Shingrix Vaccine (1 of 2) Shingrix Vaccine (1 of 2) [facility] Comment on above: Postponed from 06/10 (Insurance Coverage) Start: 11-01-2023 End: 01-31-2024 Urinalysis complete panel - Urine URINALYSIS, WITH MICROSCOPIC Lab Routine Essential hypertension with goal blood pressure less than 140/90 Mixed hyperlipidemia Expected: 11/01/2023, Expires: 01/31/2024 [facility] Work Phone: Comment on above: Expected: 11/01/2023 , Expires: 01/31/2024 Start: 09-14-2023 Covid-19 Vaccine () Covid-19 Vaccine () [facility] Start: 08-09-2023 Urine microalbumin profile [facility] Start: 2023 Advance Directive Discussion Advance Directive Discussion [facility] Start: 2023 Behavioral Health Screening Behavioral Health Screening [facility] Start: 2023 RSV Vaccine (1 - 1-d ose 75+ series) RSV Vaccine (1 - 1-dose 75+ series) [facility] Start: 04-18-2023 ANNUAL PCP TEAM HARNESS PLACER KENRICK DISEASE VISIT ANNUAL PCP TEAM CHRONIC DISEASE VISIT [facility] Start: 02-08-2023 Covid-19 Vaccine () Covid-19 Vaccine () [facility] Start: 02-08-2023 Influenza vaccination Influenza Vacc ine (#1) [facility] Start: 11-27-2022 ANNUAL PCP TEAM HARNESS [employer]ACER KENRICK DISEASE VISIT ANNUAL PCP TEAM CHRONIC DISEASE VISIT [facility] Start: 11-08-2022 BP CONTROLLED (<130/80) BP CONTROLLE D (<130/80) [facility] Start: 11-01-2022 BP CONTROLLED (<130/80) BP CONTROLLE D (<130/80) [facility] Start: 10-11-2022 ANNUAL PCP TEAM HARNESS [employer]ACER KENRICK DISEASE VISIT ANNUAL PCP TEAM CHRONIC DISEASE VISIT [facility] Start: 10-11-2022 SHINGRIX VACCINE (1 of 2) SHINGRIX VACCINE (1 of 2) [facility] Comment on above: Postponed from 06/10 (Insurance Coverage) Start: 10-05-2022 End: 12-05-2022 Comprehensive metabolic 2000 panel - Serum or Plasma COMP METABOLIC PANEL Lab Routine Mixed hyperlipidemia Essential hypertension with goal blood pressure less than 140/90 Elevated fasting blood sugar Expected: 10/05/2022, Expires: 12/05/2022 [facility] Work Phone: Comment on above: Expected: 10/05/2022 , Expires: 12/05/2022 Start: 10-05-2022 End: 12-05-2022 Hemoglobin A1c in Blood HGB A1C Lab Routine Elevated fasting blood sugar Expected: 10/05/2022, Expires: 12/05/2022 [facility] Work Phone: Comment on above: Expected: 10/05/2022 , Expires: 12/05/2022 Start: 10-05-2022 End: 12-05-2022 LIPID PANEL, NONFASTING LIPID PANEL, NONFASTING Lab Routine Mixed hyperlipidemia Essential hypertension with goal blood pressure less than 140/90 Expected: 10/05/2022, Expires: 12/05/2022 [facility] Work Phone: Comment on above: Expected: 10/05/2022 , Expires: 12/05/2022 Start: 10-05-2022 End: 12-05-2022 Prostate Specific Ag Free [Mass/volume] in Serum or Plasma PSA FREE Lab Routine Elevated PSA Expected: 10/05/2022, Expires: 12/05/2022 [facility] Work Phone: Comment on above: Expected: 10/05/2022 , Expires: 12/05/2022 Start: 10-05-2022 End: 12-05-2022 Urinalysis complete panel - Urine URINALYSIS, WITH MICROSCOPIC Lab Routine Mixed hyperlipidemia Essential hypertension with goal blood pressure less than 140/90 Expected: 10/05/2022, Expires: 12/05/2022 [facility] Work Phone: Comment on above: Expected: 10/05/2022 , Expires: 12/05/2022 Start: 06-19-2022 BP CONTROLLED (<130/80) BP CONTROLLE D (<130/80) [facility] Start: 2022 ADVANCE DIRECTIVE DISCUSSION ADVANCE DIRECTIVE DISCUSSION [facility] Start: 2022 DEPRESSION ASSESSMENT DEPRESSION ASS ESSMENT [facility] Start: 04-07-2022 ANNUAL PCP TEAM HARNESS [employer]ACER KENRICK DISEASE VISIT ANNUAL PCP TEAM CHRONIC DISEASE VISIT [facility] Start: 03-30-2022 End: 05-30-2022 Hemoglobin A1c/Hemoglobin.total in Blood HGB A1C Lab Routine Elevated fasting blood sugar Expected: 03/30/2022, Expires: 05/30/2022 [facility] Work Phone: Comment on above: Expected: 03/30/2022 , Expires: 05/30/2022 Start: 03-30-2022 End: 05-30-2022 Prostate Specific Ag Free [Mass/volume] in Serum or Plasma PSA FREE Lab Routine Elevated PSA Expected: 03/30/2022, Expires: 05/30/2022 [facility] Work Phone: Comment on above: Expected: 03/30/2022 , Expires: 05/30/2022 Start: 02-08-2022 Influenza vaccination INFLUENZA (#1) [facility] Start: 10-06-2021 SHINGRIX VACCINE (1 of 2) SHINGRIX VACCINE (1 of 2) [facility] Comment on above: Postponed from 06/10 (Insurance Coverage) Start: 2021 ADVANCE DIRECTIVE DISCUSSION ADVANCE DIRECTIVE DISCUSSION [facility] Start: 2021 DEPRESSION ASSESSMENT DEPRESSION ASS ESSMENT [facility] Start: 01-08-2021 Colonoscopy COLONOSCOPY [facility] Start: 01-08-2021 COLORECTAL CANCER SCREENING COLORECTAL CANCER SCREENING [facility] Start: 12-17-2020 COVID-19 VACCINE (3 - Booster for Moderna series) COVID-19 VACCINE (3 - Booster for Moderna series) [facility] Start: 09-14-2020 COVID-19 VACCINE (3 - Booster for Moderna series) COVID-19 VACCINE (3 - Booster for Moderna series) [facility] Start: 11-07-2016 FECAL OCCULT BLOOD FECAL OCCULT BLOO D [facility] Start: 11-07-2016 Screening for malign ant neoplasm of colon Fecal Occult Blood [facility] Start: 2008 RSV Vaccine (1 - 1-d ose 60+ series) RSV Vaccine (1 - 1-dose 60+ series) [facility] Start: 1998 SHINGRIX VACCINE (1 of 2) SHINGRIX VACCINE (1 of 2) [facility] Start: 1993 COLOGUARD (FIT-DNA) COLOGUARD (FIT-D NA) [facility] Start: [address] [facility] Start: 1993 Screening for malign ant neoplasm of colon [facility] Start: 1993 SIGMOIDOSCOPY SIGMOIDOSCOPY [facility] Start: 1966 BP CONTROLLED (<130/80) BP CONTROLLE D (<130/80) [facility] COVID & INFLUENZA A/ B & RSV PCR, ROUTINE COVID & INFLUENZA A/B & RSV PCR, ROUTINE Microbiology Routine Viral URI with cough Ordered: 2024 [facility] Work Phone: Comment on above: Ordered: 2024 [facility] Immunizations Immunization Date Immunization Notes Care Provider [facility] 11-24-2024 COVID-19 vaccine, ag e 12+ yr (PFIZER-BIONTECH COMIRNATY) Vic Parra MD Work Phone: [facility] 06-07-2024 respiratory syncytia l virus (RSV) vaccine, bivalent (ABRYSVO) Elma Payne APRN.LISA Work Phone: [facility] 05-21-2024 COVID-19 vaccine, ag e 12+ yr (PFIZER-BIONTECH COMIRNATY) Jyotsna Siu PA-C Work Phone: [facility] 05-21-2024 influenza, high dose seasonal, preservative-free Jyotsna Siu PA-C Work Phone: [facility] 11-20-2023 COVID-19 vaccine, ag e 12+ yr, season (PFIZER-BIONTECH) Vic Parra MD Work Phone: [facility] 11-20-2023 pneumococcal conjuga te (PCV20) vaccine, 20 valent (PREVNAR 20) Vic Parra MD Work Phone: [facility] 11-20-2023 pneumococcal Conjuga te, unspecified formulation Vic Parra MD Work Phone: [facility] 05-15-2023 COVID-19 vaccine, ag e 12+ yr, season (PFIZER-BIONTECH) Vic Parra MD Work Phone: [facility] 05-15-2023 influenza (HD-IIV4) vaccine, age 65+ yr, high dose, quadrivalent, PF (FLUZONE HIGH-DOSE) Vic Parra MD Work Phone: [facility] 05-15-2023 influenza virus vacc ine, unspecified formulation Xr Brea Work Phone: [facility] 04-18-2022 COVID-19 booster vaccine, age 12+ yr, bivalent ([employer]-BIONTECH) Vic Parra MD Work Phone: [facility] 04-18-2022 influenza, high-dose , quadrivalent vaccine (FLUZONE HIGH DOSE QUADRIVALENT) Vic Parra MD Work Phone: [facility] 04-18-2022 influenza virus vacc ine, unspecified formulation Vic Parra MD Work Phone: [facility] 04-07-2021 influenza, high-dose , quadrivalent vaccine (FLUZONE HIGH DOSE QUADRIVALENT) Jyotsna Siu PA-C Work Phone: [facility] 04-27-2020 influenza, high-dose , quadrivalent vaccine (FLUZONE HIGH DOSE QUADRIVALENT) Jyotsna Siu PA-C Work Phone: [facility] 08-12-2019 influenza, high dose seasonal, preservative-free Jyotsna Siu PA-C Work Phone: [facility] 08-01-2018 influenza, high dose seasonal, preservative-free Jyotsna BROWN-C Work Phone: [facility] 07-11-2017 influenza, injectabl e, quadrivalent, contains preservative Jyotsna Siu PA-C Work Phone: [facility] 01-08-2017 pneumococcal polysaccharide vaccine, 23 valent Jyotsna Siu PA-C Work Phone: [facility] 07-11-2016 influenza, injectabl e, quadrivalent, preservative free Jyotsna Siu PA-C Work Phone: [facility] 10-22-2015 pneumococcal conjuga te vaccine, 13 valent Jyotsna Siu PA-C Work Phone: [facility] Work Phone: 08-08-2013 tetanus toxoid, redu freddy diphtheria toxoid, and acellular pertussis vaccine, adsorbed Jyotsna BROWN-C Work Phone: [facility] Work Phone: Payers Date Payer Category Payer Self-pay 2022 Medicare (Managed Care) [employer]US [id number] 2022 Private Health Insurance [id number] 2021 Medicare HUMANA MEDICARE [employer]NA GOLD PLUS [id number] 2021-Present [phone] [place] [id number] [facility] [id number] 2019 Medicare [id number] Unknown [id number] Unknown [id number] Social History Date Type Detail Facility Start: 11-10-2018 End: 04-18-2022 Tobacco smoking status NHIS Never smoked tobacco [facility] Start: 06-19-2021 End: 11-24-2024 Alcohol intake Current drinker of alcohol (finding) [facility] Start: 09-26-2015 History SDOH Alcohol Comment couple beers daily [facility] Start: 1950 Sex Assigned At Not on file C [facility] Start: 03-28-2020 End: 04-18-2022 Exposure to SARS-CoV-2 (event) Not sure [facility] Start: 11-23-2021 End: 06-07-2023 Alcohol intake [facility] Work Phone: Start: 04-18-2022 Tobacco use and exposure Smokeless tobacco non-user [facility] Start: 10-31-2022 End: 06-07-2023 Tobacco use panel [facility] Work Phone: Adult Depression Screening Assessment 0 [facility] Work Phone: How often to you hav e a drink containing alcohol? 2-3 time sa week [facility] How many standard drinks containing alcohol do you have on a typical day? 1 or 2 [facility] How often do you hav e 6 or more drinks on 1 occasion? Less than monthly [facility] How often to you hav e a drink containing alcohol? 4 or more times a week [facility] How often do you hav e 6 or more drinks on 1 occasion? Never [facility] Start: 10-13-2018 Tobacco Use Tobacco Use [facility] Start: 1950 Sex Assigned At Male W [facility] Functional Status Date Assessment Result Facility 11-24-2024 Total score [AUDIT-C] 4 11/25/19 25 7:51 AM EDT Yessenia Boyd MA 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 Rosa Elena Miles LPN [facility]06-18-2025 Miscellaneous Notes* Telephone Encounter - Rosa Elena Miles LPN - 11/25/2024 8:26 AM EDT Pt notified of same. Rosa Elena Miles LPN * Telephone Encounter - Vic Parra MD - 11/24/2024 4:57 PM EDT Let patient know his calcium level was ok. documented in this encounterReg[facility]06-[facility]-2025 Telephone encounter Note * Telephone Encounter - Vic Parra MD - 11/24/2024 4:57 PM EDT Let patient know his calcium level was ok. [facility]06-17-2025 Instructions* Patient Instructions* Vic Parra MD - 11/24/2024 8:09 AM [...] at 8.5). This could be a lab error,but to confirm, I ordered an ionized calcium [...] referring you to a plastic surgeon at [facility] for further evaluation and possible removal. [...] review all the medicines you take, even vkjp-iia-bdcyorc medicines. As you get older, the way medicines work in your body can change. Some medicines, or combinations of medicines, can make you sleepy or dizzy andcan cause you to fall. 3. Have your [...] have certain medical conditions. documented in this encounterReg[facility]06-[facility]-2025 History of Present illness Narrative* Vic Parra MD - 11/24/2024 8:00 AM EDT Images from the original note were not [...] PCP - General (Family Medicine) Leah Crews APRN.SALES SERVICE ASSISTANT as Actuarial Analyst (Family Medicine) Jyotsna Siu PA-C as Actuarial Analyst (Family Medicine) Medical/Family history review Reviewed and [...] HTN, Hyperlipidemia, essential tremor, elevated PSA as wellas those reviewed and addressed below Shamika reports no recent hospitalizations or surgeries within the past year. He underwent bilateral cataract surgery in February 2023 and a bilateral blepharoplasty in 2023. He denies any new chronic conditions or major diagnoses in family members, but notes that his nephew was recently diagnosedwith metastatic lung cancer. He reports no difficulties [...] has a presence in 22 counties in [place]. He notes that he has less responsibility [...] arm and right unlar wrist treated with cryo02/04/2019 Cataract Diverticulosis Elevated fasting blood sugar 11/09/2015 [...] in the left eye four times daily. (Patientnot taking: Reported on 05/21/2024) prednisoLONE acetate, PF, [...] symmetric. Sensation to light touch and crainal nerves2-12 intact.. Genitalia: Normal, Penis normal. No urethral discharge. Scrotum normal to palpation. No hernia.. Rectal: Normal exam. Prostate enlarged with smooth and firm surface. [facility] Maintenance [facility] Medicare Advantage Annual Wellness Visit due on [...] Negative Ketones, Urine Negative Negative Negative Specific [place], Ur 1.005 - 1.030 1.011 1.013 Hemoglobin/Blood,Ur [...] cancer. - Referred to plastic surgery at [facility] for further evaluation and possible excision. F/u 6 months routine check A1c and Free PSA prior. Vic Parra MD I spent a total of 40 minutes on the date of the service which included preparing to see the patient, zmel-mz-qctm patient care, completing clinical documentation, performing a medically appropriate examination, counseling and educating the patient/family/caregiver and ordering medications, tests, or procedures. Recording using [employer] software for draft documentation of the visit was discussed with the patient/authorized medical claims representative; all questions welcomed and answered. Patient/authorized medical claims representative agreed to proceed SENSITIVE EXAMINATION CONSENT: The sensitive examination was discussed with the Patient or Patient's Authorized Surveyor'S Assistant. Asapplicable, any other physician, advance practice provider, medical student, or other health professional student that will be observing or involved in the sensitive examination for educational or training purposes was discussed with the Patient or Authorized Surveyor'S Assistant. The Patient or Authorized Surveyor'S Assistant has agreed to proceed with the sensitive examination. documented in this encounterRegency Hospital [facility]06-17-2025 NoteHNO ID: [id number] Author: VIC PARRA MD Service: ? Author [...] PCP - General (Family Medicine) Leah Crews APRN.SALES SERVICE ASSISTANT as Actuarial Analyst (Family Medicine) Jyotsna Siu PA-C as Actuarial Analyst (Family Medicine) Medical/Family history review Reviewed and [...] has a presence in 22 counties in [place]. He notes that he has less responsibility [...] of coronary artery disease (more content not included)...[facility]06-04-2025 Telephone encounter Note* Telephone Encounter - Rosa Elena Miles LPN - 11/11/2024 7:37 AM EDT Prescription Refill Information The patient has been [...] Miles LPN November 11, 2024 7:37 AM [facility]06-04-2025 Miscellaneous Notes* Telephone Encounter - Rosa Elena Miles LPN - 11/11/2024 7:37 AM EDT Prescription Refill Information The patient has been [...] 11, 2024 7:37 AM documented in this encounterRegency [facility]05-05-2025 Telephone encounter Note * Telephone Encounter - Yessenia Boyd MA - 10/12/2024 7:34 AM EDT Prescription Refill Information The patient has been [...] Boyd MA October 12, 2024 7:34 AM [facility]05-05-2025 Miscellaneous Notes* Telephone Encounter - Yessenia Boyd MA - 10/12/2024 7:34 AM EDT Prescription Refill Information The patient has been [...] 12, 2024 7:34 AM documented in this encounterRegency Hospital [facility]01-01-2025 Instructions* Patient Instructions* Elma Payne APRN.LISA - 2024 11:20 AM EST ASSESSMENT/PLAN: 1. [...] Discussed expected course of illness Elma Payne APRN.LISA Treatment for Viral Upper Respiratory Tract Infections Your body will kill off the virus by itself. Additionally, you can prime your body's immune system.This may help you get better more quickly. Drink lots of fluids Make sure you are eating well Get plenty of rest We do not have any medications that kill off these viruses. Antibiotics are used to treat bacterialinfections; however, they are not active against viral infections. There are some things that mighthelp you feel better, though. Vaporizers, humidifiers, hot showers, and hot fluids help open respiratory and sinus passages [place] [facility] [place] may offer relief of nasal and head [...] worse rather than better documented in this encounterRegency Hospital [facility]01-01-2025 NoteHNO ID: [id number] Author: ELMA PAYNE APRN.SALES SERVICE ASSISTANT Service: ? Author Type: Nurse Practitioner Type: [...] No cervical adenopathy. S (more content not included)...[facility]01-01-2025 History of Present illness Narrative* Elma Payne, [facility] - 2024 11:18 AM EST Subjective Cough Associated symptoms include myalgias. Pertinent [...] arm and right unlar wrist treated with cryo02/04/2019 Cataract Diverticulosis Elevated fasting blood sugar 11/09/2015 [...] in the left eye four times daily. (Patientnot taking: Reported on 05/21/2024) prednisoLONE acetate, PF, [...] Discussed expected course of illness Elma Payne APRN.SALES SERVICE ASSISTANT documented in this encounterRegency Hospital [facility]12-23-2024 Telephone encounter Note * Telephone Encounter - Yessenia Boyd MA - 06/01/2024 11:09 AM EST Prescription Refill Information The patient has been [...] Boyd MA June 01, 2024 11:09 AM [facility]12-23-2024 Miscellaneous Notes* Telephone Encounter - Yessenia Boyd MA - 06/01/2024 11:09 AM EST Prescription Refill Information The patient has been [...] 01, 2024 11:09 AM documented in this encounterRegency Hospital [facility]12-12-2024 NoteHNO ID: [id number] Author: JYOTSNA SIU PA-C Service: ? Author Type: Physician Ship Pilot Dispatcher Type: Progress Notes Filed: 05/21/2024 08:48 Note [...] Vaccine(1 - 1-dose 75+ (more content not included)...[facility]12-12-2024 History of Present illness Narrative* Jyotsna Siu PA- C - 05/21/2024 7:43 AM EST Chief Complaint Patient presents with: 6 Month Exam HPI Shamika Donahue is a 73 year old male who presents here today for Chronic Medical Conditions.. Patient with Hx of elevated fasting BS, HTN, Hyperlipidemia as well as those reviewed and addressedbelow Has a few bumps on back of his head that itches at times. Past medical history, appointments, medications, allergies reviewed. Previous Medical History PAST MEDICAL HISTORY Diagnosis Date Advance directive discussed with patient 10/11/2021 Discussed 10/2021 AK (actinic keratosis) 02/04/2019 right dorsal and lateral forearm, posterior upper right arm and right unlar wrist treated with cryo02/04/2019 Cataract Diverticulosis Elevated fasting blood sugar 11/09/2015 [...] in the left eye four times daily. (Patientnot taking: Reported on 05/21/2024) prednisoLONE acetate, PF, [...] done Influenza Vaccine(1) due on 02/09/2024 Covid-19 Vaccine(2023- season) due on 02/09/2024 DTaP,Tdap,Td Vaccine(2 - [...] YR, HIGH DOSE, TRIVALENT (FLUZONE HIGH-DOSE) - [employer] COVID-19 VACCINE AGE 12+ YR (COMIRNATY) Jyotsna Siu PA-C documented in this encounterRegency Hospital [facility]12-10-2024 NoteHNO ID: [id number] Author: RENEE CUI MA Service: ? Author Type: Mechanical Detailer Type: Progress Notes Filed: 05/19/2024 14:19 Note [...] Renee Cui MA May 19, 2024 2:18 [facility]12-10-2024 History of Present illness Narrative* Renee Cui MA - 05/19/2024 2:18 PM EST POPULATION HEALTH NAVIGATION OUTREACH Action/FYI Patient returned [...] Cui MA May 19, 2024 2:18 PM * Renee Cui MA - 05/19/2024 2:16 PM EST POPULATION HEALTH NAVIGATION OUTREACH Action/FYI Contacted patient [...] 19, 2024 2:17 PM documented in this encounterRegency Hospital [facility]12-10-2024 NoteHNO ID: [id number] Author: RENEE CUI MA Service: ? Author Type: Mechanical Detailer Type: Progress Notes Filed: 05/19/2024 14:19 Note [...] or unnecessary to reach patient: Left message ForsakeharPastBook message sent Navigation Signature: Renee Cui MA May 19, 2024 2:17 [facility]12-10-2024 NotePatient Outreach (NETNAV) SHAMIKA DONAHUE ([id number]) 1950 M Date Time Provider Department 05/19/24 [...] or unnecessary to reach patient: Left message Forsakehart message sent Navigation Signature: Renee Cui MA [...] Visit: Population Health Navigation Outreach [[id number]] Cmt: [employer]/Workbench/Brea Prescriptions as of 05/19/2024 - ezetimibe (ZETIA) [...] 10/31/2022 Encounter Status:Closed by RENEE CUI on 05/19/24[facility] 04-09-2024 Telephone encounter Note* Telephone Encounter - Carla Wihte LPN - 04/09/2024 1:59 PM EDT Prescription Refill Information The patient has been [...] White LPN April 09, 2024 1:59 PM [facility]10-31-2024 Miscellaneous Notes* Telephone Encounter - Carla White LPN - 04/09/2024 1:59 PM EDT Prescription Refill Information The patient has been [...] future office visit with this provider/department: Yes 12/12/24 Requested Prescriptions Pending Prescriptions Disp Refills ezetimibe (ZETIA) 10 mg tablet 90 tablet 1 Sig: Take 1 tablet by mouth once daily. Carla White LPN April 09, 2024 1:59 PM documented in this encounterRegency Hospital [facility]10-28-2024 Telephone encounter Note * Telephone Encounter - Yessenia Boyd MA - 04/06/2024 11:22 AM EDT Prescription Refill Information The patient has been [...] Boyd MA April 06, 2024 11:22 AM [facility]10-28-2024 Miscellaneous Notes* Telephone Encounter - Yessenia Boyd MA - 04/06/2024 11:22 AM EDT Prescription Refill Information The patient has been [...] 06, 2024 11:22 AM documented in this encounterRegency Hospital [facility]06-12-2024 History of Present illness Narrative* Vic Parra MD - 11/20/2023 8:00 AM EDT Images from the original note were not [...] with patient, and I recommended no further interventionat this time. Cognitive screening Cognitive screening reviewed [...] Hyperlipidemia as well as those reviewed and addressedbelow and in ROS Last colonoscopy Dr Wilburn 11/2021 Patient saw [facility] 07/2022 Past medical history, appointments, medications, allergies reviewed. Previous Medical History PAST MEDICAL HISTORY Diagnosis Date Advance directive discussed with patient 10/11/2021 Discussed 10/2021 AK (actinic keratosis) 02/04/2019 right dorsal and lateral forearm, posterior upper right arm and right unlar wrist treated with cryo02/04/2019 Diverticulosis Elevated fasting blood sugar 11/09/2015 Elevated [...] skin of ear 08/01/[address] Stanofrd, removed and not cancer. Previous Surgical History [...] Td or Tdap) due on 08/09/2023 Covid-19 Vaccine(2022- season) due on 09/14/2023 RSV Vaccine(1 - [...] Negative Ketones, Urine Negative Negative Negative Specific [place], Ur 1.005 - 1.030 1.011 1.011 Hemoglobin/Blood,Ur [...] BMI 31.96 kg/(m^2) - Patient was counseled qhue-zw-suwk by myself (the billing provider) for the [...] which included preparing to see the patient, rhcy-un-fukl patient care, completing clinical documentation, performing a [...] intervention at this time documented in this encounterRegency Hospital [facility]06-12-2024 Instructions* Patient Instructions* Vic Parra MD - 11/20/2023 8:00 AM EDT Please bring in copies of your power of corporate attorney for health care and living will. Consider [...] Tdap) due on 08/09/2023 Covid-19 Vaccine( - 2023-24 season) due on 09/14/2023 WHAT YOU CAN [...] review all the medicines you take, even reuj-oll-gopdzba medicines. As you get older, the way medicines work in your body can change. Some medicines, or combinations of medicines, can make you sleepy or dizzy andcan cause you to fall. 3. Have your [...] have certain medical conditions. documented in [place] encounterKevin [place] [address]-08-2024 Telephone encounter Note * Telephone Encounter - Meg Puente OCCA - 10/16/2023 7:49 AM EDT Patient has been identified by name and date of : Yes Patient phones for refill(s): Requested Prescriptions Pending Prescriptions Disp Refills amLODIPine (NORVASC) 10 mg tablet 90 tablet 1 Sig: Take 1 tablet by mouth once daily. Date of last office visit in primary care: 06/07/2023 Date of next office visit in primary care: 11/20/2023 Please advise. Thank you. RUTHY Sheehan. [facility]05-08-2024 Miscellaneous Notes* Telephone Encounter - Meg Puente OCCA - 10/16/2023 7:49 AM EDT Patient has been identified by name and [...] Thank you. RUTHY Sheehan. documented in this encounterRegency Hospital [facility]05-07-2024 Telephone encounter Note * Telephone Encounter - Yessenia Boyd MA - 10/15/2023 2:50 PM EDT Patient has been identified by name and [...] Zachary 10/15/2023 Nov 11/20/2023 Last refill: 04/2023 [facility]05-07-2024 Miscellaneous Notes* Telephone Encounter - Yessenia Boyd MA - 10/15/2023 2:50 PM EDT Patient has been identified by name and [...] 11/20/2023 Last refill: 04/2023 documented in this encounterRegency Hospital [facility]12-06-2023 Nurse Note* Yessenia Boyd MA - 05/15/2023 8:45 AM EST Samantha BP average 141/78 144/74 142/76 139/79 138/77 137/77 151/79 Yessenia Boyd MA documented in this encounterRegency Hospital [facility]12-06-2023 Instructions* Patient Instructions* Vic Parra MD - 05/15/2023 8:17 AM EST Consider getting the RSV vaccine from a local pharmacy. Please get labs and urine test done on or after 11/01/2023 prior to your next visit. documented in this encounterRegency Hospital [facility]12-06-2023 History of Present illness Narrative* Vic Parra MD - 05/15/2023 8:00 AM EST Chief Complaint Patient presents with: F/U 6 months HPI Shamika Donahue is a 72 year old male who presents here today for 6 month follow up. Patient with Hx of elevated fasting BS, HTN, Hyperlipidemia as well as those reviewed and addressedbelow and in ROS Any new concerns today? None Any recent ER/hospital visits? None Patient had cataract surgery on both eyes in February with [facility]. Patient was also exposed to COVID on Thanks[place] but having no symptoms. Past medical history, appointments, medications, allergies reviewed. Previous Medical History PAST MEDICAL HISTORY Diagnosis Date Advance directive discussed with patient 10/11/2021 Discussed 10/2021 AK (actinic keratosis) 02/04/2019 right dorsal and lateral forearm, posterior upper right arm and right unlar wrist treated with cryo02/04/2019 Diverticulosis Elevated fasting blood sugar 11/09/2015 Elevated [...] Vaccine(1) due on 02/08/2023 Covid-19 Vaccine(4 - season) due on 02/08/2023 Shingrix Vaccine(1 of [...] HIGH DOSE, QUADRIVALENT (FLUZONE HIGH-DOSE): given - [employer] COVID-19 VACCINE ( SEASON) AGE 12+ YR: [...] prior. Vic Parra MD documented in this encounterRegency Hospital [facility]10-20-2023 Miscellaneous Notes* Telephone Encounter - Salima Vargas - 03/29/2023 10:50 AM EDT Patient has been identified by name and date of : Yes Requested Prescriptions Pending Prescriptions Disp Refills amLODIPine (NORVASC) 10 mg tablet 90 tablet 1 Sig: Take 1 tablet by mouth once daily. ZACHARY:10/31/22 NOV:05/15/23 RX INSTRUCTIONS: Patient aware RX will be sent to pharmacy. No need to notify patient. Salima Vargas documented in this encounterRegency Hospital [facility]05-15-2023 Miscellaneous Notes* Telephone Encounter - Willow Cross MA - 10/22/2022 11:38 AM EDT Patient has been identified by name and [...] 10/31/22 Willow Cross MA documented in this encounterRegency Hospital [facility]02-02-2023 History of Present illness Narrative* Terrance White APRN.SALES SERVICE ASSISTANT - 07/12/2022 7:31 AM EST Images from the original note were not included. Subjective HPI HPI Shamika Donahue is a 72 year old male who presents today for CC of right eyelid pain/swelling. This started 4 days ago. Has tried atb drops from occupational therapy specialist. Symptoms are worsened by nothing known. Risk factors wears contacts. Denies vision change when eye swelling is lifted. Tractor Trailer Technician perform ed pressure testing and eye stain. .Patient presents with: Eye Problem: Right eye swollen x 4 days PAST MEDICAL HISTORY Diagnosis Date Advance directive discussed with patient 10/11/2021 Discussed 10/2021 AK (actinic keratosis) 02/04/2019 right dorsal and lateral forearm, posterior upper right arm and right unlar wrist treated with cryo02/04/2019 Diverticulosis Elevated fasting blood sugar 11/09/2015 Elevated [...] CIPROFLOXACIN 0.3 % EYE DROPS Terrance White APRN.LISA documented in this encounterReg[facility]22 Instructions* Patient Instructions* Vic Parra MD - 04/18/2022 9:[address] Parra a My Chart message in a week with home blood pressure readings. Please get labs and urine test done on or after 10/05/2022 prior to your next visit. documented in this encounterRegency [facility]11-09-2022 History of Present illness Narrative* Vic Parra MD - 04/18/2022 8:40 AM EST Chief Complaint Patient presents with: F/U 6 months HPI Shamika Donahue is a 71 year old male who presents here today for 6 month follow up. Patient with Hx of elevated fasting BS, HTN, Hyperlipidemia as well as those reviewed and addressedbelow and in ROS. Patient has been doing well. No new issues or concerns. Past medical history, appointments, medications, allergies reviewed. Previous Medical History PAST MEDICAL HISTORY Diagnosis Date Advance directive discussed with patient 10/11/2021 Discussed 10/2021 AK (actinic keratosis) 02/04/2019 right dorsal and lateral forearm, posterior upper right arm and right unlar wrist treated with cryo02/04/2019 Diverticulosis Elevated fasting blood sugar 11/09/2015 Essential [...] BP Cuff Size: Regular Adult) Pulse 60 Resp16 Wt 92.1 kg (203 lb) BMI 31.79 [...] immunization - ICD9: V03.89, ICD10: Z23 - [employer] COVID-19 BIVALENT BOOSTER VACCINE, AGE 12+ YR: [...] prior Vic Parra MD documented in this encounterReg[facility]10-24-2022 Miscellaneous Notes* Telephone Encounter - Vic Parra MD - 04/02/2022 2:42 PM EDT The following approved medication requests have been transmitted electronically. Requested Prescriptions Signed Prescriptions Disp Refills amLODIPine (NORVASC) 10 mg tablet 90 tablet 1 Sig: Take 1 tablet by mouth once daily. Authorizing Provider: VIC PARRA MD * Telephone Encounter - Yessenia Boyd MA - 04/02/2022 8:47 AM EDT Patient has been identified by name and date of : Yes Requested Prescriptions Pending Prescriptions Disp Refills amLODIPine (NORVASC) 10 mg tablet 90 tablet 1 Sig: Take 1 tablet by mouth once daily. RX INSTRUCTIONS: Patient aware RX will be sent to pharmacy. No need to notify patient. Yessenia Boyd MA Zachary: 11/2021 Nov: 04/2022 Last refill: 09/2021 documented in this encounterRegency [facility]06-20-2022 History of Present illness Narrative* Jyotsna Siu PA-C - 11/27/2021 7:12 AM EDT Chief Complaint Patient presents with: Recheck HPI [...] arm and right unlar wrist treated with cryo02/04/2019 Diverticulosis Elevated fasting blood sugar 11/09/2015 Essential [...] years. Jyotsna Siu PA-C documented in this encounterRegency Hospital [facility]06-16-2022 Nurse Note* Diana Greer RN - 11/23/2021 10:25 AM EDT Patient states nausea has subsided. Denies abdominal discomfort. Requests discharge to home. Feels privacy of own home will assist in passing flatus. Request granted, and patient ambulated to vehiclewith assistance. Diana Greer RN * Diana Greer RN - 11/23/2021 10:00 AM EDT Patient states nausea has diminished. Started to pass small amounts of flatus. Abdomen slightly softer. * Diana Greer RN - 11/23/2021 9:55 AM EDT Patient assisted to sitting position. Complains of nausea (no emesis at this time). Returned to left lateral position with application of warm blanket. Diana Greer RN * Diana Greer RN - 11/23/2021 9:30 AM EDT Abdomen tight. Patient denies passing flatus. Patient denies pain or nausea. Assisted to BRP, warm blanket applied to abdomen with zero results. Ambulated in hallways with assistance. Diana Greer RN * Diana Greer RN - 11/23/2021 9:00 AM EDT Arrived in phase II via cart. Left lateral position. Sedated, but responds to verbal stimuli. Colornormal; skin warm and dry. Respirations wnl and unlabored. Abdomen soft and with + bowel sounds in quads X 4. Patient resting comfortably. Dr. Wilburn at bedside to review procedure and recommendations. Diana Greer RN documented in this encounterRegency Hospital [facility]06-16-2022 History and physical note * Hiram Wilburn MD - 11/23/2021 8:30 AM EDT Images from the original note were not included. HISTORY AND PHYSICAL Shamika Galarza [place] 1950 REFERRING PHYSICIAN: Vic Parra MD CHIEF COMPLAINT: Consult (Colonoscopy) HPI: The patient is a 71 year old male referred for endoscopy. Shamika notes no concerns currently.Patient denies any change in bowel habits, weight changes, blood in stools, black tarry stools or abdominal pain. Denies family history of colon issues. The patient notes no upper GI complaints. Shamika has undergone prior endoscopy. Most recent colonoscopy 01/09/[address] Wilburn under conscious sedation. No concerning findings at that time. Repeat colonoscopy was recommended in 5 years basedon personal history of adenomatous polyp with villous component. Patient denies chest pain, shortness of breath or recent hospitalizations. Denies problems with sedation in the past. PAST MEDICAL HISTORY PAST MEDICAL HISTORY Diagnosis Date Advance directive discussed with patient 10/11/2021 Discussed 10/2021 AK (actinic keratosis) 02/04/2019 right dorsal and lateral forearm, posterior upper right arm and right unlar wrist treated with cryo02/04/2019 Diverticulosis Elevated fasting blood sugar 11/09/2015 Essential [...] back pain/injury, denies back problems, denies sciatica, deniesknee/foot trouble, NOTES arthritis, or denies gout. When [...] are equally round, sclera are anicteric, mucous membranesare moist, oropharynx is clear. Neck has no [...] Will plan for lower endoscopy. We discussed therisks and benefits of the planned endoscopy. I have informed the patient that complications can occur including failure to complete the endoscopy and perforation. The patient had the opportunity to ask questions concerning the planned endoscopy. My staff has also explained the procedure to the patient in understandable terms and has given the patient printed material concerning the procedure. Thepatient freely consents to surgery. The patient was offered a surgery/procedure at a [facility]. I have counseled the patient regarding [...] has been reviewed and the patient has beenexamined. The contents accurately reflect the patient's condition with the following additions or revisions since the H&P was completed. Examination indicates no changes. This H&P can be found in the attached. SIGNATURE: Hiram Wilburn III, MD PATIENT NAME: Shamika Donahue DATE: November 23, 2021 TIME: 8:02 AM documented in this encounterRegency Hospital [facility]06-01-2022 History of Present illness Narrative* Bette Lehman PA-C - 11/08/2021 8:15 AM EDT HISTORY AND PHYSICAL Shamika Donahue 1950 REFERRING PHYSICIAN: Vic Parra MD CHIEF COMPLAINT: Consult (Colonoscopy) HPI: The patient is a 71 year old male referred for endoscopy. Shamika notes no concerns currently.Patient denies any change in bowel habits, weight changes, blood in stools, black tarry stools or abdominal pain. Denies family history of colon issues. The patient notes no upper GI complaints. Shamika has undergone prior endoscopy. Most recent colonoscopy 01/09/[address] Wilburn under conscious sedation. No concerning findings at that time. Repeat colonoscopy was recommended in 5 years basedon personal history of adenomatous polyp with villous component. Patient denies chest pain, shortness of breath or recent hospitalizations. Denies problems with sedation in the past. PAST MEDICAL HISTORY Diagnosis Date Advance directive discussed with patient 10/11/2021 Discussed 10/2021 AK (actinic keratosis) 02/04/2019 right dorsal and lateral forearm, posterior upper right arm and right unlar wrist treated with cryo02/04/2019 Diverticulosis Elevated fasting blood sugar 11/09/2015 Essential [...] entered by the nurse and reviewed by md Nursing Notes: Gris Serrato 11/08/2021 8:02 AM [...] back pain/injury, denies back problems, denies sciatica, deniesknee/foot trouble, NOTES arthritis, or denies gout. When [...] are equally round, sclera are anicteric, mucous membranesare moist, oropharynx is clear. Neck has no [...] Will plan for lower endoscopy. We discussed therisks and benefits of the planned endoscopy. I have informed the patient that complications can occur including failure to complete the endoscopy and perforation. The patient had the opportunity to ask questions concerning the planned endoscopy. My staff has also explained the procedure to the patient in understandable terms and has given the patient printed material concerning the procedure. Thepatient freely consents to surgery. The patient was offered a surgery/procedure at a [facility]. I have counseled the patient regarding [...] mail. Bette Lehman PA-C documented in this encounterRegency Hospital [facility]06-01-2022 Nurse Note* Gris Serrato - 11/08/2021 8:00 AM EDT REVIEW OF SYSTEMS: General: The patient denies [...] back pain/injury, denies back problems, denies sciatica, deniesknee/foot trouble, NOTES arthritis, or denies gout. When was patient's last Mammogram screening? N/A Last Colonoscopy: 01/09/2016 Gris Serrato documented in this encounterRegency Hospital [facility]05-25-2022 Miscellaneous Notes* Telephone Encounter - Vic Parra MD - 11/01/2021 6:05 PM EDT BP good. No changes needed. * Telephone Encounter - Joaquina Dee LPN - 11/01/2021 2:53 PM EDT Manual Readin/72 Pulse: 76 Reason for blood [...] PCP. Joaquina Dee LPN documented in this encounterRegency Hospital [facility]05-25-2022 History of Present illness Narrative* Joaquina Dee LPN - 11/01/2021 2:52 PM EDT Manual Readin/72 Pulse: 76 Reason for blood [...] PCP. Joaquina Dee LPN documented in this encounterRegency Hospital [facility]05-04-2022 Instructions* Patient Instructions* Vic Parra MD - 10/11/2021 3:03 PM EDT If you want to get a shingrix vaccine for the prevention of shingles check with a local pharmacy tosee if covered. Please bring in copies of living will and durable power of corporate attorney of health care. Please get labs and urine test done on or after 03/30/2022 prior to your next visit. documented in this encounterRegency Hospital [facility]05-04-2022 History of Present illness Narrative* Vic Parra MD - 10/11/2021 2:57 PM EDT Medicare Yearly Visit Medical B eligibilty date [...] with patient, and I recommended no further interventionat this time. Functional Ability/Safety Screen 1. Was the patient's timed Up and Go test unsteady or longer than 30 seconds? No 2. Does the patient need help with the phone, transportation, shopping,preparing meals, housework, laundry, medications or managing money? No 3. Does your home have rugs in the hallway, lack of grab bars in the bathroom, lack of handrails onthe stairs or have poor lighting? No Hearing Evaluation: normal PHYSICAL EXAM BP 140/74 (BP Site: Right Arm, BP Position: Sitting, BP Cuff Size: Regular Adult) Pulse 76 Resp16 Wt 89.8 kg (198 lb) BMI 31.01 [...] Hyperlipidemia as well as those reviewed and addressedbelow and in ROS. Continues to do well. No new issues or concerns. Past medical history, appointments, medications, allergies reviewed. Previous Medical History PAST MEDICAL HISTORY Diagnosis Date AK (actinic keratosis) 02/04/2019 right dorsal and lateral forearm, posterior upper right arm and right unlar wrist treated with cryo02/04/2019 Diverticulosis Elevated fasting blood sugar 11/09/2015 Essential [...] BP Cuff Size: Regular Adult) Pulse 76 Resp16 Wt 89.8 kg (198 lb) BMI 31.01 [...] symmetric. Sensation to light touch and crainal nerves2-12 intact.. Genitalia: Normal, Penis normal. No urethral [...] Abs Lymph 1.00 - 4.00 k/uL 1.80 [place]% % 7.7 Abs [place] <0.87 k/uL 0.48 [place]% % 2.6 Abs [...] Negative Negative Ketones, Urine Negative Negative Specific [place], Ur 1.005 - 1.030 1.013 Hemoglobin/Blood,Ur Negative [...] which included preparing to see the patient, [id number] patient care, completing clinical documentation, performing a medically appropriate examination, counseling and educating the patient/family/caregiver and ordering medications, tests, or procedures. Vic Parra MD documented in this encounterRegency Hospital [facility]05-02-2022 History of Present illness Narrative* Jazlyn Irwin PSS - 10/09/2021 3:46 PM EDT POPULATION HEALTH NAVIGATION OUTREACH Action/FYI Patient called back and will discuss at PCP appt. Pt identified by name and : YES, via phone Outreach Outcome/Action Spoke to patient or caregiver: Patient declined Navigation Signature: Jazlyn Irwin PSS October 09, 2021 4:08 PM POPULATION HEALTH NAVIGATION OUTREACH Action/FYI Left msg & sent mychart. Pt identified by name and : NO Outreach Outcome/Action Unable to reach patient: Left message MyChart message sent Reason for Outreach Care Gap or Scheduling/Wellness visits Payer: Payor: [employer] MEDICARE / Plan: [employer] GOLD PLUS / Product Type: HMO / Care Gap Reviewed:: Colorectal Cancer Screening Reminder: Reminder note to check Health Maintenance for items below Health Maintenance items due: SHINGRIX VACCINE(1 of 2) Never done COVID-19 VACCINE(3 - Booster for Moderna series) due on 12/17/2020 COLORECTAL CANCER SCREENING due on 01/08/2021 ADVANCE DIRECTIVE DISCUSSION Never done Message Sent to Practice: No Navigation Signature: Jazlyn ELAM October 09, 2021 3:46 PM documented in this encounterRegency Hospital [facility]04-25-2022 Miscellaneous Notes* Telephone Encounter - Yessenia Boyd MA - 10/02/2021 11:36 AM EDT Patient has been identified by name and [...] 90 tablets 1 refill documented in this encounterRegency Hospital [facility]11-18-2020 History of Present illness Narrative* Emily Rodríguez (Rt), Carlos - 04/27/2020 1:50 PM EST Radiology Service Progress Note PATIENT NAME: Shamika Donahue DATE OF SERVICE: April 27, 2020 TIME: 2:02 PM PATIENT IDENTITY VERIFICATION COMPLETED USING TWO (2) IDENTIFIERS: Name and Date of confirmedby patient verbally. FALL SCREENING: Has the patient had 2 falls in the last year or 1 fall with injury or currently using an Ambulatory Assistive Device (Walker, Cane, Wheelchair, Crutches, etc.)? No PATIENT GENDER DATA: Male PATIENT RELEVANT IMPLANT DATA REVIEWED: Not Applicable RADIOLOGY DEPARTMENT: General X-ray: Exam(s) Completed: Upper Extremity X- Ray(s): Shoulder, AP / TRUE AP / AXILLARY right : PERIPHERAL IV DATA: Not applicable SIGNED BY: RT Trisha April 27, 2020 2:02 PM documented in this encounterReg[facility] WestEvalunemours foundation note* Diagnosis Medicare annual wellness visit, subsequent- [...] specific antigen (PSA) documented in this encounter [facility]* Diagnosis Essential hypertension with goal blood pressure less than 140/90- Primary documented in this encounter [facility]* Diagnosis Personal history of colonic polyps- Primary Colon cancer screening Special screening for malignant neoplasms, colon [facility] History of colonic polyps Personal history of colonic polyps documented in this encounter [facility]* Diagnosis Essential hypertension with goal blood pressure less than 140/90- Primary Mixed hyperlipidemia History of colon polyps Personal history of colonic polyps [facility]* Diagnosis Mixed hyperlipidemia- Primary Essential hypertension with goal blood pressure less than 140/90 Elevated fasting blood sugar Impaired fasting glucose Essential tremor Essential and other specified forms of tremor Encounter for immunization Need for other specified prophylactic vaccination against single bacterial disease Elevated PSA Elevated prostate specific antigen (PSA) documented in this encounter [facility]* Diagnosis Pain and swelling of eyelid- Primary Eye irritation Other ill-defined disorder of eye [facility]* Diagnosis Mixed hyperlipidemia documented in this encounter [facility]* Diagnosis Essential hypertension with goal blood pressure less than 140/90- Primary Mixed hyperlipidemia Elevated fasting blood sugar Impaired fasting glucose Essential tremor Essential and other specified forms of tremor Elevated PSA Elevated prostate specific antigen (PSA) Encounter for immunization Need for other specified prophylactic vaccination against single bacterial disease [facility]* Diagnosis Mixed hyperlipidemia documented in this encounter [facility]* Diagnosis Medicare annual wellness visit, subsequent- [...] unspecified single disease documented in this encounter [facility] note* Diagnosis Right shoulder pain, unspecified chronicity documented in this encounter [facility] note* Diagnosis Mixed hyperlipidemia documented in this encounter [facility] note* Diagnosis Essential hypertension with goal blood pressure less than 140/90- Primary Mixed hyperlipidemia Elevated PSA Elevated prostate specific antigen (PSA) Elevated fasting blood sugar Impaired fasting glucose Encounter for immunization Need for other specified prophylactic vaccination against single bacterial disease documented in this encounter [facility] note* Diagnosis Viral URI with cough- Primary Acute upper respiratory infections of unspecified site Viral bronchitis Acute bronchitis documented in this encounter [facility] note* Diagnosis Mixed hyperlipidemia documented in this encounter [facility] note* Diagnosis Medicare annual wellness visit, subsequent- [...] behavior of skin documented in this encounter [facility] noteNo assessment information availablePulaski Memorial [facility] Services Work Phone: Reason for referral (narrative)* Outpatient Procedure (Routine) - Closed Specialty Diagnoses / Procedures Referred By Torey galarza Ref[facility] To Contact [facility] Diagnoses History of colonic polyps Procedures COLONOSCOPY SCREENING COLONOSCOPY FLX DX W/COLLJ SPEC WHEN PFRMD Bette Lehman PA-C [address] [place] [address] [facility] [address] [place] [address] Referral ID Status Reason Start Date Expiration Date V isits Requested Visits Authorized [id number] Closed Auto-Generate d Referral 11/23/2021 12/23/2021 1 1 [facility]No reason for referral information availableKaiser Permanente [facility] Work Phone: Reason for visit Narrative* Outpatient Procedure (Routine) - Closed Specialty Diagnoses / Procedures Referred By Torey galarza Referred To Contact [facility] Diagnoses History of colonic polyps Procedures COLONOSCOPY SCREENING COLONOSCOPY FLX DX W/COLLJ SPEC WHEN PFRMD Bette Lehman PA-C [address] [place] [address] [facility] [address] [place] [address] Referral ID Status Reason Start Date Expiration Date V isits Requested Visits Authorized [id number] Closed Auto-Generate d Referral 11/23/2021 12/23/2021 1 1 [facility] Advance Directives Documents on File Type Date Recorded Patient Surveyor'S Assistant Expl anation Advance Directive(s) 01/09/2016 9:49 AM Advance Directive(s) 12/30/2015 9:35 AM Documents on File Type Date Recorded Patient Surveyor'S Assistant Expl anation Advance Directive(s) 01/09/2016 9:49 AM Advance Directive(s) 12/30/2015 9:35 AM Documents on File Type Date Recorded Patient Surveyor'S Assistant Expl anation Advance Directive(s) 11/23/2021 7:54 AM Advance Directive(s) 01/09/2016 9:49 AM Advance Directive(s) 12/30/2015 9:35 AM Documents on File Type Date Recorded Patient Surveyor'S Assistant Expl anation Advance Directive(s) 11/23/2021 7:54 AM Advance Directive(s) 01/09/2016 9:49 AM Advance Directive(s) 12/30/2015 9:35 AM Reason for Referral Specialty Diagnoses / Procedures Referred By Torey galarza Referred To Contact General Surgery Diagnoses Colon cancer screening Procedures CONSULT TO GENERAL SURGERY OFFICE/OUTPATIENT [facility] HIGH MDM 60-74 MINUTES Vic Parra MD [address] [place] [address] Referral ID Status Reason Start Date Expiration Date Visits Requested Visits Authorized [id number] Pending Review PCP Requested Referral 10/11/2021 10/11/2022 [...] EDT 3 mg Summary Purpose Family History Relationship Condition Age at Onset Recorded Date/T [...] ON EAR December 31, 2024 8:03 am Chief Complaint Admit Date NEOPLASM ON EAR December 31, 2024 8:03 am 1 W FU January 07, 2025 8:07 am Reason for Visit Admit Date Neoplasm of uncertain behavior of scalp December 31, 2024 8:03am Neoplasm of uncertain behavior of skin o f face December 31, 2024 8:03am Additional Source Comments Source Comments (unrecognize d section and content) In the event this informatio n is protected by the Federal Confidentiality of Alcohol and Drug Abuse Patient Records regulations: The Federal rules restrict any use of the information to criminally investigate or prosecute any alcohol or drug abuse patient.[facility] WestIn the event this information is protected by the Federal Confidentiality of Alcohol and Drug Abuse Patient Records regulations: The Federal rules restrict any use of the information to criminally investigate or prosecute any alcohol or drug abuse patient.[facility] WestIn the event this information is protected by the Federal Confidentiality of Alcohol and Drug Abuse Patient Records regulations: The Federal rules restrict any use of the information to criminally investigate or prosecute any alcohol or drug abuse patient.[facility] WestIn the event this information is protected by the Federal Confidentiality of Alcohol and Drug Abuse Patient Records regulations: The Federal rules restrict any use of the information to criminally investigate or prosecute any alcohol or drug abuse patient.[facility] WestIn the event this information is protected by the Federal Confidentiality of Alcohol and Drug Abuse Patient Records regulations: The Federal rules restrict any use of the information to criminally investigate or prosecute any alcohol or drug abuse patient.[facility] WestIn the event this information is protected by the Federal Confidentiality of Alcohol and Drug Abuse Patient Records regulations: The Federal rules restrict any use of the information to criminally investigate or prosecute any alcohol or drug abuse patient.[facility] WestIn the event this information is protected by the Federal Confidentiality of Alcohol and Drug Abuse Patient Records regulations: The Federal rules restrict any use of the information to criminally investigate or prosecute any alcohol or drug abuse patient.[facility] WestIn the event this information is protected by the Federal Confidentiality of Alcohol and Drug Abuse Patient Records regulations: The Federal rules restrict any use of the information to criminally investigate or prosecute any alcohol or drug abuse patient.[facility] WestIn the event this information is protected by the Federal Confidentiality of Alcohol and Drug Abuse Patient Records regulations: The Federal rules restrict any use of the information to criminally investigate or prosecute any alcohol or drug abuse patient.[facility] WestIn the event this information is protected by the Federal Confidentiality of Alcohol and Drug Abuse Patient Records regulations: The Federal rules restrict any use of the information to criminally investigate or prosecute any alcohol or drug abuse patient.[facility] WestIn the event this information is protected by the Federal Confidentiality of Alcohol and Drug Abuse Patient Records regulations: The Federal rules restrict any use of the information to criminally investigate or prosecute any alcohol or drug abuse patient.[facility] WestIn the event this information is protected by the Federal Confidentiality of Alcohol and Drug Abuse Patient Records regulations: The Federal rules restrict any use of the information to criminally investigate or prosecute any alcohol or drug abuse patient.[facility] WestIn the event this information is protected by the Federal Confidentiality of Alcohol and Drug Abuse Patient Records regulations: The Federal rules restrict any use of the information to criminally investigate or prosecute any alcohol or drug abuse patient.[facility] WestIn the event this information is protected by the Federal Confidentiality of Alcohol and Drug Abuse Patient Records regulations: The Federal rules restrict any use of the information to criminally investigate or prosecute any alcohol or drug abuse patient.[facility] West[facility] the event this information is protected by the Federal Confidentiality of Alcohol and Drug Abuse Patient Records regulations: The Federal rules restrict any use of the information to criminally investigate or prosecute any alcohol or drug abuse patient.[facility] WestIn the event this information is protected by the Federal Confidentiality of Alcohol and Drug Abuse Patient Records regulations: The Federal rules restrict any use of the information to criminally investigate or prosecute any alcohol or drug abuse patient.[facility] West[facility] the event this information is protected by the Federal Confidentiality of Alcohol and Drug Abuse Patient Records regulations: The Federal rules restrict any use of the information to criminally investigate or prosecute any alcohol or drug abuse patient.[facility] West[facility] the event this information is protected by the Federal Confidentiality of Alcohol and Drug Abuse Patient Records regulations: The Federal rules restrict any use of the information to criminally investigate or prosecute any alcohol or drug abuse patient.[facility] WestIn the event this information is protected by the Federal Confidentiality of Alcohol and Drug Abuse Patient Records regulations: The Federal rules restrict any use of the information to criminally investigate or prosecute any alcohol or drug abuse patient.[facility] WestIn the event this information is protected by the Federal Confidentiality of Alcohol and Drug Abuse Patient Records regulations: The Federal rules restrict any use of the information to criminally investigate or prosecute any alcohol or drug abuse patient.[facility] WestIn the event this information is protected by the Federal Confidentiality of Alcohol and Drug Abuse Patient Records regulations: The Federal rules restrict any use of the information to criminally investigate or prosecute any alcohol or drug abuse patient.[facility] WestIn the event this information is protected by the Federal Confidentiality of Alcohol and Drug Abuse Patient Records regulations: The Federal rules restrict any use of the information to criminally investigate or prosecute any alcohol or drug abuse patient.[facility] WestIn the event this information is protected by the Federal Confidentiality of Alcohol and Drug Abuse Patient Records regulations: The Federal rules restrict any use of the information to criminally investigate or prosecute any alcohol or drug abuse patient.[facility] WestIn the event this information is protected by the Federal Confidentiality of Alcohol and Drug Abuse Patient Records regulations: The Federal rules restrict any use of the information to criminally investigate or prosecute any alcohol or drug abuse patient.[facility] WestIn the event this information is protected by the Federal Confidentiality of Alcohol and Drug Abuse Patient Records regulations: The Federal rules restrict any use of the information to criminally investigate or prosecute any alcohol or drug abuse patient.[facility] WestIn the event this information is protected by the Federal Confidentiality of Alcohol and Drug Abuse Patient Records regulations: The Federal rules restrict any use of the information to criminally investigate or prosecute any alcohol or drug abuse patient.[facility] WestIn the event this information is protected by the Federal Confidentiality of Alcohol and Drug Abuse Patient Records regulations: The Federal rules restrict any use of the information to criminally investigate or prosecute any alcohol or drug abuse patient.[facility] WestIn the event this information is protected by the Federal Confidentiality of Alcohol and Drug Abuse Patient Records regulations: The Federal rules restrict any use of the information to criminally investigate or prosecute any alcohol or drug abuse patient.[facility] Reason for Visit (unrecogniz ed section and [...] screening Procedures CONSULT TO GENERAL SURGERY OFFICE/OUTPATIENT [facility] 60-74 MINUTES Vic Parra MD [address] [place] [address] Referral ID Status Reason Start Date Expiration Date Visits Requested Visits Authorized [id number] Pending Review PCP Requested Referral 10/11/2021 10/11/2022 [...] Date Comments Population Health Navigation Outreach 05/19/2024 [employer]/Brea Reason Comments 6 Month Exam Reason Onset Date Comments Refill Request 05/31/2024 Reason Comments Cough Bodyaches x4 days Reason Onset Date Comments Refill Request 10/10/2024 Reason Onset Date Comments Refill Request 11/10/2024 Care Teams (unrecognized sec tion and content) 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 Relationship Specialty Start Date End Date Vic Parra MD [facility] [place] [address] PCP - General Family Practice 06/06/15 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 Relationship Specialty Start Date End Date Vic Parra MD [address] [place] [address], [place] [address] PCP - General Family Practice 06/06/15 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 Relationship Specialty Start Date End Date Vic Parra MD [address] [place] [address], [place] [address] PCP - General Family Practice 06/06/15 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 Relationship Specialty Start Date End Date Vic Parra MD [address] [place] [address], [place] [address] PCP - General Family Practice 06/06/15 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 Relationship Specialty Start Date End Date Vic Parra MD [address] [place] [address], [place] [address] PCP - General Family Practice 06/06/15 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 Relationship Specialty Start Date End Date Vic Parra MD [address] [place] [address], [place] [address] PCP - General Family Practice 06/06/15 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 Relationship Specialty Start Date End Date Vic Parra MD [address] [place] [address], [place] [address] PCP - General Family Practice 06/06/15 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 Relationship Specialty Start Date End Date Vic Parra MD [address] [place] [address], [place] [address] PCP - General Family Practice 06/06/15 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 Relationship Specialty Start Date End Date Vic Parra MD [address] [place] [address], [place] [address] PCP - General Family Medicine 06/06/15 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 Relationship Specialty Start Date End Date Vic Parra MD [address] [place] [address] PCP - General Family Medicine 06/06/15 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 Relationship Specialty Start Date End Date Vic Parra MD [address] [place] [address] PCP - General Family Medicine 06/06/15 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 Relationship Specialty Start Date End Date Vic Parra MD [address] [place] [address] PCP - General Family Medicine 06/06/15 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 Relationship Specialty Start Date End Date Vic Parra MD [address] [place] [address] PCP - General Family Medicine 06/06/15 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 Relationship Specialty Start Date End Date Vic Parra MD [address] [place] [address] PCP - General Family Medicine 06/06/15 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 Relationship Specialty Start Date End Date Vic Parra MD [address] [place] [address] PCP - General Family Medicine 06/06/15 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 Relationship Specialty Start Date End Date Vic Parra MD [address] [place] [address] PCP - General Family Medicine 06/06/15 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 Relationship Specialty Start Date End Date Vic Parra MD [address] [place] [address] PCP - General Family Medicine 06/06/15 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 Relationship Specialty Start Date End Date Vic Parra MD [address] [place] [address] PCP - General Family Medicine 06/06/15 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 Relationship Specialty Start Date End Date Vic Parra MD [address] [place] [address] PCP - General Family Medicine 06/06/15 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 Relationship Specialty Start Date End Date Vic Parra MD [address] [place] [address] PCP - General Family Medicine 06/06/15 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 Relationship Specialty Start Date End Date Vic Parra MD [address] [place] [address] PCP - General Family Medicine 06/06/15 Leah Crews APRN.SALES SERVICE ASSISTANT [address] [place] [address] Actuarial Analyst Family Medicine 05/16/24 Jyotsna Siu PA-C [address] [place] [address] Actuarial Analyst Family Medicine 05/16/24 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 Relationship Specialty Start Date End Date Vic Parra MD [address] [place] [address] PCP - General Family Medicine 06/06/15 Leah Crews, ALTON.SALES SERVICE ASSISTANT [address] [place] [address] Actuarial Analyst Family [facility] 05/16/24 Jyotsna Siu PA-C [address] [place] [address] [facility] 05/16/24 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 Relationship Specialty Start Date End Date Vic Parra MD [address] [place] [address] PCP - General Family Medicine 06/06/15 Leah Crews APRN.SALES SERVICE ASSISTANT [address] [place] [address] [facility] 05/16/24 Jyotsna Siu PA-C [address] [place] [address] [facility] 05/16/24 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 Relationship Specialty Start Date End Date Vic Parra MD [address] [place] [address] PCP - General Family Medicine 06/06/15 Leah Crews APRN.SALES SERVICE ASSISTANT [address] [place] [address] [facility] 05/16/24 Jyotsna Siu PA-C [address] [place] [address] [facility] 05/16/24 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 Relationship Specialty Start Date End Date Vic Parra MD [address] [place] [address] PCP - General Family Medicine 06/06/15 Leah Crews APRN.SALES SERVICE ASSISTANT [address] [place] [address] Actuarial Analyst Family Medicine 05/16/24 Jyotsna Siu PA-C [address] [facility] [place] [address] Actuarial Analyst Family Medicine 05/16/24 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 Relationship Specialty Start Date End Date Vic Parra MD [address] [facility] [place] [address] PCP - General Family Medicine 06/06/15 Leah Crews APRN.SALES SERVICE ASSISTANT [address] [place] [address] Actuarial Analyst Family Medicine 11/09/24 Jyotsna Siu PA-C [address] [facility] [place] [address] Actuarial Analyst Family Medicine 11/09/24 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 Relationship Specialty Start Date End Date Vic Parra MD [address] [place] [address] PCP - General Family Medicine 06/06/15 Leah Crews, ALTON.SALES SERVICE ASSISTANT [address] [facility] [place] [address] Actuarial Analyst Family Medicine 11/09/24 Jyotsna Siu PA-C [address] [facility] [place] [address] Actuarial Analyst Family Medicine 11/09/24 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 Relationship Specialty Start Date End Date Vic Parra MD [address] [place], [place] [id number] PCP - General Family Medicine 06/06/15 Leah Crews APRN.CNP [address] [place], [place] [id number] Actuarial Analyst Family [facility] 11/09/24 Jyotsna Siu PA-C [address] [place] [address] Actuarial Analyst [facility] 11/09/24 Team Status: Active Member Role/Relationship Status [...] December 31, 2024 End: December 31, 2024 Team Status: Active Member Role/Relationship Status Dates Dr. Vic Parra MD Primary Care Provider Active Team Status: Inactive Member Role/Relationship Status Dates Dr. iVc Parra MD Primary Care Provider Active Start: December 31, 2024 End: December 31, 2024 Dr. Elias Coker MD Attending Provider Active Start: December 31, 2024 End: December 31, 2024 Dr. Elias Coker MD Referring Provider Active Start: December 31, 2024 End: December 31, 2024 Team Status: Active Member Role/Relationship Status Dates Dr. Vic Parra MD Primary Care Provider Active Start: January 07, 2025 Dr. Vic Parra MD Referring Provider Active Start: January 07, 2025 Dr. Elias Coker MD Attending Provider Active Start: January 07, 2025 Team Status: Inactive Member Role/Relationship Status Dates Dr. Vic Parra MD Primary Care Provider Active Start: January 07, 2025 End: January 07, 2025 Dr. Vic Parra MD Referring Provider Active Start: January 07, 2025 End: January 07, 2025 Dr. Elias Coker MD Attending Provider Active Start: January 07, 2025 End: January 07, 2025 (unrecognized sect ion and content) No Status Records FoundNo Status Records Found INFORMATION SOURCE (unrecogn ized section and content) DATE CREATED AUTHOR 11/26/2024 [facility] DATE CREATED AUTHOR AUTHOR'S ORGANIZ ATION 01/06/2025 [facility] Goals (unrecognized section and content) Goals may be documented in a n alternate sectionGoals may be documented in an alternate sectionGoals may be documented in an alternate section FOR RECORDS PERTAINING TO PATIENTS [...] BE BASED ON THE PRIMARY CLINICAL RECORDS. [employer] [facility]. provides no warranty or guarantee of the accuracy or completeness of information in this document.
== END | disposition home or self-care (01) ==
LOC: LABSPEC 01-08 06:49
PROVIDERS: PCP Family Medicine; Referring Provider Surgery Plastic and Reconstructive Surgery; Visit Provider Surgery Plastic and Reconstructive Surgery
DX: L28.0 Lichen simplex chronicus (principal); C44.319 Basal cell carcinoma of skin of other parts of face
CPT/HCPCS: 88305